=== PATIENT | female | born 1995 | race American Indian/Alaskan Native ===

== ENCOUNTER 2016-07-01 12:42 | Emergency (ER) | payer BC, MEDICAID ==
[2016-07-01 12:51] VITALS: BP 120/56
--- NOTE | 2016-07-01 13:15 | Emergency Department Report ---
Chief Complaint: Nausea/Vomiting/Diarrhea Stated Complaint: VOMITTING BLOOD/BACK PAIN /ABD PAIN Time Seen by Provider: 07/01/16 13:09 - HPI History of Present Illness: 21-year-old female presents today with vomiting times one week and vomiting blood 2 days. Positive for lower abdominal pain and burning upon urination. Denies chest pain, shortness breath, vaginal bleeding.` - ROS Review of Systems: Per HPI - Exam Vital Signs: Vital Signs 07/01/16 12:47 Temperature 98.3 F Pulse Rate 63 Respiratory 18 Rate Blood Pressure 120/56 O2 Sat by Pulse 100 Oximetry Physical Exam: General: 21-year-old female in no acute distress. Well-developed, well- nourished. CV: Regular rate and rhythm. Lungs: Clear to auscultation bilaterally. Abdomen: Tenderness to palpation of right upper quadrant. Minimal guarding. Normal bowel sounds. MSE screening note: Focused history and physical exam performed. Due to findings the following was ordered: ED Disposition for MSE Condition: Stable
[2016-07-01 13:43] LABS: Basophils % (Auto) 0.8 % (0.0-1.8); Eosinophils % (Auto) 2.3 % (0.0-4.3); Hematocrit 33.7 % (30.3-42.9); Hemoglobin 10.7 gm/dl (10.1-14.3); Mean Corpuscular HGB Conc 32 % (30-34); Mean Corpuscular Hemoglobin 27 pg (28-32); Mean Corpuscular Volume 85 fl (79-97); Platelet Count 220 K/mm3 (140-440); Red Blood Count 3.99 M/mm3 (3.65-5.03); Red Cell Distribution Width 17.9 % (13.2-15.2)
[2016-07-01 13:53] LABS: INR 1.17 (0.87-1.13)
[2016-07-01 13:54] LABS: Partial Thromboplastin Time 30.2 Sec. (24.2-36.6)
[2016-07-01 13:54] LABS: Bilirubin,Urine NEG (Negative); Blood,Urine NEG (Negative); Ketones,Urine NEG (Negative); Leukocyte Esterase,Urine NEG (Negative); Mucus,Urine 3+ /HPF; Nitrite,Urine NEG (Negative); Protein,Urine <15 mg/dL mg/dL (Negative); Urobilinogen,Urine < 2.0 mg/dL (<2.0)
[2016-07-01 14:00] LABS: Amylase 58 units/L (27-131); Anion Gap 18 mmol/L; Blood Urea Nitrogen 6 mg/dL (7-17); Calcium 8.9 mg/dL (8.4-10.2); Carbon Dioxide 23 mmol/L (22-30); Chloride 94.9 mmol/L (98-107); Glucose 78 mg/dL (65-100); Lipase 22 units/L (13-60); Potassium 3.7 mmol/L (3.6-5.0); Sodium 132 mmol/L (137-145)
--- NOTE | 2016-07-03 15:23 | ED Elopement Review ---
ED Pt Elopement review - Results review Lab results: Laboratory Tests 07/01/16 07/01/16 07/01/16 13:21 13:21 13:21 WBC 7.0 RBC 3.99 Hgb 10.7 Hct 33.7 MCV 85 MCH 27 L MCHC 32 RDW 17.9 H Plt Count 220 Lymph % (Auto) 35.2 H [place] % (Auto) 8.7 H Eos % (Auto) 2.3 Baso % (Auto) 0.8 Lymph # 2.5 [place] # 0.6 Eos # 0.2 Baso # 0.1 Seg Neutrophils % 53.0 Seg Neutrophils # 3.7 PT 14.8 INR 1.17 H APTT 30.2 Sodium 132 L Potassium 3.7 Chloride 94.9 L Carbon Dioxide 23 Anion Gap 18 BUN 6 L Creatinine 0.5 L Estimated GFR > 60 BUN/Creatinine Ratio 12.00 Glucose 78 Calcium 8.9 Amylase 58 Lipase 22 HCG, Quant Urine Color Urine Turbidity Urine pH Ur Specific [place] Urine Protein Urine Glucose (UA) Urine Ketones Urine Blood Urine Nitrite Ur Reducing Substances Urine Bilirubin Urine Ictotest Urine Urobilinogen Ur Leukocyte Esterase Urine WBC (Auto) Urine RBC (Auto) U Epithel Cells (Auto) Urine Mucus Urine HCG, Qual 07/01/16 07/01/16 13:30 14:43 WBC RBC Hgb Hct MCV MCH MCHC RDW Plt Count Lymph % (Auto) [place] % (Auto) Eos % (Auto) Baso % (Auto) Lymph # [place] # Eos # Baso # Seg Neutrophils % Seg Neutrophils # PT INR APTT Sodium Potassium Chloride Carbon Dioxide Anion Gap BUN Creatinine Estimated GFR BUN/Creatinine Ratio Glucose Calcium Amylase Lipase HCG, Quant 85506 H Urine Color Yellow Urine Turbidity Clear Urine pH 6.0 Ur Specific [place] 1.023 Urine Protein <15 mg/dl Urine Glucose (UA) Neg Urine Ketones Neg Urine Blood Neg Urine Nitrite Neg Ur Reducing Substances Not Reportable Urine Bilirubin Neg Urine Ictotest Not Reportable Urine Urobilinogen < 2.0 Ur Leukocyte Esterase Neg Urine WBC (Auto) 1.0 Urine RBC (Auto) 3.0 U Epithel Cells (Auto) 9.0 Urine Mucus 3+ Urine HCG, Qual Positive A - Call Back decision Pt Call Back Decision: No action required
== END 2016-07-01 18:26 | disposition left against medical advice (07) ==
LOC: ED 12:42
DX: K92.0 Hematemesis (principal); M54.9 Dorsalgia, unspecified; Z53.21 Procedure and treatment not carried out due to patient leaving prior to being seen by health care provider
CPT/HCPCS: 36415; 80048; 81001; 81025; 82150; 83690; 84702; 85025; 85610; 85730

== ENCOUNTER 2016-10-06 15:09 | Inpatient (IN) | payer BC ==
--- NOTE | 2016-10-06 15:44 | Event Note ---
Date: 10/06/16 Pt intially thought to be non clinic present in active seizure. Pt was given 2mg of ativan and 4mg magnesium bolus is currently going in.When I arrived at bedside, pt did have one seizure lasting less than 2 minutes. She currently is postictal but was able to tell provider her name, where she was, her edc and her pnc provider (keke Barboza). Provider construction driver Dr. Stallworth was called and report was given as she is en route to the hospital. As per support person present, pt had been having seizures "off and on" for the last hours. Ems was called at the onset of the activity. Pt denies any h/o sz and and currently just c/o headache and of feeling "hot." UDS, PIH labs, Magnesium, Ativan were all orders given by this provider. Dr. Stallworth will assume care of pt at this time and request hospitalist consultation as there is no neruo construction driver for this hospital.
[2016-10-06] MEDS ORDERED: MAGNESIUM SULFATE 40GM/1000ML 40 GM/1,000 ML BAG IV ONE (15:55)
--- NOTE | 2016-10-06 16:11 | History and Physical Report ---
History of Present Illness Date of examination: 10/06/16 Date of admission: 10/06/16 Chief complaint: seizures History of present illness: This is a 21 yo EDC 02/05/17 here via ambulance with seizure activity. She was brought in and given 4mg Ativan. She states that she has been fine until several days ago with pain in pelvic area and cousin stated that today at 2p she started shaking after c/o pain in pelvic abdominal area. She does not have any histroy of seiaure and only medical problem consists of asthma Past History Past Medical History: asthma Past Surgical History: section (x1 for failure to dilate ) Family/Genetic History: none Social history: single. denies: smoking, alcohol abuse, prescription drug abuse , IV drug use - Obstetrical History Expected Date of Delivery: 02/05/17 Actual Gestation: 22 Week(s) 4 Day(s) : 1 Para: 1 Medications and Allergies Allergies Allergy/AdvReac Type Severity Reaction Status Date / Time coconut oil Allergy Hives Verified 03/29/14 21:23 kiwi Allergy Hives Verified 03/29/14 21:23 Home Medications Medication Instructions Recorded Confirmed Last Taken Type Ferrous Sulfate [Feosol 325 MG tab] 325 mg PO BID #60 tablet 01/27/16 Unknown Rx Ibuprofen [Motrin 800 MG tab] 800 mg PO Q8HR PRN #30 tablet 01/27/16 Unknown Rx oxyCODONE /ACETAMINOPHEN [Percocet 1 tab PO Q6HR PRN #30 tablet 01/27/16 Unknown Rx 5/325] Review of Systems All systems: negative Constitutional: no weight loss Eyes: deferred Ears, nose, mouth and throat: deferred Breasts: deferred Genitourinary: pelvic pain Rectal Exam: deferred - Vital Signs Vital signs: Vital Signs Pulse Pulse Ox 110 H 76 L 10/06/16 15:10 10/06/16 15:10 Temp Pulse Resp BP Pulse Ox 96 H 126/76 99 10/06/16 16:01 10/06/16 16:01 10/06/16 15:58 - Physical Exam Breasts: Positive: deferred Cardiovascular: Regular rate, Normal S1 Lungs: Positive: Clear to auscultation Abdomen: Positive: normal appearance, soft, normal bowel sounds. Negative: distention, tenderness Genitourinary (Female): Positive: normal external genitalia, normal perenium Vulva: both: normal Vagina: Positive: normal moisture Uterus: Positive: normal size, normal contour Adnexa: both: normal Anus/Rectum: Positive: normal perianal skin, heme negative Extremities: Positive: normal Deep Tendon Reflex Grade: Normal but brisk +3 - Obstetrical FHR: auscultation normal Results All other labs normal. Assessment and Plan A/P HD#1 seizure activity 22 weeks , assess for eclampsia 1. s/p ativan 4mg 2. on Mag for preeclampsia 3. PIH labs stat 4. US bedside to assess well being 5. internal med consult ( no neuro available-talked to Dr. Carrillo) 6. MFM referral consult placed 7. if continued with seizure may consider Kepra 1g over 30 min infusion ) and consider MRI without contrast
[2016-10-06] MEDS ORDERED: MYLICON PO PRN (16:16)
[2016-10-06] MEDS ORDERED: BENADRYL PO PRN (16:16)
[2016-10-06] MEDS ORDERED: SENOKOT S PO PRN (16:16)
[2016-10-06] MEDS ORDERED: SUDAFED PO PRN (16:16)
[2016-10-06] MEDS ORDERED: COLACE PO PRN (16:16)
[2016-10-06] MEDS ORDERED: TYLENOL PO PRN (16:16)
[2016-10-06] MEDS ORDERED: ALUM-MAG HYDROX-SIMETH 200-200-20MG/5ML PO PRN (16:16)
[2016-10-06] MEDS ORDERED: DEEP SEA NS PRN (16:16)
[2016-10-06] MEDS ORDERED: MILK OF MAGNESIA PO PRN (16:16)
[2016-10-06 17:14] LABS: Basophils % (Auto) 0.3 % (0.0-1.8); Eosinophils % (Auto) 0.8 % (0.0-4.3); Hemoglobin 10.2 gm/dl (10.1-14.3); Mean Corpuscular HGB Conc 33 % (30-34); Mean Corpuscular Hemoglobin 29 pg (28-32); Mean Corpuscular Volume 88 fl (79-97); Platelet Count 184 K/mm3 (140-440); Red Blood Count 3.51 M/mm3 (3.65-5.03); Red Cell Distribution Width 14.3 % (13.2-15.2); White Blood Count 10.2 K/mm3 (4.5-11.0)
[2016-10-06 17:23] LABS: Bilirubin,Urine NEG (Negative); Blood,Urine NEG (Negative); Ketones,Urine 20 mg/dL (Negative); Leukocyte Esterase,Urine NEG (Negative); Mucus,Urine FEW /HPF; Nitrite,Urine NEG (Negative); Protein,Urine <15 mg/dL mg/dL (Negative); RBC,Urine < 1.0 /HPF (0.0-6.0); Urobilinogen,Urine < 2.0 mg/dL (<2.0); WBC,Urine < 1.0 /HPF (0.0-6.0)
[2016-10-06 17:30] LABS: Alanine Aminotransferase 7 units/L (7-56); Lactate Dehydrogenase 146 units/L (91-180); Uric Acid 3.1 mg/dL (3.5-7.6)
[2016-10-06 19:33] LABS: Urine Drugs of Abuse Note Disclamer
[2016-10-06] MEDS ORDERED: MAGNESIUM SULFATE 4GM/100ML 4 GM/100 ML BAG IV ONE (19:42)
--- NOTE | 2016-10-06 23:46 | Ultrasound Report ---
FINAL REPORT PROCEDURE: US OB LIMITED TECHNIQUE: Real-time limited sonographic examination was performed for evaluation of size, position, heartbeat, fluid volume for each fetus with image documentation (1 or more fetuses). CPT 06959 HISTORY: leaking fluid ([place]) COMPARISON: No prior studies are available for comparison. FINDINGS: Amniotic fluid index is 2.3 centimeters consistent with oligohydramnios. heart rate is 118 beats per minute. IMPRESSION: Amniotic fluid index is 2.3 centimeters consistent with oligohydramnios. heart rate is 118 beats per minute.
--- NOTE | 2016-10-06 23:54 | Consultation ---
History of Present Illness - Reason for Consult Consult date: 10/06/16 MEDICAL MANAGEMENT Requesting physician: BYRON SOL - History of Present Illness 21 y/o AAF female with 20 weeks brought in for new onset Seizure activity.Patient,s seizure activity consisted of shaking and blinking her eyes.No post ictal state.No LOC.No tongue biting.No Sob.No fever or chills. Past History Past Medical History: No medical history Past Surgical History: Other (c sectionx1) Social history: single, lives with family, other (THC use). denies: smoking, alcohol abuse, prescription drug abuse, IV drug use Medications and Allergies Allergies Allergy/AdvReac Type Severity Reaction Status Date / Time coconut oil Allergy Hives Verified 03/29/14 21:23 kiwi Allergy Hives Verified 03/29/14 21:23 Home Medications Medication Instructions Recorded Confirmed Last Taken Type Ferrous Sulfate [Feosol 325 MG tab] 325 mg PO BID #60 tablet 01/27/16 10/06/16 Unknown Rx Ibuprofen [Motrin 800 MG tab] 800 mg PO Q8HR PRN #30 tablet 01/27/16 10/06/16 Unknown Rx oxyCODONE /ACETAMINOPHEN [Percocet 1 tab PO Q6HR PRN #30 tablet 01/27/16 Unknown Rx 5/325] Vit W-Ca,Fe,FA(<1 mg) 1 each PO DAILY 10/06/16 10/06/16 10/04/16 08:00 History [ Vitamins] Active Meds: Active Medications Acetaminophen (Tylenol) 650 mg PO Q4H PRN PRN Reason: Pain MILD(1-3)/Fever >100.5/PINO Al Hydrox/Mg Hydrox/Simethicone (Alum-Mag Hydrox-Simeth [phone]/5ml) 30 ml PO Q6H PRN PRN Reason: Indigestion Diphenhydramine HCl (Benadryl) 25 mg PO Q6H PRN PRN Reason: Itching Docusate Sodium (Colace) 100 mg PO Q12H PRN PRN Reason: Constipation Lactated Ringer's (Lactated Ringers) 1,000 mls @ 125 mls/hr IV DIRECT ALEX Magnesium Hydroxide (Milk Of Magnesia) 30 ml PO QHS PRN PRN Reason: Laxative Effect Multivitamins/Iron/Calcium ( Vitamin) 1 each PO QDAY ALEX Ondansetron HCl (Zofran) 4 mg IV Q6H PRN PRN Reason: Nausea And Vomiting Pseudoephedrine HCl (Sudafed) 30 mg PO Q4H PRN PRN Reason: Nasal Congestion Senna/Docusate Sodium (Senokot S) 2 tab PO Q12H PRN PRN Reason: Laxative Effect Simethicone (Mylicon) 80 mg PO Q6H PRN PRN Reason: Gas pain Sodium Chloride (Deep Sea) 2 spray NS Q4H PRN PRN Reason: Congestion Zolpidem Tartrate (Ambien) 10 mg PO ONCE PRN PRN Reason: Sleep Review of Systems All systems: negative Exam - Constitutional Vitals: Temp Pulse Resp BP Pulse Ox 75 101/51 100 10/06/16 23:45 10/06/16 23:45 10/06/16 23:36 General appearance: Present: no acute distress, well-nourished - EENT Eyes: Present: PERRL ENT: hearing intact, clear oral mucosa - Neck Neck: Present: supple, normal ROM - Respiratory Respiratory effort: normal Respiratory: bilateral: CTA - Cardiovascular Heart rate: 70 Rhythm: regular Heart Sounds: Present: S1 & S2. Absent: rub, click - Extremities Extremities: pulses intact, pulses symmetrical, No edema Peripheral Pulses: within normal limits - Abdominal General gastrointestinal: Present: soft, non-tender, non-distended, normal bowel sounds Female genitourinary: Present: normal - Integumentary Integumentary: Present: clear, warm, dry - Musculoskeletal Musculoskeletal: gait normal, strength equal bilaterally - Psychiatric Psychiatric: appropriate mood/affect, intact judgment & insight, memory intact, cooperative, agitated - Neurologic Neurologic: CNII-XII intact, moves all extremities - Allied Health Allied health notes reviewed: nursing Results - Labs CBC & Chem 7: 10/06/16 16:30 10/06/16 16:30 Labs: Abnormal lab results 10/06/16 10/06/16 10/06/16 Range/Units 16:30 16:30 16:30 RBC 3.51 L (3.65-5.03) M/mm3 Seg Neutrophils % 74.3 H (40.0-70.0) % Creatinine 0.3 L (0.7-1.2) mg/dL Uric Acid 3.1 L (3.5-7.6) mg/dL Magnesium 4.20 H (1.7-2.3) mg/dL Assessment and Plan - Patient Problems (1) Seizure disorder Current Visit: Yes Status: Acute Plan to address problem: Not consistent with Tonic clonic seizures.No post ictal state. Patient under lot of stress.C/W conversion reaction. Will start Ativan 1 mg q4 prn.No Keppra at this point.Will also consult Neurology.May be discharged on po Ativan 0.5 mg po qid.
[2016-10-07] MEDS: LACTATED RINGERS 1,000 ML IV SCH ×2 (01:00→13:47)
[2016-10-07] MEDS ORDERED: NITRATEST PAPER MC ONE (06:18)
--- NOTE | 2016-10-07 07:55 | Progress Note ---
Assessment and Plan A/P HD#2 seizure activity 22 weeks , PPROM 1. s/p ativan 4mg on keppra ( no seizure activity since yesterday) 2. on Mag for preeclampsia 3. PIH labs normal 4. US shows decreased fluid from 17 to 2cm ferning + nitrazine equicvocal 5. await neuro consult 6. d/w Dr. Mixon recommneded latency abx amp and erythro 7. MFM evaluationof patient now 8. NICCu consult for 22 weeks counseling Subjective - Subjective Date of service: 10/07/16 Principal diagnosis: 22+4 weeks IUP, seizure disorder, PPROM Interval history: This is a 21 yo EDC 02/05/17 here via ambulance with seizure activity. She was brought in and given 4mg Ativan. She states that she has been fine until several days ago with pain in pelvic area and cousin stated that today at 2p she started shaking after c/o pain in pelvic abdominal area. She does not have any histroy of seiaure and only medical problem consists of asthma Patient reports: loss of fluid, vaginal bleeding, movement normal, contractions Objective - Vital Signs Vital Signs: Vital Signs - 12hr 10/06/16 10/06/16 10/06/16 20:00 20:15 20:31 Temperature Pulse Rate 80 80 76 Respiratory Rate Blood Pressure 103/53 101/58 104/56 O2 Sat by Pulse Oximetry 10/06/16 10/06/16 10/06/16 20:36 20:41 20:46 Temperature Pulse Rate 88 83 71 Respiratory Rate Blood Pressure O2 Sat by Pulse 98 99 99 Oximetry 10/06/16 10/06/16 10/06/16 20:47 20:51 20:56 Temperature Pulse Rate 75 73 67 Respiratory Rate Blood Pressure 104/57 O2 Sat by Pulse 99 99 Oximetry 10/06/16 10/06/16 10/06/16 21:00 21:01 21:06 Temperature Pulse Rate 71 75 76 Respiratory Rate Blood Pressure 111/58 O2 Sat by Pulse 99 98 Oximetry 10/06/16 10/06/16 10/06/16 21:11 21:16 21:17 Temperature Pulse Rate 79 79 78 Respiratory Rate Blood Pressure 102/55 O2 Sat by Pulse 98 98 Oximetry 10/06/16 10/06/16 10/06/16 21:21 21:26 21:30 Temperature Pulse Rate 73 68 71 Respiratory Rate Blood Pressure 109/63 O2 Sat by Pulse 99 100 Oximetry 10/06/16 10/06/16 10/06/16 21:31 21:36 21:41 Temperature Pulse Rate 66 67 80 Respiratory Rate Blood Pressure O2 Sat by Pulse 100 100 100 Oximetry 10/06/16 10/06/16 10/06/16 21:46 21:49 21:51 Temperature Pulse Rate 80 87 76 Respiratory Rate Blood Pressure 117/66 O2 Sat by Pulse 100 77 L 100 Oximetry 10/06/16 10/06/16 10/06/16 21:56 22:00 22:01 Temperature Pulse Rate 71 72 83 Respiratory Rate Blood Pressure 110/60 O2 Sat by Pulse 100 100 Oximetry 10/06/16 10/06/16 10/06/16 22:06 22:11 22:15 Temperature Pulse Rate 72 71 74 Respiratory Rate Blood Pressure 105/56 O2 Sat by Pulse 100 100 Oximetry 10/06/16 10/06/16 10/06/16 22:16 22:21 22:26 Temperature Pulse Rate 74 79 71 Respiratory Rate Blood Pressure O2 Sat by Pulse 100 100 100 Oximetry 10/06/16 10/06/16 10/06/16 22:30 22:31 22:36 Temperature Pulse Rate 77 78 78 Respiratory Rate Blood Pressure 109/59 O2 Sat by Pulse 99 99 Oximetry 10/06/16 10/06/16 10/06/16 22:41 22:45 22:46 Temperature Pulse Rate 89 77 71 Respiratory Rate Blood Pressure 116/67 O2 Sat by Pulse 99 100 Oximetry 10/06/16 10/06/16 10/06/16 22:51 22:56 23:00 Temperature Pulse Rate 84 78 64 Respiratory Rate Blood Pressure 112/57 O2 Sat by Pulse 100 100 Oximetry 10/06/16 10/06/16 10/06/16 23:01 23:06 23:11 Temperature Pulse Rate 65 68 68 Respiratory Rate Blood Pressure O2 Sat by Pulse 100 100 100 Oximetry 10/06/16 10/06/16 10/06/16 23:15 23:16 23:21 Temperature Pulse Rate 68 84 70 Respiratory Rate Blood Pressure 116/58 O2 Sat by Pulse 100 100 Oximetry 10/06/16 10/06/16 10/06/16 23:26 23:30 23:31 Temperature Pulse Rate 75 83 68 Respiratory Rate Blood Pressure 109/55 O2 Sat by Pulse 99 99 Oximetry 10/06/16 10/06/16 10/06/16 23:33 23:36 23:45 Temperature Pulse Rate 64 61 75 Respiratory Rate Blood Pressure 101/51 O2 Sat by Pulse 85 100 Oximetry 10/07/16 10/07/16 10/07/16 00:00 00:15 00:30 Temperature 98.8 F Pulse Rate 69 68 72 Respiratory 20 Rate Blood Pressure 98/54 93/51 96/53 O2 Sat by Pulse Oximetry 10/07/16 10/07/16 10/07/16 00:45 01:00 01:15 Temperature Pulse Rate 77 71 67 Respiratory Rate Blood Pressure 93/54 99/57 97/54 O2 Sat by Pulse Oximetry 10/07/16 10/07/16 10/07/16 01:30 01:45 02:00 Temperature Pulse Rate 80 72 70 Respiratory Rate Blood Pressure 97/54 101/53 101/52 O2 Sat by Pulse Oximetry 10/07/16 10/07/16 10/07/16 02:15 02:30 02:45 Temperature Pulse Rate 80 82 78 Respiratory Rate Blood Pressure 103/57 104/56 101/54 O2 Sat by Pulse Oximetry 10/07/16 10/07/16 10/07/16 02:52 02:57 03:00 Temperature Pulse Rate 76 74 76 Respiratory Rate Blood Pressure 93/51 O2 Sat by Pulse 99 99 Oximetry 10/07/16 10/07/16 10/07/16 03:02 03:07 03:12 Temperature Pulse Rate 75 86 80 Respiratory Rate Blood Pressure O2 Sat by Pulse 98 99 99 Oximetry 10/07/16 10/07/16 10/07/16 03:15 03:17 03:22 Temperature Pulse Rate 76 71 74 Respiratory Rate Blood Pressure 97/54 O2 Sat by Pulse 99 98 Oximetry 10/07/16 10/07/16 10/07/16 03:27 03:30 03:32 Temperature Pulse Rate 72 72 74 Respiratory Rate Blood Pressure 100/51 O2 Sat by Pulse 98 98 Oximetry 10/07/16 10/07/16 10/07/16 03:37 03:42 03:45 Temperature Pulse Rate 70 74 80 Respiratory Rate Blood Pressure 95/51 O2 Sat by Pulse 98 100 Oximetry 10/07/16 10/07/16 10/07/16 03:47 03:52 03:57 Temperature Pulse Rate 79 79 80 Respiratory Rate Blood Pressure O2 Sat by Pulse 100 100 100 Oximetry 10/07/16 10/07/16 10/07/16 04:00 04:02 04:07 Temperature 98.2 F Pulse Rate 83 84 79 Respiratory 20 Rate Blood Pressure 93/54 O2 Sat by Pulse 100 100 Oximetry 10/07/16 10/07/16 10/07/16 04:12 04:15 04:17 Temperature Pulse Rate 85 85 89 Respiratory Rate Blood Pressure 99/50 O2 Sat by Pulse 100 100 Oximetry 10/07/16 10/07/16 10/07/16 04:22 04:27 04:30 Temperature Pulse Rate 82 75 79 Respiratory Rate Blood Pressure 106/52 O2 Sat by Pulse 100 100 94 Oximetry 10/07/16 10/07/16 10/07/16 04:32 04:37 04:42 Temperature Pulse Rate 77 73 79 Respiratory Rate Blood Pressure O2 Sat by Pulse 94 96 94 Oximetry 10/07/16 10/07/16 10/07/16 04:45 04:47 04:52 Temperature Pulse Rate 76 76 71 Respiratory Rate Blood Pressure 100/55 O2 Sat by Pulse 96 94 Oximetry 10/07/16 10/07/16 10/07/16 04:57 05:00 05:02 Temperature Pulse Rate 77 75 81 Respiratory Rate Blood Pressure 106/58 O2 Sat by Pulse 96 97 Oximetry 10/07/16 10/07/16 10/07/16 05:07 05:12 05:15 Temperature Pulse Rate 88 82 77 Respiratory Rate Blood Pressure 96/53 O2 Sat by Pulse 96 96 Oximetry 10/07/16 10/07/16 10/07/16 05:17 05:22 05:27 Temperature Pulse Rate 85 82 82 Respiratory Rate Blood Pressure O2 Sat by Pulse 96 96 95 Oximetry 10/07/16 10/07/16 10/07/16 05:30 05:31 05:32 Temperature Pulse Rate 81 80 80 Respiratory Rate Blood Pressure 94/52 O2 Sat by Pulse 94 95 Oximetry 10/07/16 10/07/16 10/07/16 05:37 05:42 05:45 Temperature Pulse Rate 77 81 82 Respiratory Rate Blood Pressure 100/53 O2 Sat by Pulse 95 95 Oximetry 10/07/16 10/07/16 10/07/16 05:47 05:48 05:52 Temperature Pulse Rate 79 79 79 Respiratory Rate Blood Pressure O2 Sat by Pulse 96 94 96 Oximetry 10/07/16 10/07/16 10/07/16 06:00 06:01 06:14 Temperature Pulse Rate 71 72 75 Respiratory Rate Blood Pressure 100/52 102/50 O2 Sat by Pulse 94 Oximetry 10/07/16 10/07/16 10/07/16 06:15 06:16 06:20 Temperature Pulse Rate 77 77 79 Respiratory Rate Blood Pressure 107/54 O2 Sat by Pulse 95 95 Oximetry 10/07/16 10/07/16 10/07/16 06:23 06:25 06:29 Temperature Pulse Rate 74 78 88 Respiratory Rate Blood Pressure O2 Sat by Pulse 94 95 94 Oximetry 10/07/16 10/07/16 10/07/16 06:30 06:35 06:40 Temperature Pulse Rate 82 94 H 86 Respiratory Rate Blood Pressure 104/53 O2 Sat by Pulse 95 93 98 Oximetry 10/07/16 10/07/16 10/07/16 06:45 06:50 06:55 Temperature Pulse Rate 85 94 H 79 Respiratory Rate Blood Pressure 104/59 O2 Sat by Pulse 99 100 99 Oximetry 10/07/16 10/07/16 10/07/16 07:00 07:05 07:10 Temperature Pulse Rate 84 82 98 H Respiratory Rate Blood Pressure 103/55 O2 Sat by Pulse 99 99 99 Oximetry 10/07/16 10/07/16 10/07/16 07:15 07:20 07:25 Temperature Pulse Rate 75 72 80 Respiratory Rate Blood Pressure 114/62 O2 Sat by Pulse 100 100 100 Oximetry 10/07/16 10/07/16 10/07/16 07:30 07:31 07:35 Temperature Pulse Rate 75 80 69 Respiratory Rate Blood Pressure 114/56 O2 Sat by Pulse 100 98 Oximetry 10/07/16 10/07/16 07:40 07:45 Temperature Pulse Rate 77 77 Respiratory Rate Blood Pressure 112/59 O2 Sat by Pulse 98 100 Oximetry - Exam Breasts: deferred Cardiovascular: Regular rate, Normal S1, Normal S2 Lungs: Clear to auscultation, Normal air movement Abdomen: Present: normal appearance, soft, normal bowel sounds. Absent: distention, tenderness, guarding Vulva: both: normal Uterus: Present: normal, firm. Absent: bogginess, tenderness FHR: auscultation normal - Labs Labs: Abnormal Labs 10/06/16 10/06/16 10/06/16 16:30 16:30 16:30 RBC 3.51 L Seg Neutrophils % 74.3 H Creatinine 0.3 L Uric Acid 3.1 L Magnesium 4.20 H 10/06/16 23:39 RBC Seg Neutrophils % Creatinine Uric Acid Magnesium 5.90 H Laboratory Results - last 24 hr 10/06/16 10/06/16 10/06/16 15:25 16:30 16:30 WBC 10.2 RBC 3.51 L Hgb 10.2 Hct 31.0 MCV 88 MCH 29 MCHC 33 RDW 14.3 Plt Count 184 Lymph % (Auto) 17.3 [place] % (Auto) 7.3 Eos % (Auto) 0.8 Baso % (Auto) 0.3 Lymph # 1.8 [place] # 0.7 Eos # 0.1 Baso # 0.0 Seg Neutrophils % 74.3 H Seg Neutrophils # 7.6 Creatinine 0.3 L Estimated GFR > 60 POC Glucose 70 Uric Acid 3.1 L Magnesium AST 11 ALT 7 Lactate Dehydrogenase 146 Urine Color Urine Turbidity Urine pH Ur Specific [place] Urine Protein Urine Glucose (UA) Urine Ketones Urine Blood Urine Nitrite Urine Bilirubin Urine Urobilinogen Ur Leukocyte Esterase Urine WBC (Auto) Urine RBC (Auto) U Epithel Cells (Auto) Urine Mucus Urine Opiates Screen Urine Methadone Screen Ur Barbiturates Screen Ur Phencyclidine Scrn Ur Amphetamines Screen U Benzodiazepines Scrn Urine Cocaine Screen U Marijuana (THC) Screen Drugs of Abuse Note Blood Type Antibody Screen SHANICE Antibody Screen 10/06/16 10/06/16 10/06/16 16:30 16:30 16:45 WBC RBC Hgb Hct MCV MCH MCHC RDW Plt Count Lymph % (Auto) [place] % (Auto) Eos % (Auto) Baso % (Auto) Lymph # [place] # Eos # Baso # Seg Neutrophils % Seg Neutrophils # Creatinine Estimated GFR POC Glucose Uric Acid Magnesium 4.20 H AST ALT Lactate Dehydrogenase Urine Color Yellow Urine Turbidity Clear Urine pH 7.0 Ur Specific [place] 1.013 Urine Protein <15 mg/dl Urine Glucose (UA) Neg Urine Ketones 20 Urine Blood Neg Urine Nitrite Neg Urine Bilirubin Neg Urine Urobilinogen < 2.0 Ur Leukocyte Esterase Neg Urine WBC (Auto) < 1.0 Urine RBC (Auto) < 1.0 U Epithel Cells (Auto) < 1.0 Urine Mucus Few Urine Opiates Screen Urine Methadone Screen Ur Barbiturates Screen Ur Phencyclidine Scrn Ur Amphetamines Screen U Benzodiazepines Scrn Urine Cocaine Screen U Marijuana (THC) Screen Drugs of Abuse Note Blood Type A POSITIVE Antibody Screen TNR SHANICE Antibody Screen Negative 10/06/16 10/06/16 16:45 23:39 WBC RBC Hgb Hct MCV MCH MCHC RDW Plt Count Lymph % (Auto) [place] % (Auto) Eos % (Auto) Baso % (Auto) Lymph # [place] # Eos # Baso # Seg Neutrophils % Seg Neutrophils # Creatinine Estimated GFR POC Glucose Uric Acid Magnesium 5.90 H AST ALT Lactate Dehydrogenase Urine Color Urine Turbidity Urine pH Ur Specific [place] Urine Protein Urine Glucose (UA) Urine Ketones Urine Blood Urine Nitrite Urine Bilirubin Urine Urobilinogen Ur Leukocyte Esterase Urine WBC (Auto) Urine RBC (Auto) U Epithel Cells (Auto) Urine Mucus Urine Opiates Screen Presumptive negative Urine Methadone Screen Presumptive negative Ur Barbiturates Screen Presumptive negative Ur Phencyclidine Scrn Presumptive negative Ur Amphetamines Screen Presumptive negative U Benzodiazepines Scrn Presumptive negative Urine Cocaine Screen Presumptive negative U Marijuana (THC) Screen Presumptive positive Drugs of Abuse Note Disclamer Blood Type Antibody Screen SHANICE Antibody Screen
--- NOTE | 2016-10-07 08:15 | Consultation ---
History of Present Illness - Reason for Consult Consult date: 10/07/16 22wk, seizure activity, PPROM Requesting physician: BYRON SOL Past History Past Medical History: No medical history Past Surgical History: Other (c sectionx1) Social history: single, lives with family, other (THC use). denies: smoking, alcohol abuse, prescription drug abuse, IV drug use Medications and Allergies Allergies Allergy/AdvReac Type Severity Reaction Status Date / Time coconut oil Allergy Hives Verified 03/29/14 21:23 kiwi Allergy Hives Verified 03/29/14 21:23 Home Medications Medication Instructions Recorded Confirmed Last Taken Type Ferrous Sulfate [Feosol 325 MG tab] 325 mg PO BID #60 tablet 01/27/16 10/06/16 Unknown Rx Ibuprofen [Motrin 800 MG tab] 800 mg PO Q8HR PRN #30 tablet 01/27/16 10/06/16 Unknown Rx oxyCODONE /ACETAMINOPHEN [Percocet 1 tab PO Q6HR PRN #30 tablet 01/27/16 Unknown Rx 5/325] Vit W-Ca,Fe,FA(<1 mg) 1 each PO DAILY 10/06/16 10/06/16 10/04/16 08:00 History [ Vitamins] Active Meds: Active Medications Acetaminophen (Tylenol) 650 mg PO Q4H PRN PRN Reason: Pain MILD(1-3)/Fever >100.5/PINO Al Hydrox/Mg Hydrox/Simethicone (Alum-Mag Hydrox-Simeth [phone]/5ml) 30 ml PO Q6H PRN PRN Reason: Indigestion Diphenhydramine HCl (Benadryl) 25 mg PO Q6H PRN PRN Reason: Itching Docusate Sodium (Colace) 100 mg PO Q12H PRN PRN Reason: Constipation Lactated Ringer's (Lactated Ringers) 1,000 mls @ 125 mls/hr IV DIRECT ALEX Last Admin: 10/07/16 01:00 Dose: 100 mls/hr Ampicillin Sodium (Polycillin/Ns 2 Gm/100 Ml) 2 gm in 100 mls @ 100 mls/hr IV Q6HR [facility] Stop: 10/09/16 00:59 Erythromycin Lactobionate 250 (mg/ Sodium Chloride) 100 mls @ 100 mls/hr IV Q6HR [facility] Stop: 10/09/16 00:59 Lorazepam (Ativan) 1 mg IV Q4H PRN PRN Reason: Seizures Magnesium Hydroxide (Milk Of Magnesia) 30 ml PO QHS PRN PRN Reason: Laxative Effect Multivitamins/Iron/Calcium ( Vitamin) 1 each PO QDAY [facility] Ondansetron HCl (Zofran) 4 mg IV Q6H PRN PRN Reason: Nausea And Vomiting Pseudoephedrine HCl (Sudafed) 30 mg PO Q4H PRN PRN Reason: Nasal Congestion Senna/Docusate Sodium (Senokot S) 2 tab PO Q12H PRN PRN Reason: Laxative Effect Simethicone (Mylicon) 80 mg PO Q6H PRN PRN Reason: Gas pain Sodium Chloride (Deep Sea) 2 spray NS Q4H PRN PRN Reason: Congestion Zolpidem Tartrate (Ambien) 10 mg PO ONCE PRN PRN Reason: Sleep Exam - Constitutional Vitals: Temp Pulse Resp BP Pulse Ox 98.2 F 76 20 111/60 97 10/07/16 04:00 10/07/16 08:10 10/07/16 04:00 10/07/16 08:01 10/07/16 08:10 Results - Labs CBC & Chem 7: 10/06/16 16:30 10/06/16 16:30 Labs: Abnormal lab results 10/06/16 10/06/16 10/06/16 Range/Units 16:30 16:30 16:30 RBC 3.51 L (3.65-5.03) M/mm3 Seg Neutrophils % 74.3 H (40.0-70.0) % Creatinine 0.3 L (0.7-1.2) mg/dL Uric Acid 3.1 L (3.5-7.6) mg/dL Magnesium 4.20 H (1.7-2.3) mg/dL 10/06/16 10/07/16 Range/Units 23:39 07:28 RBC (3.65-5.03) M/mm3 Seg Neutrophils % (40.0-70.0) % Creatinine (0.7-1.2) mg/dL Uric Acid (3.5-7.6) mg/dL Magnesium 5.90 H 4.50 H (1.7-2.3) mg/dL Assessment and Plan Pt. seen. Full consult to follow in paper chart. No additional recommendations at this time.
--- NOTE | 2016-10-07 08:22 | Ultrasound Report ---
Gestation: Single Position: Breech Amniotic Fluid: JEREMIE = 17.2 cm Placenta: Fundal Placental Grade: 0 Heart Rate: 130 BPM Cervical length: 3.5 cm (Normal > 3 cm) NEUROANATOMY VISUALIZED: Normal Choroid Plexus Cisterna Magnum Cerebellum Lateral Ventricle ANATOMY VISUALIZED: Normal Stomach Kidneys Bladder Diaphragm 4 Chamber Heart Heart 3 Vessel Cord Abd. Cord Insert The following are not demonstrated due to maternal body habitus or lie: Spine BPD: 5.4 cm = 22 w 4 d HC: 21.2 cm = 23 w 2 d AC: 19.41 cm = 24 w 1 d FL: 3.7 cm = 21 w 6 d HC/AC Ratio: 1.1 Cephalic Index: 73.1 Estimated Weight: 563 grams LMP: 05/01/16 Clinical age = 22 w 4 d EDC: 02/05/17 US Gest. Age = 23 w 0 d EDC: 02/02/17
[2016-10-07] MEDS: ERYTHROMYCIN LACTOBIONATE 250 MG in NACL 0.9% 100 ML IV SCH ×4 (10:36→23:59)
[2016-10-07] MEDS: TYLENOL PO PRN ×2 (10:40→18:39)
[2016-10-07] MEDS: POLYCILLIN/NS 2 GM/100 ML 2 GM/100 ML BAG IV SCH ×3 (10:44→19:53)
[2016-10-07] MEDS: PRENATAL VITAMIN PO SCH (10:45)
--- NOTE | 2016-10-07 11:06 | Event Note ---
Date: 10/07/16 Hospitalist consulted for seizures in . Hospitalist, Dr. Carrillo consulted Neurology for this and they should manage it. Hospitalist will sign off. Recommendations per Neurologist.
--- NOTE | 2016-10-07 12:30 | Consultation ---
History of Present Illness Consult date: 10/07/16 Requesting physician: NICOLAS STEPHENSON Reason for Consult: seizure? Chief complaint: headache and contractions. History of present illness: 21 YO F 22 weeks gestation a/w report of "active seizure" on 10/06 for which she received Ativan. Pt denies any prior seizure diagnosis. Pt denies personal hx of head trauma, childhood or adult seizures, meningitis or encephalitis. Similarly pt does not have a FHx of seizure d/o. Report of "seizure" is documented as "shaking and blinking her eyes" lasting 2 mins and one physician noted "No post ictal state" while another reports post ictal state. Pt is not clear of either of these. She only complains to me of headache w/ pulsation gradually worsening over 1 day assoc w/ N and photo/phonophobia. Abiel reports feeling hot but no objective fever and no neck stiffness. Past History Past Medical History: No medical history Past Surgical History: Other (c sectionx1) Social history: single, lives with family, other (THC use). denies: smoking, alcohol abuse, prescription drug abuse, IV drug use Medications and Allergies Allergies Allergy/AdvReac Type Severity Reaction Status Date / Time coconut oil Allergy Hives Verified 03/29/14 21:23 kiwi Allergy Hives Verified 03/29/14 21:23 Home Medications Medication Instructions Recorded Confirmed Last Taken Type Ferrous Sulfate [Feosol 325 MG tab] 325 mg PO BID #60 tablet 01/27/16 10/06/16 Unknown Rx Ibuprofen [Motrin 800 MG tab] 800 mg PO Q8HR PRN #30 tablet 01/27/16 10/06/16 Unknown Rx oxyCODONE /ACETAMINOPHEN [Percocet 1 tab PO Q6HR PRN #30 tablet 01/27/16 Unknown Rx 5/325] Vit W-Ca,Fe,FA(<1 mg) 1 each PO DAILY 10/06/16 10/06/16 10/04/16 08:00 History [ Vitamins] Active Meds: Active Medications Acetaminophen (Tylenol) 1,000 mg PO Q6H PRN PRN Reason: Pain, Mild (1-3) Last Admin: 10/07/16 10:40 Dose: 1,000 mg Al Hydrox/Mg Hydrox/Simethicone (Alum-Mag Hydrox-Simeth [phone]/5ml) 30 ml PO Q6H PRN PRN Reason: Indigestion Diphenhydramine HCl (Benadryl) 25 mg PO Q6H PRN PRN Reason: Itching Docusate Sodium (Colace) 100 mg PO Q12H PRN PRN Reason: Constipation Lactated Ringer's (Lactated Ringers) 1,000 mls @ 125 mls/hr IV DIRECT [facility] Last Admin: 10/07/16 01:00 Dose: 100 mls/hr Ampicillin Sodium (Polycillin/Ns 2 Gm/100 Ml) 2 gm in 100 mls @ 100 mls/hr IV Q6HR [facility] Stop: 10/09/16 00:59 Last Admin: 10/07/16 10:44 Dose: 100 mls/hr Erythromycin Lactobionate 250 (mg/ Sodium Chloride) 100 mls @ 100 mls/hr IV Q6HR [facility] Stop: 10/09/16 00:59 Last Admin: 10/07/16 10:36 Dose: 100 mls/hr Lorazepam (Ativan) 1 mg IV Q4H PRN PRN Reason: Seizures Magnesium Hydroxide (Milk Of Magnesia) 30 ml PO QHS PRN PRN Reason: Laxative Effect Multivitamins/Iron/Calcium ( Vitamin) 1 each PO QDAY [facility] Last Admin: 10/07/16 10:45 Dose: 1 each Ondansetron HCl (Zofran) 4 mg IV Q6H PRN PRN Reason: Nausea And Vomiting Pseudoephedrine HCl (Sudafed) 30 mg PO Q4H PRN PRN Reason: Nasal Congestion Senna/Docusate Sodium (Senokot S) 2 tab PO Q12H PRN PRN Reason: Laxative Effect Simethicone (Mylicon) 80 mg PO Q6H PRN PRN Reason: Gas pain Sodium Chloride (Deep Sea) 2 spray NS Q4H PRN PRN Reason: Congestion Zolpidem Tartrate (Ambien) 10 mg PO ONCE PRN PRN Reason: Sleep Review of Systems All systems: negative Constitutional: weight gain, fatigue, weakness, malaise, lethargy Genitourinary Female: other (contractions) Neurological: headaches, no head injury, no transient paralysis, no paralysis, no weakness, no parathesias, no numbness, no tingling, no seizures, no syncope, no tremors, no lack of coordination, no migraines, no convulsions, no aphasia, no change in speech, no change in mentation, no confusion, no changes in smell/ taste, no balance difficulties, no gait dysfunction, no motor disturbance, no sensory deficit, no double vision, no loss of vision Physical Examination - Vital Signs Vital Signs: Vital Signs Pulse Pulse Ox 110 H 76 L 10/06/16 15:10 10/06/16 15:10 - Constitutional General appearance: uncomfortable - EENT EENT: Present: ATNC, PERRL, mucous membranes moist, hearing intact, vision intact - Respiratory Respiratory: Present: chest non-tender, normal breath sounds, no respiratory distress - Cardiovascular Cardiovascular: Present: regular rate Extremities: Present: no peripheral edema bilatateraly, no clubbing, cyanosis, no inflammation, no ischemia or petechiae - Gastrointestinal Gastrointestinal: Present: normoactive bowel sounds, soft, non-distended - Integumentary Integumentary: Present: normal - Neurologic Cranial nerve examination: PERRL, EOMI, VFF, V1/V2/V3 grossly intact, face symmetric, tongue midline, intact, Intact Vestibulo-ocular r, intact corneal reflex, normal palatal elevation Speech examination: intact Sensorimotor examination: intact Motor examination - right side: 5/5: biceps, triceps, wrist flexion, wrist extension, clinical admissions manager, hip flexors, knee extensors, dorsiflexion, toe extension (EHL) , plantarflexion Motor examination - left side: 5/5: biceps, triceps, wrist flexion, wrist extension, clinical admissions manager, hip flexors, knee extensors, dorsiflexion, toe extension (EHL) , plantarflexion Detailed sensory examination: intact, light touch, temperature Reflex and gait examination: intact Reflexes: 2+: ankle, bicep, knee, tricep - Musculoskeletal Musculoskeletal: Present: no fluid collection, no pain, normal range of motion - Psychiatric Psychiatric: Present: mood/affect appropriate, cooperative Results - Laboratory Findings CBC and BMP: 10/06/16 16:30 10/06/16 16:30 Abnormal Lab Findings: Abnormal Labs 10/06/16 10/06/16 10/06/16 16:30 16:30 16:30 RBC 3.51 L Seg Neutrophils % 74.3 H Creatinine 0.3 L Uric Acid 3.1 L Magnesium 4.20 H 10/06/16 10/07/16 23:39 07:28 RBC Seg Neutrophils % Creatinine Uric Acid Magnesium 5.90 H 4.50 H Assessment and Plan 21 YO F 22 weeks gestation a/w report of "active seizure" on 10/06 for which she received Ativan. Pt has no seizure risk factors and is @ her baseline. Pt Report of "seizure" is documented as "shaking and blinking her eyes" lasting 2 mins and discrepant contradictory presence of any post ictal state. Pt is not clear of either of these. She only complains to me of 1 day of constant crescendo pattern pressure pulsatile head pain assoc w/ N/photo-/sono-phobia. There are no meningeal signs/sx otherwise. 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 Neuro exam symmetric nonfocal intact w/o deficits. Plan and Recommendations: 1. Neuro checks 2. Brain imaging: MRI Brain & MRV Head w/o Hang 3. PENG Protocol-Decadron 10mg IV x 1 and cont 4mg IV BID x up to 6 doses- thereafter can transition to Medrol Dose Leonel taper. Will defer ordering to OBGYN 4. Analgesia PRN: Toradol 15-30mg IV Q4-6hrs prn and Fioricet 1-2 tabs Q4-6hrs prn if clear from OBGYN to order 5. Reduce MAPs by 10-15% daily to achieve normotension 6. Labs: Serum/Urine Tox, UA/UCx, Electrolytes especially Na, Ca, Mg, and Glucose, TSH/Vit B12/Ammonia and correct as necessary 7. Cont Infectious work up/medical management for UTI, PNA, cellulitis, bacteremia, etc. 8. Avoid hyponatremia, hypo/hyper-calcemia, hypo/hyperglycemia, acidosis, hypoxia/hypoxemia, hypercarbia/hypercapnia 9. Avoid institution of any psychoactive medications (e.g. antihistamines, anticholinergics, BZD, hypnotics, opiates) as able unless low doses of low potency antipsychotic needed for behavioral issues complicating medical care 10. AED therapy: defer @ this time. 11. Avoid meds that can lower sz threshold e.g. Tramadol, fluroquinolones, carbapenems 12. If Hx obtained to suggest EtOH dependence, supplement Thiamine, Folate and cont CIWA Protocol 13. No clear LOC to advise driving withdrawal.
--- NOTE | 2016-10-07 16:18 | Magnetic Resonance Report ---
MRI BRAIN WITHOUT CONTRAST INDICATION: Possible seizure. COMPARISON: None similar. FINDINGS: Noncontrast multiplanar and multisequence MRI of the brain demonstrates normal ventricles and sulci without acute infarct, hemorrhage, mass effect or midline shift. Cavum septum pellucidum and vergae. Right temporal horn asymmetrically larger than the left at 1.2 cm as on axial image 12, series 6. No abnormal extra-axial masses or fluid collections. Normal major intracranial vascular flow voids. Normal posterior fossa structures with symmetric seventh and eighth nerve complexes. Symmetric, grossly unremarkable eye globes. Leftward nasal septal deviation. Approximately 1 cm right maxillary sinus mucosal thickening/retention cysts inferiorly. Clear remainder imaged paranasal sinuses and mastoid air cells. Normal midline structures without evidence of Chiari malformation. CONCLUSION: Asymmetric temporal horn size noted without acute intracranial MRI abnormality, as described. Please correlate. Thank you for the opportunity to participate in this patient's care.
--- NOTE | 2016-10-07 16:19 | Magnetic Resonance Report ---
MRA HEAD WITHOUT CONTRAST INDICATION: Possible thrombosis. COMPARISON: None similar. FINDINGS: MRA of the head performed without intravenous contrast and demonstrates no evidence of flow-limiting stenosis, occlusion or vascular malformation. Please note that detection of aneurysms less than 5 mm is limited on this exam. CONCLUSION: Normal study of the ute of Marcos. Thank you for the opportunity to participate in this patient's care.
[2016-10-07 19:46] LABS: Basophils % (Auto) 0.5 % (0.0-1.8); Eosinophils % (Auto) 0.9 % (0.0-4.3); Hematocrit 27.8 % (30.3-42.9); Hemoglobin 9.2 gm/dl (10.1-14.3); Mean Corpuscular HGB Conc 33 % (30-34); Mean Corpuscular Hemoglobin 29 pg (28-32); Mean Corpuscular Volume 88 fl (79-97); Platelet Count 187 K/mm3 (140-440); Red Blood Count 3.16 M/mm3 (3.65-5.03); Red Cell Distribution Width 14.4 % (13.2-15.2); White Blood Count 8.8 K/mm3 (4.5-11.0)
--- NOTE | 2016-10-07 23:23 | Event Note ---
Date: 10/07/16 Patient laying in bed sleeping with thumb in mouth. VSS afebrile CVS: RRR s1s2 lungs: CTA no wheezes no crackles abd: soft nt + gravid ext: no c/c/ e no calf tenderness labs wbc normal 10 to 8 PIH labs normal MRI and MRA reviewed A/P 22+5 weeks IUP PPROM - pad count -doptones q2hr continue latency abx amp and erythro for 2 days IV then transition to po 5 days seizure d/o - following recommnedations from Neuro Headaches tylenol xtra strength or fiorecet regular diet continue present mgt Peds consult - per Dr. Santana will only come at viability await for full note from [facility] repeat US tomorrow for fluid
[2016-10-08] MEDS: FIORICET PO PRN ×2 (00:03→10:05)
[2016-10-08] MEDS: AMBIEN PO PRN (00:03)
[2016-10-08] MEDS: LACTATED RINGERS 1,000 ML IV SCH ×3 (00:45→23:59)
[2016-10-08 01:16] LABS: Albumin 2.8 g/dL (3.9-5); Albumin/Globulin Ratio 0.9 %; Alkaline Phosphatase 54 units/L (35-129); Anion Gap 16 mmol/L; Blood Urea Nitrogen 5 mg/dL (7-17); Calcium 6.9 mg/dL (8.4-10.2); Carbon Dioxide 18 mmol/L (22-30); Chloride 101.6 mmol/L (98-107); Glucose 68 mg/dL (65-100); Sodium 132 mmol/L (137-145); Total Protein 5.9 g/dL (6.3-8.2)
[2016-10-08 01:23] LABS: Alanine Aminotransferase < 5 units/L (7-56)
[2016-10-08] MEDS: POLYCILLIN/NS 2 GM/100 ML 2 GM/100 ML BAG IV SCH ×3 (02:15→18:51)
[2016-10-08] MEDS: ERYTHROMYCIN LACTOBIONATE 250 MG in NACL 0.9% 100 ML IV SCH ×3 (06:40→20:44)
--- NOTE | 2016-10-08 07:03 | Progress Note ---
Assessment and Plan Assessment 1. 22+6 weeks 2. PPROM 3. PINO 4. Possible seizure activity, with normal imaging 5. Anemia Recommendations 1. Expectant management 2. Latency antibiotics (IV x48 hours, PO for 5 more days) 3. Per report in L&D, neonatology will not loan counselor her until 23 weeks (will call them), but patient states that she wants everything done at any gestational age 4. Given patient's request that everything is done, needs steroids now 5. Neuro following 6. Iron and vitamins Subjective - Subjective Date of service: 10/08/16 Principal diagnosis: 22+4 weeks IUP, seizure disorder, PPROM Interval history: + leaking, denies contractions Continues to have PINO "off and on" Patient reports: loss of fluid, vaginal bleeding, movement normal, contractions Objective - Vital Signs Vital Signs: Vital Signs - 12hr 10/07/16 10/07/16 10/07/16 18:58 19:03 19:08 Temperature Pulse Rate 86 78 86 Pulse Rate [ From Monitor] Respiratory Rate Blood Pressure Blood Pressure [Right Arm] O2 Sat by Pulse 98 98 97 Oximetry 10/07/16 10/07/16 10/07/16 19:13 19:18 19:23 Temperature Pulse Rate 75 77 74 Pulse Rate [ From Monitor] Respiratory Rate Blood Pressure Blood Pressure [Right Arm] O2 Sat by Pulse 98 98 99 Oximetry 10/07/16 10/07/16 10/07/16 19:28 19:33 19:38 Temperature Pulse Rate 90 78 80 Pulse Rate [ From Monitor] Respiratory Rate Blood Pressure Blood Pressure [Right Arm] O2 Sat by Pulse 98 98 98 Oximetry 10/07/16 10/07/16 10/07/16 19:43 19:48 19:49 Temperature Pulse Rate 82 76 77 Pulse Rate [ From Monitor] Respiratory Rate Blood Pressure 111/53 Blood Pressure [Right Arm] O2 Sat by Pulse 99 99 Oximetry 10/07/16 10/07/16 10/07/16 19:53 20:05 20:10 Temperature Pulse Rate 83 68 67 Pulse Rate [ From Monitor] Respiratory Rate Blood Pressure Blood Pressure [Right Arm] O2 Sat by Pulse 99 97 98 Oximetry 10/07/16 10/07/16 10/07/16 20:15 20:20 20:25 Temperature Pulse Rate 66 68 63 Pulse Rate [ From Monitor] Respiratory Rate Blood Pressure Blood Pressure [Right Arm] O2 Sat by Pulse 96 96 96 Oximetry 10/07/16 10/07/16 10/07/16 20:30 20:35 20:40 Temperature Pulse Rate 64 68 64 Pulse Rate [ From Monitor] Respiratory Rate Blood Pressure Blood Pressure [Right Arm] O2 Sat by Pulse 96 96 96 Oximetry 10/07/16 10/07/16 10/07/16 20:45 20:50 20:55 Temperature Pulse Rate 65 65 66 Pulse Rate [ From Monitor] Respiratory Rate Blood Pressure Blood Pressure [Right Arm] O2 Sat by Pulse 95 96 96 Oximetry 10/07/16 10/07/16 10/07/16 21:00 21:05 21:10 Temperature Pulse Rate 68 69 73 Pulse Rate [ From Monitor] Respiratory Rate Blood Pressure Blood Pressure [Right Arm] O2 Sat by Pulse 96 96 96 Oximetry 10/07/16 10/07/16 10/07/16 21:15 21:20 21:25 Temperature Pulse Rate 69 68 66 Pulse Rate [ From Monitor] Respiratory Rate Blood Pressure Blood Pressure [Right Arm] O2 Sat by Pulse 97 98 98 Oximetry 10/07/16 10/07/16 10/07/16 21:30 21:35 21:40 Temperature Pulse Rate 81 74 60 Pulse Rate [ From Monitor] Respiratory Rate Blood Pressure Blood Pressure [Right Arm] O2 Sat by Pulse 98 97 96 Oximetry 10/07/16 10/07/16 10/07/16 21:45 21:50 21:55 Temperature Pulse Rate 61 63 64 Pulse Rate [ From Monitor] Respiratory Rate Blood Pressure Blood Pressure [Right Arm] O2 Sat by Pulse 96 96 96 Oximetry 10/07/16 10/07/16 10/07/16 22:00 22:05 22:10 Temperature Pulse Rate 64 65 78 Pulse Rate [ From Monitor] Respiratory Rate Blood Pressure Blood Pressure [Right Arm] O2 Sat by Pulse 96 96 96 Oximetry 10/07/16 10/07/16 10/07/16 22:15 22:20 22:25 Temperature Pulse Rate 68 65 64 Pulse Rate [ From Monitor] Respiratory Rate Blood Pressure Blood Pressure [Right Arm] O2 Sat by Pulse 98 97 99 Oximetry 10/07/16 10/07/16 10/07/16 22:30 22:35 22:40 Temperature Pulse Rate 68 62 67 Pulse Rate [ From Monitor] Respiratory Rate Blood Pressure Blood Pressure [Right Arm] O2 Sat by Pulse 97 99 97 Oximetry 10/07/16 10/07/16 10/07/16 22:45 22:50 22:55 Temperature Pulse Rate 67 69 64 Pulse Rate [ From Monitor] Respiratory Rate Blood Pressure Blood Pressure [Right Arm] O2 Sat by Pulse 97 98 98 Oximetry 10/07/16 10/07/16 10/07/16 23:00 23:05 23:10 Temperature Pulse Rate 73 63 63 Pulse Rate [ From Monitor] Respiratory Rate Blood Pressure Blood Pressure [Right Arm] O2 Sat by Pulse 97 98 97 Oximetry 10/07/16 10/07/16 10/07/16 23:15 23:20 23:25 Temperature Pulse Rate 64 70 66 Pulse Rate [ From Monitor] Respiratory Rate Blood Pressure Blood Pressure [Right Arm] O2 Sat by Pulse 97 99 98 Oximetry 10/07/16 10/07/16 10/07/16 23:30 23:35 23:40 Temperature Pulse Rate 60 64 63 Pulse Rate [ From Monitor] Respiratory Rate Blood Pressure Blood Pressure [Right Arm] O2 Sat by Pulse 98 98 98 Oximetry 10/07/16 10/07/16 10/07/16 23:45 23:50 23:55 Temperature Pulse Rate 63 65 66 Pulse Rate [ From Monitor] Respiratory Rate Blood Pressure Blood Pressure [Right Arm] O2 Sat by Pulse 97 97 97 Oximetry 10/08/16 10/08/16 10/08/16 00:00 00:05 00:10 Temperature Pulse Rate 63 65 65 Pulse Rate [ From Monitor] Respiratory Rate Blood Pressure Blood Pressure [Right Arm] O2 Sat by Pulse 97 97 98 Oximetry 10/08/16 10/08/16 10/08/16 00:15 00:17 00:19 Temperature Pulse Rate 63 78 65 Pulse Rate [ From Monitor] Respiratory Rate Blood Pressure 111/58 Blood Pressure [Right Arm] O2 Sat by Pulse 99 94 Oximetry 10/08/16 10/08/16 10/08/16 00:20 00:23 00:25 Temperature 98.0 F Pulse Rate 65 57 L 62 Pulse Rate [ 65 From Monitor] Respiratory 18 Rate Blood Pressure 110/56 Blood Pressure 110/56 [Right Arm] O2 Sat by Pulse 98 99 Oximetry 10/08/16 10/08/16 10/08/16 00:30 00:35 00:40 Temperature Pulse Rate 65 64 64 Pulse Rate [ From Monitor] Respiratory Rate Blood Pressure Blood Pressure [Right Arm] O2 Sat by Pulse 99 100 99 Oximetry 10/08/16 10/08/16 10/08/16 00:45 00:50 00:55 Temperature Pulse Rate 74 66 66 Pulse Rate [ From Monitor] Respiratory Rate Blood Pressure Blood Pressure [Right Arm] O2 Sat by Pulse 99 100 99 Oximetry 10/08/16 10/08/16 10/08/16 01:00 01:05 01:10 Temperature Pulse Rate 71 67 84 Pulse Rate [ From Monitor] Respiratory Rate Blood Pressure Blood Pressure [Right Arm] O2 Sat by Pulse 99 99 100 Oximetry 10/08/16 10/08/16 10/08/16 01:15 01:20 01:25 Temperature Pulse Rate 73 66 81 Pulse Rate [ From Monitor] Respiratory Rate Blood Pressure Blood Pressure [Right Arm] O2 Sat by Pulse 98 99 98 Oximetry 10/08/16 10/08/16 10/08/16 01:30 01:35 01:40 Temperature Pulse Rate 73 85 72 Pulse Rate [ From Monitor] Respiratory Rate Blood Pressure Blood Pressure [Right Arm] O2 Sat by Pulse 98 98 98 Oximetry 10/08/16 10/08/16 10/08/16 01:45 01:50 01:55 Temperature Pulse Rate 83 68 78 Pulse Rate [ From Monitor] Respiratory Rate Blood Pressure Blood Pressure [Right Arm] O2 Sat by Pulse 99 98 98 Oximetry 10/08/16 10/08/16 10/08/16 02:00 02:05 02:09 Temperature Pulse Rate 68 77 74 Pulse Rate [ From Monitor] Respiratory Rate Blood Pressure Blood Pressure [Right Arm] O2 Sat by Pulse 98 96 94 Oximetry 10/08/16 10/08/16 10/08/16 02:10 02:15 02:20 Temperature Pulse Rate 70 64 62 Pulse Rate [ From Monitor] Respiratory Rate Blood Pressure Blood Pressure [Right Arm] O2 Sat by Pulse 97 97 97 Oximetry 10/08/16 10/08/16 10/08/16 02:25 02:30 02:35 Temperature Pulse Rate 68 71 73 Pulse Rate [ From Monitor] Respiratory Rate Blood Pressure Blood Pressure [Right Arm] O2 Sat by Pulse 97 98 96 Oximetry 10/08/16 10/08/16 10/08/16 02:40 02:45 02:50 Temperature Pulse Rate 69 62 73 Pulse Rate [ From Monitor] Respiratory Rate Blood Pressure Blood Pressure [Right Arm] O2 Sat by Pulse 96 98 98 Oximetry 10/08/16 10/08/16 10/08/16 02:55 03:00 03:05 Temperature Pulse Rate 66 80 67 Pulse Rate [ From Monitor] Respiratory Rate Blood Pressure Blood Pressure [Right Arm] O2 Sat by Pulse 98 98 99 Oximetry 10/08/16 10/08/16 10/08/16 03:10 03:15 03:31 Temperature Pulse Rate 66 72 65 Pulse Rate [ From Monitor] Respiratory Rate Blood Pressure Blood Pressure [Right Arm] O2 Sat by Pulse 99 99 98 Oximetry 10/08/16 10/08/16 10/08/16 03:36 03:41 03:46 Temperature Pulse Rate 61 62 68 Pulse Rate [ From Monitor] Respiratory Rate Blood Pressure Blood Pressure [Right Arm] O2 Sat by Pulse 99 99 99 Oximetry 10/08/16 10/08/16 10/08/16 03:51 03:52 03:56 Temperature Pulse Rate 64 96 H 63 Pulse Rate [ From Monitor] Respiratory Rate Blood Pressure Blood Pressure [Right Arm] O2 Sat by Pulse 98 68 L 99 Oximetry 10/08/16 10/08/16 10/08/16 04:01 04:06 04:11 Temperature Pulse Rate 68 66 70 Pulse Rate [ From Monitor] Respiratory Rate Blood Pressure Blood Pressure [Right Arm] O2 Sat by Pulse 99 100 100 Oximetry 10/08/16 10/08/16 10/08/16 04:16 04:21 04:26 Temperature Pulse Rate 70 69 69 Pulse Rate [ From Monitor] Respiratory Rate Blood Pressure Blood Pressure [Right Arm] O2 Sat by Pulse 100 100 98 Oximetry 10/08/16 10/08/16 10/08/16 04:31 04:36 04:41 Temperature Pulse Rate 67 68 73 Pulse Rate [ From Monitor] Respiratory Rate Blood Pressure Blood Pressure [Right Arm] O2 Sat by Pulse 99 99 100 Oximetry 10/08/16 10/08/16 10/08/16 04:42 04:46 04:51 Temperature Pulse Rate 82 73 65 Pulse Rate [ From Monitor] Respiratory Rate Blood Pressure Blood Pressure [Right Arm] O2 Sat by Pulse 71 L 98 98 Oximetry 10/08/16 10/08/16 10/08/16 04:57 05:01 05:06 Temperature Pulse Rate 72 65 68 Pulse Rate [ From Monitor] Respiratory Rate Blood Pressure Blood Pressure [Right Arm] O2 Sat by Pulse 99 100 99 Oximetry 10/08/16 10/08/16 10/08/16 05:11 05:15 05:17 Temperature Pulse Rate 61 99 H 69 Pulse Rate [ From Monitor] Respiratory Rate Blood Pressure Blood Pressure [Right Arm] O2 Sat by Pulse 100 87 98 Oximetry 10/08/16 10/08/16 10/08/16 05:22 05:27 05:32 Temperature Pulse Rate 64 63 62 Pulse Rate [ From Monitor] Respiratory Rate Blood Pressure Blood Pressure [Right Arm] O2 Sat by Pulse 99 99 98 Oximetry 10/08/16 10/08/16 10/08/16 05:37 05:43 05:47 Temperature Pulse Rate 66 62 72 Pulse Rate [ From Monitor] Respiratory Rate Blood Pressure Blood Pressure [Right Arm] O2 Sat by Pulse 99 99 99 Oximetry 10/08/16 10/08/16 10/08/16 05:52 05:57 06:02 Temperature Pulse Rate 72 62 63 Pulse Rate [ From Monitor] Respiratory Rate Blood Pressure Blood Pressure [Right Arm] O2 Sat by Pulse 100 98 99 Oximetry 10/08/16 10/08/16 10/08/16 06:07 06:12 06:18 Temperature Pulse Rate 65 66 66 Pulse Rate [ From Monitor] Respiratory Rate Blood Pressure Blood Pressure [Right Arm] O2 Sat by Pulse 99 99 99 Oximetry 10/08/16 10/08/16 10/08/16 06:23 06:27 06:32 Temperature Pulse Rate 76 71 69 Pulse Rate [ From Monitor] Respiratory Rate Blood Pressure Blood Pressure [Right Arm] O2 Sat by Pulse 99 99 99 Oximetry 10/08/16 10/08/16 10/08/16 06:35 06:37 06:42 Temperature 98.0 F Pulse Rate 65 81 Pulse Rate [ 84 From Monitor] Respiratory 18 Rate Blood Pressure 105/55 Blood Pressure 105/55 [Right Arm] O2 Sat by Pulse 99 Oximetry 10/08/16 06:43 Temperature Pulse Rate 71 Pulse Rate [ From Monitor] Respiratory Rate Blood Pressure Blood Pressure [Right Arm] O2 Sat by Pulse 99 Oximetry - Exam Cardiovascular: Regular rate Lungs: Clear to auscultation Abdomen: Present: normal appearance, soft Uterus: Present: normal. Absent: tenderness Extremities: normal - Labs Labs: Abnormal Labs 10/06/16 10/06/16 10/06/16 16:30 16:30 16:30 RBC 3.51 L Hgb Hct Seg Neutrophils % 74.3 H Sodium Carbon Dioxide BUN Creatinine 0.3 L Uric Acid 3.1 L Calcium Magnesium 4.20 H ALT Total Protein Albumin 10/06/16 10/07/16 10/07/16 23:39 07:28 19:10 RBC 3.16 L Hgb 9.2 L Hct 27.8 L Seg Neutrophils % 76.3 H Sodium Carbon Dioxide BUN Creatinine Uric Acid Calcium Magnesium 5.90 H 4.50 H ALT Total Protein Albumin 10/08/16 00:20 RBC Hgb Hct Seg Neutrophils % Sodium 132 L Carbon Dioxide 18 L BUN 5 L Creatinine 0.4 L Uric Acid Calcium 6.9 L Magnesium ALT < 5 L Total Protein 5.9 L Albumin 2.8 L Laboratory Results - last 24 hr 10/07/16 10/07/16 10/08/16 07:28 19:10 00:20 WBC 8.8 RBC 3.16 L Hgb 9.2 L Hct 27.8 L MCV 88 MCH 29 MCHC 33 RDW 14.4 Plt Count 187 Lymph % (Auto) 15.2 Russell % (Auto) 7.1 Eos % (Auto) 0.9 Baso % (Auto) 0.5 Lymph # 1.3 Russell # 0.6 Eos # 0.1 Baso # 0.0 Seg Neutrophils % 76.3 H Seg Neutrophils # 6.7 Sodium Potassium Chloride Carbon Dioxide Anion Gap BUN Creatinine Estimated GFR BUN/Creatinine Ratio Glucose Calcium Magnesium 4.50 H Total Bilirubin AST ALT Alkaline Phosphatase Ammonia Total Protein Albumin Albumin/Globulin Ratio Vitamin B12 242.1 TSH 10/08/16 10/08/16 10/08/16 00:20 00:20 00:20 WBC RBC Hgb Hct MCV MCH MCHC RDW Plt Count Lymph % (Auto) Russell % (Auto) Eos % (Auto) Baso % (Auto) Lymph # Russell # Eos # Baso # Seg Neutrophils % Seg Neutrophils # Sodium 132 L Potassium 4.0 Chloride 101.6 Carbon Dioxide 18 L Anion Gap 16 BUN 5 L Creatinine 0.4 L Estimated GFR > 60 BUN/Creatinine Ratio 12.50 Glucose 68 Calcium 6.9 L Magnesium Total Bilirubin 0.50 AST 9 ALT < 5 L Alkaline Phosphatase 54 Ammonia 30.0 Total Protein 5.9 L Albumin 2.8 L Albumin/Globulin Ratio 0.9 Vitamin B12 TSH 0.584
[2016-10-08] MEDS: ZOFRAN IV PRN (07:50)
[2016-10-08 07:59] LABS: Bilirubin,Urine NEG (Negative); Blood,Urine SM (Negative); Ketones,Urine 20 mg/dL (Negative); Leukocyte Esterase,Urine NEG (Negative); Mucus,Urine FEW /HPF; Nitrite,Urine NEG (Negative); Protein,Urine <15 mg/dL mg/dL (Negative); Urobilinogen,Urine < 2.0 mg/dL (<2.0)
[2016-10-08] MEDS: CELESTONE SOLUSPAN IM SCH (08:03)
--- NOTE | 2016-10-08 08:33 | Progress Note ---
Assessment and Plan A:HD#3 IUP at 22w6d PPROM on 10/07/16 Oligohydramnios Questionable seizure activity s/p neurology consult and normal MRI brain Insufficient care Previous x 1 P: Begain betamethasone course per [facility] recommendations Neonatology consult tomorrow (at 23 wks) Continue latency antibiotics Closely monitor maternal and status Subjective - Subjective Date of service: 10/08/16 Principal diagnosis: 22+4 weeks IUP, seizure disorder, PPROM Interval history: Pt reports no overnight events. Somewhat tearful and overwhelmed. Patient reports: loss of fluid, movement normal, contractions (rare), no new complaints, no vaginal bleeding Objective - Vital Signs Vital Signs: Vital Signs - 12hr 10/07/16 10/07/16 10/07/16 20:35 20:40 20:45 Temperature Pulse Rate 68 64 65 Pulse Rate [ From Monitor] Respiratory Rate Blood Pressure Blood Pressure [Right Arm] O2 Sat by Pulse 96 96 95 Oximetry 10/07/16 10/07/16 10/07/16 20:50 20:55 21:00 Temperature Pulse Rate 65 66 68 Pulse Rate [ From Monitor] Respiratory Rate Blood Pressure Blood Pressure [Right Arm] O2 Sat by Pulse 96 96 96 Oximetry 10/07/16 10/07/16 10/07/16 21:05 21:10 21:15 Temperature Pulse Rate 69 73 69 Pulse Rate [ From Monitor] Respiratory Rate Blood Pressure Blood Pressure [Right Arm] O2 Sat by Pulse 96 96 97 Oximetry 10/07/16 10/07/16 10/07/16 21:20 21:25 21:30 Temperature Pulse Rate 68 66 81 Pulse Rate [ From Monitor] Respiratory Rate Blood Pressure Blood Pressure [Right Arm] O2 Sat by Pulse 98 98 98 Oximetry 10/07/16 10/07/16 10/07/16 21:35 21:40 21:45 Temperature Pulse Rate 74 60 61 Pulse Rate [ From Monitor] Respiratory Rate Blood Pressure Blood Pressure [Right Arm] O2 Sat by Pulse 97 96 96 Oximetry 10/07/16 10/07/16 10/07/16 21:50 21:55 22:00 Temperature Pulse Rate 63 64 64 Pulse Rate [ From Monitor] Respiratory Rate Blood Pressure Blood Pressure [Right Arm] O2 Sat by Pulse 96 96 96 Oximetry 10/07/16 10/07/16 10/07/16 22:05 22:10 22:15 Temperature Pulse Rate 65 78 68 Pulse Rate [ From Monitor] Respiratory Rate Blood Pressure Blood Pressure [Right Arm] O2 Sat by Pulse 96 96 98 Oximetry 10/07/16 10/07/16 10/07/16 22:20 22:25 22:30 Temperature Pulse Rate 65 64 68 Pulse Rate [ From Monitor] Respiratory Rate Blood Pressure Blood Pressure [Right Arm] O2 Sat by Pulse 97 99 97 Oximetry 10/07/16 10/07/16 10/07/16 22:35 22:40 22:45 Temperature Pulse Rate 62 67 67 Pulse Rate [ From Monitor] Respiratory Rate Blood Pressure Blood Pressure [Right Arm] O2 Sat by Pulse 99 97 97 Oximetry 10/07/16 10/07/16 10/07/16 22:50 22:55 23:00 Temperature Pulse Rate 69 64 73 Pulse Rate [ From Monitor] Respiratory Rate Blood Pressure Blood Pressure [Right Arm] O2 Sat by Pulse 98 98 97 Oximetry 10/07/16 10/07/16 10/07/16 23:05 23:10 23:15 Temperature Pulse Rate 63 63 64 Pulse Rate [ From Monitor] Respiratory Rate Blood Pressure Blood Pressure [Right Arm] O2 Sat by Pulse 98 97 97 Oximetry 10/07/16 10/07/16 10/07/16 23:20 23:25 23:30 Temperature Pulse Rate 70 66 60 Pulse Rate [ From Monitor] Respiratory Rate Blood Pressure Blood Pressure [Right Arm] O2 Sat by Pulse 99 98 98 Oximetry 10/07/16 10/07/16 10/07/16 23:35 23:40 23:45 Temperature Pulse Rate 64 63 63 Pulse Rate [ From Monitor] Respiratory Rate Blood Pressure Blood Pressure [Right Arm] O2 Sat by Pulse 98 98 97 Oximetry 10/07/16 10/07/16 10/08/16 23:50 23:55 00:00 Temperature Pulse Rate 65 66 63 Pulse Rate [ From Monitor] Respiratory Rate Blood Pressure Blood Pressure [Right Arm] O2 Sat by Pulse 97 97 97 Oximetry 10/08/16 10/08/16 10/08/16 00:05 00:10 00:15 Temperature Pulse Rate 65 65 63 Pulse Rate [ From Monitor] Respiratory Rate Blood Pressure Blood Pressure [Right Arm] O2 Sat by Pulse 97 98 99 Oximetry 10/08/16 10/08/16 10/08/16 00:17 00:19 00:20 Temperature Pulse Rate 78 65 65 Pulse Rate [ From Monitor] Respiratory Rate Blood Pressure 111/58 Blood Pressure [Right Arm] O2 Sat by Pulse 94 98 Oximetry 10/08/16 10/08/16 10/08/16 00:23 00:25 00:30 Temperature 98.0 F Pulse Rate 57 L 62 65 Pulse Rate [ 65 From Monitor] Respiratory 18 Rate Blood Pressure 110/56 Blood Pressure 110/56 [Right Arm] O2 Sat by Pulse 99 99 Oximetry 10/08/16 10/08/16 10/08/16 00:35 00:40 00:45 Temperature Pulse Rate 64 64 74 Pulse Rate [ From Monitor] Respiratory Rate Blood Pressure Blood Pressure [Right Arm] O2 Sat by Pulse 100 99 99 Oximetry 10/08/16 10/08/16 10/08/16 00:50 00:55 01:00 Temperature Pulse Rate 66 66 71 Pulse Rate [ From Monitor] Respiratory Rate Blood Pressure Blood Pressure [Right Arm] O2 Sat by Pulse 100 99 99 Oximetry 10/08/16 10/08/16 10/08/16 01:05 01:10 01:15 Temperature Pulse Rate 67 84 73 Pulse Rate [ From Monitor] Respiratory Rate Blood Pressure Blood Pressure [Right Arm] O2 Sat by Pulse 99 100 98 Oximetry 10/08/16 10/08/16 10/08/16 01:20 01:25 01:30 Temperature Pulse Rate 66 81 73 Pulse Rate [ From Monitor] Respiratory Rate Blood Pressure Blood Pressure [Right Arm] O2 Sat by Pulse 99 98 98 Oximetry 10/08/16 10/08/16 10/08/16 01:35 01:40 01:45 Temperature Pulse Rate 85 72 83 Pulse Rate [ From Monitor] Respiratory Rate Blood Pressure Blood Pressure [Right Arm] O2 Sat by Pulse 98 98 99 Oximetry 10/08/16 10/08/16 10/08/16 01:50 01:55 02:00 Temperature Pulse Rate 68 78 68 Pulse Rate [ From Monitor] Respiratory Rate Blood Pressure Blood Pressure [Right Arm] O2 Sat by Pulse 98 98 98 Oximetry 10/08/16 10/08/16 10/08/16 02:05 02:09 02:10 Temperature Pulse Rate 77 74 70 Pulse Rate [ From Monitor] Respiratory Rate Blood Pressure Blood Pressure [Right Arm] O2 Sat by Pulse 96 94 97 Oximetry 10/08/16 10/08/16 10/08/16 02:15 02:20 02:25 Temperature Pulse Rate 64 62 68 Pulse Rate [ From Monitor] Respiratory Rate Blood Pressure Blood Pressure [Right Arm] O2 Sat by Pulse 97 97 97 Oximetry 10/08/16 10/08/16 10/08/16 02:30 02:35 02:40 Temperature Pulse Rate 71 73 69 Pulse Rate [ From Monitor] Respiratory Rate Blood Pressure Blood Pressure [Right Arm] O2 Sat by Pulse 98 96 96 Oximetry 10/08/16 10/08/16 10/08/16 02:45 02:50 02:55 Temperature Pulse Rate 62 73 66 Pulse Rate [ From Monitor] Respiratory Rate Blood Pressure Blood Pressure [Right Arm] O2 Sat by Pulse 98 98 98 Oximetry 10/08/16 10/08/16 10/08/16 03:00 03:05 03:10 Temperature Pulse Rate 80 67 66 Pulse Rate [ From Monitor] Respiratory Rate Blood Pressure Blood Pressure [Right Arm] O2 Sat by Pulse 98 99 99 Oximetry 10/08/16 10/08/16 10/08/16 03:15 03:31 03:36 Temperature Pulse Rate 72 65 61 Pulse Rate [ From Monitor] Respiratory Rate Blood Pressure Blood Pressure [Right Arm] O2 Sat by Pulse 99 98 99 Oximetry 10/08/16 10/08/16 10/08/16 03:41 03:46 03:51 Temperature Pulse Rate 62 68 64 Pulse Rate [ From Monitor] Respiratory Rate Blood Pressure Blood Pressure [Right Arm] O2 Sat by Pulse 99 99 98 Oximetry 10/08/16 10/08/16 10/08/16 03:52 03:56 04:01 Temperature Pulse Rate 96 H 63 68 Pulse Rate [ From Monitor] Respiratory Rate Blood Pressure Blood Pressure [Right Arm] O2 Sat by Pulse 68 L 99 99 Oximetry 10/08/16 10/08/16 10/08/16 04:06 04:11 04:16 Temperature Pulse Rate 66 70 70 Pulse Rate [ From Monitor] Respiratory Rate Blood Pressure Blood Pressure [Right Arm] O2 Sat by Pulse 100 100 100 Oximetry 10/08/16 10/08/16 10/08/16 04:21 04:26 04:31 Temperature Pulse Rate 69 69 67 Pulse Rate [ From Monitor] Respiratory Rate Blood Pressure Blood Pressure [Right Arm] O2 Sat by Pulse 100 98 99 Oximetry 10/08/16 10/08/16 10/08/16 04:36 04:41 04:42 Temperature Pulse Rate 68 73 82 Pulse Rate [ From Monitor] Respiratory Rate Blood Pressure Blood Pressure [Right Arm] O2 Sat by Pulse 99 100 71 L Oximetry 10/08/16 10/08/16 10/08/16 04:46 04:51 04:57 Temperature Pulse Rate 73 65 72 Pulse Rate [ From Monitor] Respiratory Rate Blood Pressure Blood Pressure [Right Arm] O2 Sat by Pulse 98 98 99 Oximetry 10/08/16 10/08/16 10/08/16 05:01 05:06 05:11 Temperature Pulse Rate 65 68 61 Pulse Rate [ From Monitor] Respiratory Rate Blood Pressure Blood Pressure [Right Arm] O2 Sat by Pulse 100 99 100 Oximetry 10/08/16 10/08/16 10/08/16 05:15 05:17 05:22 Temperature Pulse Rate 99 H 69 64 Pulse Rate [ From Monitor] Respiratory Rate Blood Pressure Blood Pressure [Right Arm] O2 Sat by Pulse 87 98 99 Oximetry 10/08/16 10/08/16 10/08/16 05:27 05:32 05:37 Temperature Pulse Rate 63 62 66 Pulse Rate [ From Monitor] Respiratory Rate Blood Pressure Blood Pressure [Right Arm] O2 Sat by Pulse 99 98 99 Oximetry 10/08/16 10/08/16 10/08/16 05:43 05:47 05:52 Temperature Pulse Rate 62 72 72 Pulse Rate [ From Monitor] Respiratory Rate Blood Pressure Blood Pressure [Right Arm] O2 Sat by Pulse 99 99 100 Oximetry 10/08/16 10/08/16 10/08/16 05:57 06:02 06:07 Temperature Pulse Rate 62 63 65 Pulse Rate [ From Monitor] Respiratory Rate Blood Pressure Blood Pressure [Right Arm] O2 Sat by Pulse 98 99 99 Oximetry 10/08/16 10/08/16 10/08/16 06:12 06:18 06:23 Temperature Pulse Rate 66 66 76 Pulse Rate [ From Monitor] Respiratory Rate Blood Pressure Blood Pressure [Right Arm] O2 Sat by Pulse 99 99 99 Oximetry 10/08/16 10/08/16 10/08/16 06:27 06:32 06:35 Temperature Pulse Rate 71 69 65 Pulse Rate [ From Monitor] Respiratory Rate Blood Pressure 105/55 Blood Pressure [Right Arm] O2 Sat by Pulse 99 99 Oximetry 10/08/16 10/08/16 10/08/16 06:37 06:42 06:43 Temperature 98.0 F Pulse Rate 81 71 Pulse Rate [ 84 From Monitor] Respiratory 18 Rate Blood Pressure Blood Pressure 105/55 [Right Arm] O2 Sat by Pulse 99 99 Oximetry 10/08/16 10/08/16 10/08/16 07:48 07:49 07:53 Temperature Pulse Rate 89 97 H 71 Pulse Rate [ From Monitor] Respiratory Rate Blood Pressure 113/60 Blood Pressure [Right Arm] O2 Sat by Pulse 96 91 98 Oximetry 10/08/16 10/08/16 10/08/16 07:58 08:03 08:06 Temperature Pulse Rate 67 77 87 Pulse Rate [ From Monitor] Respiratory Rate Blood Pressure Blood Pressure [Right Arm] O2 Sat by Pulse 98 99 84 Oximetry 10/08/16 10/08/16 10/08/16 08:08 08:13 08:18 Temperature Pulse Rate 68 66 66 Pulse Rate [ From Monitor] Respiratory Rate Blood Pressure Blood Pressure [Right Arm] O2 Sat by Pulse 98 100 99 Oximetry 10/08/16 08:28 Temperature Pulse Rate 72 Pulse Rate [ From Monitor] Respiratory Rate Blood Pressure Blood Pressure [Right Arm] O2 Sat by Pulse 100 Oximetry - Exam Breasts: deferred Cardiovascular: Regular rate Lungs: Clear to auscultation Abdomen: Present: soft (gravid). Absent: tenderness Uterus: Present: normal (gravid) FHR: auscultation normal Uterine Contraction Monitor Mode: External Uterine Contraction Pattern: Absent Uterine Tone Measurement Phase: Resting Extremities: normal - Labs Labs: Abnormal Labs 10/06/16 10/06/16 10/06/16 16:30 16:30 16:30 RBC 3.51 L Hgb Hct Seg Neutrophils % 74.3 H Sodium Carbon Dioxide BUN Creatinine 0.3 L Uric Acid 3.1 L Calcium Magnesium 4.20 H ALT Total Protein Albumin 10/06/16 10/07/16 10/07/16 23:39 07:28 19:10 RBC 3.16 L Hgb 9.2 L Hct 27.8 L Seg Neutrophils % 76.3 H Sodium Carbon Dioxide BUN Creatinine Uric Acid Calcium Magnesium 5.90 H 4.50 H ALT Total Protein Albumin 10/08/16 00:20 RBC Hgb Hct Seg Neutrophils % Sodium 132 L Carbon Dioxide 18 L BUN 5 L Creatinine 0.4 L Uric Acid Calcium 6.9 L Magnesium ALT < 5 L Total Protein 5.9 L Albumin 2.8 L Laboratory Results - last 24 hr 10/07/16 10/08/16 10/08/16 19:10 00:20 00:20 WBC 8.8 RBC 3.16 L Hgb 9.2 L Hct 27.8 L MCV 88 MCH 29 MCHC 33 RDW 14.4 Plt Count 187 Lymph % (Auto) 15.2 [place] % (Auto) 7.1 Eos % (Auto) 0.9 Baso % (Auto) 0.5 Lymph # 1.3 [place] # 0.6 Eos # 0.1 Baso # 0.0 Seg Neutrophils % 76.3 H Seg Neutrophils # 6.7 Sodium 132 L Potassium 4.0 Chloride 101.6 Carbon Dioxide 18 L Anion Gap 16 BUN 5 L Creatinine 0.4 L Estimated GFR > 60 BUN/Creatinine Ratio 12.50 Glucose 68 Calcium 6.9 L Total Bilirubin 0.50 AST 9 ALT < 5 L Alkaline Phosphatase 54 Ammonia Total Protein 5.9 L Albumin 2.8 L Albumin/Globulin Ratio 0.9 Vitamin B12 242.1 TSH Urine Color Urine Turbidity Urine pH Ur Specific [place] Urine Protein Urine Glucose (UA) Urine Ketones Urine Blood Urine Nitrite Urine Bilirubin Urine Urobilinogen Ur Leukocyte Esterase Urine WBC (Auto) Urine RBC (Auto) U Epithel Cells (Auto) Urine Mucus 10/08/16 10/08/16 10/08/16 00:20 00:20 07:00 WBC RBC Hgb Hct MCV MCH MCHC RDW Plt Count Lymph % (Auto) [place] % (Auto) Eos % (Auto) Baso % (Auto) Lymph # [place] # Eos # Baso # Seg Neutrophils % Seg Neutrophils # Sodium Potassium Chloride Carbon Dioxide Anion Gap BUN Creatinine Estimated GFR BUN/Creatinine Ratio Glucose Calcium Total Bilirubin AST ALT Alkaline Phosphatase Ammonia 30.0 Total Protein Albumin Albumin/Globulin Ratio Vitamin B12 TSH 0.584 Urine Color Yellow Urine Turbidity Clear Urine pH 7.0 Ur Specific [place] 1.015 Urine Protein <15 mg/dl Urine Glucose (UA) Neg Urine Ketones 20 Urine Blood Sm Urine Nitrite Neg Urine Bilirubin Neg Urine Urobilinogen < 2.0 Ur Leukocyte Esterase Neg Urine WBC (Auto) 2.0 Urine RBC (Auto) 6.0 U Epithel Cells (Auto) 2.0 Urine Mucus Few
[2016-10-08] MEDS: PRENATAL VITAMIN PO SCH (10:08)
--- NOTE | 2016-10-08 11:15 | Progress Note ---
Assessment and Plan 21 YO F 22 weeks gestation a/w report of "active seizure" on 10/06 for which she received Ativan. Pt has no seizure risk factors and is @ her baseline. Pt Report of "seizure" is documented as "shaking and blinking her eyes" lasting 2 mins but preseved level of consciousness and discrepant contradictory presence of any post ictal state. Pt is not clear of either of these. She only complains to me of 1 day of constant crescendo pattern pressure pulsatile head pain assoc w/ N/photo-/sono-phobia. There are no meningeal signs/sx otherwise. 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 Neuro exam symmetric nonfocal intact w/ o deficits. There is no objective evidence for epileptic seizure so I would avoid the diagnosis of "seizure disorder" which is strewn throughout medical records for this admission. MRI Brain and MRA Head essentially normal. Plan and Recommendations: 1. Neuro checks 2. PENG Protocol-Decadron 10mg IV x 1 and cont 4mg IV BID x up to 6 doses- thereafter can transition to Medrol Dose Leonel taper. Will defer ordering to OBGYN 3. Analgesia PRN: Toradol 15-30mg IV Q4-6hrs prn and Fioricet 1-2 tabs Q4-6hrs prn if clear from OBGYN to order 4. Reduce MAPs by 10-15% daily to achieve normotension 5. Labs: Serum/Urine Tox, UA/UCx, Electrolytes especially Na, Ca, Mg, and Glucose, TSH/Vit B12/Ammonia and correct as necessary 6. Cont Infectious work up/medical management for UTI, PNA, cellulitis, bacteremia, etc. 7. Avoid hyponatremia, hypo/hyper-calcemia, hypo/hyperglycemia, acidosis, hypoxia/hypoxemia, hypercarbia/hypercapnia 8. Avoid institution of any psychoactive medications (e.g. antihistamines, anticholinergics, BZD, hypnotics, opiates) as able unless low doses of low potency antipsychotic needed for behavioral issues complicating medical care 9. AED therapy: defer @ this time. 10. Avoid meds that can lower sz threshold e.g. Tramadol, fluroquinolones, carbapenems 11. If Hx obtained to suggest EtOH dependence, supplement Thiamine, Folate and cont CIWA Protocol 12. No clear LOC to advise driving withdrawal. 13. We can revisit as needed. Subjective Date of service: 10/08/16 Principal diagnosis: headache Interval history: PINO improved on meds. No recurrent convulsions. Objective - Vital Sign Vital Signs - 12hr 10/07/16 10/07/16 10/07/16 23:15 23:20 23:25 Temperature Pulse Rate 64 70 66 Pulse Rate [ From Monitor] Respiratory Rate Blood Pressure Blood Pressure [Right Arm] O2 Sat by Pulse 97 99 98 Oximetry 10/07/16 10/07/16 10/07/16 23:30 23:35 23:40 Temperature Pulse Rate 60 64 63 Pulse Rate [ From Monitor] Respiratory Rate Blood Pressure Blood Pressure [Right Arm] O2 Sat by Pulse 98 98 98 Oximetry 10/07/16 10/07/16 10/07/16 23:45 23:50 23:55 Temperature Pulse Rate 63 65 66 Pulse Rate [ From Monitor] Respiratory Rate Blood Pressure Blood Pressure [Right Arm] O2 Sat by Pulse 97 97 97 Oximetry 10/08/16 10/08/16 10/08/16 00:00 00:05 00:10 Temperature Pulse Rate 63 65 65 Pulse Rate [ From Monitor] Respiratory Rate Blood Pressure Blood Pressure [Right Arm] O2 Sat by Pulse 97 97 98 Oximetry 10/08/16 10/08/16 10/08/16 00:15 00:17 00:19 Temperature Pulse Rate 63 78 65 Pulse Rate [ From Monitor] Respiratory Rate Blood Pressure 111/58 Blood Pressure [Right Arm] O2 Sat by Pulse 99 94 Oximetry 10/08/16 10/08/16 10/08/16 00:20 00:23 00:25 Temperature 98.0 F Pulse Rate 65 57 L 62 Pulse Rate [ 65 From Monitor] Respiratory 18 Rate Blood Pressure 110/56 Blood Pressure 110/56 [Right Arm] O2 Sat by Pulse 98 99 Oximetry 10/08/16 10/08/16 10/08/16 00:30 00:35 00:40 Temperature Pulse Rate 65 64 64 Pulse Rate [ From Monitor] Respiratory Rate Blood Pressure Blood Pressure [Right Arm] O2 Sat by Pulse 99 100 99 Oximetry 10/08/16 10/08/16 10/08/16 00:45 00:50 00:55 Temperature Pulse Rate 74 66 66 Pulse Rate [ From Monitor] Respiratory Rate Blood Pressure Blood Pressure [Right Arm] O2 Sat by Pulse 99 100 99 Oximetry 10/08/16 10/08/16 10/08/16 01:00 01:05 01:10 Temperature Pulse Rate 71 67 84 Pulse Rate [ From Monitor] Respiratory Rate Blood Pressure Blood Pressure [Right Arm] O2 Sat by Pulse 99 99 100 Oximetry 10/08/16 10/08/16 10/08/16 01:15 01:20 01:25 Temperature Pulse Rate 73 66 81 Pulse Rate [ From Monitor] Respiratory Rate Blood Pressure Blood Pressure [Right Arm] O2 Sat by Pulse 98 99 98 Oximetry 10/08/16 10/08/16 10/08/16 01:30 01:35 01:40 Temperature Pulse Rate 73 85 72 Pulse Rate [ From Monitor] Respiratory Rate Blood Pressure Blood Pressure [Right Arm] O2 Sat by Pulse 98 98 98 Oximetry 10/08/16 10/08/16 10/08/16 01:45 01:50 01:55 Temperature Pulse Rate 83 68 78 Pulse Rate [ From Monitor] Respiratory Rate Blood Pressure Blood Pressure [Right Arm] O2 Sat by Pulse 99 98 98 Oximetry 10/08/16 10/08/16 10/08/16 02:00 02:05 02:09 Temperature Pulse Rate 68 77 74 Pulse Rate [ From Monitor] Respiratory Rate Blood Pressure Blood Pressure [Right Arm] O2 Sat by Pulse 98 96 94 Oximetry 10/08/16 10/08/16 10/08/16 02:10 02:15 02:20 Temperature Pulse Rate 70 64 62 Pulse Rate [ From Monitor] Respiratory Rate Blood Pressure Blood Pressure [Right Arm] O2 Sat by Pulse 97 97 97 Oximetry 10/08/16 10/08/16 10/08/16 02:25 02:30 02:35 Temperature Pulse Rate 68 71 73 Pulse Rate [ From Monitor] Respiratory Rate Blood Pressure Blood Pressure [Right Arm] O2 Sat by Pulse 97 98 96 Oximetry 10/08/16 10/08/16 10/08/16 02:40 02:45 02:50 Temperature Pulse Rate 69 62 73 Pulse Rate [ From Monitor] Respiratory Rate Blood Pressure Blood Pressure [Right Arm] O2 Sat by Pulse 96 98 98 Oximetry 10/08/16 10/08/16 10/08/16 02:55 03:00 03:05 Temperature Pulse Rate 66 80 67 Pulse Rate [ From Monitor] Respiratory Rate Blood Pressure Blood Pressure [Right Arm] O2 Sat by Pulse 98 98 99 Oximetry 10/08/16 10/08/16 10/08/16 03:10 03:15 03:31 Temperature Pulse Rate 66 72 65 Pulse Rate [ From Monitor] Respiratory Rate Blood Pressure Blood Pressure [Right Arm] O2 Sat by Pulse 99 99 98 Oximetry 10/08/16 10/08/16 10/08/16 03:36 03:41 03:46 Temperature Pulse Rate 61 62 68 Pulse Rate [ From Monitor] Respiratory Rate Blood Pressure Blood Pressure [Right Arm] O2 Sat by Pulse 99 99 99 Oximetry 10/08/16 10/08/16 10/08/16 03:51 03:52 03:56 Temperature Pulse Rate 64 96 H 63 Pulse Rate [ From Monitor] Respiratory Rate Blood Pressure Blood Pressure [Right Arm] O2 Sat by Pulse 98 68 L 99 Oximetry 10/08/16 10/08/16 10/08/16 04:01 04:06 04:11 Temperature Pulse Rate 68 66 70 Pulse Rate [ From Monitor] Respiratory Rate Blood Pressure Blood Pressure [Right Arm] O2 Sat by Pulse 99 100 100 Oximetry 10/08/16 10/08/16 10/08/16 04:16 04:21 04:26 Temperature Pulse Rate 70 69 69 Pulse Rate [ From Monitor] Respiratory Rate Blood Pressure Blood Pressure [Right Arm] O2 Sat by Pulse 100 100 98 Oximetry 10/08/16 10/08/16 10/08/16 04:31 04:36 04:41 Temperature Pulse Rate 67 68 73 Pulse Rate [ From Monitor] Respiratory Rate Blood Pressure Blood Pressure [Right Arm] O2 Sat by Pulse 99 99 100 Oximetry 10/08/16 10/08/16 10/08/16 04:42 04:46 04:51 Temperature Pulse Rate 82 73 65 Pulse Rate [ From Monitor] Respiratory Rate Blood Pressure Blood Pressure [Right Arm] O2 Sat by Pulse 71 L 98 98 Oximetry 10/08/16 10/08/16 10/08/16 04:57 05:01 05:06 Temperature Pulse Rate 72 65 68 Pulse Rate [ From Monitor] Respiratory Rate Blood Pressure Blood Pressure [Right Arm] O2 Sat by Pulse 99 100 99 Oximetry 10/08/16 10/08/16 10/08/16 05:11 05:15 05:17 Temperature Pulse Rate 61 99 H 69 Pulse Rate [ From Monitor] Respiratory Rate Blood Pressure Blood Pressure [Right Arm] O2 Sat by Pulse 100 87 98 Oximetry 0610/08/16 10/08/16 05:22 05:27 05:32 Temperature Pulse Rate 64 63 62 Pulse Rate [ From Monitor] Respiratory Rate Blood Pressure Blood Pressure [Right Arm] O2 Sat by Pulse 99 99 98 Oximetry 10/08/16 10/08/16 10/08/16 05:37 05:43 05:47 Temperature Pulse Rate 66 62 72 Pulse Rate [ From Monitor] Respiratory Rate Blood Pressure Blood Pressure [Right Arm] O2 Sat by Pulse 99 99 99 Oximetry 10/08/16 10/08/16 10/08/16 05:52 05:57 06:02 Temperature Pulse Rate 72 62 63 Pulse Rate [ From Monitor] Respiratory Rate Blood Pressure Blood Pressure [Right Arm] O2 Sat by Pulse 100 98 99 Oximetry 10/08/16 10/08/16 10/08/16 06:07 06:12 06:18 Temperature Pulse Rate 65 66 66 Pulse Rate [ From Monitor] Respiratory Rate Blood Pressure Blood Pressure [Right Arm] O2 Sat by Pulse 99 99 99 Oximetry 10/08/16 10/08/16 10/08/16 06:23 06:27 06:32 Temperature Pulse Rate 76 71 69 Pulse Rate [ From Monitor] Respiratory Rate Blood Pressure Blood Pressure [Right Arm] O2 Sat by Pulse 99 99 99 Oximetry 10/08/16 10/08/16 10/08/16 06:35 06:37 06:42 Temperature 98.0 F Pulse Rate 65 81 Pulse Rate [ 84 From Monitor] Respiratory 18 Rate Blood Pressure 105/55 Blood Pressure 105/55 [Right Arm] O2 Sat by Pulse 99 Oximetry 10/08/16 10/08/16 10/08/16 06:43 07:48 07:49 Temperature Pulse Rate 71 89 97 H Pulse Rate [ From Monitor] Respiratory Rate Blood Pressure Blood Pressure [Right Arm] O2 Sat by Pulse 99 96 91 Oximetry 10/08/16 10/08/16 10/08/16 07:53 07:58 08:03 Temperature Pulse Rate 71 67 77 Pulse Rate [ From Monitor] Respiratory Rate Blood Pressure 113/60 Blood Pressure [Right Arm] O2 Sat by Pulse 98 98 99 Oximetry 10/08/16 10/08/16 10/08/16 08:06 08:08 08:13 Temperature Pulse Rate 87 68 66 Pulse Rate [ From Monitor] Respiratory Rate Blood Pressure Blood Pressure [Right Arm] O2 Sat by Pulse 84 98 100 Oximetry 10/08/16 10/08/16 10/08/16 08:18 08:28 08:33 Temperature Pulse Rate 66 72 73 Pulse Rate [ From Monitor] Respiratory Rate Blood Pressure Blood Pressure [Right Arm] O2 Sat by Pulse 99 100 98 Oximetry 10/08/16 10/08/16 10/08/16 08:38 08:43 08:48 Temperature Pulse Rate 75 73 74 Pulse Rate [ From Monitor] Respiratory Rate Blood Pressure Blood Pressure [Right Arm] O2 Sat by Pulse 98 98 98 Oximetry 10/08/16 10/08/16 10/08/16 08:53 08:58 09:03 Temperature Pulse Rate 77 78 78 Pulse Rate [ From Monitor] Respiratory Rate Blood Pressure Blood Pressure [Right Arm] O2 Sat by Pulse 98 98 98 Oximetry 10/08/16 10/08/16 10/08/16 09:08 09:13 09:17 Temperature Pulse Rate 79 95 H 77 Pulse Rate [ From Monitor] Respiratory Rate Blood Pressure Blood Pressure [Right Arm] O2 Sat by Pulse 98 98 99 Oximetry 10/08/16 10/08/16 10/08/16 09:23 09:28 09:32 Temperature Pulse Rate 84 78 78 Pulse Rate [ From Monitor] Respiratory Rate Blood Pressure Blood Pressure [Right Arm] O2 Sat by Pulse 99 98 99 Oximetry 10/08/16 10/08/16 10/08/16 09:38 09:43 09:47 Temperature Pulse Rate 128 H 81 79 Pulse Rate [ From Monitor] Respiratory Rate Blood Pressure Blood Pressure [Right Arm] O2 Sat by Pulse 98 99 99 Oximetry 10/08/16 10/08/16 10/08/16 09:53 09:58 10:03 Temperature Pulse Rate 79 80 84 Pulse Rate [ From Monitor] Respiratory Rate Blood Pressure Blood Pressure [Right Arm] O2 Sat by Pulse 99 99 99 Oximetry 10/08/16 10/08/16 10/08/16 10:08 10:13 10:18 Temperature Pulse Rate 89 78 88 Pulse Rate [ From Monitor] Respiratory Rate Blood Pressure Blood Pressure [Right Arm] O2 Sat by Pulse 100 99 99 Oximetry 10/08/16 10/08/16 10/08/16 10:23 10:28 10:33 Temperature Pulse Rate 78 79 76 Pulse Rate [ From Monitor] Respiratory Rate Blood Pressure Blood Pressure [Right Arm] O2 Sat by Pulse 91 98 96 Oximetry 10/08/16 10/08/16 10/08/16 10:38 10:43 10:48 Temperature Pulse Rate 88 78 87 Pulse Rate [ From Monitor] Respiratory Rate Blood Pressure Blood Pressure [Right Arm] O2 Sat by Pulse 93 100 96 Oximetry 10/08/16 10:53 Temperature Pulse Rate 81 Pulse Rate [ From Monitor] Respiratory Rate Blood Pressure Blood Pressure [Right Arm] O2 Sat by Pulse 97 Oximetry - General Apperance Constitutional: comfortable - EENT EENT: ATNC, PERRL, mucous membranes moist, hearing intact, vision intact - Respiratory Respiratory: chest non-tender, normal breath sounds, no respiratory distress - Cardiovascular Cardiovascular: regular rate Extremities: no peripheral edema bilat, no clubbing, cyanosis, no inflammation, no ischemia or petechiae - Gastrointestinal Gastrointestinal: normoactive bowel sounds, soft, non-distended - Integumentary Integumentary: normal - Neurologic Cranial nerve examination: PERRL, EOMI, VFF, V1/V2/V3 grossly intact, face symmetric, tongue midline, intact, intact shoulder shrug, Intact Vestibulo- ocular r, intact corneal reflex Speech examination: intact Detailed motor examination: full strength in all mynor Motor examination - right side: 5/5: biceps, triceps, wrist flexion, wrist extension, bus boy, hip flexors, knee extensors, dorsiflexion, toe extension (EHL) , plantarflexion Motor examination - left side: 5/5: biceps, triceps, wrist flexion, wrist extension, bus boy, hip flexors, knee extensors, dorsiflexion, toe extension (EHL) , plantarflexion Detailed sensory examination: intact, light touch, temperature Reflex and gait examination: intact - Laboratory Findings CBC and BMP: 10/07/16 19:10 10/08/16 00:20 Abnormal Lab Findings: Abnormal Labs 10/06/16 10/06/16 10/06/16 16:30 16:30 16:30 RBC 3.51 L Hgb Hct Seg Neutrophils % 74.3 H Sodium Carbon Dioxide BUN Creatinine 0.3 L Uric Acid 3.1 L Calcium Magnesium 4.20 H ALT Total Protein Albumin 10/06/16 10/07/16 10/07/16 23:39 07:28 19:10 RBC 3.16 L Hgb 9.2 L Hct 27.8 L Seg Neutrophils % 76.3 H Sodium Carbon Dioxide BUN Creatinine Uric Acid Calcium Magnesium 5.90 H 4.50 H ALT Total Protein Albumin 10/08/16 00:20 RBC Hgb Hct Seg Neutrophils % Sodium 132 L Carbon Dioxide 18 L BUN 5 L Creatinine 0.4 L Uric Acid Calcium 6.9 L Magnesium ALT < 5 L Total Protein 5.9 L Albumin 2.8 L
[2016-10-09] MEDS: TYLENOL PO PRN (00:05)
[2016-10-09] MEDS: POLYCILLIN/NS 2 GM/100 ML 2 GM/100 ML BAG IV SCH (01:14)
[2016-10-09] MEDS: ERYTHROMYCIN LACTOBIONATE 250 MG in NACL 0.9% 100 ML IV SCH (01:15)
[2016-10-09] MEDS: LACTATED RINGERS 1,000 ML IV SCH ×2 (06:03→20:13)
--- NOTE | 2016-10-09 07:00 | Progress Note ---
Assessment and Plan A:HD#4 IUP at 23w0d PPROM on 10/07/16 Oligohydramnios Questionable seizure activity s/p neurology consult and normal MRI brain Headache- improved today Insufficient care Previous x 1 P: Second dose of betamethasone this morning Neonatology consult today Continue latency antibiotics Closely monitor maternal and status Subjective - Subjective Date of service: 10/09/16 Principal diagnosis: 23 weeks IUP, questionable seizure disorder , PPROM Interval history: Overnight, pt had run of contractions that resolved with IV fluid bolus. She remains anxious regarding this . She also reports that her mother is leaving town tomorrow and that she is nervous about that. Patient reports: loss of fluid, movement normal, contractions, no new complaints, no vaginal bleeding Objective - Vital Signs Vital Signs: Vital Signs - 12hr 10/08/16 10/08/16 10/08/16 19:01 19:06 19:09 Temperature Pulse Rate 81 100 H 79 Pulse Rate [ From Monitor] Respiratory Rate Blood Pressure Blood Pressure [Right Arm] O2 Sat by Pulse 100 100 92 Oximetry 10/08/16 10/08/16 10/08/16 19:11 19:15 19:16 Temperature Pulse Rate 79 74 75 Pulse Rate [ From Monitor] Respiratory Rate Blood Pressure Blood Pressure [Right Arm] O2 Sat by Pulse 92 94 98 Oximetry 10/08/16 10/08/16 10/08/16 19:20 19:21 19:24 Temperature 97.4 F L Pulse Rate 65 72 83 Pulse Rate [ 65 From Monitor] Respiratory 18 Rate Blood Pressure 100/49 Blood Pressure 100/49 [Right Arm] O2 Sat by Pulse 98 94 Oximetry 10/08/16 10/08/16 10/08/16 19:26 19:31 19:36 Temperature Pulse Rate 84 82 70 Pulse Rate [ From Monitor] Respiratory Rate Blood Pressure Blood Pressure [Right Arm] O2 Sat by Pulse 88 97 100 Oximetry 10/08/16 10/08/16 10/08/16 19:41 19:46 19:51 Temperature Pulse Rate 68 67 77 Pulse Rate [ From Monitor] Respiratory Rate Blood Pressure Blood Pressure [Right Arm] O2 Sat by Pulse 99 99 98 Oximetry 10/08/16 10/08/16 10/08/16 19:56 20:01 20:06 Temperature Pulse Rate 70 77 64 Pulse Rate [ From Monitor] Respiratory Rate Blood Pressure Blood Pressure [Right Arm] O2 Sat by Pulse 98 99 98 Oximetry 10/08/16 10/08/16 10/08/16 20:35 20:40 20:45 Temperature Pulse Rate 60 60 58 L Pulse Rate [ From Monitor] Respiratory Rate Blood Pressure Blood Pressure [Right Arm] O2 Sat by Pulse 98 99 100 Oximetry 10/08/16 10/08/16 10/08/16 20:46 20:50 20:55 Temperature Pulse Rate 64 68 68 Pulse Rate [ From Monitor] Respiratory Rate Blood Pressure Blood Pressure [Right Arm] O2 Sat by Pulse 94 99 100 Oximetry 10/08/16 10/08/16 10/08/16 21:00 21:05 21:10 Temperature Pulse Rate 57 L 56 L 60 Pulse Rate [ From Monitor] Respiratory Rate Blood Pressure Blood Pressure [Right Arm] O2 Sat by Pulse 98 100 100 Oximetry 10/08/16 10/08/16 10/08/16 21:15 21:20 21:25 Temperature Pulse Rate 60 63 59 L Pulse Rate [ From Monitor] Respiratory Rate Blood Pressure Blood Pressure [Right Arm] O2 Sat by Pulse 98 99 99 Oximetry 10/08/16 10/08/16 10/08/16 21:29 21:30 21:35 Temperature Pulse Rate 62 63 60 Pulse Rate [ From Monitor] Respiratory Rate Blood Pressure Blood Pressure [Right Arm] O2 Sat by Pulse 93 98 93 Oximetry 10/08/16 10/08/16 10/08/16 21:40 21:45 21:50 Temperature Pulse Rate 64 73 68 Pulse Rate [ From Monitor] Respiratory Rate Blood Pressure Blood Pressure [Right Arm] O2 Sat by Pulse 97 97 99 Oximetry 10/08/16 10/08/16 10/08/16 21:55 21:58 22:00 Temperature Pulse Rate 66 56 L 70 Pulse Rate [ From Monitor] Respiratory Rate Blood Pressure Blood Pressure [Right Arm] O2 Sat by Pulse 98 91 98 Oximetry 10/08/16 10/08/16 10/08/16 22:04 22:05 22:10 Temperature Pulse Rate 60 60 60 Pulse Rate [ From Monitor] Respiratory Rate Blood Pressure Blood Pressure [Right Arm] O2 Sat by Pulse 93 95 98 Oximetry 10/08/16 10/08/16 10/08/16 22:15 22:20 22:24 Temperature Pulse Rate 66 63 66 Pulse Rate [ From Monitor] Respiratory Rate Blood Pressure Blood Pressure [Right Arm] O2 Sat by Pulse 97 96 91 Oximetry 10/08/16 10/08/16 10/08/16 22:25 22:30 22:35 Temperature Pulse Rate 62 65 66 Pulse Rate [ From Monitor] Respiratory Rate Blood Pressure Blood Pressure [Right Arm] O2 Sat by Pulse 92 98 99 Oximetry 10/08/16 10/08/16 10/08/16 22:40 22:45 22:48 Temperature Pulse Rate 66 53 L 63 Pulse Rate [ From Monitor] Respiratory Rate Blood Pressure Blood Pressure [Right Arm] O2 Sat by Pulse 98 97 93 Oximetry 10/08/16 10/08/16 10/08/16 22:50 22:55 23:02 Temperature 98.4 F Pulse Rate 82 58 L Pulse Rate [ From Monitor] Respiratory Rate Blood Pressure Blood Pressure [Right Arm] O2 Sat by Pulse 97 91 Oximetry 10/08/16 10/09/16 10/09/16 23:57 00:05 04:20 Temperature 98.2 F 97.1 F L Pulse Rate 65 58 L Pulse Rate [ 65 58 L From Monitor] Respiratory 20 18 20 Rate Blood Pressure 111/65 114/58 Blood Pressure 111/65 114/58 [Right Arm] O2 Sat by Pulse 100 97 Oximetry - Exam Breasts: deferred Cardiovascular: Regular rate Lungs: Clear to auscultation Abdomen: Present: soft (gravid ) Uterus: Present: normal (gravid ) FHR: auscultation normal Uterine Contraction Monitor Mode: External Uterine Contraction Pattern: Irregular Uterine Tone Measurement Phase: Resting Uterine Contraction Intensity: Mild Extremities: normal - Labs Labs: Abnormal Labs 10/06/16 10/06/16 10/06/16 16:30 16:30 16:30 RBC 3.51 L Hgb Hct Seg Neutrophils % 74.3 H Sodium Carbon Dioxide BUN Creatinine 0.3 L Uric Acid 3.1 L Calcium Magnesium 4.20 H ALT Total Protein Albumin 10/06/16 10/07/16 10/07/16 23:39 07:28 19:10 RBC 3.16 L Hgb 9.2 L Hct 27.8 L Seg Neutrophils % 76.3 H Sodium Carbon Dioxide BUN Creatinine Uric Acid Calcium Magnesium 5.90 H 4.50 H ALT Total Protein Albumin 10/08/16 00:20 RBC Hgb Hct Seg Neutrophils % Sodium 132 L Carbon Dioxide 18 L BUN 5 L Creatinine 0.4 L Uric Acid Calcium 6.9 L Magnesium ALT < 5 L Total Protein 5.9 L Albumin 2.8 L Laboratory Results - last 24 hr 10/08/16 07:00 Urine Color Yellow Urine Turbidity Clear Urine pH 7.0 Ur Specific [place] 1.015 Urine Protein <15 mg/dl Urine Glucose (UA) Neg Urine Ketones 20 Urine Blood Sm Urine Nitrite Neg Urine Bilirubin Neg Urine Urobilinogen < 2.0 Ur Leukocyte Esterase Neg Urine WBC (Auto) 2.0 Urine RBC (Auto) 6.0 U Epithel Cells (Auto) 2.0 Urine Mucus Few
[2016-10-09] MEDS: CELESTONE SOLUSPAN IM SCH (08:57)
--- NOTE | 2016-10-09 10:10 | Ultrasound Report ---
OB LIMITED INDICATION: Premature rupture of membranes. IUP at 23 weeks. COMPARISON: 10/06/2016 TECHNIQUE: Transabdominal grayscale ultrasound with Doppler interrogation. Gestation: [place] Position: Breech Amniotic Fluid: Decreased/no fluid noted subjectively at less than 24 weeks, again representing oligohydramnios. Heart Rate: 158 BPM
[2016-10-09] MEDS: PRENATAL VITAMIN PO SCH (11:23)
--- NOTE | 2016-10-09 17:36 | Consultation ---
History of Present Illness Consult date: 10/09/16 Requesting physician: BYRON SOL Reason for consult: prematurity (Extreme) History of present illness: Patient is a 21 year old mother presenting with PPROM at 22w 4d gestation and is 23 weeks today. I met with the mother with the nursing assistants teacher present. Based on the gestational age of 23 weeks and an EFW 560 grams, the baby may not be able to survive or have significant handicap if he survives. Using the NICHD Mortality Calculator, given an age of 23 weeks and an EFW of 560 grams, along with other criteria, survival is estimated at 26 - 35% and survival without moderate or severe impairment is estimated at 7 - 10 %. To help mother understand these figures, I explained that 3 in 10 infants will survive their NICU stay and of these,1 will have NO disability. We discussed the implications of severe disability in the long-term with the child requiring assistance with basic functions such as walking and eating and the possibility of blindness from retinopathy of prematurity. We discussed the most common morbidities associated with prematurity such IVH and complications such as infections requiring antibiotics while in the NICU. We discussed the option to forego NICU care and opt for comfort care at this gestation of 23 weeks. Mother expressed understanding of the information presented and asked appropriate questions. At the end of the discussion, mother expressed her initial thoughts stating that she thinks her baby will go through 'a lot' if he is admitted to the NICU and she does not want that for her baby. She also stated that it might be a lot for her as she has depression and anxiety. I informed mother that we will revisit her thoughts once she has had some more time to think about the information presented and decide what she wants for her baby and her family. I informed her that prognosis improves with gestational age and our discussions will continue as her progresses. Documentation - Maternal Info Maternal Blood Type: A (+) positive HbsAg: Negative HIV: Negative RPR/VDRL: Negative Group Beta Strep: Unknown Rubella: Non-immune Amniotic Membrane Rupture Date: 10/06/16 Amniotic Membrane Rupture Time: 18:00 - information: Height 5 ft 1 in Medications and Allergies Allergies Allergy/AdvReac Type Severity Reaction Status Date / Time coconut oil Allergy Hives Verified 03/29/14 21:23 kiwi Allergy Hives Verified 11/26/14 21:23 Home Medications Medication Instructions Recorded Confirmed Last Taken Type Ferrous Sulfate [Feosol 325 MG tab] 325 mg PO BID #60 tablet 01/27/16 10/06/16 Unknown Rx Ibuprofen [Motrin 800 MG tab] 800 mg PO Q8HR PRN #30 tablet 01/27/16 10/06/16 Unknown Rx oxyCODONE /ACETAMINOPHEN [Percocet 1 tab PO Q6HR PRN #30 tablet 01/27/16 Unknown Rx 5/325] Vit W-Ca,Fe,FA(<1 mg) 1 each PO DAILY 10/06/16 10/06/16 10/04/16 08:00 History [ Vitamins] Active Meds: Active Medications Acetaminophen (Tylenol) 1,000 mg PO Q6H PRN PRN Reason: Pain, Mild (1-3) Last Admin: 10/09/16 00:05 Dose: 1,000 mg Acetaminophen/Butalbital/Caffeine (Fioricet) 1 tab PO Q4H PRN PRN Reason: Headache Last Admin: 10/08/16 10:05 Dose: 1 tab Al Hydrox/Mg Hydrox/Simethicone (Alum-Mag Hydrox-Simeth [phone]/5ml) 30 ml PO Q6H PRN PRN Reason: Indigestion Amoxicillin (Trimox) 250 mg PO Q8H ALEX PRN Reason: Protocol Stop: 10/14/16 04:01 Diphenhydramine HCl (Benadryl) 25 mg PO Q6H PRN PRN Reason: Itching Docusate Sodium (Colace) 100 mg PO Q12H PRN PRN Reason: Constipation Erythromycin (Panfilo-Tab) 250 mg PO Q8H ALEX PRN Reason: Protocol Stop: 10/14/16 04:01 Lactated Ringer's (Lactated Ringers) 1,000 mls @ 125 mls/hr IV DIRECT ALEX Last Admin: 10/09/16 06:03 Dose: 100 mls/hr Lorazepam (Ativan) 1 mg IV Q4H PRN PRN Reason: Seizures Magnesium Hydroxide (Milk Of Magnesia) 30 ml PO QHS PRN PRN Reason: Laxative Effect Multivitamins/Iron/Calcium ( Vitamin) 1 each PO QDAY [facility] Ondansetron HCl (Zofran) 4 mg IV Q6H PRN PRN Reason: Nausea And Vomiting Last Admin: 10/08/16 07:50 Dose: 4 mg Pseudoephedrine HCl (Sudafed) 30 mg PO Q4H PRN PRN Reason: Nasal Congestion Senna/Docusate Sodium (Senokot S) 2 tab PO Q12H PRN PRN Reason: Laxative Effect Simethicone (Mylicon) 80 mg PO Q6H PRN PRN Reason: Gas pain Last Admin: 10/08/16 08:02 Dose: 80 mg Sodium Chloride (Deep Sea) 2 spray NS Q4H PRN PRN Reason: Congestion Zolpidem Tartrate (Ambien) 10 mg PO ONCE PRN PRN Reason: Sleep Last Admin: 10/08/16 00:03 Dose: 10 mg Exam Vital Signs Pulse Pulse Ox 110 H 76 L 10/06/16 15:10 10/06/16 15:10 Temp Pulse Resp BP Pulse Ox 99.3 F 72 18 110/55 99 10/09/16 11:57 10/09/16 16:36 10/09/16 11:57 10/09/16 16:27 10/09/16 16:36 Results - Laboratory Findings 10/07/16 19:10 10/08/16 00:20 Assessment and Plan Will continue discussions with mother to to ascertain her wishes are for baby at 23 weeks gestation: comfort care vs trial of NICU care. Will continue to follow with mother as progresses Please call NICU with questions
[2016-10-09] MEDS: ERY-TAB PO SCH (18:08)
[2016-10-09] MEDS: TRIMOX PO SCH (18:08)
[2016-10-10] MEDS: ERY-TAB PO SCH ×3 (01:16→21:16)
[2016-10-10] MEDS: TRIMOX PO SCH ×3 (01:17→21:16)
[2016-10-10] MEDS: AMBIEN PO PRN (01:25)
[2016-10-10] MEDS: LACTATED RINGERS 1,000 ML IV SCH ×2 (05:10→15:47)
[2016-10-10] MEDS: PRENATAL VITAMIN PO SCH (10:48)
--- NOTE | 2016-10-10 13:41 | Consultation ---
History of Present Illness - Reason for Consult Consult date: 10/10/16 Extreme prematurity Requesting physician: BYRON SOL - History of Present Illness I met with mother this morning. She has carefully considered her options from our discussion yesterday and has decided to forego trial of NICU care if she delivers at 23 weeks. She has opted for comfort care and wishes to hold her baby if he is born at 23 weeks gestation. If the continues to 24 weeks, measures focused on respiratory support at delivery will be provided. If the baby responds to these measures, a trial of NICU care will be provided. Because of the uniformly dismal prognosis of babies at this gestation who receive chest compressions at delivery, resuscitation measures will be limited to respiratory management only with NO chest compressions or bolus cardiac medication. Mother understands and agrees with the present plan. Mother's decision has been communicated with the primary OB team. If there are any further questions, please do not hesitate to contact us again. Thank you for asking us to participate in this patient's care. Past History Past Medical History: No medical history Past Surgical History: Other (c sectionx1) Social history: single, lives with family, other (THC use). denies: smoking, alcohol abuse, prescription drug abuse, IV drug use Medications and Allergies Allergies Allergy/AdvReac Type Severity Reaction Status Date / Time coconut oil Allergy Hives Verified 03/29/14 21:23 kiwi Allergy Hives Verified 03/29/14 21:23 Home Medications Medication Instructions Recorded Confirmed Last Taken Type Ferrous Sulfate [Feosol 325 MG tab] 325 mg PO BID #60 tablet 01/27/16 10/06/16 Unknown Rx Ibuprofen [Motrin 800 MG tab] 800 mg PO Q8HR PRN #30 tablet 01/27/16 10/06/16 Unknown Rx oxyCODONE /ACETAMINOPHEN [Percocet 1 tab PO Q6HR PRN #30 tablet 01/27/16 Unknown Rx 5/325] Vit W-Ca,Fe,FA(<1 mg) 1 each PO DAILY 10/06/16 10/06/16 10/04/16 08:00 History [ Vitamins] Active Meds: Active Medications Acetaminophen (Tylenol) 1,000 mg PO Q6H PRN PRN Reason: Pain, Mild (1-3) Last Admin: 10/09/16 00:05 Dose: 1,000 mg Acetaminophen/Butalbital/Caffeine (Fioricet) 1 tab PO Q4H PRN PRN Reason: Headache Last Admin: 10/08/16 10:05 Dose: 1 tab Al Hydrox/Mg Hydrox/Simethicone (Alum-Mag Hydrox-Simeth [phone]/5ml) 30 ml PO Q6H PRN PRN Reason: Indigestion Amoxicillin (Trimox) 250 mg PO Q8H ALEX PRN Reason: Protocol Stop: 10/14/16 04:01 Last Admin: 10/10/16 12:02 Dose: 250 mg Diphenhydramine HCl (Benadryl) 25 mg PO Q6H PRN PRN Reason: Itching Docusate Sodium (Colace) 100 mg PO Q12H PRN PRN Reason: Constipation Last Admin: 10/10/16 10:53 Dose: 100 mg Erythromycin (Panfilo-Tab) 250 mg PO Q8H [facility] PRN Reason: Protocol Stop: 10/14/16 04:01 Last Admin: 10/10/16 12:01 Dose: 250 mg Lactated Ringer's (Lactated Ringers) 1,000 mls @ 125 mls/hr IV DIRECT ALEX Last Admin: 10/10/16 05:10 Dose: 100 mls/hr Lorazepam (Ativan) 1 mg IV Q4H PRN PRN Reason: Seizures Magnesium Hydroxide (Milk Of Magnesia) 30 ml PO QHS PRN PRN Reason: Laxative Effect Multivitamins/Iron/Calcium ( Vitamin) 1 each PO QDAY [facility] Last Admin: 10/10/16 10:48 Dose: 1 each Ondansetron HCl (Zofran) 4 mg IV Q6H PRN PRN Reason: Nausea And Vomiting Last Admin: 10/08/16 07:50 Dose: 4 mg Pseudoephedrine HCl (Sudafed) 30 mg PO Q4H PRN PRN Reason: Nasal Congestion Senna/Docusate Sodium (Senokot S) 2 tab PO Q12H PRN PRN Reason: Laxative Effect Simethicone (Mylicon) 80 mg PO Q6H PRN PRN Reason: Gas pain Last Admin: 10/08/16 08:02 Dose: 80 mg Sodium Chloride (Deep Sea) 2 spray NS Q4H PRN PRN Reason: Congestion Zolpidem Tartrate (Ambien) 10 mg PO ONCE PRN PRN Reason: Sleep Last Admin: 10/10/16 01:25 Dose: 10 mg Exam - Constitutional Vitals: Temp Pulse Resp BP Pulse Ox 99.2 F 70 18 106/60 98 10/10/16 11:55 10/10/16 11:55 10/10/16 11:55 10/10/16 11:55 10/10/16 11:55 Results - Labs CBC & Chem 7: 10/07/16 19:10 10/08/16 00:20 Labs: Abnormal lab results 10/09/16 Range/Units 20:05 POC Glucose 135 H (70-105) Assessment and Plan Comfort care if baby is delivered at 23 weeks gestation Continue to follow as progresses Please call NICU with questions
--- NOTE | 2016-10-10 14:37 | Progress Note ---
Assessment and Plan A/P HD#4 seizure activity 23 weeks , PPROM, depression 1. Patient currently on latency abx po 2. s/p NICU consult 3. Patient currenlty stable no ctx no s/sx of labor 4. called social service consult ( complicated social hx ) 5. patient feels depressed called for pysch consult ( declines suicidal nor homicidal ideations) Subjective - Subjective Date of service: 10/10/16 Principal diagnosis: 23 weeks IUP, questionable seizure disorder , PPROM Interval history: This is a 21 yo EDC 02/05/17 here via ambulance with seizure activity. She was brought in and given 4mg Ativan. She states that she has been fine until several days ago with pain in pelvic area and cousin stated that today at 2p she started shaking after c/o pain in pelvic abdominal area. She does not have any histroy of seiaure and only medical problem consists of asthma Patient reports: loss of fluid, movement normal, contractions, no new complaints, no vaginal bleeding Objective - Vital Signs Vital Signs: Vital Signs - 12hr 10/10/16 10/10/16 10/10/16 05:10 05:11 08:36 Temperature 98.2 F Pulse Rate 72 62 Pulse Rate [ From Monitor] Respiratory 18 Rate Blood Pressure 97/50 113/51 Blood Pressure [Left Arm] O2 Sat by Pulse 99 Oximetry 10/10/16 10/10/16 10/10/16 08:38 08:48 08:53 Temperature 98.7 F Pulse Rate 78 66 Pulse Rate [ 63 From Monitor] Respiratory 18 Rate Blood Pressure Blood Pressure 113/51 [Left Arm] O2 Sat by Pulse 99 99 98 Oximetry 10/10/16 10/10/16 10/10/16 08:58 09:03 09:08 Temperature Pulse Rate 69 73 91 H Pulse Rate [ From Monitor] Respiratory Rate Blood Pressure Blood Pressure [Left Arm] O2 Sat by Pulse 98 99 99 Oximetry 10/10/16 10/10/16 10/10/16 09:13 09:18 09:23 Temperature Pulse Rate 73 87 71 Pulse Rate [ From Monitor] Respiratory Rate Blood Pressure Blood Pressure [Left Arm] O2 Sat by Pulse 99 58 L 99 Oximetry 10/10/16 10/10/16 10/10/16 09:28 09:33 09:38 Temperature Pulse Rate 66 95 H 86 Pulse Rate [ From Monitor] Respiratory Rate Blood Pressure Blood Pressure [Left Arm] O2 Sat by Pulse 98 99 99 Oximetry 10/10/16 10/10/16 10/10/16 09:43 09:48 09:53 Temperature Pulse Rate 71 70 72 Pulse Rate [ From Monitor] Respiratory Rate Blood Pressure Blood Pressure [Left Arm] O2 Sat by Pulse 99 98 99 Oximetry 10/10/16 10/10/16 10/10/16 09:58 10:03 10:08 Temperature Pulse Rate 70 68 80 Pulse Rate [ From Monitor] Respiratory Rate Blood Pressure Blood Pressure [Left Arm] O2 Sat by Pulse 99 98 98 Oximetry 10/10/16 10/10/16 10/10/16 10:13 10:18 10:21 Temperature Pulse Rate 81 91 H 84 Pulse Rate [ From Monitor] Respiratory Rate Blood Pressure Blood Pressure [Left Arm] O2 Sat by Pulse 97 98 94 Oximetry 10/10/16 10/10/16 10/10/16 10:23 10:28 10:29 Temperature Pulse Rate 91 H 91 H 88 Pulse Rate [ From Monitor] Respiratory Rate Blood Pressure Blood Pressure [Left Arm] O2 Sat by Pulse 93 94 94 Oximetry 10/10/16 10/10/16 10/10/16 10:33 10:34 10:38 Temperature Pulse Rate 92 H 93 H 95 H Pulse Rate [ From Monitor] Respiratory Rate Blood Pressure Blood Pressure [Left Arm] O2 Sat by Pulse 95 94 95 Oximetry 10/10/16 10/10/16 10/10/16 10:43 10:48 11:53 Temperature Pulse Rate 88 90 70 Pulse Rate [ From Monitor] Respiratory Rate Blood Pressure 106/60 Blood Pressure [Left Arm] O2 Sat by Pulse 96 99 Oximetry 10/10/16 10/10/16 11:54 11:55 Temperature 99.2 F Pulse Rate 78 Pulse Rate [ 70 From Monitor] Respiratory 18 Rate Blood Pressure Blood Pressure 106/60 [Left Arm] O2 Sat by Pulse 98 98 Oximetry - Exam Breasts: deferred Cardiovascular: Regular rate, Normal S1, Normal S2 Lungs: Clear to auscultation, Normal air movement Abdomen: Present: normal appearance, soft, normal bowel sounds. Absent: distention, tenderness Vulva: both: normal FHR: auscultation normal Deep Tendon Reflex Grade: Normal +2 - Labs Labs: Abnormal Labs 10/06/16 10/06/16 10/06/16 16:30 16:30 16:30 RBC 3.51 L Hgb Hct Seg Neutrophils % 74.3 H Sodium Carbon Dioxide BUN Creatinine 0.3 L POC Glucose Uric Acid 3.1 L Calcium Magnesium 4.20 H ALT Total Protein Albumin 10/06/16 10/07/16 10/07/16 23:39 07:28 19:10 RBC 3.16 L Hgb 9.2 L Hct 27.8 L Seg Neutrophils % 76.3 H Sodium Carbon Dioxide BUN Creatinine POC Glucose Uric Acid Calcium Magnesium 5.90 H 4.50 H ALT Total Protein Albumin 10/08/16 10/09/16 00:20 20:05 RBC Hgb Hct Seg Neutrophils % Sodium 132 L Carbon Dioxide 18 L BUN 5 L Creatinine 0.4 L POC Glucose 135 H Uric Acid Calcium 6.9 L Magnesium ALT < 5 L Total Protein 5.9 L Albumin 2.8 L Laboratory Results - last 24 hr 10/09/16 20:05 POC Glucose 135 H
[2016-10-10] MEDS: TYLENOL PO PRN ×2 (16:20→21:19)
[2016-10-11] MEDS: TRIMOX PO SCH ×3 (04:03→21:09)
[2016-10-11] MEDS: ERY-TAB PO SCH ×3 (04:03→21:09)
[2016-10-11] MEDS: LACTATED RINGERS 1,000 ML IV SCH ×3 (12:10→22:17)
[2016-10-11] MEDS: PRENATAL VITAMIN PO SCH (12:14)
--- NOTE | 2016-10-11 12:27 | Progress Note ---
Assessment and Plan A:HD#6 IUP at 23w2d s/p 2 doses of betamethasone. s/p NICU consult. PPROM on 10/07/16 s/p 48hrs of IV antibiotics, and currently on PO latency antibiotic regimen Oligohydramnios Questionable seizure activity s/p neurology consult and normal MRI brain Headache- improved today Insufficient care Malpresentation Previous x 1 P: Continue close observation of maternal and status. Subjective - Subjective Date of service: 10/11/16 Principal diagnosis: 23 weeks IUP, questionable seizure disorder , PPROM Interval history: Upon entry into the room, pt is sucking her thumb. She reports that she is getting depressed "thinking about her baby's father and everything." Mental health consult placed yesterday afternoon. Patient reports: loss of fluid, movement normal, contractions (rare), no new complaints, no vaginal bleeding Objective - Vital Signs Vital Signs: Vital Signs - 12hr 10/11/16 10/11/16 10/11/16 04:09 04:10 11:59 Temperature 98.5 F Pulse Rate 49 L 67 Pulse Rate [ 49 L From Monitor] Respiratory 18 Rate Blood Pressure 94/54 109/57 Blood Pressure 94/54 [Left Arm] O2 Sat by Pulse Oximetry 10/11/16 10/11/16 10/11/16 12:00 12:09 12:14 Temperature 98.3 F Pulse Rate 63 63 Pulse Rate [ From Monitor] Respiratory 18 Rate Blood Pressure Blood Pressure [Left Arm] O2 Sat by Pulse 100 99 Oximetry 10/11/16 12:19 Temperature Pulse Rate 61 Pulse Rate [ From Monitor] Respiratory Rate Blood Pressure Blood Pressure [Left Arm] O2 Sat by Pulse 100 Oximetry - Exam Breasts: deferred Cardiovascular: Regular rate Lungs: Clear to auscultation Abdomen: Present: soft (gravid ). Absent: tenderness FHR: category 2 (non-repetitive variable decel) Uterine Contraction Monitor Mode: External Uterine Contraction Pattern: Irregular (rare contractions with some irritability ) Uterine Tone Measurement Phase: Resting Extremities: normal - Labs Labs: Abnormal Labs 10/06/16 10/06/16 10/06/16 16:30 16:30 16:30 RBC 3.51 L Hgb Hct Seg Neutrophils % 74.3 H Sodium Carbon Dioxide BUN Creatinine 0.3 L POC Glucose Uric Acid 3.1 L Calcium Magnesium 4.20 H ALT Total Protein Albumin 10/06/16 10/07/16 10/07/16 23:39 07:28 19:10 RBC 3.16 L Hgb 9.2 L Hct 27.8 L Seg Neutrophils % 76.3 H Sodium Carbon Dioxide BUN Creatinine POC Glucose Uric Acid Calcium Magnesium 5.90 H 4.50 H ALT Total Protein Albumin 10/08/16 10/09/16 00:20 20:05 RBC Hgb Hct Seg Neutrophils % Sodium 132 L Carbon Dioxide 18 L BUN 5 L Creatinine 0.4 L POC Glucose 135 H Uric Acid Calcium 6.9 L Magnesium ALT < 5 L Total Protein 5.9 L Albumin 2.8 L - Results US- obstetric: report reviewed
--- NOTE | 2016-10-11 20:12 | Progress Note ---
Assessment and Plan A: IUP at 23 2/7 weeks gestation PROM S/p BMZ and NICU consult Breech -on US 10/09/2016 Questionable seizure activity s/p neurology consult and normal MRI brain Previous x 1 Plan; Continue expectant management, monitor for labor , distress Complete latency antibiotics Delivery at 34 weeks , sooner if indicated Growth scans q 3-4 weeks Twice weekly testing at 28 weeks gestation Subjective - Subjective Date of service: 10/11/16 Principal diagnosis: 23 weeks IUP, questionable seizure disorder , PPROM Interval history: She has occasional contractions and LOF Denied bleeding Patient reports: loss of fluid, movement normal, contractions (rare), no new complaints, no vaginal bleeding Objective - Vital Signs Vital Signs: Vital Signs - 12hr 10/11/16 10/11/16 10/11/16 11:59 12:00 12:09 Temperature 98.3 F Pulse Rate 67 63 Respiratory 18 Rate Blood Pressure 109/57 O2 Sat by Pulse 100 Oximetry 10/11/16 10/11/16 10/11/16 12:14 12:19 12:24 Temperature Pulse Rate 63 61 62 Respiratory Rate Blood Pressure O2 Sat by Pulse 99 100 99 Oximetry 10/11/16 10/11/16 10/11/16 12:29 12:34 12:39 Temperature Pulse Rate 59 L 63 54 L Respiratory Rate Blood Pressure O2 Sat by Pulse 100 100 100 Oximetry 10/11/16 10/11/16 10/11/16 12:44 12:49 12:54 Temperature Pulse Rate 68 62 60 Respiratory Rate Blood Pressure O2 Sat by Pulse 99 100 99 Oximetry 10/11/16 10/11/16 10/11/16 12:59 13:04 13:09 Temperature Pulse Rate 64 66 68 Respiratory Rate Blood Pressure O2 Sat by Pulse 99 100 100 Oximetry 10/11/16 10/11/16 10/11/16 13:14 13:19 13:24 Temperature Pulse Rate 69 79 85 Respiratory Rate Blood Pressure O2 Sat by Pulse 98 99 98 Oximetry 10/11/16 10/11/16 10/11/16 13:29 15:45 15:46 Temperature Pulse Rate 98 H 83 71 Respiratory Rate Blood Pressure 111/55 O2 Sat by Pulse 99 99 Oximetry 10/11/16 10/11/16 10/11/16 15:50 15:51 15:55 Temperature 98.6 F Pulse Rate 71 76 Respiratory 20 Rate Blood Pressure O2 Sat by Pulse 99 99 Oximetry 10/11/16 10/11/16 10/11/16 16:00 16:05 16:10 Temperature Pulse Rate 76 66 64 Respiratory Rate Blood Pressure O2 Sat by Pulse 99 98 99 Oximetry 10/11/16 10/11/16 10/11/16 16:15 16:20 16:25 Temperature Pulse Rate 76 63 70 Respiratory Rate Blood Pressure O2 Sat by Pulse 98 98 98 Oximetry 10/11/16 10/11/16 10/11/16 16:30 16:35 16:40 Temperature Pulse Rate 90 90 93 H Respiratory Rate Blood Pressure O2 Sat by Pulse 98 99 97 Oximetry 10/11/16 10/11/16 10/11/16 16:45 17:08 17:13 Temperature Pulse Rate 78 90 72 Respiratory Rate Blood Pressure O2 Sat by Pulse 98 100 98 Oximetry 10/11/16 10/11/16 10/11/16 17:18 17:23 17:28 Temperature Pulse Rate 73 69 77 Respiratory Rate Blood Pressure O2 Sat by Pulse 98 99 97 Oximetry 10/11/16 10/11/16 10/11/16 17:33 17:37 17:38 Temperature Pulse Rate 71 81 82 Respiratory Rate Blood Pressure O2 Sat by Pulse 98 71 L 99 Oximetry 10/11/16 10/11/16 10/11/16 17:43 17:44 17:49 Temperature Pulse Rate 75 80 71 Respiratory Rate Blood Pressure O2 Sat by Pulse 84 89 98 Oximetry 10/11/16 10/11/16 10/11/16 17:54 17:57 17:59 Temperature Pulse Rate 76 82 77 Respiratory Rate Blood Pressure O2 Sat by Pulse 99 93 98 Oximetry 10/11/16 10/11/16 10/11/16 18:04 18:09 18:14 Temperature Pulse Rate 75 67 75 Respiratory Rate Blood Pressure O2 Sat by Pulse 99 99 99 Oximetry 10/11/16 10/11/16 10/11/16 18:19 18:24 18:29 Temperature Pulse Rate 89 76 81 Respiratory Rate Blood Pressure O2 Sat by Pulse 99 97 98 Oximetry 10/11/16 10/11/16 10/11/16 18:34 18:39 18:44 Temperature Pulse Rate 83 72 84 Respiratory Rate Blood Pressure O2 Sat by Pulse 97 98 98 Oximetry 10/11/16 10/11/16 10/11/16 18:49 18:54 18:59 Temperature Pulse Rate 76 87 93 H Respiratory Rate Blood Pressure O2 Sat by Pulse 98 98 99 Oximetry 10/11/16 10/11/16 19:04 19:09 Temperature Pulse Rate 76 81 Respiratory Rate Blood Pressure O2 Sat by Pulse 98 97 Oximetry - Exam Narrative Exam: Sitting up in bed talking to friend in room NAD Abdomen: Present: normal appearance (non tender no palpable contractions ) Extremities: normal (no c/c/e) - Labs Labs: Abnormal Labs 10/06/16 10/06/16 10/06/16 16:30 16:30 16:30 RBC 3.51 L Hgb Hct Seg Neutrophils % 74.3 H Sodium Carbon Dioxide BUN Creatinine 0.3 L POC Glucose Uric Acid 3.1 L Calcium Magnesium 4.20 H ALT Total Protein Albumin 10/06/16 10/07/16 10/07/16 23:39 07:28 19:10 RBC 3.16 L Hgb 9.2 L Hct 27.8 L Seg Neutrophils % 76.3 H Sodium Carbon Dioxide BUN Creatinine POC Glucose Uric Acid Calcium Magnesium 5.90 H 4.50 H ALT Total Protein Albumin 10/08/16 10/09/16 00:20 20:05 RBC Hgb Hct Seg Neutrophils % Sodium 132 L Carbon Dioxide 18 L BUN 5 L Creatinine 0.4 L POC Glucose 135 H Uric Acid Calcium 6.9 L Magnesium ALT < 5 L Total Protein 5.9 L Albumin 2.8 L
[2016-10-12] MEDS: ERY-TAB PO SCH ×4 (03:38→22:05)
[2016-10-12] MEDS: TRIMOX PO SCH ×4 (03:39→22:06)
[2016-10-12] MEDS: TYLENOL PO PRN (07:45)
[2016-10-12] MEDS: LACTATED RINGERS 1,000 ML IV SCH ×2 (09:03→17:32)
--- NOTE | 2016-10-12 09:50 | Progress Note ---
Assessment and Plan A:HD#7 IUP at 23w3d s/p 2 doses of betamethasone. s/p NICU consult. PPROM on 10/07/16 s/p 48hrs of IV antibiotics, and currently on PO latency antibiotic regimen Diarrhea since this morning Oligohydramnios Questionable seizure activity s/p neurology consult and normal MRI brain Headache- Fioricet PRN Insufficient care Malpresentation Previous x 1 P: Loperamide PRN diarrhea Repeat CBC and Type and screen Continue close observation of maternal and status Subjective - Subjective Date of service: 10/12/16 Principal diagnosis: 23 weeks IUP, questionable seizure disorder , PPROM, anxiety/depression Interval history: Pt with 4 episodes of diarrhea this morning since 7 am. She reports feeling depressed because she is "stuck in this bed." She has no new obstetric complaints. Patient reports: loss of fluid, movement normal, contractions (rare), no new complaints, no vaginal bleeding Objective - Vital Signs Vital Signs: Vital Signs - 12hr 10/11/16 10/11/16 10/12/16 23:20 23:23 03:33 Temperature 99.0 F Pulse Rate 65 64 Pulse Rate [ 65 From Monitor] Respiratory 20 Rate Blood Pressure 118/65 99/54 Blood Pressure 118/65 [Left Arm] O2 Sat by Pulse 99 Oximetry 10/12/16 10/12/16 03:34 07:36 Temperature 98.3 F Pulse Rate 50 L Pulse Rate [ 64 From Monitor] Respiratory 18 Rate Blood Pressure 114/55 Blood Pressure 99/54 [Left Arm] O2 Sat by Pulse Oximetry - Exam Breasts: deferred Cardiovascular: Regular rate Lungs: Clear to auscultation Abdomen: Present: soft (gravid ). Absent: tenderness FHR: category 2 Uterine Contraction Monitor Mode: External Uterine Contraction Pattern: Irregular Uterine Tone Measurement Phase: Resting Uterine Contraction Intensity: Mild Extremities: normal - Labs Labs: Abnormal Labs 10/06/16 10/06/16 10/06/16 16:30 16:30 16:30 RBC 3.51 L Hgb Hct Seg Neutrophils % 74.3 H Sodium Carbon Dioxide BUN Creatinine 0.3 L POC Glucose Uric Acid 3.1 L Calcium Magnesium 4.20 H ALT Total Protein Albumin 10/06/16 10/07/16 10/07/16 23:39 07:28 19:10 RBC 3.16 L Hgb 9.2 L Hct 27.8 L Seg Neutrophils % 76.3 H Sodium Carbon Dioxide BUN Creatinine POC Glucose Uric Acid Calcium Magnesium 5.90 H 4.50 H ALT Total Protein Albumin 10/08/16 10/09/16 00:20 20:05 RBC Hgb Hct Seg Neutrophils % Sodium 132 L Carbon Dioxide 18 L BUN 5 L Creatinine 0.4 L POC Glucose 135 H Uric Acid Calcium 6.9 L Magnesium ALT < 5 L Total Protein 5.9 L Albumin 2.8 L Laboratory Results - last 24 hr 10/12/16 05:24 POC Glucose 78
[2016-10-12] MEDS ORDERED: IMODIUM PO PRN (10:42)
[2016-10-12 11:38] LABS: Hemoglobin 8.3 gm/dl (10.1-14.3); Red Blood Count 2.79 M/mm3 (3.65-5.03); White Blood Count 8.9 K/mm3 (4.5-11.0)
[2016-10-12 11:39] LABS: Basophils % (Auto) 0.1 % (0.0-1.8); Eosinophils % (Auto) 0.5 % (0.0-4.3); Hematocrit 25.1 % (30.3-42.9); Mean Corpuscular HGB Conc 33 % (30-34); Mean Corpuscular Hemoglobin 30 pg (28-32); Mean Corpuscular Volume 90 fl (79-97); Platelet Count 155 K/mm3 (140-440); Red Cell Distribution Width 14.4 % (13.2-15.2)
[2016-10-12] MEDS: PRENATAL VITAMIN PO SCH (12:07)
[2016-10-12] MEDS: ZOLOFT PO SCH (16:09)
[2016-10-12] MEDS: AMBIEN PO PRN (22:05)
[2016-10-13] MEDS: LACTATED RINGERS 1,000 ML IV SCH ×5 (01:26→23:25)
--- NOTE | 2016-10-13 02:50 | Event Note ---
Date: 10/13/16 Called by fire wardenZACHERY Magallanes secondary to repetitive variable decelerations with each contraction (q 2- 6 minutes despite fluid bolus). Upon MD entry to the unit, contractions decreased in frequency with non-repetitive variable decels to 70s with return to baseline of 155 bpm. Attempted to speak with pt regarding status but she is very sleepy and keeps falling asleep during the conversation. Given the patient's prematurity, attempt a period of observation with resuscitative measures. If repetitive variable decelerations recur, will proceed with primary section.
[2016-10-13] MEDS: ERY-TAB PO SCH ×3 (04:12→19:59)
[2016-10-13] MEDS: TRIMOX PO SCH ×3 (04:13→20:00)
--- NOTE | 2016-10-13 08:03 | Progress Note ---
Assessment and Plan IMP: 1. IUP 23w4d 2. PPROM 3. breech 4. headache--per Neurology 5. depression/anxiety REC: 1. Complete latency antibiotics. 2. No tocolysis. 3. Pt. has elected comfort care only until 24 weeks (see NICU note)--would d/c EFM until then and re-consider current plan for C/S for indications. 4. Work-up/treatment (steroids) per Neurology recommendations 5. On Zoloft. Subjective - Subjective Date of service: 10/13/16 Principal diagnosis: 23 weeks IUP, PPROM Patient reports: loss of fluid, movement normal, contractions (rare), other (tired; did not sleep well), no new complaints, no vaginal bleeding Objective - Vital Signs Vital Signs: Vital Signs - 12hr 10/12/16 10/12/16 10/12/16 20:10 21:54 21:58 Temperature Pulse Rate 65 61 58 L Blood Pressure 115/57 126/61 O2 Sat by Pulse 100 Oximetry 10/12/16 10/12/16 10/12/16 21:59 22:04 22:10 Temperature Pulse Rate 67 52 L 79 Blood Pressure O2 Sat by Pulse 100 99 98 Oximetry 10/12/16 10/12/16 10/12/16 22:15 22:20 22:25 Temperature Pulse Rate 57 L 63 60 Blood Pressure O2 Sat by Pulse 99 99 98 Oximetry 10/12/16 10/12/16 10/12/16 22:30 22:35 22:40 Temperature Pulse Rate 64 74 58 L Blood Pressure O2 Sat by Pulse 99 99 100 Oximetry 10/12/16 10/12/16 10/12/16 22:45 22:50 22:55 Temperature Pulse Rate 58 L 58 L 58 L Blood Pressure O2 Sat by Pulse 99 98 99 Oximetry 10/12/16 10/12/16 10/12/16 23:00 23:09 23:14 Temperature Pulse Rate 93 H 61 52 L Blood Pressure O2 Sat by Pulse 100 95 100 Oximetry 10/12/16 10/12/16 10/12/16 23:19 23:24 23:29 Temperature Pulse Rate 60 50 L 60 Blood Pressure O2 Sat by Pulse 99 100 100 Oximetry 10/12/16 10/12/16 10/12/16 23:34 23:39 23:44 Temperature Pulse Rate 68 53 L 81 Blood Pressure O2 Sat by Pulse 99 98 99 Oximetry 10/12/16 10/12/16 10/12/16 23:49 23:54 23:59 Temperature Pulse Rate 51 L 58 L 49 L Blood Pressure O2 Sat by Pulse 98 98 98 Oximetry 10/13/16 10/13/16 10/13/16 00:04 00:09 00:14 Temperature Pulse Rate 53 L 54 L 52 L Blood Pressure O2 Sat by Pulse 99 98 99 Oximetry 10/13/16 10/13/16 10/13/16 00:15 00:19 00:24 Temperature 98.1 F Pulse Rate 51 L 55 L Blood Pressure O2 Sat by Pulse 99 100 Oximetry 10/13/16 10/13/16 10/13/16 00:29 00:34 00:39 Temperature Pulse Rate 52 L 52 L 55 L Blood Pressure O2 Sat by Pulse 100 100 100 Oximetry 10/13/16 10/13/16 10/13/16 00:44 00:49 00:54 Temperature Pulse Rate 50 L 50 L 51 L Blood Pressure O2 Sat by Pulse 100 100 100 Oximetry 10/13/16 10/13/16 10/13/16 00:59 01:04 01:09 Temperature Pulse Rate 48 L 49 L 45 L Blood Pressure O2 Sat by Pulse 99 100 100 Oximetry 10/13/16 10/13/16 10/13/16 01:14 01:16 01:19 Temperature Pulse Rate 52 L 49 L 49 L Blood Pressure 107/54 O2 Sat by Pulse 100 100 Oximetry 10/13/16 10/13/16 10/13/16 01:24 01:29 01:34 Temperature Pulse Rate 49 L 54 L 54 L Blood Pressure O2 Sat by Pulse 100 100 100 Oximetry 10/13/16 10/13/16 10/13/16 01:39 01:44 01:49 Temperature Pulse Rate 59 L 55 L 52 L Blood Pressure O2 Sat by Pulse 100 100 100 Oximetry 10/13/16 10/13/16 10/13/16 01:54 01:59 02:04 Temperature Pulse Rate 55 L 55 L 55 L Blood Pressure O2 Sat by Pulse 99 99 99 Oximetry 10/13/16 10/13/16 10/13/16 02:09 02:14 02:19 Temperature Pulse Rate 56 L 55 L 56 L Blood Pressure O2 Sat by Pulse 99 99 99 Oximetry 10/13/16 10/13/16 10/13/16 02:24 02:29 02:34 Temperature Pulse Rate 62 61 57 L Blood Pressure O2 Sat by Pulse 98 98 98 Oximetry 10/13/16 10/13/16 10/13/16 02:39 02:44 02:49 Temperature Pulse Rate 59 L 50 L 49 L Blood Pressure O2 Sat by Pulse 99 100 100 Oximetry 10/13/16 10/13/16 10/13/16 02:54 02:59 03:04 Temperature Pulse Rate 53 L 49 L 56 L Blood Pressure O2 Sat by Pulse 100 99 100 Oximetry 10/13/16 10/13/16 10/13/16 03:09 03:14 03:19 Temperature Pulse Rate 54 L 49 L 54 L Blood Pressure O2 Sat by Pulse 99 100 100 Oximetry 10/13/16 10/13/16 10/13/16 03:24 03:29 03:34 Temperature Pulse Rate 53 L 52 L 55 L Blood Pressure O2 Sat by Pulse 100 100 100 Oximetry 10/13/16 10/13/16 10/13/16 03:39 03:44 03:49 Temperature Pulse Rate 55 L 53 L 53 L Blood Pressure O2 Sat by Pulse 100 100 100 Oximetry 10/13/16 10/13/16 10/13/16 03:54 03:59 04:00 Temperature 98.8 F Pulse Rate 57 L 59 L Blood Pressure O2 Sat by Pulse 100 100 Oximetry 10/13/16 10/13/16 10/13/16 04:02 04:04 04:09 Temperature Pulse Rate 80 61 64 Blood Pressure O2 Sat by Pulse 93 99 96 Oximetry 10/13/16 10/13/16 10/13/16 04:14 04:18 04:19 Temperature Pulse Rate 58 L 48 L 75 Blood Pressure 91/54 O2 Sat by Pulse 99 99 Oximetry 10/13/16 10/13/16 10/13/16 04:24 04:29 04:34 Temperature Pulse Rate 54 L 54 L 54 L Blood Pressure O2 Sat by Pulse 98 99 99 Oximetry 10/13/16 10/13/16 10/13/16 04:39 04:44 04:49 Temperature Pulse Rate 54 L 79 58 L Blood Pressure O2 Sat by Pulse 100 99 99 Oximetry 10/13/16 10/13/16 10/13/16 04:54 04:59 05:00 Temperature 98.7 F Pulse Rate 58 L 73 Blood Pressure O2 Sat by Pulse 99 99 Oximetry 10/13/16 10/13/16 10/13/16 05:04 05:09 05:14 Temperature Pulse Rate 74 71 69 Blood Pressure O2 Sat by Pulse 99 99 99 Oximetry 10/13/16 10/13/16 10/13/16 05:19 05:24 05:29 Temperature Pulse Rate 68 59 L 65 Blood Pressure O2 Sat by Pulse 99 98 98 Oximetry 10/13/16 10/13/16 10/13/16 05:34 05:39 05:44 Temperature Pulse Rate 67 59 L 59 L Blood Pressure O2 Sat by Pulse 97 97 98 Oximetry 10/13/16 10/13/16 10/13/16 05:49 05:54 05:59 Temperature Pulse Rate 68 67 68 Blood Pressure O2 Sat by Pulse 98 98 98 Oximetry 10/13/16 10/13/16 10/13/16 06:04 06:09 06:14 Temperature Pulse Rate 61 66 61 Blood Pressure O2 Sat by Pulse 98 99 98 Oximetry 10/13/16 10/13/16 10/13/16 06:19 06:24 06:29 Temperature Pulse Rate 56 L 56 L 58 L Blood Pressure O2 Sat by Pulse 99 98 99 Oximetry 10/13/16 10/13/16 10/13/16 06:34 06:39 06:44 Temperature Pulse Rate 78 64 68 Blood Pressure O2 Sat by Pulse 100 100 100 Oximetry 10/13/16 10/13/16 10/13/16 06:48 06:49 06:54 Temperature Pulse Rate 72 71 59 L Blood Pressure O2 Sat by Pulse 89 92 98 Oximetry 10/13/16 10/13/16 10/13/16 06:59 07:04 07:09 Temperature Pulse Rate 57 L 57 L 60 Blood Pressure O2 Sat by Pulse 100 100 99 Oximetry 10/13/16 10/13/16 10/13/16 07:14 07:19 07:24 Temperature Pulse Rate 64 60 59 L Blood Pressure O2 Sat by Pulse 99 98 100 Oximetry 10/13/16 10/13/16 10/13/16 07:29 07:34 07:39 Temperature Pulse Rate 70 62 61 Blood Pressure O2 Sat by Pulse 98 100 100 Oximetry 10/13/16 10/13/16 10/13/16 07:44 07:49 07:54 Temperature Pulse Rate 64 108 H 63 Blood Pressure O2 Sat by Pulse 100 99 99 Oximetry - Exam Narrative Exam: appears well Abdomen: Present: soft. Absent: tenderness - Labs Labs: Abnormal Labs 10/06/16 10/06/16 10/06/16 16:30 16:30 16:30 RBC 3.51 L Hgb Hct [place] % (Auto) Seg Neutrophils % 74.3 H Sodium Carbon Dioxide BUN Creatinine 0.3 L POC Glucose Uric Acid 3.1 L Calcium Magnesium 4.20 H ALT Total Protein Albumin 10/06/16 10/07/16 10/07/16 23:39 07:28 19:10 RBC 3.16 L Hgb 9.2 L Hct 27.8 L [place] % (Auto) Seg Neutrophils % 76.3 H Sodium Carbon Dioxide BUN Creatinine POC Glucose Uric Acid Calcium Magnesium 5.90 H 4.50 H ALT Total Protein Albumin 10/08/16 10/09/16 10/12/16 00:20 20:05 11:00 RBC 2.79 L Hgb 8.3 L Hct 25.1 L [place] % (Auto) 7.9 H Seg Neutrophils % 71.3 H Sodium 132 L Carbon Dioxide 18 L BUN 5 L Creatinine 0.4 L POC Glucose 135 H Uric Acid Calcium 6.9 L Magnesium ALT < 5 L Total Protein 5.9 L Albumin 2.8 L Laboratory Results - last 24 hr 10/12/16 10/12/16 10:57 11:00 WBC 8.9 RBC 2.79 L Hgb 8.3 L Hct 25.1 L MCV 90 MCH 30 MCHC 33 RDW 14.4 Plt Count 155 Lymph % (Auto) 20.2 [place] % (Auto) 7.9 H Eos % (Auto) 0.5 Baso % (Auto) 0.1 Lymph # 1.8 [place] # 0.7 Eos # 0.0 Baso # 0.0 Seg Neutrophils % 71.3 H Seg Neutrophils # 6.3 Blood Type A POSITIVE Antibody Screen TNR SHANICE Antibody Screen Negative
[2016-10-13] MEDS: ZOLOFT PO SCH (09:53)
[2016-10-13] MEDS: PRENATAL VITAMIN PO SCH (09:53)
[2016-10-13] MEDS: ATIVAN IV PRN ×2 (10:58→17:27)
--- NOTE | 2016-10-13 13:23 | Progress Note ---
Assessment and Plan A/P 1. IUP 23w4d 2. PPROM 3. breech 4. headache--per Neurology 5. depression/anxiety Appreciate recommnedations from M Dr. Akers s/p latency abx EFM currently reassuring No contractions Per the patient ( changed mind and wants everything done) will alert peds depression -on zoloft close monitor of maternal and Subjective - Subjective Date of service: 10/13/16 Principal diagnosis: 23+ weeks Interval history: This is a 21 yo EDC 02/05/17 here via ambulance with seizure activity. She was brought in and given 4mg Ativan. She states that she has been fine until several days ago with pain in pelvic area and cousin stated that today at 2p she started shaking after c/o pain in pelvic abdominal area. She does not have any histroy of seiaure and only medical problem consists of asthma Patient reports: loss of fluid, movement normal, contractions (rare), other (tired; did not sleep well), no new complaints, no vaginal bleeding Objective - Vital Signs Vital Signs: Vital Signs - 12hr 10/13/16 10/13/16 10/13/16 01:24 01:29 01:34 Temperature Pulse Rate 49 L 54 L 54 L Pulse Rate [ From Monitor] Respiratory Rate Blood Pressure Blood Pressure [Left Arm] O2 Sat by Pulse 100 100 100 Oximetry 10/13/16 10/13/16 10/13/16 01:39 01:44 01:49 Temperature Pulse Rate 59 L 55 L 52 L Pulse Rate [ From Monitor] Respiratory Rate Blood Pressure Blood Pressure [Left Arm] O2 Sat by Pulse 100 100 100 Oximetry 10/13/16 10/13/16 10/13/16 01:54 01:59 02:04 Temperature Pulse Rate 55 L 55 L 55 L Pulse Rate [ From Monitor] Respiratory Rate Blood Pressure Blood Pressure [Left Arm] O2 Sat by Pulse 99 99 99 Oximetry 10/13/16 10/13/16 10/13/16 02:09 02:14 02:19 Temperature Pulse Rate 56 L 55 L 56 L Pulse Rate [ From Monitor] Respiratory Rate Blood Pressure Blood Pressure [Left Arm] O2 Sat by Pulse 99 99 99 Oximetry 10/13/16 10/13/16 10/13/16 02:24 02:29 02:34 Temperature Pulse Rate 62 61 57 L Pulse Rate [ From Monitor] Respiratory Rate Blood Pressure Blood Pressure [Left Arm] O2 Sat by Pulse 98 98 98 Oximetry 10/13/16 10/13/16 10/13/16 02:39 02:44 02:49 Temperature Pulse Rate 59 L 50 L 49 L Pulse Rate [ From Monitor] Respiratory Rate Blood Pressure Blood Pressure [Left Arm] O2 Sat by Pulse 99 100 100 Oximetry 10/13/16 10/13/16 10/13/16 02:54 02:59 03:04 Temperature Pulse Rate 53 L 49 L 56 L Pulse Rate [ From Monitor] Respiratory Rate Blood Pressure Blood Pressure [Left Arm] O2 Sat by Pulse 100 99 100 Oximetry 10/13/16 10/13/16 10/13/16 03:09 03:14 03:19 Temperature Pulse Rate 54 L 49 L 54 L Pulse Rate [ From Monitor] Respiratory Rate Blood Pressure Blood Pressure [Left Arm] O2 Sat by Pulse 99 100 100 Oximetry 10/13/16 10/13/16 10/13/16 03:24 03:29 03:34 Temperature Pulse Rate 53 L 52 L 55 L Pulse Rate [ From Monitor] Respiratory Rate Blood Pressure Blood Pressure [Left Arm] O2 Sat by Pulse 100 100 100 Oximetry 10/13/16 10/13/16 10/13/16 03:39 03:44 03:49 Temperature Pulse Rate 55 L 53 L 53 L Pulse Rate [ From Monitor] Respiratory Rate Blood Pressure Blood Pressure [Left Arm] O2 Sat by Pulse 100 100 100 Oximetry 10/13/16 10/13/16 10/13/16 03:54 03:59 04:00 Temperature 98.8 F Pulse Rate 57 L 59 L Pulse Rate [ From Monitor] Respiratory Rate Blood Pressure Blood Pressure [Left Arm] O2 Sat by Pulse 100 100 Oximetry 10/13/16 10/13/16 10/13/16 04:02 04:04 04:09 Temperature Pulse Rate 80 61 64 Pulse Rate [ From Monitor] Respiratory Rate Blood Pressure Blood Pressure [Left Arm] O2 Sat by Pulse 93 99 96 Oximetry 10/13/16 10/13/16 10/13/16 04:14 04:18 04:19 Temperature Pulse Rate 58 L 48 L 75 Pulse Rate [ From Monitor] Respiratory Rate Blood Pressure 91/54 Blood Pressure [Left Arm] O2 Sat by Pulse 99 99 Oximetry 10/13/16 10/13/16 10/13/16 04:24 04:29 04:34 Temperature Pulse Rate 54 L 54 L 54 L Pulse Rate [ From Monitor] Respiratory Rate Blood Pressure Blood Pressure [Left Arm] O2 Sat by Pulse 98 99 99 Oximetry 10/13/16 10/13/16 10/13/16 04:39 04:44 04:49 Temperature Pulse Rate 54 L 79 58 L Pulse Rate [ From Monitor] Respiratory Rate Blood Pressure Blood Pressure [Left Arm] O2 Sat by Pulse 100 99 99 Oximetry 10/13/16 10/13/16 10/13/16 04:54 04:59 05:00 Temperature 98.7 F Pulse Rate 58 L 73 Pulse Rate [ From Monitor] Respiratory Rate Blood Pressure Blood Pressure [Left Arm] O2 Sat by Pulse 99 99 Oximetry 10/13/16 10/13/16 10/13/16 05:04 05:09 05:14 Temperature Pulse Rate 74 71 69 Pulse Rate [ From Monitor] Respiratory Rate Blood Pressure Blood Pressure [Left Arm] O2 Sat by Pulse 99 99 99 Oximetry 10/13/16 10/13/16 10/13/16 05:19 05:24 05:29 Temperature Pulse Rate 68 59 L 65 Pulse Rate [ From Monitor] Respiratory Rate Blood Pressure Blood Pressure [Left Arm] O2 Sat by Pulse 99 98 98 Oximetry 10/13/16 10/13/16 10/13/16 05:34 05:39 05:44 Temperature Pulse Rate 67 59 L 59 L Pulse Rate [ From Monitor] Respiratory Rate Blood Pressure Blood Pressure [Left Arm] O2 Sat by Pulse 97 97 98 Oximetry 10/13/16 10/13/16 10/13/16 05:49 05:54 05:59 Temperature Pulse Rate 68 67 68 Pulse Rate [ From Monitor] Respiratory Rate Blood Pressure Blood Pressure [Left Arm] O2 Sat by Pulse 98 98 98 Oximetry 10/13/16 10/13/16 10/13/16 06:04 06:09 06:14 Temperature Pulse Rate 61 66 61 Pulse Rate [ From Monitor] Respiratory Rate Blood Pressure Blood Pressure [Left Arm] O2 Sat by Pulse 98 99 98 Oximetry 10/13/16 10/13/16 10/13/16 06:19 06:24 06:29 Temperature Pulse Rate 56 L 56 L 58 L Pulse Rate [ From Monitor] Respiratory Rate Blood Pressure Blood Pressure [Left Arm] O2 Sat by Pulse 99 98 99 Oximetry 06/04/1910/13/16 10/13/16 06:34 06:39 06:44 Temperature Pulse Rate 78 64 68 Pulse Rate [ From Monitor] Respiratory Rate Blood Pressure Blood Pressure [Left Arm] O2 Sat by Pulse 100 100 100 Oximetry 10/13/16 10/13/16 10/13/16 06:48 06:49 06:54 Temperature Pulse Rate 72 71 59 L Pulse Rate [ From Monitor] Respiratory Rate Blood Pressure Blood Pressure [Left Arm] O2 Sat by Pulse 89 92 98 Oximetry 10/13/16 10/13/16 10/13/16 06:59 07:04 07:09 Temperature Pulse Rate 57 L 57 L 60 Pulse Rate [ From Monitor] Respiratory Rate Blood Pressure Blood Pressure [Left Arm] O2 Sat by Pulse 100 100 99 Oximetry 10/13/16 10/13/16 10/13/16 07:14 07:19 07:24 Temperature Pulse Rate 64 60 59 L Pulse Rate [ From Monitor] Respiratory Rate Blood Pressure Blood Pressure [Left Arm] O2 Sat by Pulse 99 98 100 Oximetry 10/13/16 10/13/16 10/13/16 07:29 07:34 07:39 Temperature Pulse Rate 70 62 61 Pulse Rate [ From Monitor] Respiratory Rate Blood Pressure Blood Pressure [Left Arm] O2 Sat by Pulse 98 100 100 Oximetry 10/13/16 10/13/16 10/13/16 07:44 07:49 07:54 Temperature Pulse Rate 64 108 H 63 Pulse Rate [ From Monitor] Respiratory Rate Blood Pressure Blood Pressure [Left Arm] O2 Sat by Pulse 100 99 99 Oximetry 10/13/16 10/13/16 10/13/16 07:59 08:08 08:13 Temperature Pulse Rate 62 61 60 Pulse Rate [ From Monitor] Respiratory Rate Blood Pressure Blood Pressure [Left Arm] O2 Sat by Pulse 100 99 99 Oximetry 10/13/16 10/13/16 10/13/16 08:18 08:23 08:28 Temperature Pulse Rate 59 L 63 62 Pulse Rate [ From Monitor] Respiratory Rate Blood Pressure Blood Pressure [Left Arm] O2 Sat by Pulse 100 100 100 Oximetry 10/13/16 10/13/16 10/13/16 08:33 08:38 08:41 Temperature 98.8 F Pulse Rate 62 68 Pulse Rate [ 61 From Monitor] Respiratory 18 Rate Blood Pressure 108/61 Blood Pressure 108/61 [Left Arm] O2 Sat by Pulse 99 99 99 Oximetry 10/13/16 10/13/16 10/13/16 08:43 08:48 08:53 Temperature Pulse Rate 60 63 59 L Pulse Rate [ From Monitor] Respiratory Rate Blood Pressure Blood Pressure [Left Arm] O2 Sat by Pulse 100 99 98 Oximetry 10/13/16 10/13/16 10/13/16 08:58 09:03 09:08 Temperature Pulse Rate 64 65 65 Pulse Rate [ From Monitor] Respiratory Rate Blood Pressure Blood Pressure [Left Arm] O2 Sat by Pulse 99 99 98 Oximetry 10/13/16 10/13/16 10/13/16 09:13 09:18 09:23 Temperature Pulse Rate 64 60 65 Pulse Rate [ From Monitor] Respiratory Rate Blood Pressure Blood Pressure [Left Arm] O2 Sat by Pulse 92 98 99 Oximetry 10/13/16 10/13/16 10/13/16 09:28 09:35 09:40 Temperature Pulse Rate 66 64 59 L Pulse Rate [ From Monitor] Respiratory Rate Blood Pressure Blood Pressure [Left Arm] O2 Sat by Pulse 99 99 99 Oximetry 10/13/16 10/13/16 10/13/16 09:45 09:50 09:55 Temperature Pulse Rate 61 64 81 Pulse Rate [ From Monitor] Respiratory Rate Blood Pressure Blood Pressure [Left Arm] O2 Sat by Pulse 98 98 99 Oximetry 10/13/16 10/13/16 10/13/16 10:00 10:05 10:10 Temperature Pulse Rate 59 L 70 60 Pulse Rate [ From Monitor] Respiratory Rate Blood Pressure Blood Pressure [Left Arm] O2 Sat by Pulse 99 99 100 Oximetry 10/13/16 10/13/16 10/13/16 10:20 10:25 10:30 Temperature Pulse Rate 59 L 60 70 Pulse Rate [ From Monitor] Respiratory Rate Blood Pressure Blood Pressure [Left Arm] O2 Sat by Pulse 100 100 99 Oximetry 10/13/16 10/13/16 10/13/16 10:35 10:40 10:45 Temperature Pulse Rate 65 65 61 Pulse Rate [ From Monitor] Respiratory Rate Blood Pressure Blood Pressure [Left Arm] O2 Sat by Pulse 99 99 100 Oximetry 10/13/16 10/13/16 10/13/16 10:50 10:55 11:00 Temperature Pulse Rate 63 64 71 Pulse Rate [ From Monitor] Respiratory Rate Blood Pressure Blood Pressure [Left Arm] O2 Sat by Pulse 99 100 100 Oximetry 10/13/16 10/13/16 10/13/16 11:05 11:10 11:15 Temperature Pulse Rate 68 69 69 Pulse Rate [ From Monitor] Respiratory Rate Blood Pressure Blood Pressure [Left Arm] O2 Sat by Pulse 100 99 100 Oximetry 10/13/16 10/13/16 10/13/16 11:20 11:25 11:30 Temperature Pulse Rate 69 63 66 Pulse Rate [ From Monitor] Respiratory Rate Blood Pressure Blood Pressure [Left Arm] O2 Sat by Pulse 100 99 99 Oximetry 10/13/16 10/13/16 10/13/16 11:35 11:40 11:45 Temperature Pulse Rate 66 65 70 Pulse Rate [ From Monitor] Respiratory Rate Blood Pressure Blood Pressure [Left Arm] O2 Sat by Pulse 99 99 100 Oximetry 10/13/16 10/13/16 10/13/16 11:50 11:55 12:00 Temperature Pulse Rate 74 73 71 Pulse Rate [ From Monitor] Respiratory Rate Blood Pressure Blood Pressure [Left Arm] O2 Sat by Pulse 99 99 98 Oximetry 10/13/16 10/13/16 10/13/16 12:02 12:03 12:05 Temperature 98.1 F Pulse Rate 63 59 L Pulse Rate [ 75 From Monitor] Respiratory 20 Rate Blood Pressure 97/54 Blood Pressure 97/54 [Left Arm] O2 Sat by Pulse 98 100 Oximetry 10/13/16 10/13/16 10/13/16 12:10 12:15 12:19 Temperature 98.2 F Pulse Rate 72 64 Pulse Rate [ 63 From Monitor] Respiratory 18 Rate Blood Pressure Blood Pressure 97/54 [Left Arm] O2 Sat by Pulse 99 99 99 Oximetry 10/13/16 10/13/16 10/13/16 12:20 12:25 12:30 Temperature Pulse Rate 76 85 61 Pulse Rate [ From Monitor] Respiratory Rate Blood Pressure Blood Pressure [Left Arm] O2 Sat by Pulse 99 100 98 Oximetry 10/13/16 10/13/16 10/13/16 12:35 12:40 12:45 Temperature Pulse Rate 63 73 67 Pulse Rate [ From Monitor] Respiratory Rate Blood Pressure Blood Pressure [Left Arm] O2 Sat by Pulse 100 99 98 Oximetry 10/13/16 10/13/16 10/13/16 12:50 12:55 13:00 Temperature Pulse Rate 64 64 68 Pulse Rate [ From Monitor] Respiratory Rate Blood Pressure Blood Pressure [Left Arm] O2 Sat by Pulse 99 99 98 Oximetry 10/13/16 10/13/16 10/13/16 13:05 13:10 13:15 Temperature Pulse Rate 65 67 69 Pulse Rate [ From Monitor] Respiratory Rate Blood Pressure Blood Pressure [Left Arm] O2 Sat by Pulse 100 99 99 Oximetry - Exam Breasts: deferred Cardiovascular: Regular rate Lungs: Clear to auscultation Abdomen: Present: normal appearance, soft, normal bowel sounds Vulva: both: normal Uterus: Present: normal, firm FHR: auscultation normal Uterine Contraction Pattern: Absent Uterine Tone Measurement Phase: Resting Extremities: normal Deep Tendon Reflex Grade: Normal +2 - Labs Labs: Abnormal Labs 10/06/16 10/06/16 10/06/16 16:30 16:30 16:30 RBC 3.51 L Hgb Hct [place] % (Auto) Seg Neutrophils % 74.3 H Sodium Carbon Dioxide BUN Creatinine 0.3 L POC Glucose Uric Acid 3.1 L Calcium Magnesium 4.20 H ALT Total Protein Albumin 10/06/16 10/07/16 10/07/16 23:39 07:28 19:10 RBC 3.16 L Hgb 9.2 L Hct 27.8 L [place] % (Auto) Seg Neutrophils % 76.3 H Sodium Carbon Dioxide BUN Creatinine POC Glucose Uric Acid Calcium Magnesium 5.90 H 4.50 H ALT Total Protein Albumin 10/08/16 10/09/16 10/12/16 00:20 20:05 11:00 RBC 2.79 L Hgb 8.3 L Hct 25.1 L [place] % (Auto) 7.9 H Seg Neutrophils % 71.3 H Sodium 132 L Carbon Dioxide 18 L BUN 5 L Creatinine 0.4 L POC Glucose 135 H Uric Acid Calcium 6.9 L Magnesium ALT < 5 L Total Protein 5.9 L Albumin 2.8 L Laboratory Results - last 24 hr 10/10/16 10/11/16 10/13/16 08:33 06:41 08:36 POC Glucose 77 79 71
[2016-10-13] MEDS ORDERED: SUBLIMAZE ONE (22:59)
[2016-10-13] MEDS ORDERED: SUBLIMAZE IV ONE (23:21)
[2016-10-14] MEDS: ATIVAN IV PRN (01:12)
[2016-10-14] MEDS: TRIMOX PO SCH ×2 (04:01→13:00)
[2016-10-14] MEDS: ERY-TAB PO SCH ×2 (04:01→13:00)
[2016-10-14] MEDS: LACTATED RINGERS 1,000 ML IV SCH ×2 (08:27→18:02)
--- NOTE | 2016-10-14 09:33 | Progress Note ---
Assessment and Plan - Patient Problems (1) premature rupture of membranes Current Visit: Yes Status: Acute Qualifiers: PROM onset of labor timing: P Plan to address problem: supportive care no tocolysis Subjective - Subjective Date of service: 10/14/16 Principal diagnosis: 23+ weeks Interval history: Patient noted having some spotting last night. Contractions not as painful. Continues to have leakage of fluid. Patient reports: new complaints, loss of fluid, vaginal bleeding, movement normal, contractions (rare) Objective - Vital Signs Vital Signs: Vital Signs - 12hr 10/13/16 10/13/16 10/13/16 21:32 21:37 21:40 Temperature Pulse Rate 64 63 61 Respiratory Rate Blood Pressure O2 Sat by Pulse 98 100 73 L Oximetry 10/13/16 10/13/16 10/13/16 21:42 21:47 21:52 Temperature Pulse Rate 70 68 63 Respiratory Rate Blood Pressure O2 Sat by Pulse 100 99 98 Oximetry 10/13/16 10/13/16 10/13/16 21:57 22:02 22:07 Temperature Pulse Rate 63 66 57 L Respiratory Rate Blood Pressure O2 Sat by Pulse 100 100 100 Oximetry 10/13/16 10/13/16 10/13/16 22:12 22:17 22:22 Temperature Pulse Rate 67 62 57 L Respiratory Rate Blood Pressure O2 Sat by Pulse 99 100 100 Oximetry 10/13/16 10/13/16 10/13/16 22:27 22:32 22:37 Temperature Pulse Rate 60 57 L 63 Respiratory Rate Blood Pressure O2 Sat by Pulse 100 100 96 Oximetry 10/13/16 10/13/16 10/13/16 22:42 22:47 22:52 Temperature Pulse Rate 61 74 74 Respiratory Rate Blood Pressure O2 Sat by Pulse 100 100 99 Oximetry 10/13/16 10/13/16 10/13/16 22:56 22:57 23:02 Temperature Pulse Rate 103 H 63 67 Respiratory Rate Blood Pressure O2 Sat by Pulse 80 L 100 99 Oximetry 10/13/16 10/13/16 10/13/16 23:07 23:12 23:17 Temperature Pulse Rate 71 79 73 Respiratory Rate Blood Pressure O2 Sat by Pulse 93 96 96 Oximetry 10/13/16 10/13/16 10/13/16 23:20 23:22 23:24 Temperature Pulse Rate 68 64 Respiratory 14 Rate Blood Pressure O2 Sat by Pulse 98 94 Oximetry 10/13/16 10/13/16 10/13/16 23:27 23:32 23:37 Temperature Pulse Rate 82 58 L 55 L Respiratory Rate Blood Pressure O2 Sat by Pulse 97 98 97 Oximetry 10/13/16 10/13/16 10/13/16 23:42 23:47 23:52 Temperature Pulse Rate 60 57 L 66 Respiratory Rate Blood Pressure O2 Sat by Pulse 98 100 97 Oximetry 10/13/16 10/13/16 10/14/16 23:55 23:57 00:02 Temperature Pulse Rate 58 L 67 59 L Respiratory Rate Blood Pressure O2 Sat by Pulse 94 95 96 Oximetry 10/14/16 10/14/16 10/14/16 00:06 00:07 00:12 Temperature 98.6 F Pulse Rate 54 L 56 L 58 L Respiratory 20 Rate Blood Pressure 127/85 O2 Sat by Pulse 100 100 Oximetry 10/14/16 10/14/16 10/14/16 00:17 00:22 00:27 Temperature Pulse Rate 64 81 58 L Respiratory Rate Blood Pressure O2 Sat by Pulse 97 98 100 Oximetry 10/14/16 10/14/16 10/14/16 00:31 00:32 00:37 Temperature 98.6 F Pulse Rate 58 L 56 L Respiratory Rate Blood Pressure O2 Sat by Pulse 100 99 Oximetry 10/14/16 10/14/16 10/14/16 00:42 00:47 00:52 Temperature Pulse Rate 55 L 88 52 L Respiratory Rate Blood Pressure O2 Sat by Pulse 99 98 98 Oximetry 10/14/16 10/14/16 10/14/16 00:57 01:02 01:07 Temperature Pulse Rate 58 L 61 57 L Respiratory Rate Blood Pressure O2 Sat by Pulse 98 98 98 Oximetry 10/14/16 10/14/16 10/14/16 01:12 01:17 01:22 Temperature Pulse Rate 69 58 L 57 L Respiratory Rate Blood Pressure O2 Sat by Pulse 99 99 99 Oximetry 10/14/16 10/14/16 10/14/16 01:27 01:32 01:37 Temperature Pulse Rate 73 73 69 Respiratory Rate Blood Pressure O2 Sat by Pulse 98 98 98 Oximetry 10/14/16 10/14/16 10/14/16 01:42 01:47 01:52 Temperature Pulse Rate 65 60 60 Respiratory Rate Blood Pressure O2 Sat by Pulse 98 98 98 Oximetry 10/14/16 10/14/16 10/14/16 01:57 02:02 02:07 Temperature Pulse Rate 77 57 L 59 L Respiratory Rate Blood Pressure O2 Sat by Pulse 97 99 100 Oximetry 10/14/16 10/14/16 10/14/16 02:12 02:17 02:22 Temperature Pulse Rate 57 L 60 54 L Respiratory Rate Blood Pressure O2 Sat by Pulse 98 98 99 Oximetry 10/14/16 10/14/16 10/14/16 02:27 02:32 02:37 Temperature Pulse Rate 61 54 L 58 L Respiratory Rate Blood Pressure O2 Sat by Pulse 98 98 98 Oximetry 10/14/16 10/14/16 10/14/16 02:42 02:47 02:52 Temperature Pulse Rate 58 L 67 69 Respiratory Rate Blood Pressure O2 Sat by Pulse 99 98 99 Oximetry 10/14/16 10/14/16 10/14/16 02:57 03:02 03:07 Temperature Pulse Rate 66 56 L 66 Respiratory Rate Blood Pressure O2 Sat by Pulse 99 98 98 Oximetry 10/14/16 10/14/16 10/14/16 03:12 03:17 03:22 Temperature Pulse Rate 70 74 59 L Respiratory Rate Blood Pressure O2 Sat by Pulse 98 97 98 Oximetry 10/14/16 10/14/16 10/14/16 03:27 03:32 03:37 Temperature Pulse Rate 59 L 65 62 Respiratory Rate Blood Pressure O2 Sat by Pulse 99 99 99 Oximetry 10/14/16 10/14/16 10/14/16 03:42 03:47 03:52 Temperature Pulse Rate 65 65 67 Respiratory Rate Blood Pressure O2 Sat by Pulse 99 99 98 Oximetry 10/14/16 10/14/16 03:57 04:05 Temperature 98.4 F Pulse Rate 64 Respiratory 20 Rate Blood Pressure O2 Sat by Pulse 99 Oximetry - Exam Abdomen: Absent: tenderness - Labs Labs: Abnormal Labs 10/06/16 10/06/16 10/06/16 16:30 16:30 16:30 RBC 3.51 L Hgb Hct [place] % (Auto) Seg Neutrophils % 74.3 H Sodium Carbon Dioxide BUN Creatinine 0.3 L POC Glucose Uric Acid 3.1 L Calcium Magnesium 4.20 H ALT Total Protein Albumin 10/06/16 10/07/16 10/07/16 23:39 07:28 19:10 RBC 3.16 L Hgb 9.2 L Hct 27.8 L [place] % (Auto) Seg Neutrophils % 76.3 H Sodium Carbon Dioxide BUN Creatinine POC Glucose Uric Acid Calcium Magnesium 5.90 H 4.50 H ALT Total Protein Albumin 10/08/16 10/09/16 10/12/16 00:20 20:05 11:00 RBC 2.79 L Hgb 8.3 L Hct 25.1 L [place] % (Auto) 7.9 H Seg Neutrophils % 71.3 H Sodium 132 L Carbon Dioxide 18 L BUN 5 L Creatinine 0.4 L POC Glucose 135 H Uric Acid Calcium 6.9 L Magnesium ALT < 5 L Total Protein 5.9 L Albumin 2.8 L
[2016-10-14] MEDS: PRENATAL VITAMIN PO SCH (10:38)
[2016-10-14] MEDS: ZOLOFT PO SCH (10:38)
[2016-10-14] MEDS: ZOFRAN IV PRN (12:40)
[2016-10-14 14:25] LABS: Basophils % (Auto) 0.3 % (0.0-1.8); Eosinophils % (Auto) 1.4 % (0.0-4.3); Hematocrit 30.7 % (30.3-42.9); Hemoglobin 9.9 gm/dl (10.1-14.3); Mean Corpuscular HGB Conc 32 % (30-34); Mean Corpuscular Hemoglobin 29 pg (28-32); Mean Corpuscular Volume 90 fl (79-97); Platelet Count 228 K/mm3 (140-440); Red Blood Count 3.43 M/mm3 (3.65-5.03); Red Cell Distribution Width 14.6 % (13.2-15.2); White Blood Count 11.2 K/mm3 (4.5-11.0)
[2016-10-14] MEDS ORDERED: TYLENOL #3 PO ONE (18:00)
[2016-10-14] MEDS: AMBIEN PO PRN (21:42)
[2016-10-15] MEDS: LACTATED RINGERS 1,000 ML IV SCH ×4 (01:00→23:15)
--- NOTE | 2016-10-15 06:54 | Progress Note ---
Assessment and Plan Assessment 1. 23+6 weeks 2. PPROM 3. Breech 4. Anemia 5. Headaches 6. Anxiety and depression Recommendations 1. Expectant management 2. Latency antibiotics completed 3. Neuro following 4. Iron and vitamins Subjective - Subjective Principal diagnosis: 23+ weeks Interval history: + leaking, denies contractions Continues to have PINO, feels like she will have another "seizure" Patient reports: new complaints, loss of fluid, vaginal bleeding, movement normal, contractions (rare) Objective - Vital Signs Vital Signs: Vital Signs - 12hr 10/14/16 10/14/16 10/14/16 19:20 19:23 23:33 Temperature 98.6 F Pulse Rate 63 59 L Pulse Rate [ 63 From Monitor] Respiratory 18 Rate Blood Pressure 108/64 100/55 Blood Pressure 108/64 [Left Arm] O2 Sat by Pulse 99 99 Oximetry 10/14/16 10/14/16 10/14/16 23:38 23:43 23:48 Temperature 98.4 F Pulse Rate 63 64 62 Pulse Rate [ 59 L From Monitor] Respiratory 18 Rate Blood Pressure Blood Pressure 100/55 [Left Arm] O2 Sat by Pulse 98 99 99 Oximetry 10/14/16 10/14/16 10/15/16 23:53 23:58 00:03 Temperature Pulse Rate 62 61 62 Pulse Rate [ From Monitor] Respiratory Rate Blood Pressure Blood Pressure [Left Arm] O2 Sat by Pulse 100 100 100 Oximetry 10/15/16 10/15/16 10/15/16 00:08 00:13 00:18 Temperature Pulse Rate 63 52 L 51 L Pulse Rate [ From Monitor] Respiratory Rate Blood Pressure Blood Pressure [Left Arm] O2 Sat by Pulse 100 98 97 Oximetry 10/15/16 10/15/16 10/15/16 00:23 00:28 00:33 Temperature Pulse Rate 54 L 51 L 57 L Pulse Rate [ From Monitor] Respiratory Rate Blood Pressure Blood Pressure [Left Arm] O2 Sat by Pulse 97 98 98 Oximetry 10/15/16 10/15/16 10/15/16 00:38 00:43 00:48 Temperature Pulse Rate 60 54 L 53 L Pulse Rate [ From Monitor] Respiratory Rate Blood Pressure Blood Pressure [Left Arm] O2 Sat by Pulse 97 98 99 Oximetry 10/15/16 10/15/16 10/15/16 00:53 00:58 01:03 Temperature Pulse Rate 61 55 L 53 L Pulse Rate [ From Monitor] Respiratory Rate Blood Pressure Blood Pressure [Left Arm] O2 Sat by Pulse 99 99 99 Oximetry 10/15/16 10/15/16 10/15/16 01:08 01:13 01:18 Temperature Pulse Rate 60 53 L 64 Pulse Rate [ From Monitor] Respiratory Rate Blood Pressure Blood Pressure [Left Arm] O2 Sat by Pulse 98 99 99 Oximetry 10/15/16 10/15/16 10/15/16 01:23 01:28 01:33 Temperature Pulse Rate 63 52 L 56 L Pulse Rate [ From Monitor] Respiratory Rate Blood Pressure Blood Pressure [Left Arm] O2 Sat by Pulse 99 100 99 Oximetry 10/15/16 10/15/16 10/15/16 01:38 01:43 01:48 Temperature Pulse Rate 56 L 57 L 58 L Pulse Rate [ From Monitor] Respiratory Rate Blood Pressure Blood Pressure [Left Arm] O2 Sat by Pulse 99 99 99 Oximetry 10/15/16 10/15/16 10/15/16 01:53 01:58 02:03 Temperature Pulse Rate 58 L 59 L 81 Pulse Rate [ From Monitor] Respiratory Rate Blood Pressure Blood Pressure [Left Arm] O2 Sat by Pulse 99 99 99 Oximetry 10/15/16 10/15/16 10/15/16 02:08 02:13 02:18 Temperature Pulse Rate 65 56 L 81 Pulse Rate [ From Monitor] Respiratory Rate Blood Pressure Blood Pressure [Left Arm] O2 Sat by Pulse 99 99 98 Oximetry 10/15/16 10/15/16 10/15/16 02:23 02:28 02:33 Temperature Pulse Rate 58 L 56 L 53 L Pulse Rate [ From Monitor] Respiratory Rate Blood Pressure Blood Pressure [Left Arm] O2 Sat by Pulse 99 99 99 Oximetry 10/15/16 10/15/16 10/15/16 02:38 02:43 02:48 Temperature Pulse Rate 49 L 62 57 L Pulse Rate [ From Monitor] Respiratory Rate Blood Pressure Blood Pressure [Left Arm] O2 Sat by Pulse 99 99 99 Oximetry 10/15/16 10/15/16 10/15/16 02:53 02:58 03:03 Temperature Pulse Rate 53 L 64 60 Pulse Rate [ From Monitor] Respiratory Rate Blood Pressure Blood Pressure [Left Arm] O2 Sat by Pulse 99 98 99 Oximetry 10/15/16 10/15/16 10/15/16 03:08 03:13 03:18 Temperature Pulse Rate 58 L 61 55 L Pulse Rate [ From Monitor] Respiratory Rate Blood Pressure Blood Pressure [Left Arm] O2 Sat by Pulse 99 99 99 Oximetry 10/15/16 10/15/16 10/15/16 03:31 03:32 03:33 Temperature 98.9 F Pulse Rate 61 50 L Pulse Rate [ 60 From Monitor] Respiratory 18 Rate Blood Pressure 105/54 Blood Pressure 105/54 [Left Arm] O2 Sat by Pulse 99 Oximetry 10/15/16 10/15/16 10/15/16 03:36 03:41 03:46 Temperature Pulse Rate 52 L 52 L 50 L Pulse Rate [ From Monitor] Respiratory Rate Blood Pressure Blood Pressure [Left Arm] O2 Sat by Pulse 99 99 99 Oximetry 10/15/16 10/15/16 10/15/16 03:51 03:57 04:02 Temperature Pulse Rate 69 59 L 52 L Pulse Rate [ From Monitor] Respiratory Rate Blood Pressure Blood Pressure [Left Arm] O2 Sat by Pulse 98 98 98 Oximetry 10/15/16 10/15/16 10/15/16 04:07 04:11 04:16 Temperature Pulse Rate 60 52 L 57 L Pulse Rate [ From Monitor] Respiratory Rate Blood Pressure Blood Pressure [Left Arm] O2 Sat by Pulse 99 98 97 Oximetry 10/15/16 10/15/16 10/15/16 04:22 04:26 04:32 Temperature Pulse Rate 59 L 51 L 53 L Pulse Rate [ From Monitor] Respiratory Rate Blood Pressure Blood Pressure [Left Arm] O2 Sat by Pulse 98 98 97 Oximetry 10/15/16 10/15/16 10/15/16 04:37 04:42 04:46 Temperature Pulse Rate 62 63 56 L Pulse Rate [ From Monitor] Respiratory Rate Blood Pressure Blood Pressure [Left Arm] O2 Sat by Pulse 98 98 98 Oximetry 10/15/16 10/15/16 10/15/16 04:51 04:56 05:03 Temperature Pulse Rate 57 L 61 57 L Pulse Rate [ From Monitor] Respiratory Rate Blood Pressure Blood Pressure [Left Arm] O2 Sat by Pulse 98 98 98 Oximetry 10/15/16 10/15/16 10/15/16 05:07 05:12 05:18 Temperature Pulse Rate 64 59 L 59 L Pulse Rate [ From Monitor] Respiratory Rate Blood Pressure Blood Pressure [Left Arm] O2 Sat by Pulse 98 98 99 Oximetry 10/15/16 10/15/16 10/15/16 05:23 05:28 05:33 Temperature Pulse Rate 59 L 68 56 L Pulse Rate [ From Monitor] Respiratory Rate Blood Pressure Blood Pressure [Left Arm] O2 Sat by Pulse 98 98 98 Oximetry 10/15/16 10/15/16 10/15/16 05:38 05:43 05:48 Temperature Pulse Rate 60 59 L 68 Pulse Rate [ From Monitor] Respiratory Rate Blood Pressure Blood Pressure [Left Arm] O2 Sat by Pulse 98 98 98 Oximetry 10/15/16 10/15/16 10/15/16 05:52 05:58 06:03 Temperature Pulse Rate 61 65 60 Pulse Rate [ From Monitor] Respiratory Rate Blood Pressure Blood Pressure [Left Arm] O2 Sat by Pulse 97 98 98 Oximetry 10/15/16 10/15/16 10/15/16 06:08 06:13 06:18 Temperature Pulse Rate 61 55 L 63 Pulse Rate [ From Monitor] Respiratory Rate Blood Pressure Blood Pressure [Left Arm] O2 Sat by Pulse 97 98 99 Oximetry 10/15/16 10/15/16 10/15/16 06:23 06:28 06:33 Temperature Pulse Rate 58 L 56 L 65 Pulse Rate [ From Monitor] Respiratory Rate Blood Pressure Blood Pressure [Left Arm] O2 Sat by Pulse 100 99 98 Oximetry 10/15/16 10/15/16 10/15/16 06:38 06:43 06:48 Temperature Pulse Rate 63 59 L 61 Pulse Rate [ From Monitor] Respiratory Rate Blood Pressure Blood Pressure [Left Arm] O2 Sat by Pulse 99 99 98 Oximetry - Exam Cardiovascular: Regular rate Lungs: Clear to auscultation Abdomen: Present: normal appearance, soft Uterus: Present: normal, firm Extremities: normal, edema (none) - Labs Labs: Abnormal Labs 10/06/16 10/06/16 10/06/16 16:30 16:30 16:30 WBC RBC 3.51 L Hgb Hct [place] % (Auto) Seg Neutrophils % 74.3 H Seg Neutrophils # Sodium Carbon Dioxide BUN Creatinine 0.3 L POC Glucose Uric Acid 3.1 L Calcium Magnesium 4.20 H ALT Total Protein Albumin 10/06/16 10/07/16 10/07/16 23:39 07:28 19:10 WBC RBC 3.16 L Hgb 9.2 L Hct 27.8 L [place] % (Auto) Seg Neutrophils % 76.3 H Seg Neutrophils # Sodium Carbon Dioxide BUN Creatinine POC Glucose Uric Acid Calcium Magnesium 5.90 H 4.50 H ALT Total Protein Albumin 10/08/16 10/09/16 10/12/16 00:20 20:05 11:00 WBC RBC 2.79 L Hgb 8.3 L Hct 25.1 L [place] % (Auto) 7.9 H Seg Neutrophils % 71.3 H Seg Neutrophils # Sodium 132 L Carbon Dioxide 18 L BUN 5 L Creatinine 0.4 L POC Glucose 135 H Uric Acid Calcium 6.9 L Magnesium ALT < 5 L Total Protein 5.9 L Albumin 2.8 L 10/14/16 14:12 WBC 11.2 H RBC 3.43 L Hgb 9.9 L Hct [place] % (Auto) Seg Neutrophils % 74.7 H Seg Neutrophils # 8.3 H Sodium Carbon Dioxide BUN Creatinine POC Glucose Uric Acid Calcium Magnesium ALT Total Protein Albumin Laboratory Results - last 24 hr 10/14/16 14:12 WBC 11.2 H RBC 3.43 L Hgb 9.9 L Hct 30.7 MCV 90 MCH 29 MCHC 32 RDW 14.6 Plt Count 228 Lymph % (Auto) 16.8 [place] % (Auto) 6.8 Eos % (Auto) 1.4 Baso % (Auto) 0.3 Lymph # 1.9 [place] # 0.8 Eos # 0.2 Baso # 0.0 Seg Neutrophils % 74.7 H Seg Neutrophils # 8.3 H
[2016-10-15] MEDS: ZOLOFT PO SCH (08:22)
[2016-10-15] MEDS: PRENATAL VITAMIN PO SCH (08:22)
--- NOTE | 2016-10-15 10:50 | Progress Note ---
Assessment and Plan A:HD#10 IUP at 23w6d s/p 2 doses of betamethasone. s/p NICU consult. PPROM on 10/07/16 s/p 7 days of latency antibiotics Malpresentation Previous x 1 Oligohydramnios Questionable seizure activity s/p neurology consult and normal MRI brain Headache- Fioricet PRN Insufficient care P: Continue close observation of maternal and status. Deliver for signs of chorioamnionitis. Subjective - Subjective Date of service: 10/15/16 Principal diagnosis: IUP at 23 wks, PPROM, questionable seizure disorder Interval history: Pt reports chest pain for the past 2 days. She reports that she is anxious about her child's father and the child she is currently with. She reports leakage of clear fluid and occasional spotting but no heavy bleeding. Patient reports: new complaints (chest pain), loss of fluid, vaginal bleeding ( spotting), movement normal, contractions (rare) Objective - Vital Signs Vital Signs: Vital Signs - 12hr 10/14/16 10/14/16 10/14/16 23:33 23:38 23:43 Temperature 98.4 F Pulse Rate 59 L 63 64 Pulse Rate [ 59 L From Monitor] Respiratory 18 Rate Blood Pressure 100/55 Blood Pressure 100/55 [Left Arm] O2 Sat by Pulse 99 98 99 Oximetry 10/14/16 10/14/16 10/14/16 23:48 23:53 23:58 Temperature Pulse Rate 62 62 61 Pulse Rate [ From Monitor] Respiratory Rate Blood Pressure Blood Pressure [Left Arm] O2 Sat by Pulse 99 100 100 Oximetry 10/15/16 10/15/16 10/15/16 00:03 00:08 00:13 Temperature Pulse Rate 62 63 52 L Pulse Rate [ From Monitor] Respiratory Rate Blood Pressure Blood Pressure [Left Arm] O2 Sat by Pulse 100 100 98 Oximetry 10/15/16 10/15/16 10/15/16 00:18 00:23 00:28 Temperature Pulse Rate 51 L 54 L 51 L Pulse Rate [ From Monitor] Respiratory Rate Blood Pressure Blood Pressure [Left Arm] O2 Sat by Pulse 97 97 98 Oximetry 10/15/16 10/15/16 10/15/16 00:33 00:38 00:43 Temperature Pulse Rate 57 L 60 54 L Pulse Rate [ From Monitor] Respiratory Rate Blood Pressure Blood Pressure [Left Arm] O2 Sat by Pulse 98 97 98 Oximetry 10/15/16 10/15/16 10/15/16 00:48 00:53 00:58 Temperature Pulse Rate 53 L 61 55 L Pulse Rate [ From Monitor] Respiratory Rate Blood Pressure Blood Pressure [Left Arm] O2 Sat by Pulse 99 99 99 Oximetry 10/15/16 10/15/16 10/15/16 01:03 01:08 01:13 Temperature Pulse Rate 53 L 60 53 L Pulse Rate [ From Monitor] Respiratory Rate Blood Pressure Blood Pressure [Left Arm] O2 Sat by Pulse 99 98 99 Oximetry 10/15/16 10/15/16 10/15/16 01:18 01:23 01:28 Temperature Pulse Rate 64 63 52 L Pulse Rate [ From Monitor] Respiratory Rate Blood Pressure Blood Pressure [Left Arm] O2 Sat by Pulse 99 99 100 Oximetry 10/15/16 10/15/16 10/15/16 01:33 01:38 01:43 Temperature Pulse Rate 56 L 56 L 57 L Pulse Rate [ From Monitor] Respiratory Rate Blood Pressure Blood Pressure [Left Arm] O2 Sat by Pulse 99 99 99 Oximetry 10/15/16 10/15/16 10/15/16 01:48 01:53 01:58 Temperature Pulse Rate 58 L 58 L 59 L Pulse Rate [ From Monitor] Respiratory Rate Blood Pressure Blood Pressure [Left Arm] O2 Sat by Pulse 99 99 99 Oximetry 10/15/16 10/15/16 10/15/16 02:03 02:08 02:13 Temperature Pulse Rate 81 65 56 L Pulse Rate [ From Monitor] Respiratory Rate Blood Pressure Blood Pressure [Left Arm] O2 Sat by Pulse 99 99 99 Oximetry 10/15/16 10/15/16 10/15/16 02:18 02:23 02:28 Temperature Pulse Rate 81 58 L 56 L Pulse Rate [ From Monitor] Respiratory Rate Blood Pressure Blood Pressure [Left Arm] O2 Sat by Pulse 98 99 99 Oximetry 10/15/16 10/15/16 10/15/16 02:33 02:38 02:43 Temperature Pulse Rate 53 L 49 L 62 Pulse Rate [ From Monitor] Respiratory Rate Blood Pressure Blood Pressure [Left Arm] O2 Sat by Pulse 99 99 99 Oximetry 10/15/16 10/15/16 10/15/16 02:48 02:53 02:58 Temperature Pulse Rate 57 L 53 L 64 Pulse Rate [ From Monitor] Respiratory Rate Blood Pressure Blood Pressure [Left Arm] O2 Sat by Pulse 99 99 98 Oximetry 10/15/16 10/15/16 10/15/16 03:03 03:08 03:13 Temperature Pulse Rate 60 58 L 61 Pulse Rate [ From Monitor] Respiratory Rate Blood Pressure Blood Pressure [Left Arm] O2 Sat by Pulse 99 99 99 Oximetry 10/15/16 10/15/16 10/15/16 03:18 03:31 03:32 Temperature Pulse Rate 55 L 61 50 L Pulse Rate [ From Monitor] Respiratory Rate Blood Pressure 105/54 Blood Pressure [Left Arm] O2 Sat by Pulse 99 99 Oximetry 10/15/16 10/15/16 10/15/16 03:33 03:36 03:41 Temperature 98.9 F Pulse Rate 52 L 52 L Pulse Rate [ 60 From Monitor] Respiratory 18 Rate Blood Pressure Blood Pressure 105/54 [Left Arm] O2 Sat by Pulse 99 99 Oximetry 10/15/16 10/15/16 10/15/16 03:46 03:51 03:57 Temperature Pulse Rate 50 L 69 59 L Pulse Rate [ From Monitor] Respiratory Rate Blood Pressure Blood Pressure [Left Arm] O2 Sat by Pulse 99 98 98 Oximetry 10/15/16 10/15/16 10/15/16 04:02 04:07 04:11 Temperature Pulse Rate 52 L 60 52 L Pulse Rate [ From Monitor] Respiratory Rate Blood Pressure Blood Pressure [Left Arm] O2 Sat by Pulse 98 99 98 Oximetry 10/15/16 10/15/16 10/15/16 04:16 04:22 04:26 Temperature Pulse Rate 57 L 59 L 51 L Pulse Rate [ From Monitor] Respiratory Rate Blood Pressure Blood Pressure [Left Arm] O2 Sat by Pulse 97 98 98 Oximetry 10/15/16 10/15/16 10/15/16 04:32 04:37 04:42 Temperature Pulse Rate 53 L 62 63 Pulse Rate [ From Monitor] Respiratory Rate Blood Pressure Blood Pressure [Left Arm] O2 Sat by Pulse 97 98 98 Oximetry 10/15/16 10/15/16 10/15/16 04:46 04:51 04:56 Temperature Pulse Rate 56 L 57 L 61 Pulse Rate [ From Monitor] Respiratory Rate Blood Pressure Blood Pressure [Left Arm] O2 Sat by Pulse 98 98 98 Oximetry 10/15/16 10/15/16 10/15/16 05:03 05:07 05:12 Temperature Pulse Rate 57 L 64 59 L Pulse Rate [ From Monitor] Respiratory Rate Blood Pressure Blood Pressure [Left Arm] O2 Sat by Pulse 98 98 98 Oximetry 10/15/16 10/15/16 10/15/16 05:18 05:23 05:28 Temperature Pulse Rate 59 L 59 L 68 Pulse Rate [ From Monitor] Respiratory Rate Blood Pressure Blood Pressure [Left Arm] O2 Sat by Pulse 99 98 98 Oximetry 10/15/16 10/15/16 10/15/16 05:33 05:38 05:43 Temperature Pulse Rate 56 L 60 59 L Pulse Rate [ From Monitor] Respiratory Rate Blood Pressure Blood Pressure [Left Arm] O2 Sat by Pulse 98 98 98 Oximetry 10/15/16 10/15/16 10/15/16 05:48 05:52 05:58 Temperature Pulse Rate 68 61 65 Pulse Rate [ From Monitor] Respiratory Rate Blood Pressure Blood Pressure [Left Arm] O2 Sat by Pulse 98 97 98 Oximetry 10/15/16 10/15/16 10/15/16 06:03 06:08 06:13 Temperature Pulse Rate 60 61 55 L Pulse Rate [ From Monitor] Respiratory Rate Blood Pressure Blood Pressure [Left Arm] O2 Sat by Pulse 98 97 98 Oximetry 10/15/16 10/15/16 10/15/16 06:18 06:23 06:28 Temperature Pulse Rate 63 58 L 56 L Pulse Rate [ From Monitor] Respiratory Rate Blood Pressure Blood Pressure [Left Arm] O2 Sat by Pulse 99 100 99 Oximetry 10/15/16 10/15/16 10/15/16 06:33 06:38 06:43 Temperature Pulse Rate 65 63 59 L Pulse Rate [ From Monitor] Respiratory Rate Blood Pressure Blood Pressure [Left Arm] O2 Sat by Pulse 98 99 99 Oximetry 10/15/16 10/15/16 10/15/16 06:48 06:54 06:59 Temperature Pulse Rate 61 62 55 L Pulse Rate [ From Monitor] Respiratory Rate Blood Pressure Blood Pressure [Left Arm] O2 Sat by Pulse 98 100 99 Oximetry 10/15/16 10/15/16 10/15/16 07:01 07:04 07:09 Temperature Pulse Rate 54 L 56 L 52 L Pulse Rate [ From Monitor] Respiratory Rate Blood Pressure Blood Pressure [Left Arm] O2 Sat by Pulse 92 98 99 Oximetry 10/15/16 10/15/16 10/15/16 07:14 07:19 07:24 Temperature Pulse Rate 54 L 51 L 55 L Pulse Rate [ From Monitor] Respiratory Rate Blood Pressure Blood Pressure [Left Arm] O2 Sat by Pulse 99 100 99 Oximetry 10/15/16 10/15/16 10/15/16 07:29 07:34 07:39 Temperature Pulse Rate 57 L 57 L 60 Pulse Rate [ From Monitor] Respiratory Rate Blood Pressure Blood Pressure [Left Arm] O2 Sat by Pulse 99 99 98 Oximetry 10/15/16 10/15/16 10/15/16 07:44 07:49 07:54 Temperature Pulse Rate 58 L 56 L 69 Pulse Rate [ From Monitor] Respiratory Rate Blood Pressure Blood Pressure [Left Arm] O2 Sat by Pulse 99 99 100 Oximetry 10/15/16 10/15/16 10/15/16 07:59 08:00 08:04 Temperature Pulse Rate 61 59 L 59 L Pulse Rate [ From Monitor] Respiratory Rate Blood Pressure 104/58 Blood Pressure [Left Arm] O2 Sat by Pulse 99 100 Oximetry 10/15/16 10/15/16 10/15/16 08:09 08:14 08:19 Temperature Pulse Rate 70 59 L 58 L Pulse Rate [ From Monitor] Respiratory Rate Blood Pressure Blood Pressure [Left Arm] O2 Sat by Pulse 100 100 98 Oximetry 10/15/16 10/15/16 10/15/16 08:24 08:29 08:34 Temperature Pulse Rate 60 58 L 67 Pulse Rate [ From Monitor] Respiratory Rate Blood Pressure Blood Pressure [Left Arm] O2 Sat by Pulse 98 98 98 Oximetry 10/15/16 10/15/16 10/15/16 08:39 08:44 08:54 Temperature Pulse Rate 65 55 L 60 Pulse Rate [ From Monitor] Respiratory Rate Blood Pressure Blood Pressure [Left Arm] O2 Sat by Pulse 98 97 100 Oximetry 10/15/16 10/15/16 10/15/16 08:59 09:04 09:09 Temperature Pulse Rate 70 57 L 56 L Pulse Rate [ From Monitor] Respiratory Rate Blood Pressure Blood Pressure [Left Arm] O2 Sat by Pulse 99 99 99 Oximetry 10/15/16 10/15/16 10/15/16 09:14 09:19 09:24 Temperature Pulse Rate 61 60 64 Pulse Rate [ From Monitor] Respiratory Rate Blood Pressure Blood Pressure [Left Arm] O2 Sat by Pulse 98 99 99 Oximetry 10/15/16 10/15/16 10/15/16 09:29 09:34 09:39 Temperature Pulse Rate 60 69 76 Pulse Rate [ From Monitor] Respiratory Rate Blood Pressure Blood Pressure [Left Arm] O2 Sat by Pulse 99 99 98 Oximetry 10/15/16 10/15/16 10/15/16 09:44 09:49 09:54 Temperature Pulse Rate 62 66 77 Pulse Rate [ From Monitor] Respiratory Rate Blood Pressure Blood Pressure [Left Arm] O2 Sat by Pulse 98 99 98 Oximetry 10/15/16 10/15/16 10/15/16 09:59 10:04 10:09 Temperature Pulse Rate 66 67 74 Pulse Rate [ From Monitor] Respiratory Rate Blood Pressure Blood Pressure [Left Arm] O2 Sat by Pulse 97 98 99 Oximetry 10/15/16 10/15/16 10/15/16 10:14 10:19 10:24 Temperature Pulse Rate 61 66 69 Pulse Rate [ From Monitor] Respiratory Rate Blood Pressure Blood Pressure [Left Arm] O2 Sat by Pulse 99 99 99 Oximetry 10/15/16 10/15/16 10/15/16 10:29 10:34 10:39 Temperature Pulse Rate 59 L 73 65 Pulse Rate [ From Monitor] Respiratory Rate Blood Pressure Blood Pressure [Left Arm] O2 Sat by Pulse 98 98 98 Oximetry 10/15/16 10:44 Temperature Pulse Rate 64 Pulse Rate [ From Monitor] Respiratory Rate Blood Pressure Blood Pressure [Left Arm] O2 Sat by Pulse 96 Oximetry - Exam Breasts: deferred Cardiovascular: Regular rate Lungs: Clear to auscultation Abdomen: Present: soft (gravid, non tender) Uterus: Present: normal (gravid ) FHR: category 2 Uterine Contraction Monitor Mode: External Uterine Contraction Pattern: Irregular Uterine Tone Measurement Phase: Resting Uterine Contraction Intensity: Mild - Labs Labs: Abnormal Labs 10/06/16 10/06/16 10/06/16 16:30 16:30 16:30 WBC RBC 3.51 L Hgb Hct [place] % (Auto) Seg Neutrophils % 74.3 H Seg Neutrophils # Sodium Carbon Dioxide BUN Creatinine 0.3 L POC Glucose Uric Acid 3.1 L Calcium Magnesium 4.20 H ALT Total Protein Albumin 10/06/16 10/07/16 10/07/16 23:39 07:28 19:10 WBC RBC 3.16 L Hgb 9.2 L Hct 27.8 L [place] % (Auto) Seg Neutrophils % 76.3 H Seg Neutrophils # Sodium Carbon Dioxide BUN Creatinine POC Glucose Uric Acid Calcium Magnesium 5.90 H 4.50 H ALT Total Protein Albumin 10/08/16 10/09/16 10/12/16 00:20 20:05 11:00 WBC RBC 2.79 L Hgb 8.3 L Hct 25.1 L [place] % (Auto) 7.9 H Seg Neutrophils % 71.3 H Seg Neutrophils # Sodium 132 L Carbon Dioxide 18 L BUN 5 L Creatinine 0.4 L POC Glucose 135 H Uric Acid Calcium 6.9 L Magnesium ALT < 5 L Total Protein 5.9 L Albumin 2.8 L 10/14/16 14:12 WBC 11.2 H RBC 3.43 L Hgb 9.9 L Hct [place] % (Auto) Seg Neutrophils % 74.7 H Seg Neutrophils # 8.3 H Sodium Carbon Dioxide BUN Creatinine POC Glucose Uric Acid Calcium Magnesium ALT Total Protein Albumin Laboratory Results - last 24 hr 10/14/16 14:12 WBC 11.2 H RBC 3.43 L Hgb 9.9 L Hct 30.7 MCV 90 MCH 29 MCHC 32 RDW 14.6 Plt Count 228 Lymph % (Auto) 16.8 [place] % (Auto) 6.8 Eos % (Auto) 1.4 Baso % (Auto) 0.3 Lymph # 1.9 [place] # 0.8 Eos # 0.2 Baso # 0.0 Seg Neutrophils % 74.7 H Seg Neutrophils # 8.3 H
[2016-10-15] MEDS: FIORICET PO PRN (15:27)
[2016-10-15] MEDS: AMBIEN PO PRN (21:49)
[2016-10-16] MEDS: LACTATED RINGERS 1,000 ML IV SCH ×4 (04:28→23:20)
[2016-10-16] MEDS: TYLENOL PO PRN (05:26)
--- NOTE | 2016-10-16 08:49 | Progress Note ---
Assessment and Plan A:HD#11 IUP at 24w0d s/p 2 doses of betamethasone. s/p NICU consult. PPROM on 10/07/16 s/p 7 days of latency antibiotics Malpresentation Previous x 1 Oligohydramnios Questionable seizure activity s/p neurology consult and normal MRI brain Headache- Fioricet PRN Insufficient care Now with intermittent chest tightness, h/o asthma and h/o bradycardia and irregular heart beat P: Cardiology consult Albuterol inhalers Continue close observation of maternal and status. Deliver for signs of chorioamnionitis. Subjective - Subjective Date of service: 10/16/16 Principal diagnosis: IUP at 24 wks, PPROM, questionable seizure disorder Interval history: Pt's mother and daughter are back in town so patient feels less anxious today. After speaking with her mother, pt reports that she has a h/o asthma and that when she was 9 wks she was seen at [facility] and told that " she had a slow heart beat and her heart skips beats." She was told to follow up with a cat swamper but she did not and did not mention this part of her history whatsoever until today. She reports rare contractions and some pink spotting when urinating this morning. Patient reports: new complaints (per HPI), loss of fluid, vaginal bleeding ( spotting), movement normal, contractions (rare) Objective - Vital Signs Vital Signs: Vital Signs - 12hr 10/15/16 10/15/16 10/15/16 20:47 20:52 20:57 Temperature Pulse Rate 58 L 65 62 Pulse Rate [ From Monitor] Respiratory Rate Blood Pressure Blood Pressure [Left Arm] O2 Sat by Pulse 99 98 98 Oximetry 10/15/16 10/15/16 10/15/16 21:02 21:07 21:12 Temperature Pulse Rate 63 61 61 Pulse Rate [ From Monitor] Respiratory Rate Blood Pressure Blood Pressure [Left Arm] O2 Sat by Pulse 96 98 98 Oximetry 10/15/16 10/15/16 10/15/16 21:17 21:22 21:27 Temperature Pulse Rate 63 61 59 L Pulse Rate [ From Monitor] Respiratory Rate Blood Pressure Blood Pressure [Left Arm] O2 Sat by Pulse 98 98 99 Oximetry 10/15/16 10/15/16 10/15/16 21:32 21:37 21:42 Temperature Pulse Rate 58 L 59 L 59 L Pulse Rate [ From Monitor] Respiratory Rate Blood Pressure Blood Pressure [Left Arm] O2 Sat by Pulse 99 98 99 Oximetry 10/15/16 10/15/16 10/15/16 21:47 21:52 21:57 Temperature Pulse Rate 64 65 57 L Pulse Rate [ From Monitor] Respiratory Rate Blood Pressure Blood Pressure [Left Arm] O2 Sat by Pulse 98 97 98 Oximetry 10/15/16 10/15/16 10/15/16 22:02 22:07 22:12 Temperature Pulse Rate 55 L 57 L 56 L Pulse Rate [ From Monitor] Respiratory Rate Blood Pressure Blood Pressure [Left Arm] O2 Sat by Pulse 97 98 100 Oximetry 10/15/16 10/15/16 10/15/16 22:22 22:27 22:32 Temperature Pulse Rate 59 L 62 66 Pulse Rate [ From Monitor] Respiratory Rate Blood Pressure Blood Pressure [Left Arm] O2 Sat by Pulse 99 99 99 Oximetry 10/15/16 10/15/16 10/15/16 22:37 22:42 22:47 Temperature Pulse Rate 64 59 L 64 Pulse Rate [ From Monitor] Respiratory Rate Blood Pressure Blood Pressure [Left Arm] O2 Sat by Pulse 96 97 97 Oximetry 10/15/16 10/15/16 10/15/16 22:52 22:57 23:02 Temperature Pulse Rate 65 69 62 Pulse Rate [ From Monitor] Respiratory Rate Blood Pressure Blood Pressure [Left Arm] O2 Sat by Pulse 97 96 100 Oximetry 10/15/16 10/15/16 10/15/16 23:07 23:12 23:17 Temperature Pulse Rate 64 60 66 Pulse Rate [ From Monitor] Respiratory Rate Blood Pressure Blood Pressure [Left Arm] O2 Sat by Pulse 99 100 99 Oximetry 10/15/16 10/15/16 10/15/16 23:18 23:22 23:24 Temperature 98.4 F Pulse Rate 59 L 60 Pulse Rate [ 59 L From Monitor] Respiratory 20 Rate Blood Pressure 107/52 Blood Pressure 107/52 [Left Arm] O2 Sat by Pulse 98 98 Oximetry 10/15/16 10/15/16 10/15/16 23:27 23:32 23:37 Temperature Pulse Rate 62 60 63 Pulse Rate [ From Monitor] Respiratory Rate Blood Pressure Blood Pressure [Left Arm] O2 Sat by Pulse 98 98 97 Oximetry 10/15/16 10/15/1610/15/17 23:42 23:47 23:52 Temperature Pulse Rate 62 59 L 60 Pulse Rate [ From Monitor] Respiratory Rate Blood Pressure Blood Pressure [Left Arm] O2 Sat by Pulse 97 97 97 Oximetry 10/15/16 10/15/16 10/16/16 23:57 23:59 00:02 Temperature Pulse Rate 61 67 57 L Pulse Rate [ From Monitor] Respiratory Rate Blood Pressure Blood Pressure [Left Arm] O2 Sat by Pulse 97 93 97 Oximetry 10/16/16 10/16/16 10/16/16 00:07 00:12 00:17 Temperature Pulse Rate 60 59 L 59 L Pulse Rate [ From Monitor] Respiratory Rate Blood Pressure Blood Pressure [Left Arm] O2 Sat by Pulse 97 97 97 Oximetry 10/16/16 10/16/16 10/16/16 00:22 00:27 00:32 Temperature Pulse Rate 60 57 L 55 L Pulse Rate [ From Monitor] Respiratory Rate Blood Pressure Blood Pressure [Left Arm] O2 Sat by Pulse 97 98 97 Oximetry 10/16/16 10/16/16 10/16/16 00:37 00:42 00:49 Temperature Pulse Rate 55 L 63 57 L Pulse Rate [ From Monitor] Respiratory Rate Blood Pressure Blood Pressure [Left Arm] O2 Sat by Pulse 97 97 100 Oximetry 10/16/16 10/16/16 10/16/16 00:54 00:59 01:04 Temperature Pulse Rate 51 L 51 L 52 L Pulse Rate [ From Monitor] Respiratory Rate Blood Pressure Blood Pressure [Left Arm] O2 Sat by Pulse 99 100 100 Oximetry 10/16/16 10/16/16 10/16/16 01:09 01:14 01:19 Temperature Pulse Rate 48 L 48 L 44 L Pulse Rate [ From Monitor] Respiratory Rate Blood Pressure Blood Pressure [Left Arm] O2 Sat by Pulse 99 98 100 Oximetry 10/16/16 10/16/16 10/16/16 01:24 01:29 01:34 Temperature Pulse Rate 49 L 49 L 60 Pulse Rate [ From Monitor] Respiratory Rate Blood Pressure Blood Pressure [Left Arm] O2 Sat by Pulse 100 100 98 Oximetry 10/16/16 10/16/16 10/16/16 01:39 01:44 01:49 Temperature Pulse Rate 52 L 52 L 53 L Pulse Rate [ From Monitor] Respiratory Rate Blood Pressure Blood Pressure [Left Arm] O2 Sat by Pulse 98 99 97 Oximetry 10/16/16 10/16/16 10/16/16 01:54 01:59 02:04 Temperature Pulse Rate 54 L 53 L 51 L Pulse Rate [ From Monitor] Respiratory Rate Blood Pressure Blood Pressure [Left Arm] O2 Sat by Pulse 97 97 99 Oximetry 10/16/16 10/16/16 10/16/16 02:09 02:14 02:19 Temperature Pulse Rate 49 L 51 L 48 L Pulse Rate [ From Monitor] Respiratory Rate Blood Pressure Blood Pressure [Left Arm] O2 Sat by Pulse 99 98 99 Oximetry 10/16/16 10/16/16 10/16/16 02:24 02:29 02:34 Temperature Pulse Rate 51 L 60 50 L Pulse Rate [ From Monitor] Respiratory Rate Blood Pressure Blood Pressure [Left Arm] O2 Sat by Pulse 99 99 100 Oximetry 10/16/16 10/16/16 10/16/16 02:39 02:44 02:49 Temperature Pulse Rate 54 L 54 L 57 L Pulse Rate [ From Monitor] Respiratory Rate Blood Pressure Blood Pressure [Left Arm] O2 Sat by Pulse 100 100 99 Oximetry 10/16/16 10/16/16 10/16/16 02:54 02:59 03:04 Temperature Pulse Rate 50 L 52 L 59 L Pulse Rate [ From Monitor] Respiratory Rate Blood Pressure Blood Pressure [Left Arm] O2 Sat by Pulse 98 99 97 Oximetry 10/16/16 10/16/16 10/16/16 03:09 03:14 03:19 Temperature Pulse Rate 49 L 52 L 56 L Pulse Rate [ From Monitor] Respiratory Rate Blood Pressure Blood Pressure [Left Arm] O2 Sat by Pulse 97 98 98 Oximetry 10/16/16 10/16/16 10/16/16 03:24 03:29 03:34 Temperature Pulse Rate 59 L 51 L 52 L Pulse Rate [ From Monitor] Respiratory Rate Blood Pressure Blood Pressure [Left Arm] O2 Sat by Pulse 98 98 98 Oximetry 10/16/16 10/16/16 10/16/16 03:39 03:44 03:49 Temperature Pulse Rate 57 L 51 L 59 L Pulse Rate [ From Monitor] Respiratory Rate Blood Pressure Blood Pressure [Left Arm] O2 Sat by Pulse 98 98 98 Oximetry 10/16/16 10/16/16 10/16/16 03:54 03:59 04:04 Temperature Pulse Rate 54 L 54 L 51 L Pulse Rate [ From Monitor] Respiratory Rate Blood Pressure Blood Pressure [Left Arm] O2 Sat by Pulse 98 100 100 Oximetry 10/16/16 10/16/16 10/16/16 04:09 04:14 04:25 Temperature Pulse Rate 54 L 57 L 55 L Pulse Rate [ From Monitor] Respiratory Rate Blood Pressure Blood Pressure [Left Arm] O2 Sat by Pulse 99 98 99 Oximetry 10/16/16 10/16/16 10/16/16 04:30 04:35 04:40 Temperature 97.6 F Pulse Rate 52 L 52 L 49 L Pulse Rate [ 52 L From Monitor] Respiratory 20 Rate Blood Pressure 120/66 Blood Pressure 120/66 [Left Arm] O2 Sat by Pulse 99 99 99 Oximetry 10/16/16 10/16/16 10/16/16 04:45 04:50 04:55 Temperature Pulse Rate 51 L 55 L 55 L Pulse Rate [ From Monitor] Respiratory Rate Blood Pressure Blood Pressure [Left Arm] O2 Sat by Pulse 99 99 99 Oximetry 10/16/16 10/16/16 10/16/16 05:00 05:05 05:10 Temperature Pulse Rate 54 L 57 L 56 L Pulse Rate [ From Monitor] Respiratory Rate Blood Pressure Blood Pressure [Left Arm] O2 Sat by Pulse 99 99 99 Oximetry 10/16/16 10/16/16 10/16/16 05:15 05:20 05:25 Temperature Pulse Rate 56 L 55 L 56 L Pulse Rate [ From Monitor] Respiratory Rate Blood Pressure Blood Pressure [Left Arm] O2 Sat by Pulse 98 100 99 Oximetry 10/16/16 10/16/16 10/16/16 05:30 05:32 05:40 Temperature Pulse Rate 57 L 53 L 57 L Pulse Rate [ From Monitor] Respiratory Rate Blood Pressure Blood Pressure [Left Arm] O2 Sat by Pulse 100 85 99 Oximetry 10/16/16 10/16/16 10/16/16 05:45 05:50 05:55 Temperature Pulse Rate 55 L 54 L 55 L Pulse Rate [ From Monitor] Respiratory Rate Blood Pressure Blood Pressure [Left Arm] O2 Sat by Pulse 99 99 99 Oximetry 10/16/16 10/16/16 10/16/16 06:00 06:05 06:10 Temperature Pulse Rate 55 L 56 L 55 L Pulse Rate [ From Monitor] Respiratory Rate Blood Pressure Blood Pressure [Left Arm] O2 Sat by Pulse 98 98 98 Oximetry 10/16/16 10/16/16 10/16/16 06:15 06:20 06:25 Temperature Pulse Rate 54 L 56 L 62 Pulse Rate [ From Monitor] Respiratory Rate Blood Pressure Blood Pressure [Left Arm] O2 Sat by Pulse 98 98 98 Oximetry 10/16/16 10/16/16 10/16/16 06:30 06:35 06:40 Temperature Pulse Rate 59 L 59 L 59 L Pulse Rate [ From Monitor] Respiratory Rate Blood Pressure Blood Pressure [Left Arm] O2 Sat by Pulse 98 98 99 Oximetry 10/16/16 10/16/16 10/16/16 06:45 06:50 06:55 Temperature Pulse Rate 63 59 L 69 Pulse Rate [ From Monitor] Respiratory Rate Blood Pressure Blood Pressure [Left Arm] O2 Sat by Pulse 99 99 98 Oximetry 10/16/16 10/16/16 10/16/16 07:00 07:05 07:10 Temperature Pulse Rate 59 L 55 L 59 L Pulse Rate [ From Monitor] Respiratory Rate Blood Pressure Blood Pressure [Left Arm] O2 Sat by Pulse 99 100 99 Oximetry 10/16/16 10/16/16 10/16/16 07:15 07:20 07:25 Temperature Pulse Rate 67 70 57 L Pulse Rate [ From Monitor] Respiratory Rate Blood Pressure Blood Pressure [Left Arm] O2 Sat by Pulse 99 98 99 Oximetry 10/16/16 10/16/16 10/16/16 07:30 07:35 07:36 Temperature Pulse Rate 57 L 58 L 53 L Pulse Rate [ From Monitor] Respiratory Rate Blood Pressure 106/60 Blood Pressure [Left Arm] O2 Sat by Pulse 99 99 Oximetry 10/16/16 10/16/16 10/16/16 07:40 07:46 07:51 Temperature Pulse Rate 61 62 53 L Pulse Rate [ From Monitor] Respiratory Rate Blood Pressure Blood Pressure [Left Arm] O2 Sat by Pulse 100 99 98 Oximetry 10/16/16 10/16/16 10/16/16 07:53 07:56 08:01 Temperature 98.1 F Pulse Rate 55 L 59 L Pulse Rate [ 53 L From Monitor] Respiratory 18 Rate Blood Pressure Blood Pressure 106/60 [Left Arm] O2 Sat by Pulse 100 100 99 Oximetry 10/16/16 10/16/16 10/16/16 08:06 08:11 08:16 Temperature Pulse Rate 54 L 52 L 54 L Pulse Rate [ From Monitor] Respiratory Rate Blood Pressure Blood Pressure [Left Arm] O2 Sat by Pulse 99 100 100 Oximetry 10/16/16 10/16/16 10/16/16 08:21 08:26 08:31 Temperature Pulse Rate 54 L 61 66 Pulse Rate [ From Monitor] Respiratory Rate Blood Pressure Blood Pressure [Left Arm] O2 Sat by Pulse 100 93 98 Oximetry 10/16/16 08:41 Temperature Pulse Rate 70 Pulse Rate [ From Monitor] Respiratory Rate Blood Pressure Blood Pressure [Left Arm] O2 Sat by Pulse 100 Oximetry - Exam Breasts: deferred Cardiovascular: Regular rate Lungs: Clear to auscultation Abdomen: Present: normal appearance, soft (gravid ). Absent: tenderness Uterus: Present: normal (gravid ) FHR: category 1 Uterine Contraction Monitor Mode: External Uterine Contraction Pattern: Irregular Uterine Tone Measurement Phase: Resting Uterine Contraction Intensity: Moderate Extremities: normal - Labs Labs: Abnormal Labs 10/06/16 10/06/16 10/06/16 16:30 16:30 16:30 WBC RBC 3.51 L Hgb Hct [place] % (Auto) Seg Neutrophils % 74.3 H Seg Neutrophils # Sodium Carbon Dioxide BUN Creatinine 0.3 L POC Glucose Uric Acid 3.1 L Calcium Magnesium 4.20 H ALT Total Protein Albumin 10/06/16 10/07/16 10/07/16 23:39 07:28 19:10 WBC RBC 3.16 L Hgb 9.2 L Hct 27.8 L [place] % (Auto) Seg Neutrophils % 76.3 H Seg Neutrophils # Sodium Carbon Dioxide BUN Creatinine POC Glucose Uric Acid Calcium Magnesium 5.90 H 4.50 H ALT Total Protein Albumin 10/08/16 10/09/16 10/12/16 00:20 20:05 11:00 WBC RBC 2.79 L Hgb 8.3 L Hct 25.1 L [place] % (Auto) 7.9 H Seg Neutrophils % 71.3 H Seg Neutrophils # Sodium 132 L Carbon Dioxide 18 L BUN 5 L Creatinine 0.4 L POC Glucose 135 H Uric Acid Calcium 6.9 L Magnesium ALT < 5 L Total Protein 5.9 L Albumin 2.8 L 10/14/16 14:12 WBC 11.2 H RBC 3.43 L Hgb 9.9 L Hct [place] % (Auto) Seg Neutrophils % 74.7 H Seg Neutrophils # 8.3 H Sodium Carbon Dioxide BUN Creatinine POC Glucose Uric Acid Calcium Magnesium ALT Total Protein Albumin
[2016-10-16] MEDS ORDERED: PROVENTIL IH PRN (09:00)
[2016-10-16] MEDS: FIORICET PO PRN (10:50)
[2016-10-16] MEDS: ZOLOFT PO SCH (10:51)
[2016-10-16] MEDS: PRENATAL VITAMIN PO SCH (10:51)
--- NOTE | 2016-10-16 15:10 | Consultation ---
History of Present Illness Consult date: 10/16/16 Consult reason: bradycardia History of present illness: This is a 21yr old female that is 24 weeks who is currently admitted for premature rupture of membranes. Vital signs were taken and the patient was noted bradycardic thus this cardiac consultation. An 12 lead EKG shows sinus bradycardia, rate 56, otherwise normal. Patient appears comfortable. She has no chest pain, shortness of breath. She has since returned to a stable sinus rhythm with heart rate in the 80s. Past History Past Medical History: No medical history Past Surgical History: Other (c sectionx1) Social history: single, lives with family, other (THC use). denies: smoking, alcohol abuse, prescription drug abuse, IV drug use Medications and Allergies Allergies Allergy/AdvReac Type Severity Reaction Status Date / Time coconut oil Allergy Hives Verified 03/29/14 21:23 kiwi Allergy Hives Verified 03/29/14 21:23 Home Medications Medication Instructions Recorded Confirmed Last Taken Type Ferrous Sulfate [Feosol 325 MG tab] 325 mg PO BID #60 tablet 01/27/16 10/06/16 Unknown Rx Ibuprofen [Motrin 800 MG tab] 800 mg PO Q8HR PRN #30 tablet 01/27/16 10/06/16 Unknown Rx oxyCODONE /ACETAMINOPHEN [Percocet 1 tab PO Q6HR PRN #30 tablet 01/27/16 Unknown Rx 5/325] Vit W-Ca,Fe,FA(<1 mg) 1 each PO DAILY 10/06/16 10/06/16 10/04/16 08:00 History [ Vitamins] Active Meds: Active Medications Acetaminophen (Tylenol) 1,000 mg PO Q6H PRN PRN Reason: Pain, Mild (1-3) Last Admin: 10/16/16 05:26 Dose: 1,000 mg Acetaminophen/Butalbital/Caffeine (Fioricet) 1 tab PO Q4H PRN PRN Reason: Headache Last Admin: 10/16/16 10:50 Dose: 1 tab Al Hydrox/Mg Hydrox/Simethicone (Alum-Mag Hydrox-Simeth [phone]/5ml) 30 ml PO Q6H PRN PRN Reason: Indigestion Albuterol (Proventil) 2.5 mg IH Q4HRT PRN PRN Reason: Shortness Of Breath Last Admin: 10/16/16 09:09 Dose: 2.5 mg Diphenhydramine HCl (Benadryl) 25 mg PO Q6H PRN PRN Reason: Itching Docusate Sodium (Colace) 100 mg PO Q12H PRN PRN Reason: Constipation Last Admin: 10/10/16 10:53 Dose: 100 mg Lactated Ringer's (Lactated Ringers) 1,000 mls @ 125 mls/hr IV DIRECT ALEX Last Admin: 10/16/16 08:29 Dose: 125 mls/hr Loperamide HCl (Imodium) 2 mg PO Q2H PRN PRN Reason: Diarrhea Lorazepam (Ativan) 1 mg IV Q4H PRN PRN Reason: Seizures Last Admin: 10/14/16 01:12 Dose: 1 mg Magnesium Hydroxide (Milk Of Magnesia) 30 ml PO QHS PRN PRN Reason: Laxative Effect Multivitamins/Iron/Calcium ( Vitamin) 1 each PO QDAY [facility] Last Admin: 10/16/16 10:51 Dose: 1 each Ondansetron HCl (Zofran) 4 mg IV Q6H PRN PRN Reason: Nausea And Vomiting Last Admin: 10/14/16 12:40 Dose: 4 mg Pseudoephedrine HCl (Sudafed) 30 mg PO Q4H PRN PRN Reason: Nasal Congestion Senna/Docusate Sodium (Senokot S) 2 tab PO Q12H PRN PRN Reason: Laxative Effect Sertraline HCl (Zoloft) 50 mg PO QDAY [facility] Last Admin: 10/16/16 10:51 Dose: 50 mg Simethicone (Mylicon) 80 mg PO Q6H PRN PRN Reason: Gas pain Last Admin: 10/08/16 08:02 Dose: 80 mg Sodium Chloride ([place]) 2 spray NS Q4H PRN PRN Reason: Congestion Zolpidem Tartrate (Ambien) 10 mg PO ONCE PRN PRN Reason: Sleep Last Admin: 10/15/16 21:49 Dose: 10 mg Physical Examination Vital Signs Pulse Pulse Ox 110 H 76 L 10/06/16 15:10 10/06/16 15:10 General appearance: no acute distress HEENT: Positive: PERRL Neck: Positive: trachea midline Cardiac: Positive: Reg Rate and Rhythm Results 10/14/16 14:12 10/08/16 00:20 Assessment and Plan premature rupture of membranes Transient Sinus bradycardia pt is asymptomatic TSH normal
--- NOTE | 2016-10-16 19:20 | Progress Note ---
Assessment and Plan Assessment 1. 24 0/7 weeks 2. PPROM 3. Breech 4. Anemia 5. Headaches 6. Anxiety and depression 5.Asthma 6.Intermittent maternal bradycardia - seen by cardiology Recommendations 1. Monitor for labor, distress, chorioamnionitis 2. delivery at 34 weeks gestation , sooner if indicated 3. avoid tocolytics 4. albuterol neb prn 5. testing beginning at 27-28 weeks gestation Subjective - Subjective Principal diagnosis: IUP at 24 wks, PPROM, questionable seizure disorder Interval history: She has occasional contractions and leakage of blood tinged fluid She reports that the SOB , chest discomfort resolved with the nebulizer treatment She has been seen by cardiology Patient reports: new complaints (per HPI), loss of fluid, vaginal bleeding ( spotting), movement normal, contractions (rare) Objective - Vital Signs Vital Signs: Vital Signs - 12hr 10/16/16 10/16/16 10/16/16 07:20 07:25 07:30 Temperature Pulse Rate 70 57 L 57 L Pulse Rate [ Bilateral Throughout] Pulse Rate [ From Monitor] Respiratory Rate Respiratory Rate [Bilateral Throughout] Blood Pressure Blood Pressure [Left Arm] O2 Sat by Pulse 98 99 99 Oximetry 10/16/16 10/16/16 10/16/16 07:35 07:36 07:40 Temperature Pulse Rate 58 L 53 L 61 Pulse Rate [ Bilateral Throughout] Pulse Rate [ From Monitor] Respiratory Rate Respiratory Rate [Bilateral Throughout] Blood Pressure 106/60 Blood Pressure [Left Arm] O2 Sat by Pulse 99 100 Oximetry 10/16/16 10/16/16 10/16/16 07:46 07:51 07:53 Temperature 98.1 F Pulse Rate 62 53 L Pulse Rate [ Bilateral Throughout] Pulse Rate [ 53 L From Monitor] Respiratory 18 Rate Respiratory Rate [Bilateral Throughout] Blood Pressure Blood Pressure 106/60 [Left Arm] O2 Sat by Pulse 99 98 100 Oximetry 10/16/16 10/16/16 10/16/16 07:56 08:01 08:06 Temperature Pulse Rate 55 L 59 L 54 L Pulse Rate [ Bilateral Throughout] Pulse Rate [ From Monitor] Respiratory Rate Respiratory Rate [Bilateral Throughout] Blood Pressure Blood Pressure [Left Arm] O2 Sat by Pulse 100 99 99 Oximetry 10/16/16 10/16/16 10/16/16 08:11 08:16 08:21 Temperature Pulse Rate 52 L 54 L 54 L Pulse Rate [ Bilateral Throughout] Pulse Rate [ From Monitor] Respiratory Rate Respiratory Rate [Bilateral Throughout] Blood Pressure Blood Pressure [Left Arm] O2 Sat by Pulse 100 100 100 Oximetry 10/16/16 10/16/16 10/16/16 08:26 08:31 08:41 Temperature Pulse Rate 61 66 70 Pulse Rate [ Bilateral Throughout] Pulse Rate [ From Monitor] Respiratory Rate Respiratory Rate [Bilateral Throughout] Blood Pressure Blood Pressure [Left Arm] O2 Sat by Pulse 93 98 100 Oximetry 10/16/16 10/16/16 10/16/16 08:46 08:51 08:56 Temperature Pulse Rate 56 L 62 58 L Pulse Rate [ Bilateral Throughout] Pulse Rate [ From Monitor] Respiratory Rate Respiratory Rate [Bilateral Throughout] Blood Pressure Blood Pressure [Left Arm] O2 Sat by Pulse 100 99 98 Oximetry 10/16/16 10/16/16 10/16/16 09:00 09:01 09:06 Temperature Pulse Rate 61 59 L Pulse Rate [ 132 H Bilateral Throughout] Pulse Rate [ From Monitor] Respiratory Rate Respiratory 22 Rate [Bilateral Throughout] Blood Pressure Blood Pressure [Left Arm] O2 Sat by Pulse 98 98 Oximetry 10/16/16 10/16/16 10/16/16 09:11 09:14 09:16 Temperature Pulse Rate 60 72 Pulse Rate [ 67 Bilateral Throughout] Pulse Rate [ From Monitor] Respiratory Rate Respiratory 24 Rate [Bilateral Throughout] Blood Pressure Blood Pressure [Left Arm] O2 Sat by Pulse 100 99 Oximetry 10/16/16 10/16/16 10/16/16 09:21 09:26 09:31 Temperature Pulse Rate 72 77 97 H Pulse Rate [ Bilateral Throughout] Pulse Rate [ From Monitor] Respiratory Rate Respiratory Rate [Bilateral Throughout] Blood Pressure Blood Pressure [Left Arm] O2 Sat by Pulse 99 99 98 Oximetry 10/16/16 10/16/16 10/16/16 09:36 09:41 09:46 Temperature Pulse Rate 110 H 108 H 112 H Pulse Rate [ Bilateral Throughout] Pulse Rate [ From Monitor] Respiratory Rate Respiratory Rate [Bilateral Throughout] Blood Pressure Blood Pressure [Left Arm] O2 Sat by Pulse 98 98 99 Oximetry 10/16/16 10/16/16 10/16/16 09:51 10:04 10:06 Temperature Pulse Rate 96 H 99 H 117 H Pulse Rate [ Bilateral Throughout] Pulse Rate [ From Monitor] Respiratory Rate Respiratory Rate [Bilateral Throughout] Blood Pressure Blood Pressure [Left Arm] O2 Sat by Pulse 99 99 70 L Oximetry 10/16/16 10/16/16 10/16/16 10:09 10:14 10:19 Temperature Pulse Rate 95 H 109 H 101 H Pulse Rate [ Bilateral Throughout] Pulse Rate [ From Monitor] Respiratory Rate Respiratory Rate [Bilateral Throughout] Blood Pressure Blood Pressure [Left Arm] O2 Sat by Pulse 99 99 98 Oximetry 10/16/16 10/16/16 10/16/16 10:24 10:29 10:34 Temperature Pulse Rate 99 H 89 84 Pulse Rate [ Bilateral Throughout] Pulse Rate [ From Monitor] Respiratory Rate Respiratory Rate [Bilateral Throughout] Blood Pressure Blood Pressure [Left Arm] O2 Sat by Pulse 99 99 99 Oximetry 10/16/16 10/16/16 10/16/16 10:39 10:44 10:49 Temperature Pulse Rate 84 96 H 95 H Pulse Rate [ Bilateral Throughout] Pulse Rate [ From Monitor] Respiratory Rate Respiratory Rate [Bilateral Throughout] Blood Pressure Blood Pressure [Left Arm] O2 Sat by Pulse 100 99 98 Oximetry 10/16/16 10/16/16 10/16/16 10:52 10:54 10:59 Temperature 98.3 F Pulse Rate 93 H 88 Pulse Rate [ Bilateral Throughout] Pulse Rate [ From Monitor] Respiratory Rate Respiratory Rate [Bilateral Throughout] Blood Pressure Blood Pressure [Left Arm] O2 Sat by Pulse 99 99 Oximetry 10/16/16 10/16/16 10/16/16 11:04 11:09 11:14 Temperature Pulse Rate 94 H 100 H 97 H Pulse Rate [ Bilateral Throughout] Pulse Rate [ From Monitor] Respiratory Rate Respiratory Rate [Bilateral Throughout] Blood Pressure Blood Pressure [Left Arm] O2 Sat by Pulse 99 99 99 Oximetry 10/16/16 10/16/16 10/16/16 11:19 11:24 11:29 Temperature Pulse Rate 96 H 110 H 103 H Pulse Rate [ Bilateral Throughout] Pulse Rate [ From Monitor] Respiratory Rate Respiratory Rate [Bilateral Throughout] Blood Pressure Blood Pressure [Left Arm] O2 Sat by Pulse 99 98 98 Oximetry 10/16/16 10/16/16 10/16/16 11:34 11:39 11:44 Temperature Pulse Rate 94 H 92 H 100 H Pulse Rate [ Bilateral Throughout] Pulse Rate [ From Monitor] Respiratory Rate Respiratory Rate [Bilateral Throughout] Blood Pressure Blood Pressure [Left Arm] O2 Sat by Pulse 99 100 99 Oximetry 10/16/16 10/16/16 10/16/16 11:49 11:51 11:54 Temperature Pulse Rate 82 79 89 Pulse Rate [ Bilateral Throughout] Pulse Rate [ From Monitor] Respiratory Rate Respiratory Rate [Bilateral Throughout] Blood Pressure Blood Pressure [Left Arm] O2 Sat by Pulse 100 84 99 Oximetry 10/16/16 10/16/16 10/16/16 11:59 12:04 12:26 Temperature Pulse Rate 105 H 85 73 Pulse Rate [ Bilateral Throughout] Pulse Rate [ From Monitor] Respiratory Rate Respiratory Rate [Bilateral Throughout] Blood Pressure Blood Pressure [Left Arm] O2 Sat by Pulse 99 100 99 Oximetry 10/16/16 10/16/16 10/16/16 12:31 12:36 12:41 Temperature Pulse Rate 65 98 H 69 Pulse Rate [ Bilateral Throughout] Pulse Rate [ From Monitor] Respiratory Rate Respiratory Rate [Bilateral Throughout] Blood Pressure Blood Pressure [Left Arm] O2 Sat by Pulse 99 98 99 Oximetry 10/16/16 10/16/16 10/16/16 12:46 12:51 12:56 Temperature Pulse Rate 64 66 65 Pulse Rate [ Bilateral Throughout] Pulse Rate [ From Monitor] Respiratory Rate Respiratory Rate [Bilateral Throughout] Blood Pressure Blood Pressure [Left Arm] O2 Sat by Pulse 99 98 98 Oximetry 10/16/16 10/16/16 10/16/16 13:01 13:06 13:11 Temperature Pulse Rate 72 79 70 Pulse Rate [ Bilateral Throughout] Pulse Rate [ From Monitor] Respiratory Rate Respiratory Rate [Bilateral Throughout] Blood Pressure Blood Pressure [Left Arm] O2 Sat by Pulse 99 99 99 Oximetry 10/16/16 10/16/16 10/16/16 13:16 13:21 13:26 Temperature Pulse Rate 70 67 71 Pulse Rate [ Bilateral Throughout] Pulse Rate [ From Monitor] Respiratory Rate Respiratory Rate [Bilateral Throughout] Blood Pressure Blood Pressure [Left Arm] O2 Sat by Pulse 99 99 98 Oximetry 10/16/16 10/16/16 10/16/16 13:31 13:36 13:41 Temperature Pulse Rate 67 66 65 Pulse Rate [ Bilateral Throughout] Pulse Rate [ From Monitor] Respiratory Rate Respiratory Rate [Bilateral Throughout] Blood Pressure Blood Pressure [Left Arm] O2 Sat by Pulse 98 98 98 Oximetry 10/16/16 10/16/16 10/16/16 13:46 13:51 13:56 Temperature Pulse Rate 67 74 72 Pulse Rate [ Bilateral Throughout] Pulse Rate [ From Monitor] Respiratory Rate Respiratory Rate [Bilateral Throughout] Blood Pressure Blood Pressure [Left Arm] O2 Sat by Pulse 98 98 98 Oximetry 10/16/16 10/16/16 10/16/16 14:01 14:06 14:11 Temperature Pulse Rate 72 71 67 Pulse Rate [ Bilateral Throughout] Pulse Rate [ From Monitor] Respiratory Rate Respiratory Rate [Bilateral Throughout] Blood Pressure Blood Pressure [Left Arm] O2 Sat by Pulse 98 98 98 Oximetry 10/16/16 10/16/16 10/16/16 14:16 14:21 14:26 Temperature Pulse Rate 65 64 62 Pulse Rate [ Bilateral Throughout] Pulse Rate [ From Monitor] Respiratory Rate Respiratory Rate [Bilateral Throughout] Blood Pressure Blood Pressure [Left Arm] O2 Sat by Pulse 98 98 98 Oximetry 10/16/16 10/16/16 10/16/16 14:31 14:36 14:41 Temperature Pulse Rate 67 80 69 Pulse Rate [ Bilateral Throughout] Pulse Rate [ From Monitor] Respiratory Rate Respiratory Rate [Bilateral Throughout] Blood Pressure Blood Pressure [Left Arm] O2 Sat by Pulse 98 98 98 Oximetry 10/16/16 10/16/16 10/16/16 14:46 14:51 14:53 Temperature Pulse Rate 66 63 85 Pulse Rate [ Bilateral Throughout] Pulse Rate [ From Monitor] Respiratory Rate Respiratory Rate [Bilateral Throughout] Blood Pressure 109/60 Blood Pressure [Left Arm] O2 Sat by Pulse 98 98 Oximetry 10/16/16 10/16/16 10/16/16 14:56 14:58 15:01 Temperature 97.5 F L Pulse Rate 71 73 Pulse Rate [ Bilateral Throughout] Pulse Rate [ From Monitor] Respiratory Rate Respiratory Rate [Bilateral Throughout] Blood Pressure Blood Pressure 109/60 [Left Arm] O2 Sat by Pulse 98 99 Oximetry 10/16/16 10/16/16 10/16/16 15:26 15:27 15:32 Temperature Pulse Rate 62 62 66 Pulse Rate [ Bilateral Throughout] Pulse Rate [ From Monitor] Respiratory Rate Respiratory Rate [Bilateral Throughout] Blood Pressure Blood Pressure [Left Arm] O2 Sat by Pulse 76 L 70 L 100 Oximetry 10/16/16 10/16/16 10/16/16 15:44 15:49 15:54 Temperature Pulse Rate 56 L 56 L 56 L Pulse Rate [ Bilateral Throughout] Pulse Rate [ From Monitor] Respiratory Rate Respiratory Rate [Bilateral Throughout] Blood Pressure Blood Pressure [Left Arm] O2 Sat by Pulse 100 100 100 Oximetry 10/16/16 10/16/16 10/16/16 15:59 16:04 16:09 Temperature Pulse Rate 58 L 67 65 Pulse Rate [ Bilateral Throughout] Pulse Rate [ From Monitor] Respiratory Rate Respiratory Rate [Bilateral Throughout] Blood Pressure Blood Pressure [Left Arm] O2 Sat by Pulse 100 100 100 Oximetry 10/16/16 10/16/16 10/16/16 16:14 16:19 16:24 Temperature Pulse Rate 59 L 60 79 Pulse Rate [ Bilateral Throughout] Pulse Rate [ From Monitor] Respiratory Rate Respiratory Rate [Bilateral Throughout] Blood Pressure Blood Pressure [Left Arm] O2 Sat by Pulse 100 100 99 Oximetry 10/16/16 10/16/16 10/16/16 16:29 16:34 16:39 Temperature Pulse Rate 57 L 65 69 Pulse Rate [ Bilateral Throughout] Pulse Rate [ From Monitor] Respiratory Rate Respiratory Rate [Bilateral Throughout] Blood Pressure Blood Pressure [Left Arm] O2 Sat by Pulse 100 100 100 Oximetry 10/16/16 10/16/16 10/16/16 16:44 16:49 16:54 Temperature Pulse Rate 64 61 69 Pulse Rate [ Bilateral Throughout] Pulse Rate [ From Monitor] Respiratory Rate Respiratory Rate [Bilateral Throughout] Blood Pressure Blood Pressure [Left Arm] O2 Sat by Pulse 99 100 100 Oximetry 10/16/16 10/16/16 10/16/16 16:59 17:19 17:24 Temperature Pulse Rate 66 81 63 Pulse Rate [ Bilateral Throughout] Pulse Rate [ From Monitor] Respiratory Rate Respiratory Rate [Bilateral Throughout] Blood Pressure Blood Pressure [Left Arm] O2 Sat by Pulse 100 100 100 Oximetry 10/16/16 10/16/16 10/16/16 17:29 17:34 17:39 Temperature Pulse Rate 56 L 56 L 69 Pulse Rate [ Bilateral Throughout] Pulse Rate [ From Monitor] Respiratory Rate Respiratory Rate [Bilateral Throughout] Blood Pressure Blood Pressure [Left Arm] O2 Sat by Pulse 100 100 100 Oximetry 10/16/16 10/16/16 10/16/16 17:44 17:45 17:49 Temperature 98.1 F Pulse Rate 67 67 Pulse Rate [ Bilateral Throughout] Pulse Rate [ From Monitor] Respiratory Rate Respiratory Rate [Bilateral Throughout] Blood Pressure Blood Pressure [Left Arm] O2 Sat by Pulse 99 99 Oximetry 10/16/16 10/16/16 10/16/16 17:54 17:59 18:04 Temperature Pulse Rate 64 66 63 Pulse Rate [ Bilateral Throughout] Pulse Rate [ From Monitor] Respiratory Rate Respiratory Rate [Bilateral Throughout] Blood Pressure Blood Pressure [Left Arm] O2 Sat by Pulse 99 99 99 Oximetry 10/16/16 10/16/16 10/16/16 18:09 18:14 18:19 Temperature Pulse Rate 71 67 81 Pulse Rate [ Bilateral Throughout] Pulse Rate [ From Monitor] Respiratory Rate Respiratory Rate [Bilateral Throughout] Blood Pressure Blood Pressure [Left Arm] O2 Sat by Pulse 99 100 100 Oximetry 10/16/16 10/16/16 10/16/16 18:24 18:39 18:44 Temperature Pulse Rate 70 65 67 Pulse Rate [ Bilateral Throughout] Pulse Rate [ From Monitor] Respiratory Rate Respiratory Rate [Bilateral Throughout] Blood Pressure Blood Pressure [Left Arm] O2 Sat by Pulse 99 99 99 Oximetry 10/16/16 10/16/16 10/16/16 18:49 18:54 18:59 Temperature Pulse Rate 72 74 70 Pulse Rate [ Bilateral Throughout] Pulse Rate [ From Monitor] Respiratory Rate Respiratory Rate [Bilateral Throughout] Blood Pressure Blood Pressure [Left Arm] O2 Sat by Pulse 99 99 100 Oximetry 10/16/16 10/16/16 10/16/16 19:04 19:09 19:14 Temperature Pulse Rate 66 85 74 Pulse Rate [ Bilateral Throughout] Pulse Rate [ From Monitor] Respiratory Rate Respiratory Rate [Bilateral Throughout] Blood Pressure Blood Pressure [Left Arm] O2 Sat by Pulse 99 98 98 Oximetry - Exam Narrative Exam: Sitting up in bed NAD Appears comfortable Abdomen: Present: normal appearance, soft FHR: auscultation normal Uterine Contraction Pattern: Absent - Labs Labs: Abnormal Labs 10/06/16 10/06/16 10/06/16 16:30 16:30 16:30 WBC RBC 3.51 L Hgb Hct [place] % (Auto) Seg Neutrophils % 74.3 H Seg Neutrophils # Sodium Carbon Dioxide BUN Creatinine 0.3 L POC Glucose Uric Acid 3.1 L Calcium Magnesium 4.20 H ALT Total Protein Albumin 10/06/16 10/07/16 10/07/16 23:39 07:28 19:10 WBC RBC 3.16 L Hgb 9.2 L Hct 27.8 L [place] % (Auto) Seg Neutrophils % 76.3 H Seg Neutrophils # Sodium Carbon Dioxide BUN Creatinine POC Glucose Uric Acid Calcium Magnesium 5.90 H 4.50 H ALT Total Protein Albumin 10/08/16 10/09/16 10/12/16 00:20 20:05 11:00 WBC RBC 2.79 L Hgb 8.3 L Hct 25.1 L [place] % (Auto) 7.9 H Seg Neutrophils % 71.3 H Seg Neutrophils # Sodium 132 L Carbon Dioxide 18 L BUN 5 L Creatinine 0.4 L POC Glucose 135 H Uric Acid Calcium 6.9 L Magnesium ALT < 5 L Total Protein 5.9 L Albumin 2.8 L 10/14/16 14:12 WBC 11.2 H RBC 3.43 L Hgb 9.9 L Hct [place] % (Auto) Seg Neutrophils % 74.7 H Seg Neutrophils # 8.3 H Sodium Carbon Dioxide BUN Creatinine POC Glucose Uric Acid Calcium Magnesium ALT Total Protein Albumin
[2016-10-16] MEDS: ZOFRAN IV PRN (23:21)
[2016-10-16] MEDS: AMBIEN PO PRN (23:21)
[2016-10-17] MEDS: LACTATED RINGERS 1,000 ML IV SCH ×2 (06:52→19:39)
--- NOTE | 2016-10-17 08:16 | Progress Note ---
Assessment and Plan A:HD#12 IUP at 24w1d s/p 2 doses of betamethasone. s/p NICU consult. PPROM on 10/07/16 s/p 7 days of latency antibiotics Malpresentation Previous x 1 Asthma Irregular heart beat and intermittent bradycardia s/p Cardiology consult; No intervention needed, reconsult PRN Oligohydramnios Questionable seizure activity s/p neurology consult and normal MRI brain Headache- Fioricet PRN Insufficient care P: Diflucan 150 mg PO once Continue close observation of maternal and status. Deliver for signs of chorioamnionitis or distress. Subjective - Subjective Date of service: 10/17/16 Principal diagnosis: IUP at 24w1d, PPROM, questionable seizure disorder, asthma Interval history: No overnight events. Pt sad that she has lost weight since admission. Reassurance given. Pt seen by Cardiology yesterday with no further follow up indicated at this time. Pt reports albuterol nebs improved her chest tightness but made her feel as though she was "having a panic attack." Pt reports vaginal itching this morning. Patient reports: new complaints (per HPI), loss of fluid, vaginal bleeding ( spotting), movement normal, contractions (rare) Objective - Vital Signs Vital Signs: Vital Signs - 12hr 10/16/16 10/16/16 10/16/16 20:20 20:25 20:30 Temperature Pulse Rate 76 72 77 Respiratory Rate Blood Pressure O2 Sat by Pulse 98 98 99 Oximetry 10/16/16 10/16/16 10/16/16 20:35 20:40 20:45 Temperature Pulse Rate 70 76 67 Respiratory Rate Blood Pressure O2 Sat by Pulse 98 97 99 Oximetry 10/16/16 10/16/16 10/16/16 20:50 20:55 21:00 Temperature Pulse Rate 63 74 69 Respiratory Rate Blood Pressure O2 Sat by Pulse 98 98 100 Oximetry 10/16/16 10/16/16 10/16/16 21:05 21:10 21:15 Temperature Pulse Rate 77 72 76 Respiratory Rate Blood Pressure O2 Sat by Pulse 98 99 99 Oximetry 10/16/16 10/16/16 10/16/16 21:20 21:25 21:30 Temperature Pulse Rate 64 68 66 Respiratory Rate Blood Pressure O2 Sat by Pulse 99 99 100 Oximetry 10/16/16 10/16/16 10/16/16 21:35 21:40 21:45 Temperature Pulse Rate 66 65 66 Respiratory Rate Blood Pressure O2 Sat by Pulse 99 99 100 Oximetry 10/16/16 10/16/16 10/16/16 21:49 21:50 21:55 Temperature Pulse Rate 68 73 64 Respiratory Rate Blood Pressure O2 Sat by Pulse 93 97 99 Oximetry 10/16/16 10/16/16 10/16/16 22:00 22:05 22:10 Temperature Pulse Rate 61 67 62 Respiratory Rate Blood Pressure O2 Sat by Pulse 98 98 97 Oximetry 10/16/16 10/16/16 10/16/16 22:20 22:25 22:30 Temperature Pulse Rate 65 63 64 Respiratory Rate Blood Pressure O2 Sat by Pulse 96 98 96 Oximetry 10/16/16 10/16/16 10/16/16 22:35 22:40 22:45 Temperature Pulse Rate 62 73 65 Respiratory Rate Blood Pressure O2 Sat by Pulse 96 97 99 Oximetry 10/16/16 10/16/16 10/16/16 22:50 22:55 23:00 Temperature Pulse Rate 76 59 L 61 Respiratory Rate Blood Pressure O2 Sat by Pulse 97 99 99 Oximetry 10/16/16 10/16/16 10/16/16 23:05 23:10 23:13 Temperature Pulse Rate 65 56 L 53 L Respiratory Rate Blood Pressure 120/58 O2 Sat by Pulse 98 98 Oximetry 10/16/16 10/16/16 10/16/16 23:15 23:17 23:20 Temperature 98.0 F Pulse Rate 61 63 Respiratory 16 Rate Blood Pressure O2 Sat by Pulse 97 99 Oximetry 10/16/16 10/16/16 10/16/16 23:25 23:26 23:30 Temperature Pulse Rate 71 64 63 Respiratory Rate Blood Pressure O2 Sat by Pulse 98 94 99 Oximetry 10/16/16 10/16/16 10/16/16 23:35 23:40 23:45 Temperature Pulse Rate 59 L 62 71 Respiratory Rate Blood Pressure O2 Sat by Pulse 98 98 98 Oximetry 10/16/16 10/16/16 10/17/16 23:50 23:55 00:00 Temperature Pulse Rate 67 71 72 Respiratory Rate Blood Pressure O2 Sat by Pulse 98 97 97 Oximetry 10/17/16 10/17/16 10/17/16 00:05 00:10 00:15 Temperature Pulse Rate 70 69 69 Respiratory Rate Blood Pressure O2 Sat by Pulse 97 97 97 Oximetry 10/17/16 10/17/16 10/17/16 00:20 00:25 00:30 Temperature Pulse Rate 70 74 79 Respiratory Rate Blood Pressure O2 Sat by Pulse 97 97 98 Oximetry 10/17/16 10/17/16 10/17/16 00:35 00:40 00:45 Temperature Pulse Rate 77 76 75 Respiratory Rate Blood Pressure O2 Sat by Pulse 99 98 98 Oximetry 10/17/16 10/17/16 10/17/16 00:50 00:55 01:00 Temperature Pulse Rate 75 69 63 Respiratory Rate Blood Pressure O2 Sat by Pulse 98 98 99 Oximetry 10/17/16 10/17/16 10/17/16 01:05 01:10 01:15 Temperature Pulse Rate 62 67 65 Respiratory Rate Blood Pressure O2 Sat by Pulse 99 99 99 Oximetry 10/17/16 10/17/16 10/17/16 01:20 01:25 01:30 Temperature Pulse Rate 67 63 66 Respiratory Rate Blood Pressure O2 Sat by Pulse 99 100 100 Oximetry 10/17/16 10/17/16 10/17/16 01:35 01:40 01:45 Temperature Pulse Rate 67 72 69 Respiratory Rate Blood Pressure O2 Sat by Pulse 100 99 100 Oximetry 10/17/16 10/17/16 10/17/16 01:50 01:55 02:00 Temperature Pulse Rate 71 64 67 Respiratory Rate Blood Pressure O2 Sat by Pulse 100 100 99 Oximetry 10/17/16 10/17/16 10/17/16 02:05 02:10 02:15 Temperature Pulse Rate 63 65 67 Respiratory Rate Blood Pressure O2 Sat by Pulse 100 100 99 Oximetry 10/17/16 10/17/16 10/17/16 02:20 02:25 02:30 Temperature Pulse Rate 64 61 63 Respiratory Rate Blood Pressure O2 Sat by Pulse 99 99 99 Oximetry 10/17/16 10/17/16 10/17/16 02:35 02:40 02:45 Temperature Pulse Rate 64 67 60 Respiratory Rate Blood Pressure O2 Sat by Pulse 100 99 98 Oximetry 10/17/16 10/17/16 10/17/16 02:50 02:55 03:01 Temperature Pulse Rate 61 60 87 Respiratory Rate Blood Pressure O2 Sat by Pulse 99 99 85 Oximetry 10/17/16 10/17/16 10/17/16 03:02 03:07 03:12 Temperature Pulse Rate 66 55 L 55 L Respiratory Rate Blood Pressure O2 Sat by Pulse 95 98 98 Oximetry 10/17/16 10/17/16 10/17/16 03:17 03:22 03:27 Temperature Pulse Rate 55 L 57 L 59 L Respiratory Rate Blood Pressure O2 Sat by Pulse 97 97 98 Oximetry 10/17/16 10/17/16 10/17/16 03:32 03:35 03:37 Temperature 98.2 F Pulse Rate 63 63 Respiratory 20 Rate Blood Pressure O2 Sat by Pulse 96 97 Oximetry 10/17/16 10/17/16 10/17/16 03:39 03:42 03:47 Temperature Pulse Rate 54 L 57 L 55 L Respiratory Rate Blood Pressure 106/62 O2 Sat by Pulse 99 97 Oximetry 10/17/16 10/17/16 10/17/16 03:52 03:57 04:02 Temperature Pulse Rate 57 L 55 L 50 L Respiratory Rate Blood Pressure O2 Sat by Pulse 97 97 99 Oximetry 10/17/16 10/17/16 10/17/16 04:07 04:12 04:17 Temperature Pulse Rate 57 L 56 L 57 L Respiratory Rate Blood Pressure O2 Sat by Pulse 97 97 97 Oximetry 10/17/16 10/17/16 10/17/16 04:22 04:27 04:30 Temperature Pulse Rate 57 L 60 57 L Respiratory Rate Blood Pressure O2 Sat by Pulse 97 97 94 Oximetry 10/17/16 10/17/16 10/17/16 04:32 04:37 04:42 Temperature Pulse Rate 71 56 L 66 Respiratory Rate Blood Pressure O2 Sat by Pulse 97 97 98 Oximetry 10/17/16 10/17/16 10/17/16 04:47 04:52 04:57 Temperature Pulse Rate 50 L 60 56 L Respiratory Rate Blood Pressure O2 Sat by Pulse 97 97 97 Oximetry 10/17/16 10/17/16 10/17/16 05:02 05:07 05:12 Temperature Pulse Rate 59 L 54 L 57 L Respiratory Rate Blood Pressure O2 Sat by Pulse 96 97 97 Oximetry 10/17/16 10/17/16 10/17/16 05:17 05:22 05:27 Temperature Pulse Rate 57 L 54 L 58 L Respiratory Rate Blood Pressure O2 Sat by Pulse 97 97 97 Oximetry 10/17/16 10/17/16 10/17/16 05:32 05:37 05:42 Temperature Pulse Rate 57 L 58 L 58 L Respiratory Rate Blood Pressure O2 Sat by Pulse 98 97 97 Oximetry 10/17/16 10/17/16 10/17/16 05:47 06:02 06:03 Temperature Pulse Rate 58 L 65 55 L Respiratory Rate Blood Pressure O2 Sat by Pulse 97 41 L 99 Oximetry 10/17/16 10/17/16 10/17/16 06:08 06:13 06:18 Temperature Pulse Rate 56 L 53 L 55 L Respiratory Rate Blood Pressure O2 Sat by Pulse 100 100 99 Oximetry 10/17/16 10/17/16 10/17/16 06:23 06:28 06:33 Temperature Pulse Rate 50 L 53 L 62 Respiratory Rate Blood Pressure O2 Sat by Pulse 97 97 96 Oximetry 10/17/16 10/17/16 10/17/16 06:38 06:43 06:48 Temperature Pulse Rate 58 L 54 L 58 L Respiratory Rate Blood Pressure O2 Sat by Pulse 98 99 99 Oximetry 10/17/16 10/17/16 10/17/16 06:53 06:58 07:03 Temperature Pulse Rate 56 L 68 56 L Respiratory Rate Blood Pressure O2 Sat by Pulse 98 100 98 Oximetry 10/17/16 10/17/16 10/17/16 07:08 07:13 07:18 Temperature Pulse Rate 57 L 62 56 L Respiratory Rate Blood Pressure O2 Sat by Pulse 99 98 98 Oximetry 10/17/16 10/17/16 10/17/16 07:23 07:28 07:33 Temperature Pulse Rate 61 55 L 61 Respiratory Rate Blood Pressure O2 Sat by Pulse 98 97 98 Oximetry 10/17/16 10/17/16 10/17/16 07:38 07:43 07:48 Temperature Pulse Rate 60 63 56 L Respiratory Rate Blood Pressure O2 Sat by Pulse 98 99 98 Oximetry 10/17/16 10/17/16 10/17/16 07:53 07:58 08:03 Temperature Pulse Rate 56 L 58 L 58 L Respiratory Rate Blood Pressure O2 Sat by Pulse 99 99 99 Oximetry 10/17/16 10/17/16 08:08 08:13 Temperature Pulse Rate 56 L 54 L Respiratory Rate Blood Pressure O2 Sat by Pulse 99 99 Oximetry - Exam Breasts: deferred Cardiovascular: Regular rate Lungs: Clear to auscultation Abdomen: Present: soft (gravid). Absent: tenderness FHR: category 2 Uterine Contraction Monitor Mode: External Uterine Contraction Pattern: Irregular Uterine Tone Measurement Phase: Resting Uterine Contraction Intensity: Mild Extremities: normal - Labs Labs: Abnormal Labs 10/06/16 10/06/16 10/06/16 16:30 16:30 16:30 WBC RBC 3.51 L Hgb Hct [place] % (Auto) Seg Neutrophils % 74.3 H Seg Neutrophils # Sodium Carbon Dioxide BUN Creatinine 0.3 L POC Glucose Uric Acid 3.1 L Calcium Magnesium 4.20 H ALT Total Protein Albumin 10/06/16 10/07/16 10/07/16 23:39 07:28 19:10 WBC RBC 3.16 L Hgb 9.2 L Hct 27.8 L [place] % (Auto) Seg Neutrophils % 76.3 H Seg Neutrophils # Sodium Carbon Dioxide BUN Creatinine POC Glucose Uric Acid Calcium Magnesium 5.90 H 4.50 H ALT Total Protein Albumin 10/08/16 10/09/16 10/12/16 00:20 20:05 11:00 WBC RBC 2.79 L Hgb 8.3 L Hct 25.1 L [place] % (Auto) 7.9 H Seg Neutrophils % 71.3 H Seg Neutrophils # Sodium 132 L Carbon Dioxide 18 L BUN 5 L Creatinine 0.4 L POC Glucose 135 H Uric Acid Calcium 6.9 L Magnesium ALT < 5 L Total Protein 5.9 L Albumin 2.8 L 10/14/16 14:12 WBC 11.2 H RBC 3.43 L Hgb 9.9 L Hct [place] % (Auto) Seg Neutrophils % 74.7 H Seg Neutrophils # 8.3 H Sodium Carbon Dioxide BUN Creatinine POC Glucose Uric Acid Calcium Magnesium ALT Total Protein Albumin
[2016-10-17] MEDS ORDERED: DUONEB 0.5 MG-3 MG/3 ML SOLN IH PRN (08:49)
[2016-10-17] MEDS: TYLENOL PO PRN (09:45)
[2016-10-17] MEDS: PRENATAL VITAMIN PO SCH (09:45)
[2016-10-17] MEDS ORDERED: DIFLUCAN PO ONE (11:00)
[2016-10-17] MEDS ORDERED: PROVENTIL IH PRN (12:00)
[2016-10-17] MEDS: FIORICET PO PRN (19:34)
[2016-10-17] MEDS: AMBIEN PO PRN (22:43)
[2016-10-18] MEDS: LACTATED RINGERS 1,000 ML IV SCH ×3 (07:16→23:02)
--- NOTE | 2016-10-18 08:48 | Progress Note ---
Assessment and Plan 1. 24 2/7 weeks 2. PPROM 3. Breech 4. Anemia 5. Headaches 6. Anxiety and depression 5.Asthma 6.Maternal bradycardia -no further evaluation needed per cardiology Recommendations 1. Expectant management 2. No tocolysis 3. testing after 27-28 weeks. Subjective - Subjective Principal diagnosis: IUP at 24w1d, PPROM, questionable seizure disorder, asthma Interval history: Patient sleeping, barely woke up + leaking, denies contractions Headache off an on. Patient reports: movement normal Objective - Vital Signs Vital Signs: Vital Signs - 12hr 10/17/16 10/18/16 10/18/16 22:49 02:06 07:38 Temperature 97.8 F 97.9 F 97.9 F Pulse Rate 52 L 52 L Pulse Rate [ 52 L 52 L 64 From Monitor] Respiratory 18 20 18 Rate Blood Pressure 109/55 112/70 Blood Pressure 109/55 112/70 116/56 [Left Arm] O2 Sat by Pulse 99 100 Oximetry 10/18/16 07:42 Temperature Pulse Rate 64 Pulse Rate [ From Monitor] Respiratory Rate Blood Pressure 111/56 Blood Pressure [Left Arm] O2 Sat by Pulse Oximetry - Exam Cardiovascular: Regular rate Abdomen: Present: normal appearance Uterus: Present: normal Extremities: normal - Labs Labs: Abnormal Labs 10/06/16 10/06/16 10/06/16 16:30 16:30 16:30 WBC RBC 3.51 L Hgb Hct [place] % (Auto) Seg Neutrophils % 74.3 H Seg Neutrophils # Sodium Carbon Dioxide BUN Creatinine 0.3 L POC Glucose Uric Acid 3.1 L Calcium Magnesium 4.20 H ALT Total Protein Albumin 10/06/16 10/07/16 10/07/16 23:39 07:28 19:10 WBC RBC 3.16 L Hgb 9.2 L Hct 27.8 L [place] % (Auto) Seg Neutrophils % 76.3 H Seg Neutrophils # Sodium Carbon Dioxide BUN Creatinine POC Glucose Uric Acid Calcium Magnesium 5.90 H 4.50 H ALT Total Protein Albumin 10/08/16 10/09/16 10/12/16 00:20 20:05 11:00 WBC RBC 2.79 L Hgb 8.3 L Hct 25.1 L [place] % (Auto) 7.9 H Seg Neutrophils % 71.3 H Seg Neutrophils # Sodium 132 L Carbon Dioxide 18 L BUN 5 L Creatinine 0.4 L POC Glucose 135 H Uric Acid Calcium 6.9 L Magnesium ALT < 5 L Total Protein 5.9 L Albumin 2.8 L 10/14/16 14:12 WBC 11.2 H RBC 3.43 L Hgb 9.9 L Hct [place] % (Auto) Seg Neutrophils % 74.7 H Seg Neutrophils # 8.3 H Sodium Carbon Dioxide BUN Creatinine POC Glucose Uric Acid Calcium Magnesium ALT Total Protein Albumin Laboratory Results - last 24 hr 10/14/16 10/15/16 10/16/16 12:45 07:56 07:44 POC Glucose 75 80 75
[2016-10-18] MEDS: PRENATAL VITAMIN PO SCH (09:17)
[2016-10-18] MEDS: FIORICET PO PRN (09:17)
[2016-10-18] MEDS: ZOLOFT PO SCH (09:17)
[2016-10-18] MEDS: ZOFRAN IV PRN (09:57)
[2016-10-18] MEDS: TYLENOL PO PRN (18:50)
[2016-10-18] MEDS: ATIVAN IV PRN (23:03)
[2016-10-18] MEDS: AMBIEN PO PRN (23:05)
[2016-10-19] MEDS: LACTATED RINGERS 1,000 ML IV SCH ×2 (06:49→22:55)
[2016-10-19] MEDS: ZOLOFT PO SCH ×2 (10:00→11:22)
[2016-10-19] MEDS: PRENATAL VITAMIN PO SCH (10:00)
--- NOTE | 2016-10-19 13:45 | Progress Note ---
Assessment and Plan IUP at 24.5 weeks with pprom. Stable. No new complaints. Continue current management. Subjective - Subjective Date of service: 10/18/16 Principal diagnosis: IUP at 24w1d, PPROM, questionable seizure disorder, asthma Patient reports: movement normal, other (patient still feels depresseds. sitting in room with blinds closed) Objective - Vital Signs Vital Signs: Vital Signs - 12hr 10/19/16 10/19/16 10/19/16 01:46 01:51 01:56 Temperature Pulse Rate 60 54 L 57 L Pulse Rate [ From Monitor] Respiratory Rate Blood Pressure Blood Pressure [Left Arm] O2 Sat by Pulse 99 99 100 Oximetry 10/19/16 10/19/16 10/19/16 02:01 02:06 02:15 Temperature Pulse Rate 54 L 56 L 52 L Pulse Rate [ From Monitor] Respiratory Rate Blood Pressure Blood Pressure [Left Arm] O2 Sat by Pulse 100 100 99 Oximetry 10/19/16 10/19/16 10/19/16 02:20 02:25 02:30 Temperature Pulse Rate 52 L 52 L 54 L Pulse Rate [ From Monitor] Respiratory Rate Blood Pressure Blood Pressure [Left Arm] O2 Sat by Pulse 100 98 98 Oximetry 10/19/16 10/19/16 10/19/16 02:35 02:40 02:45 Temperature Pulse Rate 50 L 56 L 58 L Pulse Rate [ From Monitor] Respiratory Rate Blood Pressure Blood Pressure [Left Arm] O2 Sat by Pulse 98 98 98 Oximetry 10/19/16 10/19/16 10/19/16 02:50 02:55 03:00 Temperature Pulse Rate 58 L 58 L 61 Pulse Rate [ From Monitor] Respiratory Rate Blood Pressure Blood Pressure [Left Arm] O2 Sat by Pulse 98 98 98 Oximetry 10/19/16 10/19/16 10/19/16 03:05 03:10 03:15 Temperature Pulse Rate 61 62 69 Pulse Rate [ From Monitor] Respiratory Rate Blood Pressure Blood Pressure [Left Arm] O2 Sat by Pulse 98 99 99 Oximetry 10/19/16 10/19/16 10/19/16 03:20 03:25 03:30 Temperature Pulse Rate 57 L 68 60 Pulse Rate [ From Monitor] Respiratory Rate Blood Pressure Blood Pressure [Left Arm] O2 Sat by Pulse 99 98 99 Oximetry 10/19/16 10/19/16 10/19/16 03:35 03:40 03:45 Temperature Pulse Rate 54 L 55 L 61 Pulse Rate [ From Monitor] Respiratory Rate Blood Pressure Blood Pressure [Left Arm] O2 Sat by Pulse 99 99 98 Oximetry 10/19/16 10/19/16 10/19/16 03:50 03:55 04:00 Temperature Pulse Rate 60 61 55 L Pulse Rate [ From Monitor] Respiratory Rate Blood Pressure Blood Pressure [Left Arm] O2 Sat by Pulse 99 99 99 Oximetry 10/19/16 10/19/16 10/19/16 04:05 04:10 04:15 Temperature Pulse Rate 56 L 56 L 57 L Pulse Rate [ From Monitor] Respiratory Rate Blood Pressure Blood Pressure [Left Arm] O2 Sat by Pulse 99 99 99 Oximetry 10/19/16 10/19/16 10/19/16 04:20 04:25 04:30 Temperature Pulse Rate 59 L 60 59 L Pulse Rate [ From Monitor] Respiratory Rate Blood Pressure Blood Pressure [Left Arm] O2 Sat by Pulse 99 99 99 Oximetry 10/19/16 10/19/16 10/19/16 04:35 04:40 04:45 Temperature Pulse Rate 58 L 59 L 58 L Pulse Rate [ From Monitor] Respiratory Rate Blood Pressure Blood Pressure [Left Arm] O2 Sat by Pulse 99 99 99 Oximetry 10/19/16 10/19/16 10/19/16 04:50 04:55 05:00 Temperature Pulse Rate 60 53 L 52 L Pulse Rate [ From Monitor] Respiratory Rate Blood Pressure Blood Pressure [Left Arm] O2 Sat by Pulse 99 99 99 Oximetry 10/19/16 10/19/16 10/19/16 05:05 05:10 05:26 Temperature Pulse Rate 58 L 54 L 54 L Pulse Rate [ From Monitor] Respiratory Rate Blood Pressure Blood Pressure [Left Arm] O2 Sat by Pulse 99 98 100 Oximetry 10/19/16 10/19/16 10/19/16 05:31 05:36 05:41 Temperature Pulse Rate 55 L 68 57 L Pulse Rate [ From Monitor] Respiratory Rate Blood Pressure Blood Pressure [Left Arm] O2 Sat by Pulse 100 100 100 Oximetry 10/19/16 10/19/16 10/19/16 05:46 05:51 05:56 Temperature Pulse Rate 59 L 65 58 L Pulse Rate [ From Monitor] Respiratory Rate Blood Pressure Blood Pressure [Left Arm] O2 Sat by Pulse 100 100 100 Oximetry 10/19/16 10/19/16 10/19/16 06:01 06:06 06:11 Temperature Pulse Rate 57 L 58 L 59 L Pulse Rate [ From Monitor] Respiratory Rate Blood Pressure Blood Pressure [Left Arm] O2 Sat by Pulse 100 100 99 Oximetry 10/19/16 10/19/16 10/19/16 06:16 06:21 06:26 Temperature Pulse Rate 59 L 57 L 57 L Pulse Rate [ From Monitor] Respiratory Rate Blood Pressure Blood Pressure [Left Arm] O2 Sat by Pulse 99 99 99 Oximetry 10/19/16 10/19/16 10/19/16 06:31 06:36 06:40 Temperature 97.9 F Pulse Rate 60 52 L Pulse Rate [ 63 From Monitor] Respiratory 18 Rate Blood Pressure Blood Pressure 104/52 [Left Arm] O2 Sat by Pulse 99 98 100 Oximetry 10/19/16 10/19/16 10/19/16 06:41 06:42 06:46 Temperature Pulse Rate 56 L 57 L 66 Pulse Rate [ From Monitor] Respiratory Rate Blood Pressure 104/52 Blood Pressure [Left Arm] O2 Sat by Pulse 98 97 Oximetry 10/19/16 10/19/16 10/19/16 06:51 06:56 07:01 Temperature Pulse Rate 60 61 57 L Pulse Rate [ From Monitor] Respiratory Rate Blood Pressure Blood Pressure [Left Arm] O2 Sat by Pulse 97 98 98 Oximetry 10/19/16 10/19/16 10/19/16 07:06 07:11 07:16 Temperature Pulse Rate 59 L 60 57 L Pulse Rate [ From Monitor] Respiratory Rate Blood Pressure Blood Pressure [Left Arm] O2 Sat by Pulse 98 97 98 Oximetry 10/19/16 10/19/16 10/19/16 07:21 07:26 07:31 Temperature Pulse Rate 58 L 61 61 Pulse Rate [ From Monitor] Respiratory Rate Blood Pressure Blood Pressure [Left Arm] O2 Sat by Pulse 97 98 97 Oximetry 10/19/16 10/19/16 10/19/16 07:36 07:41 07:42 Temperature Pulse Rate 66 56 L 97 H Pulse Rate [ From Monitor] Respiratory Rate Blood Pressure Blood Pressure [Left Arm] O2 Sat by Pulse 99 98 93 Oximetry 10/19/16 10/19/16 10/19/16 07:46 07:51 07:56 Temperature Pulse Rate 57 L 56 L 64 Pulse Rate [ From Monitor] Respiratory Rate Blood Pressure Blood Pressure [Left Arm] O2 Sat by Pulse 98 95 88 Oximetry 10/19/16 10/19/16 10/19/16 08:07 08:12 08:17 Temperature Pulse Rate 57 L 56 L 55 L Pulse Rate [ From Monitor] Respiratory Rate Blood Pressure Blood Pressure [Left Arm] O2 Sat by Pulse 100 99 99 Oximetry 10/19/16 10/19/16 10/19/16 08:22 08:27 08:32 Temperature Pulse Rate 60 64 62 Pulse Rate [ From Monitor] Respiratory Rate Blood Pressure Blood Pressure [Left Arm] O2 Sat by Pulse 99 99 99 Oximetry 10/19/16 10/19/16 10/19/16 08:37 08:42 08:47 Temperature Pulse Rate 57 L 73 65 Pulse Rate [ From Monitor] Respiratory Rate Blood Pressure Blood Pressure [Left Arm] O2 Sat by Pulse 100 98 98 Oximetry 10/19/16 10/19/16 10/19/16 08:52 08:57 09:02 Temperature Pulse Rate 72 62 59 L Pulse Rate [ From Monitor] Respiratory Rate Blood Pressure Blood Pressure [Left Arm] O2 Sat by Pulse 99 99 99 Oximetry 10/19/16 10/19/16 10/19/16 09:04 09:05 09:07 Temperature 98.6 F Pulse Rate 57 L 57 L Pulse Rate [ 57 L From Monitor] Respiratory 18 Rate Blood Pressure 106/56 Blood Pressure 106/56 [Left Arm] O2 Sat by Pulse 99 99 Oximetry 10/19/16 10/19/16 10/19/16 09:12 09:17 09:22 Temperature Pulse Rate 61 61 65 Pulse Rate [ From Monitor] Respiratory Rate Blood Pressure Blood Pressure [Left Arm] O2 Sat by Pulse 98 99 99 Oximetry 10/19/16 10/19/16 10/19/16 09:27 09:32 09:37 Temperature Pulse Rate 65 63 66 Pulse Rate [ From Monitor] Respiratory Rate Blood Pressure Blood Pressure [Left Arm] O2 Sat by Pulse 99 100 99 Oximetry 10/19/16 10/19/16 10/19/16 09:42 09:47 09:52 Temperature Pulse Rate 69 75 66 Pulse Rate [ From Monitor] Respiratory Rate Blood Pressure Blood Pressure [Left Arm] O2 Sat by Pulse 99 99 99 Oximetry 10/19/16 10/19/16 10/19/16 09:57 10:02 10:07 Temperature Pulse Rate 68 62 70 Pulse Rate [ From Monitor] Respiratory Rate Blood Pressure Blood Pressure [Left Arm] O2 Sat by Pulse 100 99 98 Oximetry 10/19/16 10/19/16 10/19/16 10:12 10:17 10:22 Temperature Pulse Rate 64 66 73 Pulse Rate [ From Monitor] Respiratory Rate Blood Pressure Blood Pressure [Left Arm] O2 Sat by Pulse 98 100 98 Oximetry 10/19/16 10/19/16 10/19/16 10:27 10:54 10:59 Temperature Pulse Rate 67 67 68 Pulse Rate [ From Monitor] Respiratory Rate Blood Pressure Blood Pressure [Left Arm] O2 Sat by Pulse 99 98 98 Oximetry 10/19/16 10/19/16 10/19/16 11:04 11:09 11:14 Temperature Pulse Rate 64 63 67 Pulse Rate [ From Monitor] Respiratory Rate Blood Pressure Blood Pressure [Left Arm] O2 Sat by Pulse 99 98 99 Oximetry 10/19/16 10/19/16 10/19/16 11:19 11:24 11:29 Temperature Pulse Rate 59 L 62 63 Pulse Rate [ From Monitor] Respiratory Rate Blood Pressure Blood Pressure [Left Arm] O2 Sat by Pulse 99 99 99 Oximetry 10/19/16 10/19/16 10/19/16 11:34 11:39 11:44 Temperature Pulse Rate 61 59 L 60 Pulse Rate [ From Monitor] Respiratory Rate Blood Pressure Blood Pressure [Left Arm] O2 Sat by Pulse 99 98 98 Oximetry 10/19/16 10/19/16 10/19/16 11:49 11:50 11:52 Temperature 99.2 F Pulse Rate 65 61 Pulse Rate [ 61 From Monitor] Respiratory 18 Rate Blood Pressure 111/54 Blood Pressure 111/54 [Left Arm] O2 Sat by Pulse 99 99 Oximetry 10/19/16 10/19/16 10/19/16 11:54 11:59 12:04 Temperature Pulse Rate 60 63 65 Pulse Rate [ From Monitor] Respiratory Rate Blood Pressure Blood Pressure [Left Arm] O2 Sat by Pulse 99 99 100 Oximetry 10/19/16 10/19/16 10/19/16 12:09 12:14 12:19 Temperature Pulse Rate 60 62 63 Pulse Rate [ From Monitor] Respiratory Rate Blood Pressure Blood Pressure [Left Arm] O2 Sat by Pulse 99 99 99 Oximetry 10/19/16 10/19/16 10/19/16 12:24 12:29 12:34 Temperature Pulse Rate 63 62 64 Pulse Rate [ From Monitor] Respiratory Rate Blood Pressure Blood Pressure [Left Arm] O2 Sat by Pulse 99 99 99 Oximetry 10/19/16 10/19/16 10/19/16 12:39 12:44 12:49 Temperature Pulse Rate 71 68 87 Pulse Rate [ From Monitor] Respiratory Rate Blood Pressure Blood Pressure [Left Arm] O2 Sat by Pulse 98 99 0 L Oximetry 10/19/16 10/19/16 10/19/16 12:54 12:59 13:04 Temperature Pulse Rate 68 60 68 Pulse Rate [ From Monitor] Respiratory Rate Blood Pressure Blood Pressure [Left Arm] O2 Sat by Pulse 98 98 80 L Oximetry 10/19/16 10/19/16 10/19/16 13:09 13:14 13:19 Temperature Pulse Rate 68 62 68 Pulse Rate [ From Monitor] Respiratory Rate Blood Pressure Blood Pressure [Left Arm] O2 Sat by Pulse 97 97 100 Oximetry 10/19/16 10/19/16 10/19/16 13:24 13:29 13:34 Temperature Pulse Rate 71 68 61 Pulse Rate [ From Monitor] Respiratory Rate Blood Pressure Blood Pressure [Left Arm] O2 Sat by Pulse 100 99 100 Oximetry 10/19/16 13:39 Temperature Pulse Rate 61 Pulse Rate [ From Monitor] Respiratory Rate Blood Pressure Blood Pressure [Left Arm] O2 Sat by Pulse 100 Oximetry - Exam Cardiovascular: Regular rate Lungs: Clear to auscultation, Normal air movement Abdomen: Present: normal appearance, soft. Absent: distention, tenderness Uterus: Present: normal FHR: auscultation normal FHR comments: occasional variable decelerations Extremities: normal - Labs Labs: Abnormal Labs 10/06/16 10/06/16 10/06/16 16:30 16:30 16:30 WBC RBC 3.51 L Hgb Hct [place] % (Auto) Seg Neutrophils % 74.3 H Seg Neutrophils # Sodium Carbon Dioxide BUN Creatinine 0.3 L POC Glucose Uric Acid 3.1 L Calcium Magnesium 4.20 H ALT Total Protein Albumin 10/06/16 10/07/16 10/07/16 23:39 07:28 19:10 WBC RBC 3.16 L Hgb 9.2 L Hct 27.8 L [place] % (Auto) Seg Neutrophils % 76.3 H Seg Neutrophils # Sodium Carbon Dioxide BUN Creatinine POC Glucose Uric Acid Calcium Magnesium 5.90 H 4.50 H ALT Total Protein Albumin 10/08/16 10/09/16 10/12/16 00:20 20:05 11:00 WBC RBC 2.79 L Hgb 8.3 L Hct 25.1 L [place] % (Auto) 7.9 H Seg Neutrophils % 71.3 H Seg Neutrophils # Sodium 132 L Carbon Dioxide 18 L BUN 5 L Creatinine 0.4 L POC Glucose 135 H Uric Acid Calcium 6.9 L Magnesium ALT < 5 L Total Protein 5.9 L Albumin 2.8 L 10/14/16 14:12 WBC 11.2 H RBC 3.43 L Hgb 9.9 L Hct [place] % (Auto) Seg Neutrophils % 74.7 H Seg Neutrophils # 8.3 H Sodium Carbon Dioxide BUN Creatinine POC Glucose Uric Acid Calcium Magnesium ALT Total Protein Albumin
--- NOTE | 2016-10-19 13:47 | Progress Note ---
Assessment and Plan IUP at 24.6 weeks with pprom. Stable. No new complaints. Afebrile. Continue current management. Subjective - Subjective Date of service: 10/19/16 Principal diagnosis: IUP at 24w1d, PPROM, questionable seizure disorder, asthma Patient reports: movement normal, other (patient appears to be more upbeat today. Patient has visitor in room) Objective - Vital Signs Vital Signs: Vital Signs - 12hr 10/19/16 10/19/16 10/19/16 01:46 01:51 01:56 Temperature Pulse Rate 60 54 L 57 L Pulse Rate [ From Monitor] Respiratory Rate Blood Pressure Blood Pressure [Left Arm] O2 Sat by Pulse 99 99 100 Oximetry 10/19/16 10/19/16 10/19/16 02:01 02:06 02:15 Temperature Pulse Rate 54 L 56 L 52 L Pulse Rate [ From Monitor] Respiratory Rate Blood Pressure Blood Pressure [Left Arm] O2 Sat by Pulse 100 100 99 Oximetry 10/19/16 10/19/16 10/19/16 02:20 02:25 02:30 Temperature Pulse Rate 52 L 52 L 54 L Pulse Rate [ From Monitor] Respiratory Rate Blood Pressure Blood Pressure [Left Arm] O2 Sat by Pulse 100 98 98 Oximetry 10/19/16 10/19/16 10/19/16 02:35 02:40 02:45 Temperature Pulse Rate 50 L 56 L 58 L Pulse Rate [ From Monitor] Respiratory Rate Blood Pressure Blood Pressure [Left Arm] O2 Sat by Pulse 98 98 98 Oximetry 10/19/16 10/19/16 10/19/16 02:50 02:55 03:00 Temperature Pulse Rate 58 L 58 L 61 Pulse Rate [ From Monitor] Respiratory Rate Blood Pressure Blood Pressure [Left Arm] O2 Sat by Pulse 98 98 98 Oximetry 10/19/16 10/19/16 10/19/16 03:05 03:10 03:15 Temperature Pulse Rate 61 62 69 Pulse Rate [ From Monitor] Respiratory Rate Blood Pressure Blood Pressure [Left Arm] O2 Sat by Pulse 98 99 99 Oximetry 10/19/16 10/19/16 10/19/16 03:20 03:25 03:30 Temperature Pulse Rate 57 L 68 60 Pulse Rate [ From Monitor] Respiratory Rate Blood Pressure Blood Pressure [Left Arm] O2 Sat by Pulse 99 98 99 Oximetry 10/19/16 10/19/1617 03:35 03:40 03:45 Temperature Pulse Rate 54 L 55 L 61 Pulse Rate [ From Monitor] Respiratory Rate Blood Pressure Blood Pressure [Left Arm] O2 Sat by Pulse 99 99 98 Oximetry 10/19/16 10/19/16 10/19/16 03:50 03:55 04:00 Temperature Pulse Rate 60 61 55 L Pulse Rate [ From Monitor] Respiratory Rate Blood Pressure Blood Pressure [Left Arm] O2 Sat by Pulse 99 99 99 Oximetry 10/19/16 10/19/16 10/19/16 04:05 04:10 04:15 Temperature Pulse Rate 56 L 56 L 57 L Pulse Rate [ From Monitor] Respiratory Rate Blood Pressure Blood Pressure [Left Arm] O2 Sat by Pulse 99 99 99 Oximetry 10/19/16 10/19/16 10/19/16 04:20 04:25 04:30 Temperature Pulse Rate 59 L 60 59 L Pulse Rate [ From Monitor] Respiratory Rate Blood Pressure Blood Pressure [Left Arm] O2 Sat by Pulse 99 99 99 Oximetry 10/19/16 10/19/16 10/19/16 04:35 04:40 04:45 Temperature Pulse Rate 58 L 59 L 58 L Pulse Rate [ From Monitor] Respiratory Rate Blood Pressure Blood Pressure [Left Arm] O2 Sat by Pulse 99 99 99 Oximetry 10/19/16 10/19/16 10/19/16 04:50 04:55 05:00 Temperature Pulse Rate 60 53 L 52 L Pulse Rate [ From Monitor] Respiratory Rate Blood Pressure Blood Pressure [Left Arm] O2 Sat by Pulse 99 99 99 Oximetry 10/19/16 10/19/16 10/19/16 05:05 05:10 05:26 Temperature Pulse Rate 58 L 54 L 54 L Pulse Rate [ From Monitor] Respiratory Rate Blood Pressure Blood Pressure [Left Arm] O2 Sat by Pulse 99 98 100 Oximetry 10/19/16 10/19/16 10/19/16 05:31 05:36 05:41 Temperature Pulse Rate 55 L 68 57 L Pulse Rate [ From Monitor] Respiratory Rate Blood Pressure Blood Pressure [Left Arm] O2 Sat by Pulse 100 100 100 Oximetry 10/19/16 10/19/16 10/19/16 05:46 05:51 05:56 Temperature Pulse Rate 59 L 65 58 L Pulse Rate [ From Monitor] Respiratory Rate Blood Pressure Blood Pressure [Left Arm] O2 Sat by Pulse 100 100 100 Oximetry 10/19/16 10/19/16 10/19/16 06:01 06:06 06:11 Temperature Pulse Rate 57 L 58 L 59 L Pulse Rate [ From Monitor] Respiratory Rate Blood Pressure Blood Pressure [Left Arm] O2 Sat by Pulse 100 100 99 Oximetry 10/19/16 10/19/16 10/19/16 06:16 06:21 06:26 Temperature Pulse Rate 59 L 57 L 57 L Pulse Rate [ From Monitor] Respiratory Rate Blood Pressure Blood Pressure [Left Arm] O2 Sat by Pulse 99 99 99 Oximetry 10/19/16 10/19/16 10/19/16 06:31 06:36 06:40 Temperature 97.9 F Pulse Rate 60 52 L Pulse Rate [ 63 From Monitor] Respiratory 18 Rate Blood Pressure Blood Pressure 104/52 [Left Arm] O2 Sat by Pulse 99 98 100 Oximetry 10/19/16 10/19/16 10/19/16 06:41 06:42 06:46 Temperature Pulse Rate 56 L 57 L 66 Pulse Rate [ From Monitor] Respiratory Rate Blood Pressure 104/52 Blood Pressure [Left Arm] O2 Sat by Pulse 98 97 Oximetry 10/19/16 10/19/16 10/19/16 06:51 06:56 07:01 Temperature Pulse Rate 60 61 57 L Pulse Rate [ From Monitor] Respiratory Rate Blood Pressure Blood Pressure [Left Arm] O2 Sat by Pulse 97 98 98 Oximetry 10/19/16 10/19/16 10/19/16 07:06 07:11 07:16 Temperature Pulse Rate 59 L 60 57 L Pulse Rate [ From Monitor] Respiratory Rate Blood Pressure Blood Pressure [Left Arm] O2 Sat by Pulse 98 97 98 Oximetry 10/19/16 10/19/16 10/19/16 07:21 07:26 07:31 Temperature Pulse Rate 58 L 61 61 Pulse Rate [ From Monitor] Respiratory Rate Blood Pressure Blood Pressure [Left Arm] O2 Sat by Pulse 97 98 97 Oximetry 10/19/16 10/19/16 10/19/16 07:36 07:41 07:42 Temperature Pulse Rate 66 56 L 97 H Pulse Rate [ From Monitor] Respiratory Rate Blood Pressure Blood Pressure [Left Arm] O2 Sat by Pulse 99 98 93 Oximetry 10/19/16 10/19/16 10/19/16 07:46 07:51 07:56 Temperature Pulse Rate 57 L 56 L 64 Pulse Rate [ From Monitor] Respiratory Rate Blood Pressure Blood Pressure [Left Arm] O2 Sat by Pulse 98 95 88 Oximetry 10/19/16 10/19/16 10/19/16 08:07 08:12 08:17 Temperature Pulse Rate 57 L 56 L 55 L Pulse Rate [ From Monitor] Respiratory Rate Blood Pressure Blood Pressure [Left Arm] O2 Sat by Pulse 100 99 99 Oximetry 10/19/16 10/19/16 10/19/16 08:22 08:27 08:32 Temperature Pulse Rate 60 64 62 Pulse Rate [ From Monitor] Respiratory Rate Blood Pressure Blood Pressure [Left Arm] O2 Sat by Pulse 99 99 99 Oximetry 10/19/16 10/19/16 10/19/16 08:37 08:42 08:47 Temperature Pulse Rate 57 L 73 65 Pulse Rate [ From Monitor] Respiratory Rate Blood Pressure Blood Pressure [Left Arm] O2 Sat by Pulse 100 98 98 Oximetry 10/19/16 10/19/16 10/19/16 08:52 08:57 09:02 Temperature Pulse Rate 72 62 59 L Pulse Rate [ From Monitor] Respiratory Rate Blood Pressure Blood Pressure [Left Arm] O2 Sat by Pulse 99 99 99 Oximetry 10/19/16 10/19/16 10/19/16 09:04 09:05 09:07 Temperature 98.6 F Pulse Rate 57 L 57 L Pulse Rate [ 57 L From Monitor] Respiratory 18 Rate Blood Pressure 106/56 Blood Pressure 106/56 [Left Arm] O2 Sat by Pulse 99 99 Oximetry 10/19/16 10/19/16 10/19/16 09:12 09:17 09:22 Temperature Pulse Rate 61 61 65 Pulse Rate [ From Monitor] Respiratory Rate Blood Pressure Blood Pressure [Left Arm] O2 Sat by Pulse 98 99 99 Oximetry 10/19/16 10/19/16 10/19/16 09:27 09:32 09:37 Temperature Pulse Rate 65 63 66 Pulse Rate [ From Monitor] Respiratory Rate Blood Pressure Blood Pressure [Left Arm] O2 Sat by Pulse 99 100 99 Oximetry 10/19/16 10/19/16 10/19/16 09:42 09:47 09:52 Temperature Pulse Rate 69 75 66 Pulse Rate [ From Monitor] Respiratory Rate Blood Pressure Blood Pressure [Left Arm] O2 Sat by Pulse 99 99 99 Oximetry 10/19/16 10/19/16 10/19/16 09:57 10:02 10:07 Temperature Pulse Rate 68 62 70 Pulse Rate [ From Monitor] Respiratory Rate Blood Pressure Blood Pressure [Left Arm] O2 Sat by Pulse 100 99 98 Oximetry 10/19/16 10/19/16 10/19/16 10:12 10:17 10:22 Temperature Pulse Rate 64 66 73 Pulse Rate [ From Monitor] Respiratory Rate Blood Pressure Blood Pressure [Left Arm] O2 Sat by Pulse 98 100 98 Oximetry 10/19/16 10/19/16 10/19/16 10:27 10:54 10:59 Temperature Pulse Rate 67 67 68 Pulse Rate [ From Monitor] Respiratory Rate Blood Pressure Blood Pressure [Left Arm] O2 Sat by Pulse 99 98 98 Oximetry 10/19/16 10/19/16 10/19/16 11:04 11:09 11:14 Temperature Pulse Rate 64 63 67 Pulse Rate [ From Monitor] Respiratory Rate Blood Pressure Blood Pressure [Left Arm] O2 Sat by Pulse 99 98 99 Oximetry 10/19/16 10/19/16 10/19/16 11:19 11:24 11:29 Temperature Pulse Rate 59 L 62 63 Pulse Rate [ From Monitor] Respiratory Rate Blood Pressure Blood Pressure [Left Arm] O2 Sat by Pulse 99 99 99 Oximetry 10/19/16 10/19/16 10/19/16 11:34 11:39 11:44 Temperature Pulse Rate 61 59 L 60 Pulse Rate [ From Monitor] Respiratory Rate Blood Pressure Blood Pressure [Left Arm] O2 Sat by Pulse 99 98 98 Oximetry 10/19/16 10/19/16 10/19/16 11:49 11:50 11:52 Temperature 99.2 F Pulse Rate 65 61 Pulse Rate [ 61 From Monitor] Respiratory 18 Rate Blood Pressure 111/54 Blood Pressure 111/54 [Left Arm] O2 Sat by Pulse 99 99 Oximetry 10/19/16 10/19/16 10/19/16 11:54 11:59 12:04 Temperature Pulse Rate 60 63 65 Pulse Rate [ From Monitor] Respiratory Rate Blood Pressure Blood Pressure [Left Arm] O2 Sat by Pulse 99 99 100 Oximetry 10/19/16 10/19/16 10/19/16 12:09 12:14 12:19 Temperature Pulse Rate 60 62 63 Pulse Rate [ From Monitor] Respiratory Rate Blood Pressure Blood Pressure [Left Arm] O2 Sat by Pulse 99 99 99 Oximetry 06/10/19/16 10/19/16 12:24 12:29 12:34 Temperature Pulse Rate 63 62 64 Pulse Rate [ From Monitor] Respiratory Rate Blood Pressure Blood Pressure [Left Arm] O2 Sat by Pulse 99 99 99 Oximetry 10/19/16 10/19/16 10/19/16 12:39 12:44 12:49 Temperature Pulse Rate 71 68 87 Pulse Rate [ From Monitor] Respiratory Rate Blood Pressure Blood Pressure [Left Arm] O2 Sat by Pulse 98 99 0 L Oximetry 10/19/16 10/19/16 10/19/16 12:54 12:59 13:04 Temperature Pulse Rate 68 60 68 Pulse Rate [ From Monitor] Respiratory Rate Blood Pressure Blood Pressure [Left Arm] O2 Sat by Pulse 98 98 80 L Oximetry 10/19/16 10/19/16 10/19/16 13:09 13:14 13:19 Temperature Pulse Rate 68 62 68 Pulse Rate [ From Monitor] Respiratory Rate Blood Pressure Blood Pressure [Left Arm] O2 Sat by Pulse 97 97 100 Oximetry 10/19/16 10/19/16 10/19/16 13:24 13:29 13:34 Temperature Pulse Rate 71 68 61 Pulse Rate [ From Monitor] Respiratory Rate Blood Pressure Blood Pressure [Left Arm] O2 Sat by Pulse 100 99 100 Oximetry 10/19/16 13:39 Temperature Pulse Rate 61 Pulse Rate [ From Monitor] Respiratory Rate Blood Pressure Blood Pressure [Left Arm] O2 Sat by Pulse 100 Oximetry - Exam Lungs: Clear to auscultation, Normal air movement Abdomen: Present: normal appearance, soft. Absent: distention, tenderness Uterus: Present: normal, firm FHR: auscultation normal FHR comments: occasional variable decelerations - Labs Labs: Abnormal Labs 10/06/16 10/06/16 10/06/16 16:30 16:30 16:30 WBC RBC 3.51 L Hgb Hct Rogers % (Auto) Seg Neutrophils % 74.3 H Seg Neutrophils # Sodium Carbon Dioxide BUN Creatinine 0.3 L POC Glucose Uric Acid 3.1 L Calcium Magnesium 4.20 H ALT Total Protein Albumin 10/06/16 10/07/16 10/07/16 23:39 07:28 19:10 WBC RBC 3.16 L Hgb 9.2 L Hct 27.8 L Rogers % (Auto) Seg Neutrophils % 76.3 H Seg Neutrophils # Sodium Carbon Dioxide BUN Creatinine POC Glucose Uric Acid Calcium Magnesium 5.90 H 4.50 H ALT Total Protein Albumin 10/08/16 10/09/16 10/12/16 00:20 20:05 11:00 WBC RBC 2.79 L Hgb 8.3 L Hct 25.1 L Rogers % (Auto) 7.9 H Seg Neutrophils % 71.3 H Seg Neutrophils # Sodium 132 L Carbon Dioxide 18 L BUN 5 L Creatinine 0.4 L POC Glucose 135 H Uric Acid Calcium 6.9 L Magnesium ALT < 5 L Total Protein 5.9 L Albumin 2.8 L 10/14/16 14:12 WBC 11.2 H RBC 3.43 L Hgb 9.9 L Hct Rogers % (Auto) Seg Neutrophils % 74.7 H Seg Neutrophils # 8.3 H Sodium Carbon Dioxide BUN Creatinine POC Glucose Uric Acid Calcium Magnesium ALT Total Protein Albumin
[2016-10-19] MEDS: FIORICET PO PRN (16:56)
[2016-10-19] MEDS: AMBIEN PO PRN (22:55)
[2016-10-20] MEDS: PRENATAL VITAMIN PO SCH (11:13)
[2016-10-20] MEDS: ZOLOFT PO SCH (11:13)
--- NOTE | 2016-10-20 13:09 | Progress Note ---
Assessment and Plan A/P IUP 25+ weeks PPROM continue current mtgt Subjective - Subjective Date of service: 10/20/16 Principal diagnosis: PPROM Interval history: This is a 21 yo EDC 02/05/17 here via ambulance with seizure activity. She was brought in and given 4mg Ativan. She states that she has been fine until several days ago with pain in pelvic area and cousin stated that today at 2p she started shaking after c/o pain in pelvic abdominal area. She does not have any histroy of seiaure and only medical problem consists of asthma Patient reports: movement normal, other (patient appears to be more upbeat today. Patient has visitor in room), no new complaints Objective - Vital Signs Vital Signs: Vital Signs - 12hr 10/20/16 10/20/16 10/20/16 01:56 01:57 02:02 Temperature Pulse Rate 31 L 79 57 L Pulse Rate [ From Monitor] Respiratory Rate Blood Pressure Blood Pressure [Left Arm] O2 Sat by Pulse 86 97 99 Oximetry 10/20/16 10/20/16 10/20/16 02:07 02:12 02:17 Temperature Pulse Rate 61 54 L 53 L Pulse Rate [ From Monitor] Respiratory Rate Blood Pressure Blood Pressure [Left Arm] O2 Sat by Pulse 99 98 98 Oximetry 10/20/16 10/20/16 10/20/16 02:22 02:27 02:32 Temperature Pulse Rate 55 L 54 L 55 L Pulse Rate [ From Monitor] Respiratory Rate Blood Pressure Blood Pressure [Left Arm] O2 Sat by Pulse 97 97 97 Oximetry 10/20/16 10/20/16 10/20/16 02:37 02:42 02:47 Temperature Pulse Rate 61 58 L 54 L Pulse Rate [ From Monitor] Respiratory Rate Blood Pressure Blood Pressure [Left Arm] O2 Sat by Pulse 97 98 98 Oximetry 10/20/16 10/20/16 10/20/16 02:52 02:57 03:02 Temperature Pulse Rate 57 L 64 71 Pulse Rate [ From Monitor] Respiratory Rate Blood Pressure Blood Pressure [Left Arm] O2 Sat by Pulse 98 98 98 Oximetry 10/20/16 10/20/16 10/20/16 03:07 03:12 03:17 Temperature Pulse Rate 55 L 58 L 63 Pulse Rate [ From Monitor] Respiratory Rate Blood Pressure Blood Pressure [Left Arm] O2 Sat by Pulse 98 98 98 Oximetry 10/20/16 10/20/16 10/20/16 03:22 03:27 03:32 Temperature Pulse Rate 63 66 68 Pulse Rate [ From Monitor] Respiratory Rate Blood Pressure Blood Pressure [Left Arm] O2 Sat by Pulse 98 98 98 Oximetry 10/20/16 10/20/16 10/20/16 03:37 03:42 03:47 Temperature Pulse Rate 68 63 64 Pulse Rate [ From Monitor] Respiratory Rate Blood Pressure Blood Pressure [Left Arm] O2 Sat by Pulse 98 98 98 Oximetry 10/20/16 10/20/16 10/20/16 03:52 03:57 04:02 Temperature Pulse Rate 68 58 L 61 Pulse Rate [ From Monitor] Respiratory Rate Blood Pressure Blood Pressure [Left Arm] O2 Sat by Pulse 98 99 98 Oximetry 10/20/16 10/20/16 10/20/16 04:07 04:12 04:17 Temperature Pulse Rate 56 L 65 66 Pulse Rate [ From Monitor] Respiratory Rate Blood Pressure Blood Pressure [Left Arm] O2 Sat by Pulse 98 98 97 Oximetry 10/20/16 10/20/16 10/20/16 04:22 04:27 04:32 Temperature Pulse Rate 62 62 62 Pulse Rate [ From Monitor] Respiratory Rate Blood Pressure Blood Pressure [Left Arm] O2 Sat by Pulse 98 98 98 Oximetry 10/20/16 10/20/16 10/20/16 04:37 04:42 04:47 Temperature Pulse Rate 59 L 57 L 56 L Pulse Rate [ From Monitor] Respiratory Rate Blood Pressure Blood Pressure [Left Arm] O2 Sat by Pulse 100 99 99 Oximetry 10/20/16 10/20/16 10/20/16 04:52 04:57 05:02 Temperature Pulse Rate 60 59 L 60 Pulse Rate [ From Monitor] Respiratory Rate Blood Pressure Blood Pressure [Left Arm] O2 Sat by Pulse 99 99 99 Oximetry 10/20/16 10/20/16 10/20/16 05:07 05:23 05:28 Temperature Pulse Rate 63 53 L 60 Pulse Rate [ From Monitor] Respiratory Rate Blood Pressure Blood Pressure [Left Arm] O2 Sat by Pulse 98 100 99 Oximetry 10/20/16 10/20/16 10/20/16 05:33 05:38 05:43 Temperature Pulse Rate 64 61 57 L Pulse Rate [ From Monitor] Respiratory Rate Blood Pressure Blood Pressure [Left Arm] O2 Sat by Pulse 98 100 100 Oximetry 10/20/16 10/20/16 10/20/16 05:48 05:53 05:54 Temperature Pulse Rate 66 59 L 53 L Pulse Rate [ From Monitor] Respiratory Rate Blood Pressure Blood Pressure [Left Arm] O2 Sat by Pulse 100 100 100 Oximetry 10/20/16 10/20/16 10/20/16 05:59 06:04 06:11 Temperature Pulse Rate 65 67 56 L Pulse Rate [ From Monitor] Respiratory Rate Blood Pressure 107/53 Blood Pressure [Left Arm] O2 Sat by Pulse 99 100 Oximetry 10/20/16 10/20/16 10/20/16 06:16 06:21 06:26 Temperature Pulse Rate 63 61 64 Pulse Rate [ From Monitor] Respiratory Rate Blood Pressure Blood Pressure [Left Arm] O2 Sat by Pulse 100 100 99 Oximetry 10/20/16 10/20/16 10/20/16 06:31 06:33 06:36 Temperature 96.9 F L Pulse Rate 65 61 Pulse Rate [ From Monitor] Respiratory 12 Rate Blood Pressure Blood Pressure [Left Arm] O2 Sat by Pulse 98 99 Oximetry 10/20/16 10/20/16 10/20/16 06:41 06:46 06:51 Temperature Pulse Rate 58 L 59 L 58 L Pulse Rate [ From Monitor] Respiratory Rate Blood Pressure Blood Pressure [Left Arm] O2 Sat by Pulse 99 98 98 Oximetry 10/20/16 10/20/16 10/20/16 06:56 06:58 07:01 Temperature Pulse Rate 60 59 L 62 Pulse Rate [ From Monitor] Respiratory Rate Blood Pressure Blood Pressure [Left Arm] O2 Sat by Pulse 100 91 96 Oximetry 10/20/16 10/20/16 10/20/16 07:06 07:11 07:16 Temperature Pulse Rate 57 L 62 57 L Pulse Rate [ From Monitor] Respiratory Rate Blood Pressure Blood Pressure [Left Arm] O2 Sat by Pulse 100 98 98 Oximetry 10/20/16 10/20/16 10/20/16 07:21 07:26 07:31 Temperature Pulse Rate 59 L 60 55 L Pulse Rate [ From Monitor] Respiratory Rate Blood Pressure Blood Pressure [Left Arm] O2 Sat by Pulse 98 98 98 Oximetry 10/20/16 10/20/16 10/20/16 07:36 07:41 07:46 Temperature Pulse Rate 63 58 L 57 L Pulse Rate [ From Monitor] Respiratory Rate Blood Pressure Blood Pressure [Left Arm] O2 Sat by Pulse 97 97 98 Oximetry 10/20/16 10/20/16 10/20/16 07:51 07:56 08:01 Temperature Pulse Rate 60 58 L 67 Pulse Rate [ From Monitor] Respiratory Rate Blood Pressure Blood Pressure [Left Arm] O2 Sat by Pulse 98 99 99 Oximetry 10/20/16 10/20/16 10/20/16 08:06 08:09 08:10 Temperature 97.7 F Pulse Rate 62 60 Pulse Rate [ 74 From Monitor] Respiratory 18 Rate Blood Pressure 102/56 Blood Pressure 102/56 [Left Arm] O2 Sat by Pulse 98 99 Oximetry 10/20/16 10/20/16 10/20/16 08:11 08:16 08:21 Temperature Pulse Rate 69 61 60 Pulse Rate [ From Monitor] Respiratory Rate Blood Pressure Blood Pressure [Left Arm] O2 Sat by Pulse 98 98 98 Oximetry 10/20/16 10/20/16 10/20/16 08:26 08:31 08:36 Temperature Pulse Rate 59 L 59 L 59 L Pulse Rate [ From Monitor] Respiratory Rate Blood Pressure Blood Pressure [Left Arm] O2 Sat by Pulse 98 98 98 Oximetry 10/20/16 10/20/16 10/20/16 08:41 08:46 08:51 Temperature Pulse Rate 57 L 56 L 59 L Pulse Rate [ From Monitor] Respiratory Rate Blood Pressure Blood Pressure [Left Arm] O2 Sat by Pulse 98 96 99 Oximetry 10/20/16 10/20/16 10/20/16 08:56 09:01 09:06 Temperature Pulse Rate 57 L 60 43 L Pulse Rate [ From Monitor] Respiratory Rate Blood Pressure Blood Pressure [Left Arm] O2 Sat by Pulse 98 81 L 78 L Oximetry 10/20/16 10/20/16 10/20/16 09:11 09:16 09:21 Temperature Pulse Rate 57 L 72 62 Pulse Rate [ From Monitor] Respiratory Rate Blood Pressure Blood Pressure [Left Arm] O2 Sat by Pulse 100 99 100 Oximetry 10/20/16 10/20/16 10/20/16 09:26 09:31 09:36 Temperature Pulse Rate 58 L 60 64 Pulse Rate [ From Monitor] Respiratory Rate Blood Pressure Blood Pressure [Left Arm] O2 Sat by Pulse 100 99 100 Oximetry 10/20/16 10/20/16 10/20/16 09:41 09:46 09:51 Temperature Pulse Rate 69 72 63 Pulse Rate [ From Monitor] Respiratory Rate Blood Pressure Blood Pressure [Left Arm] O2 Sat by Pulse 99 100 100 Oximetry 10/20/16 10/20/16 10/20/16 09:56 09:59 10:01 Temperature Pulse Rate 64 60 61 Pulse Rate [ From Monitor] Respiratory Rate Blood Pressure Blood Pressure [Left Arm] O2 Sat by Pulse 98 94 93 Oximetry 10/20/16 10/20/16 10/20/16 10:05 10:06 10:11 Temperature Pulse Rate 62 63 58 L Pulse Rate [ From Monitor] Respiratory Rate Blood Pressure Blood Pressure [Left Arm] O2 Sat by Pulse 93 95 99 Oximetry 10/20/16 10/20/16 10/20/16 10:16 10:21 10:26 Temperature Pulse Rate 60 63 59 L Pulse Rate [ From Monitor] Respiratory Rate Blood Pressure Blood Pressure [Left Arm] O2 Sat by Pulse 100 100 99 Oximetry 10/20/16 10/20/16 10/20/16 10:30 10:31 10:36 Temperature Pulse Rate 64 64 70 Pulse Rate [ From Monitor] Respiratory Rate Blood Pressure Blood Pressure [Left Arm] O2 Sat by Pulse 90 94 93 Oximetry 10/20/16 10/20/16 10/20/16 10:41 11:25 11:27 Temperature 97.9 F Pulse Rate 61 71 Pulse Rate [ From Monitor] Respiratory Rate Blood Pressure Blood Pressure [Left Arm] O2 Sat by Pulse 97 99 Oximetry 10/20/16 10/20/16 10/20/16 11:32 11:37 11:42 Temperature Pulse Rate 66 62 72 Pulse Rate [ From Monitor] Respiratory Rate Blood Pressure Blood Pressure [Left Arm] O2 Sat by Pulse 99 100 99 Oximetry 10/20/16 10/20/16 10/20/16 11:47 11:52 11:57 Temperature Pulse Rate 72 64 62 Pulse Rate [ From Monitor] Respiratory Rate Blood Pressure Blood Pressure [Left Arm] O2 Sat by Pulse 99 100 99 Oximetry 10/20/16 10/20/16 10/20/16 12:02 12:07 12:18 Temperature Pulse Rate 67 63 71 Pulse Rate [ From Monitor] Respiratory Rate Blood Pressure Blood Pressure [Left Arm] O2 Sat by Pulse 98 100 96 Oximetry 10/20/16 10/20/16 10/20/16 12:23 12:28 12:33 Temperature Pulse Rate 69 63 64 Pulse Rate [ From Monitor] Respiratory Rate Blood Pressure Blood Pressure [Left Arm] O2 Sat by Pulse 99 100 97 Oximetry 10/20/16 10/20/16 10/20/16 12:38 12:43 12:48 Temperature Pulse Rate 64 66 65 Pulse Rate [ From Monitor] Respiratory Rate Blood Pressure Blood Pressure [Left Arm] O2 Sat by Pulse 98 98 100 Oximetry 10/20/16 10/20/16 12:53 12:58 Temperature Pulse Rate 73 65 Pulse Rate [ From Monitor] Respiratory Rate Blood Pressure Blood Pressure [Left Arm] O2 Sat by Pulse 99 99 Oximetry - Exam Breasts: normal Cardiovascular: Regular rate, Normal S1, Normal S2 Lungs: Clear to auscultation, Normal air movement Abdomen: Present: normal appearance, soft, normal bowel sounds. Absent: distention, tenderness Vulva: both: normal Uterus: Present: normal, firm. Absent: tenderness FHR: category 1 - Labs Labs: Abnormal Labs 10/06/16 10/06/16 10/06/16 16:30 16:30 16:30 WBC RBC 3.51 L Hgb Hct Gregory % (Auto) Seg Neutrophils % 74.3 H Seg Neutrophils # Sodium Carbon Dioxide BUN Creatinine 0.3 L POC Glucose Uric Acid 3.1 L Calcium Magnesium 4.20 H ALT Total Protein Albumin 10/06/16 10/07/16 10/07/16 23:39 07:28 19:10 WBC RBC 3.16 L Hgb 9.2 L Hct 27.8 L Gregory % (Auto) Seg Neutrophils % 76.3 H Seg Neutrophils # Sodium Carbon Dioxide BUN Creatinine POC Glucose Uric Acid Calcium Magnesium 5.90 H 4.50 H ALT Total Protein Albumin 10/08/16 10/09/16 10/12/16 00:20 20:05 11:00 WBC RBC 2.79 L Hgb 8.3 L Hct 25.1 L Gregory % (Auto) 7.9 H Seg Neutrophils % 71.3 H Seg Neutrophils # Sodium 132 L Carbon Dioxide 18 L BUN 5 L Creatinine 0.4 L POC Glucose 135 H Uric Acid Calcium 6.9 L Magnesium ALT < 5 L Total Protein 5.9 L Albumin 2.8 L 10/14/16 14:12 WBC 11.2 H RBC 3.43 L Hgb 9.9 L Hct Gregory % (Auto) Seg Neutrophils % 74.7 H Seg Neutrophils # 8.3 H Sodium Carbon Dioxide BUN Creatinine POC Glucose Uric Acid Calcium Magnesium ALT Total Protein Albumin Laboratory Results - last 24 hr 10/20/16 12:10 POC Glucose 97
[2016-10-20] MEDS: LACTATED RINGERS 1,000 ML IV SCH ×2 (14:00→22:44)
--- NOTE | 2016-10-20 18:16 | Progress Note ---
Assessment and Plan 1. IUP at 24 4/7 weeks' 2. PPROM 3. Previous C/S Continue expectant management Recalculate risks by AFPTetra; there is a dating error as patient was 18.6 weeks', not 20.6 weeks', on 09/10/16 if GAGAN 02/05/17 Subjective - Subjective Date of service: 10/20/16 (Feeling well, fetus active; denies contractions) Principal diagnosis: PPROM Patient reports: movement normal, other, no new complaints Objective - Vital Signs Vital Signs: Vital Signs - 12hr 10/20/16 10/20/16 10/20/16 06:11 06:16 06:21 Temperature Pulse Rate 56 L 63 61 Pulse Rate [ From Monitor] Respiratory Rate Blood Pressure Blood Pressure [Left Arm] O2 Sat by Pulse 100 100 100 Oximetry 10/20/16 10/20/16 10/20/16 06:26 06:31 06:33 Temperature 96.9 F L Pulse Rate 64 65 Pulse Rate [ From Monitor] Respiratory 12 Rate Blood Pressure Blood Pressure [Left Arm] O2 Sat by Pulse 99 98 Oximetry 10/20/16 10/20/16 10/20/16 06:36 06:41 06:46 Temperature Pulse Rate 61 58 L 59 L Pulse Rate [ From Monitor] Respiratory Rate Blood Pressure Blood Pressure [Left Arm] O2 Sat by Pulse 99 99 98 Oximetry 10/20/16 10/20/16 10/20/16 06:51 06:56 06:58 Temperature Pulse Rate 58 L 60 59 L Pulse Rate [ From Monitor] Respiratory Rate Blood Pressure Blood Pressure [Left Arm] O2 Sat by Pulse 98 100 91 Oximetry 10/20/16 10/20/16 10/20/16 07:01 07:06 07:11 Temperature Pulse Rate 62 57 L 62 Pulse Rate [ From Monitor] Respiratory Rate Blood Pressure Blood Pressure [Left Arm] O2 Sat by Pulse 96 100 98 Oximetry 10/20/16 10/20/16 10/20/16 07:16 07:21 07:26 Temperature Pulse Rate 57 L 59 L 60 Pulse Rate [ From Monitor] Respiratory Rate Blood Pressure Blood Pressure [Left Arm] O2 Sat by Pulse 98 98 98 Oximetry 10/20/16 10/20/16 10/20/16 07:31 07:36 07:41 Temperature Pulse Rate 55 L 63 58 L Pulse Rate [ From Monitor] Respiratory Rate Blood Pressure Blood Pressure [Left Arm] O2 Sat by Pulse 98 97 97 Oximetry 10/20/16 10/20/16 10/20/16 07:46 07:51 07:56 Temperature Pulse Rate 57 L 60 58 L Pulse Rate [ From Monitor] Respiratory Rate Blood Pressure Blood Pressure [Left Arm] O2 Sat by Pulse 98 98 99 Oximetry 10/20/16 10/20/16 10/20/16 08:01 08:06 08:09 Temperature Pulse Rate 67 62 60 Pulse Rate [ From Monitor] Respiratory Rate Blood Pressure 102/56 Blood Pressure [Left Arm] O2 Sat by Pulse 99 98 Oximetry 10/20/16 10/20/16 10/20/16 08:10 08:11 08:16 Temperature 97.7 F Pulse Rate 69 61 Pulse Rate [ 74 From Monitor] Respiratory 18 Rate Blood Pressure Blood Pressure 102/56 [Left Arm] O2 Sat by Pulse 99 98 98 Oximetry 10/20/16 10/20/16 10/20/16 08:21 08:26 08:31 Temperature Pulse Rate 60 59 L 59 L Pulse Rate [ From Monitor] Respiratory Rate Blood Pressure Blood Pressure [Left Arm] O2 Sat by Pulse 98 98 98 Oximetry 10/20/16 10/20/16 10/20/16 08:36 08:41 08:46 Temperature Pulse Rate 59 L 57 L 56 L Pulse Rate [ From Monitor] Respiratory Rate Blood Pressure Blood Pressure [Left Arm] O2 Sat by Pulse 98 98 96 Oximetry 10/20/16 10/20/16 10/20/16 08:51 08:56 09:01 Temperature Pulse Rate 59 L 57 L 60 Pulse Rate [ From Monitor] Respiratory Rate Blood Pressure Blood Pressure [Left Arm] O2 Sat by Pulse 99 98 81 L Oximetry 10/20/16 10/20/16 10/20/16 09:06 09:11 09:16 Temperature Pulse Rate 43 L 57 L 72 Pulse Rate [ From Monitor] Respiratory Rate Blood Pressure Blood Pressure [Left Arm] O2 Sat by Pulse 78 L 100 99 Oximetry 10/20/16 10/20/16 10/20/16 09:21 09:26 09:31 Temperature Pulse Rate 62 58 L 60 Pulse Rate [ From Monitor] Respiratory Rate Blood Pressure Blood Pressure [Left Arm] O2 Sat by Pulse 100 100 99 Oximetry 10/20/16 10/20/16 10/20/16 09:36 09:41 09:46 Temperature Pulse Rate 64 69 72 Pulse Rate [ From Monitor] Respiratory Rate Blood Pressure Blood Pressure [Left Arm] O2 Sat by Pulse 100 99 100 Oximetry 10/20/16 10/20/16 10/20/16 09:51 09:56 09:59 Temperature Pulse Rate 63 64 60 Pulse Rate [ From Monitor] Respiratory Rate Blood Pressure Blood Pressure [Left Arm] O2 Sat by Pulse 100 98 94 Oximetry 10/20/16 10/20/16 10/20/16 10:01 10:05 10:06 Temperature Pulse Rate 61 62 63 Pulse Rate [ From Monitor] Respiratory Rate Blood Pressure Blood Pressure [Left Arm] O2 Sat by Pulse 93 93 95 Oximetry 10/20/16 10/20/16 10/20/16 10:11 10:16 10:21 Temperature Pulse Rate 58 L 60 63 Pulse Rate [ From Monitor] Respiratory Rate Blood Pressure Blood Pressure [Left Arm] O2 Sat by Pulse 99 100 100 Oximetry 10/20/16 10/20/16 10/20/16 10:26 10:30 10:31 Temperature Pulse Rate 59 L 64 64 Pulse Rate [ From Monitor] Respiratory Rate Blood Pressure Blood Pressure [Left Arm] O2 Sat by Pulse 99 90 94 Oximetry 10/20/16 10/20/16 10/20/16 10:36 10:41 11:25 Temperature 97.9 F Pulse Rate 70 61 Pulse Rate [ From Monitor] Respiratory Rate Blood Pressure Blood Pressure [Left Arm] O2 Sat by Pulse 93 97 Oximetry 10/20/16 10/20/16 10/20/16 11:27 11:32 11:37 Temperature Pulse Rate 71 66 62 Pulse Rate [ From Monitor] Respiratory Rate Blood Pressure Blood Pressure [Left Arm] O2 Sat by Pulse 99 99 100 Oximetry 10/20/16 10/20/16 10/20/16 11:42 11:47 11:52 Temperature Pulse Rate 72 72 64 Pulse Rate [ From Monitor] Respiratory Rate Blood Pressure Blood Pressure [Left Arm] O2 Sat by Pulse 99 99 100 Oximetry 10/20/16 10/20/16 10/20/16 11:57 12:02 12:07 Temperature Pulse Rate 62 67 63 Pulse Rate [ From Monitor] Respiratory Rate Blood Pressure Blood Pressure [Left Arm] O2 Sat by Pulse 99 98 100 Oximetry 06/19/17 06/19/17 06/19/17 12:18 12:23 12:28 Temperature Pulse Rate 71 69 63 Pulse Rate [ From Monitor] Respiratory Rate Blood Pressure Blood Pressure [Left Arm] O2 Sat by Pulse 96 99 100 Oximetry 10/20/16 10/20/16 10/20/16 12:33 12:38 12:43 Temperature Pulse Rate 64 64 66 Pulse Rate [ From Monitor] Respiratory Rate Blood Pressure Blood Pressure [Left Arm] O2 Sat by Pulse 97 98 98 Oximetry 10/20/16 10/20/16 10/20/16 12:48 12:53 12:58 Temperature Pulse Rate 65 73 65 Pulse Rate [ From Monitor] Respiratory Rate Blood Pressure Blood Pressure [Left Arm] O2 Sat by Pulse 100 99 99 Oximetry 10/20/16 10/20/16 10/20/16 13:03 13:08 13:13 Temperature Pulse Rate 80 71 62 Pulse Rate [ From Monitor] Respiratory Rate Blood Pressure Blood Pressure [Left Arm] O2 Sat by Pulse 98 99 99 Oximetry 10/20/16 10/20/16 10/20/16 13:18 13:23 13:28 Temperature Pulse Rate 64 65 60 Pulse Rate [ From Monitor] Respiratory Rate Blood Pressure Blood Pressure [Left Arm] O2 Sat by Pulse 99 97 98 Oximetry 10/20/16 10/20/16 10/20/16 13:33 13:38 13:43 Temperature Pulse Rate 60 62 62 Pulse Rate [ From Monitor] Respiratory Rate Blood Pressure Blood Pressure [Left Arm] O2 Sat by Pulse 97 99 99 Oximetry 10/20/16 10/20/16 10/20/16 13:48 13:56 13:57 Temperature Pulse Rate 62 58 L Pulse Rate [ From Monitor] Respiratory Rate Blood Pressure 105/54 Blood Pressure [Left Arm] O2 Sat by Pulse 99 100 Oximetry 10/20/16 10/20/16 10/20/16 13:59 14:01 14:06 Temperature 97.6 F Pulse Rate 61 63 81 Pulse Rate [ 62 From Monitor] Respiratory 18 Rate Blood Pressure 100/51 Blood Pressure 100/51 [Left Arm] O2 Sat by Pulse 99 98 Oximetry 10/20/16 10/20/16 10/20/16 14:11 14:16 14:21 Temperature Pulse Rate 70 82 65 Pulse Rate [ From Monitor] Respiratory Rate Blood Pressure Blood Pressure [Left Arm] O2 Sat by Pulse 100 98 99 Oximetry 10/20/16 10/20/16 10/20/16 14:26 14:31 14:36 Temperature Pulse Rate 69 72 66 Pulse Rate [ From Monitor] Respiratory Rate Blood Pressure Blood Pressure [Left Arm] O2 Sat by Pulse 98 99 99 Oximetry 10/20/16 10/20/16 10/20/16 14:41 14:46 15:04 Temperature Pulse Rate 62 62 67 Pulse Rate [ From Monitor] Respiratory Rate Blood Pressure Blood Pressure [Left Arm] O2 Sat by Pulse 98 99 100 Oximetry 10/20/16 10/20/16 10/20/16 15:09 15:14 15:19 Temperature Pulse Rate 61 65 64 Pulse Rate [ From Monitor] Respiratory Rate Blood Pressure Blood Pressure [Left Arm] O2 Sat by Pulse 99 99 98 Oximetry 10/20/16 10/20/16 10/20/16 15:24 15:29 15:34 Temperature Pulse Rate 63 62 68 Pulse Rate [ From Monitor] Respiratory Rate Blood Pressure Blood Pressure [Left Arm] O2 Sat by Pulse 98 98 98 Oximetry 10/20/16 10/20/16 10/20/16 15:39 15:44 15:49 Temperature Pulse Rate 66 61 74 Pulse Rate [ From Monitor] Respiratory Rate Blood Pressure Blood Pressure [Left Arm] O2 Sat by Pulse 99 99 99 Oximetry 10/20/16 10/20/16 10/20/16 15:54 15:59 16:04 Temperature Pulse Rate 61 78 66 Pulse Rate [ From Monitor] Respiratory Rate Blood Pressure Blood Pressure [Left Arm] O2 Sat by Pulse 99 99 99 Oximetry 10/20/16 10/20/16 10/20/16 16:09 16:14 16:19 Temperature Pulse Rate 71 69 76 Pulse Rate [ From Monitor] Respiratory Rate Blood Pressure Blood Pressure [Left Arm] O2 Sat by Pulse 99 99 99 Oximetry 10/20/16 10/20/16 10/20/16 16:24 16:36 16:41 Temperature Pulse Rate 72 93 H 62 Pulse Rate [ From Monitor] Respiratory Rate Blood Pressure Blood Pressure [Left Arm] O2 Sat by Pulse 99 85 100 Oximetry 10/20/16 10/20/16 10/20/16 16:46 16:51 16:56 Temperature Pulse Rate 63 61 64 Pulse Rate [ From Monitor] Respiratory Rate Blood Pressure Blood Pressure [Left Arm] O2 Sat by Pulse 100 100 99 Oximetry 10/20/16 10/20/16 10/20/16 17:01 17:06 17:11 Temperature Pulse Rate 66 62 61 Pulse Rate [ From Monitor] Respiratory Rate Blood Pressure Blood Pressure [Left Arm] O2 Sat by Pulse 99 98 99 Oximetry 10/20/16 10/20/16 10/20/16 17:16 17:21 17:26 Temperature Pulse Rate 63 63 66 Pulse Rate [ From Monitor] Respiratory Rate Blood Pressure Blood Pressure [Left Arm] O2 Sat by Pulse 98 99 100 Oximetry 10/20/16 10/20/16 10/20/16 17:31 17:36 17:41 Temperature Pulse Rate 85 87 88 Pulse Rate [ From Monitor] Respiratory Rate Blood Pressure Blood Pressure [Left Arm] O2 Sat by Pulse 97 98 98 Oximetry 10/20/16 10/20/16 10/20/16 17:46 17:51 17:56 Temperature Pulse Rate 61 64 72 Pulse Rate [ From Monitor] Respiratory Rate Blood Pressure Blood Pressure [Left Arm] O2 Sat by Pulse 99 98 97 Oximetry 10/20/16 10/20/16 10/20/16 17:59 18:01 18:06 Temperature Pulse Rate 65 65 65 Pulse Rate [ From Monitor] Respiratory Rate Blood Pressure Blood Pressure [Left Arm] O2 Sat by Pulse 85 98 98 Oximetry - Exam Narrative Exam: Abd soft, nontender; FHT's reassuring for EGA; irregular contractions on monitor Abdomen: Present: normal appearance, soft. Absent: distention, tenderness Uterus: Present: normal FHR: auscultation normal - Labs Labs: Abnormal Labs 10/06/16 10/06/16 10/06/16 16:30 16:30 16:30 WBC RBC 3.51 L Hgb Hct [place] % (Auto) Seg Neutrophils % 74.3 H Seg Neutrophils # Sodium Carbon Dioxide BUN Creatinine 0.3 L POC Glucose Uric Acid 3.1 L Calcium Magnesium 4.20 H ALT Total Protein Albumin 10/06/16 10/07/16 10/07/16 23:39 07:28 19:10 WBC RBC 3.16 L Hgb 9.2 L Hct 27.8 L [place] % (Auto) Seg Neutrophils % 76.3 H Seg Neutrophils # Sodium Carbon Dioxide BUN Creatinine POC Glucose Uric Acid Calcium Magnesium 5.90 H 4.50 H ALT Total Protein Albumin 10/08/16 10/09/16 10/12/16 00:20 20:05 11:00 WBC RBC 2.79 L Hgb 8.3 L Hct 25.1 L [place] % (Auto) 7.9 H Seg Neutrophils % 71.3 H Seg Neutrophils # Sodium 132 L Carbon Dioxide 18 L BUN 5 L Creatinine 0.4 L POC Glucose 135 H Uric Acid Calcium 6.9 L Magnesium ALT < 5 L Total Protein 5.9 L Albumin 2.8 L 10/14/16 14:12 WBC 11.2 H RBC 3.43 L Hgb 9.9 L Hct [place] % (Auto) Seg Neutrophils % 74.7 H Seg Neutrophils # 8.3 H Sodium Carbon Dioxide BUN Creatinine POC Glucose Uric Acid Calcium Magnesium ALT Total Protein Albumin Laboratory Results - last 24 hr 10/20/16 12:10 POC Glucose 97
[2016-10-20] MEDS: AMBIEN PO PRN (22:11)
[2016-10-21] MEDS: LACTATED RINGERS 1,000 ML IV SCH ×3 (06:36→22:04)
--- NOTE | 2016-10-21 09:02 | Progress Note ---
Assessment and Plan - Patient Problems (1) premature rupture of membranes Current Visit: Yes Status: Acute Qualifiers: PROM onset of labor timing: P Plan to address problem: continue current management clinically stable Subjective - Subjective Date of service: 10/21/16 Principal diagnosis: PPROM Interval history: 24+5 weeks with PPROM. No new changes today. Reassuring tracing. Intermittent contractions. Denies vaginal bleeding or abdominal pain. Patient reports: movement normal, no new complaints Objective - Vital Signs Vital Signs: Vital Signs - 12hr 10/20/16 10/20/16 10/20/16 21:03 21:08 21:13 Temperature Pulse Rate 88 71 75 Pulse Rate [ From Monitor] Respiratory Rate Blood Pressure Blood Pressure [Left Arm] O2 Sat by Pulse 99 98 98 Oximetry 10/20/16 10/20/16 10/20/16 21:18 21:23 21:28 Temperature Pulse Rate 85 71 70 Pulse Rate [ From Monitor] Respiratory Rate Blood Pressure Blood Pressure [Left Arm] O2 Sat by Pulse 98 98 99 Oximetry 10/20/16 10/20/16 10/20/16 21:30 21:33 21:38 Temperature Pulse Rate 81 71 76 Pulse Rate [ From Monitor] Respiratory Rate Blood Pressure Blood Pressure [Left Arm] O2 Sat by Pulse 94 98 98 Oximetry 10/20/16 10/20/16 10/20/16 21:43 21:48 21:53 Temperature Pulse Rate 69 88 76 Pulse Rate [ From Monitor] Respiratory Rate Blood Pressure Blood Pressure [Left Arm] O2 Sat by Pulse 98 99 97 Oximetry 10/20/16 10/20/16 10/20/16 21:58 22:03 22:08 Temperature Pulse Rate 64 63 63 Pulse Rate [ From Monitor] Respiratory Rate Blood Pressure Blood Pressure [Left Arm] O2 Sat by Pulse 98 98 98 Oximetry 10/20/16 10/20/16 10/20/16 22:13 22:18 22:23 Temperature Pulse Rate 60 60 75 Pulse Rate [ From Monitor] Respiratory Rate Blood Pressure Blood Pressure [Left Arm] O2 Sat by Pulse 97 98 98 Oximetry 10/20/16 10/20/16 10/20/16 22:28 22:33 22:40 Temperature Pulse Rate 64 63 81 Pulse Rate [ From Monitor] Respiratory Rate Blood Pressure Blood Pressure [Left Arm] O2 Sat by Pulse 98 97 81 L Oximetry 06/10/20/16 10/20/16 22:41 22:46 22:51 Temperature Pulse Rate 64 85 88 Pulse Rate [ From Monitor] Respiratory Rate Blood Pressure Blood Pressure [Left Arm] O2 Sat by Pulse 100 100 99 Oximetry 10/20/16 10/20/16 10/20/16 22:56 23:01 23:06 Temperature Pulse Rate 74 82 67 Pulse Rate [ From Monitor] Respiratory Rate Blood Pressure Blood Pressure [Left Arm] O2 Sat by Pulse 99 99 100 Oximetry 10/20/16 10/20/16 10/20/16 23:11 23:16 23:21 Temperature Pulse Rate 66 81 64 Pulse Rate [ From Monitor] Respiratory Rate Blood Pressure Blood Pressure [Left Arm] O2 Sat by Pulse 99 100 99 Oximetry 10/20/16 10/20/16 10/20/16 23:26 23:31 23:36 Temperature Pulse Rate 64 69 72 Pulse Rate [ From Monitor] Respiratory Rate Blood Pressure Blood Pressure [Left Arm] O2 Sat by Pulse 99 99 98 Oximetry 10/20/16 10/20/16 10/20/16 23:41 23:46 23:51 Temperature Pulse Rate 74 71 84 Pulse Rate [ From Monitor] Respiratory Rate Blood Pressure Blood Pressure [Left Arm] O2 Sat by Pulse 98 98 99 Oximetry 10/20/16 10/21/16 10/21/16 23:56 00:01 00:05 Temperature 97.6 F Pulse Rate 75 76 Pulse Rate [ 74 From Monitor] Respiratory 18 Rate Blood Pressure Blood Pressure 100/51 [Left Arm] O2 Sat by Pulse 98 98 99 Oximetry 10/21/16 10/21/16 10/21/16 00:06 00:11 00:16 Temperature Pulse Rate 72 77 75 Pulse Rate [ From Monitor] Respiratory Rate Blood Pressure Blood Pressure [Left Arm] O2 Sat by Pulse 98 98 98 Oximetry 10/21/16 10/21/16 10/21/16 00:21 00:26 00:31 Temperature Pulse Rate 74 77 74 Pulse Rate [ From Monitor] Respiratory Rate Blood Pressure Blood Pressure [Left Arm] O2 Sat by Pulse 98 99 98 Oximetry 10/21/16 10/21/16 10/21/16 00:36 00:41 00:46 Temperature Pulse Rate 73 69 76 Pulse Rate [ From Monitor] Respiratory Rate Blood Pressure Blood Pressure [Left Arm] O2 Sat by Pulse 99 99 99 Oximetry 10/21/16 10/21/16 10/21/16 00:51 01:04 01:08 Temperature Pulse Rate 78 70 65 Pulse Rate [ From Monitor] Respiratory Rate Blood Pressure 98/52 Blood Pressure [Left Arm] O2 Sat by Pulse 99 99 Oximetry 10/21/16 10/21/16 10/21/16 01:09 01:14 01:19 Temperature Pulse Rate 66 59 L 62 Pulse Rate [ From Monitor] Respiratory Rate Blood Pressure Blood Pressure [Left Arm] O2 Sat by Pulse 98 99 99 Oximetry 10/21/16 10/21/16 10/21/16 01:24 01:29 01:34 Temperature Pulse Rate 65 69 67 Pulse Rate [ From Monitor] Respiratory Rate Blood Pressure Blood Pressure [Left Arm] O2 Sat by Pulse 98 98 98 Oximetry 10/21/16 10/21/16 10/21/16 01:39 01:44 01:49 Temperature Pulse Rate 69 69 74 Pulse Rate [ From Monitor] Respiratory Rate Blood Pressure Blood Pressure [Left Arm] O2 Sat by Pulse 98 98 99 Oximetry 10/21/16 10/21/16 10/21/16 01:54 01:59 02:04 Temperature Pulse Rate 70 71 72 Pulse Rate [ From Monitor] Respiratory Rate Blood Pressure Blood Pressure [Left Arm] O2 Sat by Pulse 99 99 99 Oximetry 10/21/16 10/21/16 10/21/16 02:09 02:14 02:19 Temperature Pulse Rate 62 63 74 Pulse Rate [ From Monitor] Respiratory Rate Blood Pressure Blood Pressure [Left Arm] O2 Sat by Pulse 99 97 97 Oximetry 10/21/16 10/21/16 10/21/16 02:24 02:29 02:34 Temperature Pulse Rate 57 L 77 65 Pulse Rate [ From Monitor] Respiratory Rate Blood Pressure Blood Pressure [Left Arm] O2 Sat by Pulse 98 97 97 Oximetry 10/21/16 10/21/16 10/21/16 02:39 02:44 02:49 Temperature Pulse Rate 67 64 68 Pulse Rate [ From Monitor] Respiratory Rate Blood Pressure Blood Pressure [Left Arm] O2 Sat by Pulse 97 97 97 Oximetry 10/21/16 10/21/16 10/21/16 02:54 02:59 03:04 Temperature Pulse Rate 63 66 60 Pulse Rate [ From Monitor] Respiratory Rate Blood Pressure Blood Pressure [Left Arm] O2 Sat by Pulse 97 97 98 Oximetry 10/21/16 10/21/16 10/21/16 03:09 03:14 03:19 Temperature Pulse Rate 60 61 64 Pulse Rate [ From Monitor] Respiratory Rate Blood Pressure Blood Pressure [Left Arm] O2 Sat by Pulse 97 98 97 Oximetry 10/21/16 10/21/16 10/21/16 03:24 03:29 03:34 Temperature Pulse Rate 60 60 57 L Pulse Rate [ From Monitor] Respiratory Rate Blood Pressure Blood Pressure [Left Arm] O2 Sat by Pulse 97 98 98 Oximetry 10/21/16 10/21/16 10/21/16 03:39 03:44 03:49 Temperature Pulse Rate 65 61 66 Pulse Rate [ From Monitor] Respiratory Rate Blood Pressure Blood Pressure [Left Arm] O2 Sat by Pulse 96 98 97 Oximetry 10/21/16 10/21/16 10/21/16 03:54 03:56 03:59 Temperature Pulse Rate 62 67 60 Pulse Rate [ From Monitor] Respiratory Rate Blood Pressure 108/58 Blood Pressure [Left Arm] O2 Sat by Pulse 98 98 Oximetry 10/21/16 10/21/16 10/21/16 04:04 04:06 04:09 Temperature 97.7 F Pulse Rate 70 71 Pulse Rate [ 65 From Monitor] Respiratory 18 Rate Blood Pressure Blood Pressure 100/58 [Left Arm] O2 Sat by Pulse 98 98 99 Oximetry 10/21/16 10/21/16 10/21/16 04:14 04:19 04:24 Temperature Pulse Rate 65 65 61 Pulse Rate [ From Monitor] Respiratory Rate Blood Pressure Blood Pressure [Left Arm] O2 Sat by Pulse 98 98 98 Oximetry 10/21/16 10/21/16 10/21/16 04:29 04:34 04:39 Temperature Pulse Rate 63 66 62 Pulse Rate [ From Monitor] Respiratory Rate Blood Pressure Blood Pressure [Left Arm] O2 Sat by Pulse 98 98 98 Oximetry 10/21/16 10/21/16 10/21/16 04:44 04:49 04:54 Temperature Pulse Rate 66 61 64 Pulse Rate [ From Monitor] Respiratory Rate Blood Pressure Blood Pressure [Left Arm] O2 Sat by Pulse 98 98 98 Oximetry 10/21/16 10/21/16 10/21/16 04:59 05:04 05:09 Temperature Pulse Rate 72 63 61 Pulse Rate [ From Monitor] Respiratory Rate Blood Pressure Blood Pressure [Left Arm] O2 Sat by Pulse 99 98 98 Oximetry 10/21/16 10/21/16 10/21/16 05:14 05:19 05:24 Temperature Pulse Rate 61 63 60 Pulse Rate [ From Monitor] Respiratory Rate Blood Pressure Blood Pressure [Left Arm] O2 Sat by Pulse 98 98 98 Oximetry 10/21/16 10/21/16 10/21/16 05:29 05:34 05:39 Temperature Pulse Rate 64 60 58 L Pulse Rate [ From Monitor] Respiratory Rate Blood Pressure Blood Pressure [Left Arm] O2 Sat by Pulse 99 99 98 Oximetry 10/21/16 10/21/16 10/21/16 05:44 05:49 05:54 Temperature Pulse Rate 59 L 63 64 Pulse Rate [ From Monitor] Respiratory Rate Blood Pressure Blood Pressure [Left Arm] O2 Sat by Pulse 99 98 99 Oximetry 10/21/16 10/21/16 10/21/16 05:59 06:04 06:09 Temperature Pulse Rate 59 L 57 L 67 Pulse Rate [ From Monitor] Respiratory Rate Blood Pressure Blood Pressure [Left Arm] O2 Sat by Pulse 99 99 98 Oximetry 10/21/16 10/21/16 10/21/16 06:14 06:19 06:24 Temperature Pulse Rate 57 L 61 65 Pulse Rate [ From Monitor] Respiratory Rate Blood Pressure Blood Pressure [Left Arm] O2 Sat by Pulse 99 98 100 Oximetry 10/21/16 10/21/16 10/21/16 06:29 06:34 06:39 Temperature Pulse Rate 56 L 63 62 Pulse Rate [ From Monitor] Respiratory Rate Blood Pressure Blood Pressure [Left Arm] O2 Sat by Pulse 100 100 100 Oximetry 10/21/16 10/21/16 10/21/16 06:44 06:49 06:54 Temperature Pulse Rate 61 62 61 Pulse Rate [ From Monitor] Respiratory Rate Blood Pressure Blood Pressure [Left Arm] O2 Sat by Pulse 100 99 100 Oximetry 10/21/16 10/21/16 10/21/16 06:59 07:04 07:09 Temperature Pulse Rate 58 L 65 62 Pulse Rate [ From Monitor] Respiratory Rate Blood Pressure Blood Pressure [Left Arm] O2 Sat by Pulse 100 99 100 Oximetry 10/21/16 10/21/16 10/21/16 07:14 07:19 07:25 Temperature Pulse Rate 54 L 58 L 63 Pulse Rate [ From Monitor] Respiratory Rate Blood Pressure Blood Pressure [Left Arm] O2 Sat by Pulse 100 100 100 Oximetry 10/21/16 10/21/16 10/21/16 07:30 07:35 07:48 Temperature Pulse Rate 63 88 68 Pulse Rate [ From Monitor] Respiratory Rate Blood Pressure Blood Pressure [Left Arm] O2 Sat by Pulse 100 100 83 L Oximetry 10/21/16 10/21/16 10/21/16 07:49 07:54 07:59 Temperature Pulse Rate 57 L 57 L 56 L Pulse Rate [ From Monitor] Respiratory Rate Blood Pressure Blood Pressure [Left Arm] O2 Sat by Pulse 100 97 98 Oximetry 10/21/16 10/21/16 10/21/16 08:04 08:09 08:14 Temperature Pulse Rate 63 58 L 59 L Pulse Rate [ From Monitor] Respiratory Rate Blood Pressure Blood Pressure [Left Arm] O2 Sat by Pulse 99 100 98 Oximetry 10/21/16 10/21/16 10/21/16 08:19 08:24 08:30 Temperature Pulse Rate 62 62 71 Pulse Rate [ From Monitor] Respiratory Rate Blood Pressure Blood Pressure [Left Arm] O2 Sat by Pulse 99 99 98 Oximetry 10/21/16 10/21/16 10/21/16 08:34 08:39 08:44 Temperature Pulse Rate 75 65 65 Pulse Rate [ From Monitor] Respiratory Rate Blood Pressure Blood Pressure [Left Arm] O2 Sat by Pulse 99 99 99 Oximetry 10/21/16 10/21/16 08:49 08:55 Temperature Pulse Rate 62 78 Pulse Rate [ From Monitor] Respiratory Rate Blood Pressure Blood Pressure [Left Arm] O2 Sat by Pulse 98 99 Oximetry - Labs Labs: Abnormal Labs 10/06/16 10/06/16 10/06/16 16:30 16:30 16:30 WBC RBC 3.51 L Hgb Hct [place] % (Auto) Seg Neutrophils % 74.3 H Seg Neutrophils # Sodium Carbon Dioxide BUN Creatinine 0.3 L POC Glucose Uric Acid 3.1 L Calcium Magnesium 4.20 H ALT Total Protein Albumin 10/06/16 10/07/16 10/07/16 23:39 07:28 19:10 WBC RBC 3.16 L Hgb 9.2 L Hct 27.8 L [place] % (Auto) Seg Neutrophils % 76.3 H Seg Neutrophils # Sodium Carbon Dioxide BUN Creatinine POC Glucose Uric Acid Calcium Magnesium 5.90 H 4.50 H ALT Total Protein Albumin 10/08/16 10/09/1617 00:20 20:05 11:00 WBC RBC 2.79 L Hgb 8.3 L Hct 25.1 L [place] % (Auto) 7.9 H Seg Neutrophils % 71.3 H Seg Neutrophils # Sodium 132 L Carbon Dioxide 18 L BUN 5 L Creatinine 0.4 L POC Glucose 135 H Uric Acid Calcium 6.9 L Magnesium ALT < 5 L Total Protein 5.9 L Albumin 2.8 L 10/14/16 14:12 WBC 11.2 H RBC 3.43 L Hgb 9.9 L Hct [place] % (Auto) Seg Neutrophils % 74.7 H Seg Neutrophils # 8.3 H Sodium Carbon Dioxide BUN Creatinine POC Glucose Uric Acid Calcium Magnesium ALT Total Protein Albumin Laboratory Results - last 24 hr 10/20/16 12:10 POC Glucose 97
[2016-10-21] MEDS: ZOLOFT PO SCH (12:32)
[2016-10-21] MEDS: PRENATAL VITAMIN PO SCH (12:32)
[2016-10-21] MEDS: FIORICET PO PRN (12:32)
[2016-10-21] MEDS: TYLENOL PO PRN (14:35)
[2016-10-21] MEDS: AMBIEN PO PRN (22:27)
[2016-10-22] MEDS: LACTATED RINGERS 1,000 ML IV SCH ×3 (05:30→23:11)
--- NOTE | 2016-10-22 07:01 | Progress Note ---
Assessment and Plan 1. 24 6/7 weeks 2. PPROM 3. Breech 4. Anemia 5. Headaches Recommendations 1. Expectant management 2. No tocolysis 3. testing after 27-28 weeks. 4. U/s for growth q 2-3 weeks Subjective - Subjective Principal diagnosis: PPROM Interval history: + leaking, denies contractions Headache off an on, usually relieved by Tylenol Patient reports: movement normal, no new complaints Objective - Vital Signs Vital Signs: Vital Signs - 12hr 10/21/16 10/21/16 10/22/16 19:13 23:14 05:25 Temperature 98.2 F 97.8 F 97.1 F L Pulse Rate 67 55 L 49 L Respiratory 18 18 16 Rate Blood Pressure 107/58 109/58 92/49 - Exam Cardiovascular: Regular rate Lungs: Clear to auscultation Abdomen: Present: normal appearance, soft Extremities: normal - Labs Labs: Abnormal Labs 10/06/16 10/06/16 10/06/16 16:30 16:30 16:30 WBC RBC 3.51 L Hgb Hct [place] % (Auto) Seg Neutrophils % 74.3 H Seg Neutrophils # Sodium Carbon Dioxide BUN Creatinine 0.3 L POC Glucose Uric Acid 3.1 L Calcium Magnesium 4.20 H ALT Total Protein Albumin 10/06/16 10/07/16 10/07/16 23:39 07:28 19:10 WBC RBC 3.16 L Hgb 9.2 L Hct 27.8 L [place] % (Auto) Seg Neutrophils % 76.3 H Seg Neutrophils # Sodium Carbon Dioxide BUN Creatinine POC Glucose Uric Acid Calcium Magnesium 5.90 H 4.50 H ALT Total Protein Albumin 10/08/16 10/09/16 10/12/16 00:20 20:05 11:00 WBC RBC 2.79 L Hgb 8.3 L Hct 25.1 L [place] % (Auto) 7.9 H Seg Neutrophils % 71.3 H Seg Neutrophils # Sodium 132 L Carbon Dioxide 18 L BUN 5 L Creatinine 0.4 L POC Glucose 135 H Uric Acid Calcium 6.9 L Magnesium ALT < 5 L Total Protein 5.9 L Albumin 2.8 L 10/14/16 14:12 WBC 11.2 H RBC 3.43 L Hgb 9.9 L Hct [place] % (Auto) Seg Neutrophils % 74.7 H Seg Neutrophils # 8.3 H Sodium Carbon Dioxide BUN Creatinine POC Glucose Uric Acid Calcium Magnesium ALT Total Protein Albumin
--- NOTE | 2016-10-22 08:22 | Progress Note ---
Assessment and Plan A:HD#16; IUP at 24w6d s/p 2 doses of betamethasone. s/p NICU consult. PPROM on 10/07/16 s/p 7 days of latency antibiotics Malpresentation Previous x 1 Asthma Anemia Irregular heart beat and intermittent bradycardia s/p Cardiology consult; No intervention needed, reconsult PRN Oligohydramnios Questionable seizure activity s/p neurology consult and normal MRI brain Depression- Zoloft 50 mg daily Headache- Fioricet PRN Insufficient care P: Continue close observation of maternal and status. Deliver for signs of chorioamnionitis or distress. No tocolysis Growth scan q 3 weeks; last weight 10/06/16; Next scan due on 10/27/16 Subjective - Subjective Date of service: 10/22/16 Principal diagnosis: PPROM Interval history: Pt uncertain about taking Zoloft and concerned about the effects on the baby. Reassurance given. Patient reports: loss of fluid, movement normal, no new complaints, no vaginal bleeding, no contractions Objective - Vital Signs Vital Signs: Vital Signs - 12hr 10/21/16 10/22/16 10/22/16 23:14 05:25 07:24 Temperature 97.8 F 97.1 F L Pulse Rate 55 L 49 L 78 Respiratory 18 16 Rate Blood Pressure 109/58 92/49 O2 Sat by Pulse 99 Oximetry 10/22/16 10/22/16 10/22/16 07:29 07:34 07:39 Temperature Pulse Rate 53 L 54 L 54 L Respiratory Rate Blood Pressure O2 Sat by Pulse 99 99 98 Oximetry 10/22/16 10/22/16 10/22/16 07:44 07:49 07:51 Temperature Pulse Rate 56 L 55 L 56 L Respiratory Rate Blood Pressure 106/53 O2 Sat by Pulse 98 99 Oximetry 10/22/16 10/22/16 10/22/16 07:54 08:00 08:03 Temperature 98.5 F Pulse Rate 53 L 56 L 57 L Respiratory 18 Rate Blood Pressure O2 Sat by Pulse 98 98 0 L Oximetry 10/22/16 10/22/16 10/22/16 08:08 08:13 08:18 Temperature Pulse Rate 59 L 57 L 58 L Respiratory Rate Blood Pressure O2 Sat by Pulse 100 100 100 Oximetry - Exam Breasts: deferred Cardiovascular: Regular rate Lungs: Clear to auscultation Abdomen: Present: soft (gravid). Absent: tenderness Uterus: Present: normal (gravid) FHR: auscultation normal Uterine Contraction Monitor Mode: External Uterine Tone Measurement Phase: Resting Uterine Contraction Intensity: Mild Extremities: normal - Labs Labs: Abnormal Labs 10/06/16 10/06/16 10/06/16 16:30 16:30 16:30 WBC RBC 3.51 L Hgb Hct [place] % (Auto) Seg Neutrophils % 74.3 H Seg Neutrophils # Sodium Carbon Dioxide BUN Creatinine 0.3 L POC Glucose Uric Acid 3.1 L Calcium Magnesium 4.20 H ALT Total Protein Albumin 10/06/16 10/07/16 10/07/16 23:39 07:28 19:10 WBC RBC 3.16 L Hgb 9.2 L Hct 27.8 L [place] % (Auto) Seg Neutrophils % 76.3 H Seg Neutrophils # Sodium Carbon Dioxide BUN Creatinine POC Glucose Uric Acid Calcium Magnesium 5.90 H 4.50 H ALT Total Protein Albumin 10/08/16 10/09/16 10/12/16 00:20 20:05 11:00 WBC RBC 2.79 L Hgb 8.3 L Hct 25.1 L [place] % (Auto) 7.9 H Seg Neutrophils % 71.3 H Seg Neutrophils # Sodium 132 L Carbon Dioxide 18 L BUN 5 L Creatinine 0.4 L POC Glucose 135 H Uric Acid Calcium 6.9 L Magnesium ALT < 5 L Total Protein 5.9 L Albumin 2.8 L 10/14/16 14:12 WBC 11.2 H RBC 3.43 L Hgb 9.9 L Hct [place] % (Auto) Seg Neutrophils % 74.7 H Seg Neutrophils # 8.3 H Sodium Carbon Dioxide BUN Creatinine POC Glucose Uric Acid Calcium Magnesium ALT Total Protein Albumin
[2016-10-22] MEDS: PRENATAL VITAMIN PO SCH (09:43)
[2016-10-22] MEDS: ZOLOFT PO SCH (09:44)
[2016-10-22] MEDS ORDERED: FEOSOL PO SCH (12:00)
[2016-10-22 16:00] LABS: Basophils % (Auto) 0.5 % (0.0-1.8); Eosinophils % (Auto) 1.2 % (0.0-4.3); Hematocrit 30.5 % (30.3-42.9); Hemoglobin 9.9 gm/dl (10.1-14.3); Mean Corpuscular HGB Conc 33 % (30-34); Mean Corpuscular Hemoglobin 29 pg (28-32); Mean Corpuscular Volume 89 fl (79-97); Platelet Count 213 K/mm3 (140-440); Red Blood Count 3.43 M/mm3 (3.65-5.03); Red Cell Distribution Width 14.8 % (13.2-15.2); White Blood Count 8.6 K/mm3 (4.5-11.0)
[2016-10-23] MEDS: ZOFRAN IV PRN (02:44)
[2016-10-23] MEDS: LACTATED RINGERS 1,000 ML IV SCH ×3 (07:03→20:35)
--- NOTE | 2016-10-23 08:58 | Progress Note ---
Assessment and Plan A:HD#17; IUP at 25w0d s/p 2 doses of betamethasone. s/p NICU consult. PPROM on 10/07/16 s/p 7 days of latency antibiotics Malpresentation Previous x 1 Asthma Anemia Irregular heart beat and intermittent bradycardia s/p Cardiology consult; No intervention needed, reconsult PRN Oligohydramnios Questionable seizure activity s/p neurology consult and normal MRI brain Depression- Zoloft 50 mg daily Headache- Fioricet PRN Insufficient care P: Continue close observation of maternal and status. Deliver for signs of chorioamnionitis or distress. No tocolysis Growth scan q 3 weeks; last weight 10/06/16; Next scan due on 10/27/16 Discontinue ferrous sulfate. Begin ferrous gluconate. Subjective - Subjective Date of service: 10/23/16 Principal diagnosis: PPROM Interval history: Pt reports that the ferrous sulfate that was started yesterday makes her nauseated and she does not want to take it anymore. She had episodes of crying last night. Patient reports: new complaints (per Interval History), loss of fluid, movement normal, no vaginal bleeding, no contractions Objective - Vital Signs Vital Signs: Vital Signs - 12hr 10/22/16 10/22/16 10/22/16 21:01 21:06 21:11 Temperature Pulse Rate 58 L 61 71 Respiratory Rate Blood Pressure Blood Pressure [Left] O2 Sat by Pulse 98 97 98 Oximetry 10/22/16 10/22/16 10/22/16 21:16 21:21 21:26 Temperature Pulse Rate 63 59 L 58 L Respiratory Rate Blood Pressure Blood Pressure [Left] O2 Sat by Pulse 98 98 98 Oximetry 10/22/16 10/22/16 10/22/16 21:31 21:36 21:41 Temperature Pulse Rate 57 L 57 L 58 L Respiratory Rate Blood Pressure Blood Pressure [Left] O2 Sat by Pulse 97 98 98 Oximetry 10/22/16 10/22/16 10/22/16 21:46 21:51 21:56 Temperature Pulse Rate 56 L 70 63 Respiratory Rate Blood Pressure Blood Pressure [Left] O2 Sat by Pulse 97 98 96 Oximetry 10/22/16 10/22/16 10/22/16 22:01 22:06 22:11 Temperature Pulse Rate 59 L 57 L 58 L Respiratory Rate Blood Pressure Blood Pressure [Left] O2 Sat by Pulse 97 97 97 Oximetry 10/22/16 10/22/16 10/22/16 22:16 22:21 22:26 Temperature Pulse Rate 57 L 52 L 52 L Respiratory Rate Blood Pressure Blood Pressure [Left] O2 Sat by Pulse 97 97 98 Oximetry 10/22/16 10/22/16 10/22/16 22:31 22:36 22:41 Temperature Pulse Rate 58 L 56 L 60 Respiratory Rate Blood Pressure Blood Pressure [Left] O2 Sat by Pulse 97 97 97 Oximetry 10/22/16 10/22/16 10/22/16 22:46 22:51 22:56 Temperature Pulse Rate 58 L 55 L 54 L Respiratory Rate Blood Pressure Blood Pressure [Left] O2 Sat by Pulse 97 97 97 Oximetry 10/22/16 10/22/16 10/22/16 23:01 23:06 23:13 Temperature Pulse Rate 52 L 55 L 59 L Respiratory Rate Blood Pressure Blood Pressure [Left] O2 Sat by Pulse 97 97 65 L Oximetry 10/22/16 10/22/16 10/22/16 23:18 23:23 23:28 Temperature Pulse Rate 52 L 56 L 57 L Respiratory Rate Blood Pressure Blood Pressure [Left] O2 Sat by Pulse 100 100 99 Oximetry 10/22/16 10/22/16 10/22/16 23:33 23:38 23:43 Temperature Pulse Rate 52 L 52 L 52 L Respiratory Rate Blood Pressure Blood Pressure [Left] O2 Sat by Pulse 100 100 100 Oximetry 10/22/16 10/22/16 10/22/16 23:48 23:53 23:54 Temperature Pulse Rate 53 L 58 L 57 L Respiratory Rate Blood Pressure Blood Pressure [Left] O2 Sat by Pulse 100 100 100 Oximetry 10/22/16 10/23/16 10/23/16 23:59 00:04 00:09 Temperature Pulse Rate 51 L 56 L 54 L Respiratory Rate Blood Pressure Blood Pressure [Left] O2 Sat by Pulse 99 99 98 Oximetry 10/23/16 10/23/16 10/23/16 00:14 00:19 00:24 Temperature Pulse Rate 60 54 L 54 L Respiratory Rate Blood Pressure Blood Pressure [Left] O2 Sat by Pulse 99 99 99 Oximetry 10/23/16 10/23/16 10/23/16 00:29 00:34 00:39 Temperature Pulse Rate 59 L 66 58 L Respiratory Rate Blood Pressure Blood Pressure [Left] O2 Sat by Pulse 99 98 100 Oximetry 10/23/16 10/23/16 10/23/16 00:44 00:49 00:54 Temperature Pulse Rate 67 68 53 L Respiratory Rate Blood Pressure Blood Pressure [Left] O2 Sat by Pulse 100 100 99 Oximetry 10/23/16 10/23/16 10/23/16 00:59 01:04 01:09 Temperature Pulse Rate 55 L 59 L 53 L Respiratory Rate Blood Pressure Blood Pressure [Left] O2 Sat by Pulse 99 99 100 Oximetry 10/23/16 10/23/16 10/23/16 01:14 01:19 01:24 Temperature Pulse Rate 58 L 53 L 57 L Respiratory Rate Blood Pressure Blood Pressure [Left] O2 Sat by Pulse 100 100 99 Oximetry 10/23/16 10/23/16 10/23/16 01:29 01:34 01:39 Temperature Pulse Rate 64 66 69 Respiratory Rate Blood Pressure Blood Pressure [Left] O2 Sat by Pulse 99 99 99 Oximetry 10/23/16 10/23/16 10/23/16 01:44 01:49 01:54 Temperature Pulse Rate 65 68 70 Respiratory Rate Blood Pressure Blood Pressure [Left] O2 Sat by Pulse 99 99 99 Oximetry 10/23/16 10/23/16 10/23/16 01:59 02:04 02:09 Temperature Pulse Rate 64 69 63 Respiratory Rate Blood Pressure Blood Pressure [Left] O2 Sat by Pulse 99 99 99 Oximetry 10/23/16 10/23/16 10/23/16 02:25 02:29 02:30 Temperature Pulse Rate 63 65 64 Respiratory Rate Blood Pressure 118/56 Blood Pressure [Left] O2 Sat by Pulse 71 L 98 Oximetry 10/23/16 10/23/16 10/23/16 02:34 02:35 02:40 Temperature 97.7 F Pulse Rate 63 57 L 58 L Respiratory 12 Rate Blood Pressure Blood Pressure 118/76 [Left] O2 Sat by Pulse 98 99 Oximetry 10/23/16 10/23/16 10/23/16 02:45 02:50 02:55 Temperature Pulse Rate 53 L 59 L 53 L Respiratory Rate Blood Pressure Blood Pressure [Left] O2 Sat by Pulse 99 98 98 Oximetry 10/23/16 10/23/16 10/23/16 03:00 03:05 03:10 Temperature Pulse Rate 53 L 55 L 54 L Respiratory Rate Blood Pressure Blood Pressure [Left] O2 Sat by Pulse 99 99 97 Oximetry 10/23/16 10/23/16 10/23/16 03:15 03:20 03:25 Temperature Pulse Rate 52 L 53 L 54 L Respiratory Rate Blood Pressure Blood Pressure [Left] O2 Sat by Pulse 98 97 97 Oximetry 10/23/16 10/23/16 10/23/16 03:30 03:35 03:40 Temperature Pulse Rate 53 L 55 L 51 L Respiratory Rate Blood Pressure Blood Pressure [Left] O2 Sat by Pulse 97 99 99 Oximetry 10/23/16 10/23/16 10/23/16 03:45 03:50 03:55 Temperature Pulse Rate 51 L 62 52 L Respiratory Rate Blood Pressure Blood Pressure [Left] O2 Sat by Pulse 99 99 98 Oximetry 10/23/16 10/23/16 10/23/16 04:00 04:05 04:10 Temperature Pulse Rate 55 L 56 L 50 L Respiratory Rate Blood Pressure Blood Pressure [Left] O2 Sat by Pulse 99 99 98 Oximetry 10/23/16 10/23/16 10/23/16 04:15 04:20 04:25 Temperature Pulse Rate 51 L 49 L 57 L Respiratory Rate Blood Pressure Blood Pressure [Left] O2 Sat by Pulse 98 99 99 Oximetry 10/23/16 10/23/16 10/23/16 04:30 04:35 04:40 Temperature Pulse Rate 50 L 52 L 55 L Respiratory Rate Blood Pressure Blood Pressure [Left] O2 Sat by Pulse 98 99 99 Oximetry 10/23/16 10/23/16 10/23/16 04:45 04:50 04:55 Temperature Pulse Rate 64 60 59 L Respiratory Rate Blood Pressure Blood Pressure [Left] O2 Sat by Pulse 99 97 99 Oximetry 10/23/16 10/23/16 10/23/16 05:00 05:05 05:10 Temperature Pulse Rate 57 L 55 L 55 L Respiratory Rate Blood Pressure Blood Pressure [Left] O2 Sat by Pulse 99 99 99 Oximetry 10/23/16 10/23/16 10/23/16 05:15 05:20 05:25 Temperature Pulse Rate 59 L 57 L 52 L Respiratory Rate Blood Pressure Blood Pressure [Left] O2 Sat by Pulse 98 98 97 Oximetry 10/23/16 10/23/16 10/23/16 05:30 05:35 05:40 Temperature Pulse Rate 55 L 55 L 56 L Respiratory Rate Blood Pressure Blood Pressure [Left] O2 Sat by Pulse 99 99 98 Oximetry 10/23/16 10/23/16 10/23/16 05:45 05:50 05:55 Temperature Pulse Rate 56 L 59 L 56 L Respiratory Rate Blood Pressure Blood Pressure [Left] O2 Sat by Pulse 99 98 98 Oximetry 10/23/16 10/23/16 10/23/16 06:00 06:05 06:10 Temperature Pulse Rate 56 L 58 L 58 L Respiratory Rate Blood Pressure Blood Pressure [Left] O2 Sat by Pulse 99 98 98 Oximetry 10/23/16 10/23/16 10/23/16 06:15 06:20 06:25 Temperature Pulse Rate 60 58 L 54 L Respiratory Rate Blood Pressure Blood Pressure [Left] O2 Sat by Pulse 98 98 99 Oximetry 10/23/16 10/23/16 10/23/16 06:30 06:35 06:40 Temperature Pulse Rate 55 L 62 57 L Respiratory Rate Blood Pressure Blood Pressure [Left] O2 Sat by Pulse 99 99 99 Oximetry 10/23/16 10/23/16 10/23/16 06:45 06:50 06:55 Temperature Pulse Rate 60 53 L 52 L Respiratory Rate Blood Pressure Blood Pressure [Left] O2 Sat by Pulse 99 98 99 Oximetry 10/23/16 10/23/16 10/23/16 07:00 07:13 07:14 Temperature Pulse Rate 55 L 53 L 75 Respiratory Rate Blood Pressure Blood Pressure [Left] O2 Sat by Pulse 99 91 80 L Oximetry 10/23/16 10/23/16 10/23/16 07:19 07:24 07:29 Temperature Pulse Rate 57 L 55 L 56 L Respiratory Rate Blood Pressure Blood Pressure [Left] O2 Sat by Pulse 98 98 97 Oximetry 10/23/16 10/23/16 10/23/16 07:34 07:39 07:44 Temperature Pulse Rate 65 62 62 Respiratory Rate Blood Pressure Blood Pressure [Left] O2 Sat by Pulse 97 97 98 Oximetry 10/23/16 10/23/16 10/23/16 07:49 07:54 07:59 Temperature Pulse Rate 58 L 64 64 Respiratory Rate Blood Pressure Blood Pressure [Left] O2 Sat by Pulse 98 98 98 Oximetry 10/23/16 10/23/16 10/23/16 08:04 08:09 08:14 Temperature Pulse Rate 62 70 59 L Respiratory Rate Blood Pressure Blood Pressure [Left] O2 Sat by Pulse 100 100 100 Oximetry 10/23/16 10/23/16 10/23/16 08:19 08:24 08:29 Temperature Pulse Rate 66 63 58 L Respiratory Rate Blood Pressure Blood Pressure [Left] O2 Sat by Pulse 100 100 100 Oximetry 10/23/16 10/23/16 10/23/16 08:34 08:39 08:44 Temperature Pulse Rate 62 59 L 87 Respiratory Rate Blood Pressure Blood Pressure [Left] O2 Sat by Pulse 99 100 100 Oximetry 10/23/16 08:49 Temperature Pulse Rate 68 Respiratory Rate Blood Pressure Blood Pressure [Left] O2 Sat by Pulse 100 Oximetry - Exam Breasts: deferred Cardiovascular: Regular rate Lungs: Clear to auscultation Abdomen: Present: soft (gravid). Absent: tenderness Uterus: Present: normal (gravid ) FHR: category 2 Uterine Contraction Monitor Mode: External Uterine Contraction Pattern: Absent Uterine Tone Measurement Phase: Resting Uterine Contraction Intensity: Mild Extremities: normal - Labs Labs: Abnormal Labs 10/06/16 10/06/16 10/06/16 16:30 16:30 16:30 WBC RBC 3.51 L Hgb Hct [place] % (Auto) Seg Neutrophils % 74.3 H Seg Neutrophils # Sodium Carbon Dioxide BUN Creatinine 0.3 L POC Glucose Uric Acid 3.1 L Calcium Magnesium 4.20 H ALT Total Protein Albumin 10/06/16 10/07/16 10/07/16 23:39 07:28 19:10 WBC RBC 3.16 L Hgb 9.2 L Hct 27.8 L [place] % (Auto) Seg Neutrophils % 76.3 H Seg Neutrophils # Sodium Carbon Dioxide BUN Creatinine POC Glucose Uric Acid Calcium Magnesium 5.90 H 4.50 H ALT Total Protein Albumin 10/08/16 10/09/16 10/12/16 00:20 20:05 11:00 WBC RBC 2.79 L Hgb 8.3 L Hct 25.1 L [place] % (Auto) 7.9 H Seg Neutrophils % 71.3 H Seg Neutrophils # Sodium 132 L Carbon Dioxide 18 L BUN 5 L Creatinine 0.4 L POC Glucose 135 H Uric Acid Calcium 6.9 L Magnesium ALT < 5 L Total Protein 5.9 L Albumin 2.8 L 10/14/16 10/22/16 14:12 15:30 WBC 11.2 H RBC 3.43 L 3.43 L Hgb 9.9 L 9.9 L Hct [place] % (Auto) 9.6 H Seg Neutrophils % 74.7 H 71.7 H Seg Neutrophils # 8.3 H Sodium Carbon Dioxide BUN Creatinine POC Glucose Uric Acid Calcium Magnesium ALT Total Protein Albumin Laboratory Results - last 24 hr 10/22/16 10/22/16 15:30 15:30 WBC 8.6 RBC 3.43 L Hgb 9.9 L Hct 30.5 MCV 89 MCH 29 MCHC 33 RDW 14.8 Plt Count 213 [place] % (Auto) 17.0 [place] % (Auto) 9.6 H Eos % (Auto) 1.2 Baso % (Auto) 0.5 Lymph # 1.5 [place] # 0.8 Eos # 0.1 Baso # 0.0 Seg Neutrophils % 71.7 H Seg Neutrophils # 6.2 Blood Type A POSITIVE Antibody Screen TNR SHANICE Antibody Screen Negative
[2016-10-23] MEDS: FERGON PO SCH ×2 (10:54→23:07)
[2016-10-23] MEDS: PRENATAL VITAMIN PO SCH (10:55)
[2016-10-23] MEDS: ZOLOFT PO SCH (10:55)
[2016-10-23] MEDS: AMBIEN PO PRN (23:05)
[2016-10-24] MEDS: LACTATED RINGERS 1,000 ML IV SCH ×2 (05:13→13:37)
[2016-10-24] MEDS: PRENATAL VITAMIN PO SCH (10:06)
[2016-10-24] MEDS: FERGON PO SCH ×2 (10:07→22:36)
[2016-10-24] MEDS: ZOLOFT PO SCH (10:07)
--- NOTE | 2016-10-24 10:54 | Progress Note ---
Assessment and Plan 1. 25 1/7 weeks 2. PPROM 3. Breech 4. Anemia 5. Headaches Recommendations 1. Expectant management 2. No tocolysis 3. testing after 27-28 weeks. 4. U/s for growth q 2-3 weeks Subjective - Subjective Date of service: 10/24/16 Principal diagnosis: PPROM Interval history: No complaints. Denies contractions or bleeding Good movement. Patient reports: new complaints (per Interval History), loss of fluid, movement normal, no vaginal bleeding, no contractions Objective - Vital Signs Vital Signs: Vital Signs - 12hr 10/23/16 10/24/16 10/24/16 23:06 05:10 06:09 Temperature 97.5 F L 96.1 F L Pulse Rate 58 L 60 60 Respiratory 16 16 Rate Blood Pressure 115/56 99/53 Blood Pressure 115/56 99/53 [Left] O2 Sat by Pulse 98 99 99 Oximetry 10/24/16 10/24/16 10/24/16 06:14 06:19 06:24 Temperature Pulse Rate 54 L 56 L 60 Respiratory Rate Blood Pressure Blood Pressure [Left] O2 Sat by Pulse 99 99 99 Oximetry 10/24/16 10/24/16 10/24/16 06:29 06:34 06:39 Temperature Pulse Rate 55 L 56 L 62 Respiratory Rate Blood Pressure Blood Pressure [Left] O2 Sat by Pulse 99 99 99 Oximetry 10/24/16 10/24/16 10/24/16 06:44 06:49 06:54 Temperature Pulse Rate 64 58 L 62 Respiratory Rate Blood Pressure Blood Pressure [Left] O2 Sat by Pulse 99 99 99 Oximetry 10/24/16 10/24/16 10/24/16 06:59 07:04 07:09 Temperature Pulse Rate 65 55 L 54 L Respiratory Rate Blood Pressure Blood Pressure [Left] O2 Sat by Pulse 99 99 99 Oximetry 10/24/16 10/24/16 10/24/16 07:14 07:19 07:24 Temperature Pulse Rate 57 L 58 L 53 L Respiratory Rate Blood Pressure Blood Pressure [Left] O2 Sat by Pulse 99 98 99 Oximetry 10/24/16 10/24/16 10/24/16 07:29 07:34 07:39 Temperature Pulse Rate 62 58 L 55 L Respiratory Rate Blood Pressure Blood Pressure [Left] O2 Sat by Pulse 96 99 99 Oximetry 0610/24/16 10/24/16 07:44 07:49 07:54 Temperature Pulse Rate 56 L 60 61 Respiratory Rate Blood Pressure Blood Pressure [Left] O2 Sat by Pulse 100 97 96 Oximetry 10/24/16 10/24/16 10/24/16 07:59 08:15 08:20 Temperature Pulse Rate 68 66 53 L Respiratory Rate Blood Pressure Blood Pressure [Left] O2 Sat by Pulse 97 85 100 Oximetry 10/24/16 10/24/16 10/24/16 08:25 08:30 08:35 Temperature Pulse Rate 56 L 59 L 57 L Respiratory Rate Blood Pressure Blood Pressure [Left] O2 Sat by Pulse 100 100 100 Oximetry 10/24/16 10/24/16 10/24/16 08:40 08:45 08:50 Temperature Pulse Rate 56 L 63 62 Respiratory Rate Blood Pressure Blood Pressure [Left] O2 Sat by Pulse 100 100 98 Oximetry 10/24/16 10/24/16 10/24/16 08:55 09:00 09:02 Temperature Pulse Rate 60 64 62 Respiratory Rate Blood Pressure Blood Pressure [Left] O2 Sat by Pulse 99 96 93 Oximetry 10/24/16 10/24/16 10/24/16 09:05 09:10 09:15 Temperature Pulse Rate 63 69 64 Respiratory Rate Blood Pressure Blood Pressure [Left] O2 Sat by Pulse 98 99 97 Oximetry 10/24/16 10/24/16 10/24/16 09:20 09:25 09:28 Temperature Pulse Rate 67 62 70 Respiratory Rate Blood Pressure Blood Pressure [Left] O2 Sat by Pulse 98 99 93 Oximetry 10/24/16 10/24/16 10/24/16 09:30 09:35 09:36 Temperature 99.3 F Pulse Rate 68 58 L 63 Respiratory 18 Rate Blood Pressure Blood Pressure 99/53 [Left] O2 Sat by Pulse 96 97 Oximetry 10/24/16 10/24/16 10/24/16 09:37 09:40 09:45 Temperature Pulse Rate 63 64 60 Respiratory Rate Blood Pressure Blood Pressure [Left] O2 Sat by Pulse 93 98 99 Oximetry 10/24/16 10/24/16 10/24/16 09:46 09:50 09:55 Temperature Pulse Rate 86 64 66 Respiratory Rate Blood Pressure Blood Pressure [Left] O2 Sat by Pulse 85 98 98 Oximetry 10/24/16 10/24/16 10/24/16 10:00 10:05 10:11 Temperature Pulse Rate 72 69 78 Respiratory Rate Blood Pressure Blood Pressure [Left] O2 Sat by Pulse 96 99 75 L Oximetry 10/24/16 10/24/16 10/24/16 10:16 10:21 10:26 Temperature Pulse Rate 68 67 65 Respiratory Rate Blood Pressure Blood Pressure [Left] O2 Sat by Pulse 98 100 100 Oximetry 10/24/16 10/24/16 10/24/16 10:31 10:36 10:41 Temperature Pulse Rate 71 68 68 Respiratory Rate Blood Pressure Blood Pressure [Left] O2 Sat by Pulse 97 99 99 Oximetry 10/24/16 10:46 Temperature Pulse Rate 75 Respiratory Rate Blood Pressure Blood Pressure [Left] O2 Sat by Pulse 100 Oximetry - Exam Abdomen: Present: normal appearance, soft Uterus: Present: normal Extremities: normal - Labs Labs: Abnormal Labs 10/06/16 10/06/16 10/06/16 16:30 16:30 16:30 WBC RBC 3.51 L Hgb Hct [place] % (Auto) Seg Neutrophils % 74.3 H Seg Neutrophils # Sodium Carbon Dioxide BUN Creatinine 0.3 L POC Glucose Uric Acid 3.1 L Calcium Magnesium 4.20 H ALT Total Protein Albumin 10/06/16 10/07/16 10/07/16 23:39 07:28 19:10 WBC RBC 3.16 L Hgb 9.2 L Hct 27.8 L [place] % (Auto) Seg Neutrophils % 76.3 H Seg Neutrophils # Sodium Carbon Dioxide BUN Creatinine POC Glucose Uric Acid Calcium Magnesium 5.90 H 4.50 H ALT Total Protein Albumin 10/08/16 10/09/16 10/12/16 00:20 20:05 11:00 WBC RBC 2.79 L Hgb 8.3 L Hct 25.1 L [place] % (Auto) 7.9 H Seg Neutrophils % 71.3 H Seg Neutrophils # Sodium 132 L Carbon Dioxide 18 L BUN 5 L Creatinine 0.4 L POC Glucose 135 H Uric Acid Calcium 6.9 L Magnesium ALT < 5 L Total Protein 5.9 L Albumin 2.8 L 10/14/16 10/22/16 14:12 15:30 WBC 11.2 H RBC 3.43 L 3.43 L Hgb 9.9 L 9.9 L Hct [place] % (Auto) 9.6 H Seg Neutrophils % 74.7 H 71.7 H Seg Neutrophils # 8.3 H Sodium Carbon Dioxide BUN Creatinine POC Glucose Uric Acid Calcium Magnesium ALT Total Protein Albumin
--- NOTE | 2016-10-24 12:24 | Progress Note ---
Assessment and Plan :HD#18; IUP at 25w1d s/p 2 doses of betamethasone. s/p NICU consult. PPROM on 10/07/16 s/p 7 days of latency antibiotics Malpresentation Previous x 1 Asthma Anemia Irregular heart beat and intermittent bradycardia s/p Cardiology consult; No intervention needed, reconsult PRN Oligohydramnios Questionable seizure activity s/p neurology consult and normal MRI brain Depression- Zoloft 50 mg daily Headache- Fioricet PRN Insufficient care P: Continue close observation of maternal and status. Deliver for signs of chorioamnionitis or distress. No tocolysis Growth scan q 3 weeks; last weight 10/06/16; Next scan due on 10/27/16 Discontinue ferrous sulfate. Begin ferrous gluconate. Subjective - Subjective Date of service: 10/24/16 Principal diagnosis: PPROM Patient reports: new complaints (per Interval History), loss of fluid, movement normal, no vaginal bleeding, no contractions Objective - Vital Signs Vital Signs: Vital Signs - 12hr 10/24/16 10/24/16 10/24/16 05:10 06:09 06:14 Temperature 96.1 F L Pulse Rate 60 60 54 L Respiratory 16 Rate Blood Pressure 99/53 Blood Pressure 99/53 [Left] O2 Sat by Pulse 99 99 99 Oximetry 10/24/16 10/24/16 10/24/16 06:19 06:24 06:29 Temperature Pulse Rate 56 L 60 55 L Respiratory Rate Blood Pressure Blood Pressure [Left] O2 Sat by Pulse 99 99 99 Oximetry 10/24/16 10/24/16 10/24/16 06:34 06:39 06:44 Temperature Pulse Rate 56 L 62 64 Respiratory Rate Blood Pressure Blood Pressure [Left] O2 Sat by Pulse 99 99 99 Oximetry 10/24/16 10/24/16 10/24/16 06:49 06:54 06:59 Temperature Pulse Rate 58 L 62 65 Respiratory Rate Blood Pressure Blood Pressure [Left] O2 Sat by Pulse 99 99 99 Oximetry 10/24/16 10/24/16 10/24/16 07:04 07:09 07:14 Temperature Pulse Rate 55 L 54 L 57 L Respiratory Rate Blood Pressure Blood Pressure [Left] O2 Sat by Pulse 99 99 99 Oximetry 10/24/16 10/24/16 10/24/16 07:19 07:24 07:29 Temperature Pulse Rate 58 L 53 L 62 Respiratory Rate Blood Pressure Blood Pressure [Left] O2 Sat by Pulse 98 99 96 Oximetry 10/24/16 10/24/16 10/24/16 07:34 07:39 07:44 Temperature Pulse Rate 58 L 55 L 56 L Respiratory Rate Blood Pressure Blood Pressure [Left] O2 Sat by Pulse 99 99 100 Oximetry 10/24/16 10/24/16 10/24/16 07:49 07:54 07:59 Temperature Pulse Rate 60 61 68 Respiratory Rate Blood Pressure Blood Pressure [Left] O2 Sat by Pulse 97 96 97 Oximetry 10/24/16 10/24/16 10/24/16 08:15 08:20 08:25 Temperature Pulse Rate 66 53 L 56 L Respiratory Rate Blood Pressure Blood Pressure [Left] O2 Sat by Pulse 85 100 100 Oximetry 10/24/16 10/24/16 10/24/16 08:30 08:35 08:40 Temperature Pulse Rate 59 L 57 L 56 L Respiratory Rate Blood Pressure Blood Pressure [Left] O2 Sat by Pulse 100 100 100 Oximetry 10/24/16 10/24/16 10/24/16 08:45 08:50 08:55 Temperature Pulse Rate 63 62 60 Respiratory Rate Blood Pressure Blood Pressure [Left] O2 Sat by Pulse 100 98 99 Oximetry 10/24/16 10/24/16 10/24/16 09:00 09:02 09:05 Temperature Pulse Rate 64 62 63 Respiratory Rate Blood Pressure Blood Pressure [Left] O2 Sat by Pulse 96 93 98 Oximetry 10/24/16 10/24/16 10/24/16 09:10 09:15 09:20 Temperature Pulse Rate 69 64 67 Respiratory Rate Blood Pressure Blood Pressure [Left] O2 Sat by Pulse 99 97 98 Oximetry 10/24/16 10/24/16 10/24/16 09:25 09:28 09:30 Temperature Pulse Rate 62 70 68 Respiratory Rate Blood Pressure Blood Pressure [Left] O2 Sat by Pulse 99 93 96 Oximetry 10/24/16 10/24/16 10/24/16 09:35 09:36 09:37 Temperature 99.3 F Pulse Rate 58 L 63 63 Respiratory 18 Rate Blood Pressure Blood Pressure 99/53 [Left] O2 Sat by Pulse 97 93 Oximetry 10/24/16 10/24/16 10/24/16 09:40 09:45 09:46 Temperature Pulse Rate 64 60 86 Respiratory Rate Blood Pressure Blood Pressure [Left] O2 Sat by Pulse 98 99 85 Oximetry 10/24/16 10/24/16 10/24/16 09:50 09:55 10:00 Temperature Pulse Rate 64 66 72 Respiratory Rate Blood Pressure Blood Pressure [Left] O2 Sat by Pulse 98 98 96 Oximetry 10/24/16 10/24/16 10/24/16 10:05 10:11 10:16 Temperature Pulse Rate 69 78 68 Respiratory Rate Blood Pressure Blood Pressure [Left] O2 Sat by Pulse 99 75 L 98 Oximetry 10/24/16 10/24/16 10/24/16 10:21 10:26 10:31 Temperature Pulse Rate 67 65 71 Respiratory Rate Blood Pressure Blood Pressure [Left] O2 Sat by Pulse 100 100 97 Oximetry 10/24/16 10/24/16 10/24/16 10:36 10:41 10:46 Temperature Pulse Rate 68 68 75 Respiratory Rate Blood Pressure Blood Pressure [Left] O2 Sat by Pulse 99 99 100 Oximetry 10/24/16 10/24/16 10/24/16 10:55 10:56 11:00 Temperature Pulse Rate 79 65 Respiratory Rate Blood Pressure Blood Pressure [Left] O2 Sat by Pulse 80 L 84 99 Oximetry 10/24/16 10/24/16 10/24/16 11:05 11:10 11:15 Temperature Pulse Rate 75 79 73 Respiratory Rate Blood Pressure Blood Pressure [Left] O2 Sat by Pulse 100 98 98 Oximetry 10/24/16 10/24/16 10/24/16 11:20 11:25 11:30 Temperature Pulse Rate 66 73 70 Respiratory Rate Blood Pressure Blood Pressure [Left] O2 Sat by Pulse 98 99 98 Oximetry 10/24/16 10/24/16 10/24/16 11:35 11:40 11:45 Temperature Pulse Rate 64 70 67 Respiratory Rate Blood Pressure Blood Pressure [Left] O2 Sat by Pulse 98 98 98 Oximetry 10/24/16 10/24/16 10/24/16 11:50 11:55 12:00 Temperature Pulse Rate 67 67 81 Respiratory Rate Blood Pressure Blood Pressure [Left] O2 Sat by Pulse 98 99 98 Oximetry 10/24/16 10/24/16 10/24/16 12:05 12:10 12:19 Temperature Pulse Rate 62 72 64 Respiratory Rate Blood Pressure Blood Pressure [Left] O2 Sat by Pulse 99 98 98 Oximetry - Exam Breasts: normal Cardiovascular: Regular rate, Normal S1 Lungs: Clear to auscultation, Normal air movement Abdomen: Present: normal appearance, soft, normal bowel sounds. Absent: distention, tenderness Vulva: both: normal Uterus: Present: normal, firm. Absent: bogginess, tenderness FHR: auscultation normal, category 1 - Labs Labs: Abnormal Labs 10/06/16 10/06/16 10/06/16 16:30 16:30 16:30 WBC RBC 3.51 L Hgb Hct [place] % (Auto) Seg Neutrophils % 74.3 H Seg Neutrophils # Sodium Carbon Dioxide BUN Creatinine 0.3 L POC Glucose Uric Acid 3.1 L Calcium Magnesium 4.20 H ALT Total Protein Albumin 10/06/16 10/07/16 10/07/16 23:39 07:28 19:10 WBC RBC 3.16 L Hgb 9.2 L Hct 27.8 L [place] % (Auto) Seg Neutrophils % 76.3 H Seg Neutrophils # Sodium Carbon Dioxide BUN Creatinine POC Glucose Uric Acid Calcium Magnesium 5.90 H 4.50 H ALT Total Protein Albumin 10/08/16 10/09/16 10/12/16 00:20 20:05 11:00 WBC RBC 2.79 L Hgb 8.3 L Hct 25.1 L [place] % (Auto) 7.9 H Seg Neutrophils % 71.3 H Seg Neutrophils # Sodium 132 L Carbon Dioxide 18 L BUN 5 L Creatinine 0.4 L POC Glucose 135 H Uric Acid Calcium 6.9 L Magnesium ALT < 5 L Total Protein 5.9 L Albumin 2.8 L 10/14/16 10/22/16 14:12 15:30 WBC 11.2 H RBC 3.43 L 3.43 L Hgb 9.9 L 9.9 L Hct [place] % (Auto) 9.6 H Seg Neutrophils % 74.7 H 71.7 H Seg Neutrophils # 8.3 H Sodium Carbon Dioxide BUN Creatinine POC Glucose Uric Acid Calcium Magnesium ALT Total Protein Albumin
[2016-10-24 17:50] LABS: Bilirubin,Urine NEG (Negative); Blood,Urine NEG (Negative); Ketones,Urine NEG (Negative); Leukocyte Esterase,Urine NEG (Negative); Nitrite,Urine NEG (Negative); Protein,Urine <15 mg/dL mg/dL (Negative); Urobilinogen,Urine < 2.0 mg/dL (<2.0)
[2016-10-24] MEDS: AMBIEN PO PRN (22:36)
[2016-10-25] MEDS: LACTATED RINGERS 1,000 ML IV SCH ×3 (06:35→17:29)
[2016-10-25] MEDS: PRENATAL VITAMIN PO SCH (10:26)
[2016-10-25] MEDS: FERGON PO SCH ×2 (10:26→22:52)
[2016-10-25] MEDS: ZOLOFT PO SCH (10:26)
--- NOTE | 2016-10-25 19:27 | Progress Note ---
Assessment and Plan :HD#19; IUP at 25w2d s/p 2 doses of betamethasone. s/p NICU consult. PPROM on 10/07/16 s/p 7 days of latency antibiotics Malpresentation Previous x 1 Asthma Anemia Irregular heart beat and intermittent bradycardia s/p Cardiology consult; No intervention needed, reconsult PRN Oligohydramnios Questionable seizure activity s/p neurology consult and normal MRI brain Depression- Zoloft 50 mg daily Headache- Fioricet PRN Insufficient care P: Continue close observation of maternal and status. Deliver for signs of chorioamnionitis or distress. No tocolysis Growth scan q 3 weeks; last weight 10/06/16; Next scan due on 10/27/16 Subjective - Subjective Date of service: 10/25/16 Principal diagnosis: PPROM Interval history: This is a 21 yo EDC 02/05/17 here via ambulance with seizure activity. She was brought in and given 4mg Ativan. She states that she has been fine until several days ago with pain in pelvic area and cousin stated that today at 2p she started shaking after c/o pain in pelvic abdominal area. She does not have any histroy of seiaure and only medical problem consists of asthma Patient reports: new complaints (per Interval History), loss of fluid, movement normal, no vaginal bleeding, no contractions Objective - Vital Signs Vital Signs: Vital Signs - 12hr 10/25/16 10/25/16 10/25/16 07:31 07:36 07:41 Temperature Pulse Rate 60 60 60 Pulse Rate [ From Monitor] Respiratory Rate Blood Pressure Blood Pressure [Left Arm] Blood Pressure [Right Arm] O2 Sat by Pulse 97 98 98 Oximetry 10/25/16 10/25/16 10/25/16 07:46 07:51 07:56 Temperature 97.3 F L Pulse Rate 63 57 L 62 Pulse Rate [ 57 L From Monitor] Respiratory 18 Rate Blood Pressure 109/65 Blood Pressure 109/65 [Left Arm] Blood Pressure 109/65 [Right Arm] O2 Sat by Pulse 98 98 98 Oximetry 10/25/16 10/25/16 10/25/16 08:01 08:06 08:11 Temperature Pulse Rate 59 L 60 63 Pulse Rate [ From Monitor] Respiratory Rate Blood Pressure Blood Pressure [Left Arm] Blood Pressure [Right Arm] O2 Sat by Pulse 98 97 99 Oximetry 10/25/16 10/25/16 10/25/16 08:16 08:21 08:26 Temperature Pulse Rate 61 61 59 L Pulse Rate [ From Monitor] Respiratory Rate Blood Pressure Blood Pressure [Left Arm] Blood Pressure [Right Arm] O2 Sat by Pulse 98 98 98 Oximetry 10/25/16 10/25/16 10/25/16 08:31 08:36 08:41 Temperature Pulse Rate 65 57 L 59 L Pulse Rate [ From Monitor] Respiratory Rate Blood Pressure Blood Pressure [Left Arm] Blood Pressure [Right Arm] O2 Sat by Pulse 98 98 98 Oximetry 10/25/16 10/25/16 10/25/16 08:46 08:51 08:56 Temperature Pulse Rate 58 L 61 54 L Pulse Rate [ From Monitor] Respiratory Rate Blood Pressure Blood Pressure [Left Arm] Blood Pressure [Right Arm] O2 Sat by Pulse 97 98 98 Oximetry 10/25/16 10/25/16 10/25/16 09:01 09:06 09:11 Temperature Pulse Rate 57 L 55 L 62 Pulse Rate [ From Monitor] Respiratory Rate Blood Pressure Blood Pressure [Left Arm] Blood Pressure [Right Arm] O2 Sat by Pulse 98 98 99 Oximetry 10/25/16 10/25/16 10/25/16 09:19 09:24 09:29 Temperature Pulse Rate 52 L 56 L 54 L Pulse Rate [ From Monitor] Respiratory Rate Blood Pressure Blood Pressure [Left Arm] Blood Pressure [Right Arm] O2 Sat by Pulse 95 100 100 Oximetry 10/25/16 10/25/16 10/25/16 09:34 09:39 09:44 Temperature Pulse Rate 55 L 59 L 63 Pulse Rate [ From Monitor] Respiratory Rate Blood Pressure Blood Pressure [Left Arm] Blood Pressure [Right Arm] O2 Sat by Pulse 100 100 100 Oximetry 10/25/16 10/25/16 10/25/16 09:49 09:54 09:59 Temperature Pulse Rate 57 L 58 L 56 L Pulse Rate [ From Monitor] Respiratory Rate Blood Pressure Blood Pressure [Left Arm] Blood Pressure [Right Arm] O2 Sat by Pulse 100 99 99 Oximetry 10/25/16 10/25/16 10/25/16 10:04 10:09 10:14 Temperature Pulse Rate 58 L 64 62 Pulse Rate [ From Monitor] Respiratory Rate Blood Pressure Blood Pressure [Left Arm] Blood Pressure [Right Arm] O2 Sat by Pulse 98 99 100 Oximetry 10/25/16 10/25/16 10/25/16 10:19 10:24 10:25 Temperature Pulse Rate 69 66 55 L Pulse Rate [ From Monitor] Respiratory Rate Blood Pressure Blood Pressure [Left Arm] Blood Pressure [Right Arm] O2 Sat by Pulse 100 98 94 Oximetry 10/25/16 10/25/16 10/25/16 10:27 10:29 10:32 Temperature 99.2 F Pulse Rate 58 L 60 Pulse Rate [ 62 From Monitor] Respiratory 18 Rate Blood Pressure Blood Pressure 109/65 [Left Arm] Blood Pressure 109/65 [Right Arm] O2 Sat by Pulse 97 91 Oximetry 10/25/16 10/25/16 10/25/16 10:34 10:39 10:44 Temperature Pulse Rate 63 62 65 Pulse Rate [ From Monitor] Respiratory Rate Blood Pressure Blood Pressure [Left Arm] Blood Pressure [Right Arm] O2 Sat by Pulse 99 99 97 Oximetry 10/25/16 10/25/16 10/25/16 10:49 10:54 10:59 Temperature Pulse Rate 63 64 80 Pulse Rate [ From Monitor] Respiratory Rate Blood Pressure Blood Pressure [Left Arm] Blood Pressure [Right Arm] O2 Sat by Pulse 98 97 97 Oximetry 10/25/16 10/25/16 10/25/16 11:04 11:21 11:26 Temperature Pulse Rate 68 33 L 63 Pulse Rate [ From Monitor] Respiratory Rate Blood Pressure Blood Pressure [Left Arm] Blood Pressure [Right Arm] O2 Sat by Pulse 96 97 100 Oximetry 10/25/16 10/25/16 10/25/16 11:31 11:36 11:41 Temperature Pulse Rate 70 64 67 Pulse Rate [ From Monitor] Respiratory Rate Blood Pressure Blood Pressure [Left Arm] Blood Pressure [Right Arm] O2 Sat by Pulse 99 99 100 Oximetry 10/25/16 10/25/16 10/25/16 11:46 11:51 11:56 Temperature Pulse Rate 62 61 65 Pulse Rate [ From Monitor] Respiratory Rate Blood Pressure Blood Pressure [Left Arm] Blood Pressure [Right Arm] O2 Sat by Pulse 100 99 99 Oximetry 10/25/16 10/25/16 10/25/16 12:01 12:06 12:11 Temperature Pulse Rate 66 72 68 Pulse Rate [ From Monitor] Respiratory Rate Blood Pressure Blood Pressure [Left Arm] Blood Pressure [Right Arm] O2 Sat by Pulse 99 98 99 Oximetry 10/25/16 10/25/16 10/25/16 12:16 12:21 12:26 Temperature Pulse Rate 63 63 70 Pulse Rate [ From Monitor] Respiratory Rate Blood Pressure Blood Pressure [Left Arm] Blood Pressure [Right Arm] O2 Sat by Pulse 99 98 99 Oximetry 10/25/16 10/25/16 10/25/16 12:31 12:36 12:41 Temperature Pulse Rate 72 91 H 89 Pulse Rate [ From Monitor] Respiratory Rate Blood Pressure Blood Pressure [Left Arm] Blood Pressure [Right Arm] O2 Sat by Pulse 99 98 98 Oximetry 10/25/16 10/25/16 10/25/16 12:55 13:20 13:25 Temperature Pulse Rate 85 67 68 Pulse Rate [ From Monitor] Respiratory Rate Blood Pressure Blood Pressure [Left Arm] Blood Pressure [Right Arm] O2 Sat by Pulse 99 97 98 Oximetry 10/25/16 10/25/16 10/25/16 13:30 13:35 13:40 Temperature Pulse Rate 72 68 61 Pulse Rate [ From Monitor] Respiratory Rate Blood Pressure Blood Pressure [Left Arm] Blood Pressure [Right Arm] O2 Sat by Pulse 98 98 98 Oximetry 10/25/16 10/25/16 10/25/16 13:45 13:50 13:55 Temperature Pulse Rate 73 71 75 Pulse Rate [ From Monitor] Respiratory Rate Blood Pressure Blood Pressure [Left Arm] Blood Pressure [Right Arm] O2 Sat by Pulse 98 98 98 Oximetry 10/25/16 10/25/16 10/25/16 14:00 14:05 14:10 Temperature Pulse Rate 74 76 71 Pulse Rate [ From Monitor] Respiratory Rate Blood Pressure 108/51 Blood Pressure [Left Arm] Blood Pressure [Right Arm] O2 Sat by Pulse 98 98 98 Oximetry 10/25/16 10/25/16 10/25/16 14:12 14:15 16:44 Temperature 97.9 F 98.2 F Pulse Rate 75 Pulse Rate [ 67 75 From Monitor] Respiratory 18 18 Rate Blood Pressure Blood Pressure 108/51 108/51 [Left Arm] Blood Pressure 108/51 108/51 [Right Arm] O2 Sat by Pulse 98 Oximetry - Exam Breasts: normal Cardiovascular: Regular rate, Normal S1, Normal S2 Lungs: Clear to auscultation, Normal air movement Abdomen: Present: normal appearance, soft. Absent: distention, tenderness, normal bowel sounds Vulva: both: normal Uterus: Present: normal, firm, fundal height above umbilicus. Absent: bogginess , tenderness FHR: category 1 Uterine Contraction Monitor Mode: External Deep Tendon Reflex Grade: Normal +2 - Labs Labs: Abnormal Labs 10/06/16 10/06/16 10/06/16 16:30 16:30 16:30 WBC RBC 3.51 L Hgb Hct [place] % (Auto) Seg Neutrophils % 74.3 H Seg Neutrophils # Sodium Carbon Dioxide BUN Creatinine 0.3 L POC Glucose Uric Acid 3.1 L Calcium Magnesium 4.20 H ALT Total Protein Albumin Urine pH 10/06/16 10/07/16 10/07/16 23:39 07:28 19:10 WBC RBC 3.16 L Hgb 9.2 L Hct 27.8 L [place] % (Auto) Seg Neutrophils % 76.3 H Seg Neutrophils # Sodium Carbon Dioxide BUN Creatinine POC Glucose Uric Acid Calcium Magnesium 5.90 H 4.50 H ALT Total Protein Albumin Urine pH 10/08/16 10/09/16 10/12/16 00:20 20:05 11:00 WBC RBC 2.79 L Hgb 8.3 L Hct 25.1 L [place] % (Auto) 7.9 H Seg Neutrophils % 71.3 H Seg Neutrophils # Sodium 132 L Carbon Dioxide 18 L BUN 5 L Creatinine 0.4 L POC Glucose 135 H Uric Acid Calcium 6.9 L Magnesium ALT < 5 L Total Protein 5.9 L Albumin 2.8 L Urine pH 10/14/16 10/22/16 10/24/16 14:12 15:30 17:34 WBC 11.2 H RBC 3.43 L 3.43 L Hgb 9.9 L 9.9 L Hct [place] % (Auto) 9.6 H Seg Neutrophils % 74.7 H 71.7 H Seg Neutrophils # 8.3 H Sodium Carbon Dioxide BUN Creatinine POC Glucose Uric Acid Calcium Magnesium ALT Total Protein Albumin Urine pH 8.0 H
[2016-10-25] MEDS: ZOFRAN IV PRN (22:48)
[2016-10-25] MEDS: AMBIEN PO PRN (22:52)
[2016-10-26] MEDS: LACTATED RINGERS 1,000 ML IV SCH ×2 (08:01→09:59)
[2016-10-26] MEDS: ZOLOFT PO SCH (10:53)
[2016-10-26] MEDS: PRENATAL VITAMIN PO SCH (10:53)
[2016-10-26] MEDS: FERGON PO SCH ×2 (10:53→22:54)
--- NOTE | 2016-10-26 13:57 | Progress Note ---
Assessment and Plan 1. 25 3/7 weeks 2. PPROM 3. Breech 4. Anemia 5. Headaches Recommendations 1. Expectant management 2. No tocolysis 3. testing after 27-28 weeks. 4. U/s for growth q 2-3 weeks Subjective - Subjective Principal diagnosis: PPROM Interval history: No complaints. Denies contractions or bleeding Good movement. Patient reports: new complaints (per Interval History), loss of fluid, movement normal, no vaginal bleeding, no contractions Objective - Vital Signs Vital Signs: Vital Signs - 12hr 10/26/16 10/26/16 10/26/16 10:10 10:11 10:12 Temperature 97.7 F Pulse Rate 64 56 L 54 L Pulse Rate [ 68 From Monitor] Respiratory 16 Rate Blood Pressure 105/55 100/53 Blood Pressure 105/55 [Left Arm] Blood Pressure 100/53 [Right Arm] O2 Sat by Pulse 100 Oximetry 10/26/16 10/26/16 10/26/16 10:15 10:20 10:25 Temperature Pulse Rate 60 63 Pulse Rate [ From Monitor] Respiratory Rate Blood Pressure Blood Pressure [Left Arm] Blood Pressure [Right Arm] O2 Sat by Pulse 100 100 100 Oximetry 10/26/16 10/26/16 10/26/16 10:30 10:35 10:40 Temperature Pulse Rate 61 66 66 Pulse Rate [ From Monitor] Respiratory Rate Blood Pressure Blood Pressure [Left Arm] Blood Pressure [Right Arm] O2 Sat by Pulse 100 100 100 Oximetry 10/26/16 10/26/16 10/26/16 10:45 10:50 10:55 Temperature Pulse Rate 62 64 60 Pulse Rate [ From Monitor] Respiratory Rate Blood Pressure Blood Pressure [Left Arm] Blood Pressure [Right Arm] O2 Sat by Pulse 100 100 100 Oximetry 10/26/16 10/26/16 10/26/16 11:00 11:05 11:10 Temperature Pulse Rate 59 L 57 L 60 Pulse Rate [ From Monitor] Respiratory Rate Blood Pressure Blood Pressure [Left Arm] Blood Pressure [Right Arm] O2 Sat by Pulse 100 100 99 Oximetry 10/26/16 10/26/16 10/26/16 11:15 11:20 11:25 Temperature Pulse Rate 61 64 70 Pulse Rate [ From Monitor] Respiratory Rate Blood Pressure Blood Pressure [Left Arm] Blood Pressure [Right Arm] O2 Sat by Pulse 100 99 97 Oximetry 10/26/16 10/26/16 10/26/16 11:30 11:35 11:40 Temperature Pulse Rate 64 62 61 Pulse Rate [ From Monitor] Respiratory Rate Blood Pressure Blood Pressure [Left Arm] Blood Pressure [Right Arm] O2 Sat by Pulse 98 98 99 Oximetry 10/26/16 10/26/16 10/26/16 11:45 11:50 11:55 Temperature Pulse Rate 65 69 79 Pulse Rate [ From Monitor] Respiratory Rate Blood Pressure Blood Pressure [Left Arm] Blood Pressure [Right Arm] O2 Sat by Pulse 99 96 99 Oximetry 10/26/16 10/26/16 10/26/16 12:07 12:12 12:17 Temperature Pulse Rate 65 65 75 Pulse Rate [ From Monitor] Respiratory Rate Blood Pressure Blood Pressure [Left Arm] Blood Pressure [Right Arm] O2 Sat by Pulse 99 99 98 Oximetry 10/26/16 10/26/16 10/26/16 12:22 12:27 12:32 Temperature Pulse Rate 68 73 69 Pulse Rate [ From Monitor] Respiratory Rate Blood Pressure Blood Pressure [Left Arm] Blood Pressure [Right Arm] O2 Sat by Pulse 98 98 98 Oximetry 10/26/16 10/26/16 10/26/16 12:33 13:00 13:05 Temperature 98.3 F Pulse Rate 63 77 65 Pulse Rate [ 70 From Monitor] Respiratory 16 Rate Blood Pressure 110/53 Blood Pressure 110/53 [Left Arm] Blood Pressure 106/53 [Right Arm] O2 Sat by Pulse 98 96 Oximetry 10/26/16 10/26/16 10/26/16 13:10 13:15 13:20 Temperature Pulse Rate 70 66 63 Pulse Rate [ From Monitor] Respiratory Rate Blood Pressure Blood Pressure [Left Arm] Blood Pressure [Right Arm] O2 Sat by Pulse 96 97 97 Oximetry 10/26/16 10/26/16 10/26/16 13:25 13:30 13:35 Temperature Pulse Rate 66 69 61 Pulse Rate [ From Monitor] Respiratory Rate Blood Pressure Blood Pressure [Left Arm] Blood Pressure [Right Arm] O2 Sat by Pulse 97 98 99 Oximetry 10/26/16 10/26/16 10/26/16 13:40 13:45 13:50 Temperature Pulse Rate 60 66 68 Pulse Rate [ From Monitor] Respiratory Rate Blood Pressure Blood Pressure [Left Arm] Blood Pressure [Right Arm] O2 Sat by Pulse 98 99 98 Oximetry - Exam Abdomen: Present: normal appearance, soft Extremities: normal - Labs Labs: Abnormal Labs 10/06/16 10/06/16 10/06/16 16:30 16:30 16:30 WBC RBC 3.51 L Hgb Hct [place] % (Auto) Seg Neutrophils % 74.3 H Seg Neutrophils # Sodium Carbon Dioxide BUN Creatinine 0.3 L POC Glucose Uric Acid 3.1 L Calcium Magnesium 4.20 H ALT Total Protein Albumin Urine pH 10/06/16 10/07/16 10/07/16 23:39 07:28 19:10 WBC RBC 3.16 L Hgb 9.2 L Hct 27.8 L [place] % (Auto) Seg Neutrophils % 76.3 H Seg Neutrophils # Sodium Carbon Dioxide BUN Creatinine POC Glucose Uric Acid Calcium Magnesium 5.90 H 4.50 H ALT Total Protein Albumin Urine pH 10/08/16 10/09/16 10/12/16 00:20 20:05 11:00 WBC RBC 2.79 L Hgb 8.3 L Hct 25.1 L [place] % (Auto) 7.9 H Seg Neutrophils % 71.3 H Seg Neutrophils # Sodium 132 L Carbon Dioxide 18 L BUN 5 L Creatinine 0.4 L POC Glucose 135 H Uric Acid Calcium 6.9 L Magnesium ALT < 5 L Total Protein 5.9 L Albumin 2.8 L Urine pH 10/14/16 10/22/16 10/24/16 14:12 15:30 17:34 WBC 11.2 H RBC 3.43 L 3.43 L Hgb 9.9 L 9.9 L Hct [place] % (Auto) 9.6 H Seg Neutrophils % 74.7 H 71.7 H Seg Neutrophils # 8.3 H Sodium Carbon Dioxide BUN Creatinine POC Glucose Uric Acid Calcium Magnesium ALT Total Protein Albumin Urine pH 8.0 H
--- NOTE | 2016-10-26 14:30 | Progress Note ---
Assessment and Plan :HD#20; IUP at 25w3d s/p 2 doses of betamethasone. s/p NICU consult. PPROM on 10/07/16 s/p 7 days of latency antibiotics Malpresentation Previous x 1 Asthma Anemia Irregular heart beat and intermittent bradycardia s/p Cardiology consult; No intervention needed, reconsult PRN Oligohydramnios Questionable seizure activity s/p neurology consult and normal MRI brain Depression- Zoloft 50 mg daily Headache- Fioricet PRN Insufficient care P: Continue close observation of maternal and status. Deliver for signs of chorioamnionitis or distress. No tocolysis Growth scan q 3 weeks; last weight 10/06/16; Next scan due on 10/27/16 Subjective - Subjective Date of service: 10/26/16 Principal diagnosis: PPROM Interval history: This is a 21 yo EDC 02/05/17 here via ambulance with seizure activity. She was brought in and given 4mg Ativan. She states that she has been fine until several days ago with pain in pelvic area and cousin stated that today at 2p she started shaking after c/o pain in pelvic abdominal area. She does not have any histroy of seiaure and only medical problem consists of asthma Patient reports: new complaints (per Interval History), loss of fluid, movement normal, no vaginal bleeding, no contractions Objective - Vital Signs Vital Signs: Vital Signs - 12hr 10/26/16 10/26/16 10/26/16 10:10 10:11 10:12 Temperature 97.7 F Pulse Rate 64 56 L 54 L Pulse Rate [ 68 From Monitor] Respiratory 16 Rate Blood Pressure 105/55 100/53 Blood Pressure 105/55 [Left Arm] Blood Pressure 100/53 [Right Arm] O2 Sat by Pulse 100 Oximetry 10/26/16 10/26/16 10/26/16 10:15 10:20 10:25 Temperature Pulse Rate 60 63 Pulse Rate [ From Monitor] Respiratory Rate Blood Pressure Blood Pressure [Left Arm] Blood Pressure [Right Arm] O2 Sat by Pulse 100 100 100 Oximetry 10/26/16 10/26/16 10/26/16 10:30 10:35 10:40 Temperature Pulse Rate 61 66 66 Pulse Rate [ From Monitor] Respiratory Rate Blood Pressure Blood Pressure [Left Arm] Blood Pressure [Right Arm] O2 Sat by Pulse 100 100 100 Oximetry 10/26/16 10/26/16 10/26/16 10:45 10:50 10:55 Temperature Pulse Rate 62 64 60 Pulse Rate [ From Monitor] Respiratory Rate Blood Pressure Blood Pressure [Left Arm] Blood Pressure [Right Arm] O2 Sat by Pulse 100 100 100 Oximetry 10/26/16 10/26/16 10/26/16 11:00 11:05 11:10 Temperature Pulse Rate 59 L 57 L 60 Pulse Rate [ From Monitor] Respiratory Rate Blood Pressure Blood Pressure [Left Arm] Blood Pressure [Right Arm] O2 Sat by Pulse 100 100 99 Oximetry 10/26/16 10/26/16 10/26/16 11:15 11:20 11:25 Temperature Pulse Rate 61 64 70 Pulse Rate [ From Monitor] Respiratory Rate Blood Pressure Blood Pressure [Left Arm] Blood Pressure [Right Arm] O2 Sat by Pulse 100 99 97 Oximetry 10/26/16 10/26/16 10/26/16 11:30 11:35 11:40 Temperature Pulse Rate 64 62 61 Pulse Rate [ From Monitor] Respiratory Rate Blood Pressure Blood Pressure [Left Arm] Blood Pressure [Right Arm] O2 Sat by Pulse 98 98 99 Oximetry 10/26/16 10/26/16 10/26/16 11:45 11:50 11:55 Temperature Pulse Rate 65 69 79 Pulse Rate [ From Monitor] Respiratory Rate Blood Pressure Blood Pressure [Left Arm] Blood Pressure [Right Arm] O2 Sat by Pulse 99 96 99 Oximetry 10/26/16 10/26/16 10/26/16 12:07 12:12 12:17 Temperature Pulse Rate 65 65 75 Pulse Rate [ From Monitor] Respiratory Rate Blood Pressure Blood Pressure [Left Arm] Blood Pressure [Right Arm] O2 Sat by Pulse 99 99 98 Oximetry 10/26/16 10/26/16 10/26/16 12:22 12:27 12:32 Temperature Pulse Rate 68 73 69 Pulse Rate [ From Monitor] Respiratory Rate Blood Pressure Blood Pressure [Left Arm] Blood Pressure [Right Arm] O2 Sat by Pulse 98 98 98 Oximetry 10/26/16 10/26/16 10/26/16 12:33 13:00 13:05 Temperature 98.3 F Pulse Rate 63 77 65 Pulse Rate [ 70 From Monitor] Respiratory 16 Rate Blood Pressure 110/53 Blood Pressure 110/53 [Left Arm] Blood Pressure 106/53 [Right Arm] O2 Sat by Pulse 98 96 Oximetry 10/26/16 10/26/16 10/26/16 13:10 13:15 13:20 Temperature Pulse Rate 70 66 63 Pulse Rate [ From Monitor] Respiratory Rate Blood Pressure Blood Pressure [Left Arm] Blood Pressure [Right Arm] O2 Sat by Pulse 96 97 97 Oximetry 10/26/16 10/26/16 10/26/16 13:25 13:30 13:35 Temperature Pulse Rate 66 69 61 Pulse Rate [ From Monitor] Respiratory Rate Blood Pressure Blood Pressure [Left Arm] Blood Pressure [Right Arm] O2 Sat by Pulse 97 98 99 Oximetry 10/26/16 10/26/16 10/26/16 13:40 13:45 13:50 Temperature Pulse Rate 60 66 68 Pulse Rate [ From Monitor] Respiratory Rate Blood Pressure Blood Pressure [Left Arm] Blood Pressure [Right Arm] O2 Sat by Pulse 98 99 98 Oximetry 10/26/16 10/26/16 10/26/16 13:56 13:57 14:02 Temperature Pulse Rate 79 82 61 Pulse Rate [ From Monitor] Respiratory Rate Blood Pressure Blood Pressure [Left Arm] Blood Pressure [Right Arm] O2 Sat by Pulse 91 98 99 Oximetry 10/26/16 10/26/16 10/26/16 14:07 14:12 14:17 Temperature Pulse Rate 63 61 63 Pulse Rate [ From Monitor] Respiratory Rate Blood Pressure Blood Pressure [Left Arm] Blood Pressure [Right Arm] O2 Sat by Pulse 99 98 99 Oximetry 10/26/16 14:22 Temperature Pulse Rate 64 Pulse Rate [ From Monitor] Respiratory Rate Blood Pressure Blood Pressure [Left Arm] Blood Pressure [Right Arm] O2 Sat by Pulse 99 Oximetry - Exam Breasts: deferred Cardiovascular: Regular rate, Normal S1 Lungs: Clear to auscultation, Normal air movement Abdomen: Present: normal appearance, soft, normal bowel sounds. Absent: distention, tenderness Vulva: both: normal Uterus: Present: normal FHR: category 1 - Labs Labs: Abnormal Labs 10/06/16 10/06/16 10/06/16 16:30 16:30 16:30 WBC RBC 3.51 L Hgb Hct [place] % (Auto) Seg Neutrophils % 74.3 H Seg Neutrophils # Sodium Carbon Dioxide BUN Creatinine 0.3 L POC Glucose Uric Acid 3.1 L Calcium Magnesium 4.20 H ALT Total Protein Albumin Urine pH 10/06/16 10/07/1610/07/17 23:39 07:28 19:10 WBC RBC 3.16 L Hgb 9.2 L Hct 27.8 L [place] % (Auto) Seg Neutrophils % 76.3 H Seg Neutrophils # Sodium Carbon Dioxide BUN Creatinine POC Glucose Uric Acid Calcium Magnesium 5.90 H 4.50 H ALT Total Protein Albumin Urine pH 10/08/16 10/09/16 10/12/16 00:20 20:05 11:00 WBC RBC 2.79 L Hgb 8.3 L Hct 25.1 L [place] % (Auto) 7.9 H Seg Neutrophils % 71.3 H Seg Neutrophils # Sodium 132 L Carbon Dioxide 18 L BUN 5 L Creatinine 0.4 L POC Glucose 135 H Uric Acid Calcium 6.9 L Magnesium ALT < 5 L Total Protein 5.9 L Albumin 2.8 L Urine pH 10/14/16 10/22/16 10/24/16 14:12 15:30 17:34 WBC 11.2 H RBC 3.43 L 3.43 L Hgb 9.9 L 9.9 L Hct [place] % (Auto) 9.6 H Seg Neutrophils % 74.7 H 71.7 H Seg Neutrophils # 8.3 H Sodium Carbon Dioxide BUN Creatinine POC Glucose Uric Acid Calcium Magnesium ALT Total Protein Albumin Urine pH 8.0 H
[2016-10-26] MEDS: AMBIEN PO PRN (22:55)
[2016-10-27] MEDS: LACTATED RINGERS 1,000 ML IV SCH ×3 (00:39→23:07)
--- NOTE | 2016-10-27 08:19 | Progress Note ---
Assessment and Plan A:HD#21; IUP at 25w4d s/p 2 doses of betamethasone. s/p NICU consult. PPROM on 10/07/16 s/p 7 days of latency antibiotics Vertex as of 10/27/16 Previous x 1 Asthma Anemia Irregular heart beat and intermittent bradycardia s/p Cardiology consult; No intervention needed, reconsult PRN Oligohydramnios Questionable seizure activity s/p neurology consult and normal MRI brain Depression- Zoloft 50 mg daily Headache- Fioricet PRN Insufficient care P: Growth scan today- EFW 594g (AUA 23w4d). Vertex today. BPP 10/09 (-2 for Oligohydramnios, JEREMIE 2.3 cm) Continue close observation of maternal and status Deliver for signs of chorioamnionitis or distress No tocolysis Subjective - Subjective Date of service: 10/27/16 Principal diagnosis: PPROM, IUP at 25 wks, Malpresentation Interval history: Pt is anxious about who may be watching her daughter while she is hospitalized. Otherwise no overnight events. Patient reports: new complaints (per Interval History), loss of fluid, movement normal, no vaginal bleeding, no contractions Objective - Vital Signs Vital Signs: Vital Signs - 12hr 10/26/16 10/26/16 10/26/16 20:23 20:28 20:33 Temperature Pulse Rate 62 63 61 Pulse Rate [ From Monitor] Respiratory Rate Blood Pressure Blood Pressure [Left Arm] O2 Sat by Pulse 99 98 98 Oximetry 10/26/16 10/26/16 10/26/16 20:38 20:43 20:48 Temperature Pulse Rate 64 64 64 Pulse Rate [ From Monitor] Respiratory Rate Blood Pressure Blood Pressure [Left Arm] O2 Sat by Pulse 100 99 100 Oximetry 10/26/16 10/26/16 10/26/16 20:53 20:58 21:03 Temperature Pulse Rate 61 60 63 Pulse Rate [ From Monitor] Respiratory Rate Blood Pressure Blood Pressure [Left Arm] O2 Sat by Pulse 99 99 99 Oximetry 10/26/16 10/26/16 10/26/16 21:08 21:13 21:18 Temperature Pulse Rate 68 63 60 Pulse Rate [ From Monitor] Respiratory Rate Blood Pressure Blood Pressure [Left Arm] O2 Sat by Pulse 98 98 98 Oximetry 10/26/16 10/26/16 10/26/16 21:23 21:28 21:33 Temperature Pulse Rate 60 60 58 L Pulse Rate [ From Monitor] Respiratory Rate Blood Pressure Blood Pressure [Left Arm] O2 Sat by Pulse 99 98 98 Oximetry 10/26/16 10/26/16 10/26/16 21:38 21:43 21:48 Temperature Pulse Rate 62 60 63 Pulse Rate [ From Monitor] Respiratory Rate Blood Pressure Blood Pressure [Left Arm] O2 Sat by Pulse 99 99 98 Oximetry 10/26/16 10/26/16 10/26/16 22:04 22:09 22:14 Temperature Pulse Rate 76 58 L 56 L Pulse Rate [ From Monitor] Respiratory Rate Blood Pressure Blood Pressure [Left Arm] O2 Sat by Pulse 98 99 98 Oximetry 10/26/16 10/26/16 10/26/16 22:19 22:24 22:29 Temperature Pulse Rate 55 L 57 L 56 L Pulse Rate [ From Monitor] Respiratory Rate Blood Pressure Blood Pressure [Left Arm] O2 Sat by Pulse 99 99 99 Oximetry 10/26/16 10/26/16 10/26/16 22:34 22:39 22:44 Temperature Pulse Rate 54 L 55 L 53 L Pulse Rate [ From Monitor] Respiratory Rate Blood Pressure Blood Pressure [Left Arm] O2 Sat by Pulse 99 98 99 Oximetry 10/26/16 10/26/16 10/26/16 22:49 22:54 22:56 Temperature Pulse Rate 59 L 61 61 Pulse Rate [ From Monitor] Respiratory Rate Blood Pressure Blood Pressure [Left Arm] O2 Sat by Pulse 99 98 87 Oximetry 10/26/16 10/26/16 10/26/16 22:59 23:00 23:04 Temperature 97.8 F Pulse Rate 54 L 57 L Pulse Rate [ 54 L From Monitor] Respiratory 18 Rate Blood Pressure 107/59 Blood Pressure 107/59 [Left Arm] O2 Sat by Pulse 98 100 Oximetry 10/26/16 10/26/16 10/26/16 23:09 23:14 23:19 Temperature Pulse Rate 57 L 54 L 54 L Pulse Rate [ From Monitor] Respiratory Rate Blood Pressure Blood Pressure [Left Arm] O2 Sat by Pulse 100 100 99 Oximetry 10/26/16 10/26/16 10/26/16 23:24 23:36 23:41 Temperature Pulse Rate 57 L 73 72 Pulse Rate [ From Monitor] Respiratory Rate Blood Pressure Blood Pressure [Left Arm] O2 Sat by Pulse 100 100 98 Oximetry 10/26/16 10/26/16 10/26/16 23:46 23:51 23:56 Temperature Pulse Rate 78 73 71 Pulse Rate [ From Monitor] Respiratory Rate Blood Pressure Blood Pressure [Left Arm] O2 Sat by Pulse 98 98 98 Oximetry 10/27/16 10/27/16 10/27/16 00:01 00:06 00:11 Temperature Pulse Rate 72 77 76 Pulse Rate [ From Monitor] Respiratory Rate Blood Pressure Blood Pressure [Left Arm] O2 Sat by Pulse 98 98 98 Oximetry 10/27/16 10/27/16 10/27/16 00:16 00:21 00:26 Temperature Pulse Rate 76 75 74 Pulse Rate [ From Monitor] Respiratory Rate Blood Pressure Blood Pressure [Left Arm] O2 Sat by Pulse 97 97 97 Oximetry 10/27/16 10/27/16 10/27/16 00:31 00:36 00:41 Temperature Pulse Rate 77 84 76 Pulse Rate [ From Monitor] Respiratory Rate Blood Pressure Blood Pressure [Left Arm] O2 Sat by Pulse 98 98 98 Oximetry 10/27/16 10/27/16 10/27/16 00:46 00:51 00:56 Temperature Pulse Rate 74 77 79 Pulse Rate [ From Monitor] Respiratory Rate Blood Pressure Blood Pressure [Left Arm] O2 Sat by Pulse 98 98 98 Oximetry 10/27/16 10/27/16 10/27/16 01:01 01:06 01:11 Temperature Pulse Rate 78 77 74 Pulse Rate [ From Monitor] Respiratory Rate Blood Pressure Blood Pressure [Left Arm] O2 Sat by Pulse 98 98 98 Oximetry 10/27/16 10/27/16 10/27/16 01:16 01:21 01:26 Temperature Pulse Rate 75 72 82 Pulse Rate [ From Monitor] Respiratory Rate Blood Pressure Blood Pressure [Left Arm] O2 Sat by Pulse 99 99 98 Oximetry 10/27/16 10/27/16 10/27/16 01:31 01:36 01:41 Temperature Pulse Rate 80 67 72 Pulse Rate [ From Monitor] Respiratory Rate Blood Pressure Blood Pressure [Left Arm] O2 Sat by Pulse 99 99 99 Oximetry 10/27/16 10/27/16 10/27/16 01:46 01:51 01:56 Temperature Pulse Rate 62 57 L 64 Pulse Rate [ From Monitor] Respiratory Rate Blood Pressure Blood Pressure [Left Arm] O2 Sat by Pulse 99 99 99 Oximetry 10/27/16 10/27/16 10/27/16 02:01 02:06 02:11 Temperature Pulse Rate 62 59 L 62 Pulse Rate [ From Monitor] Respiratory Rate Blood Pressure Blood Pressure [Left Arm] O2 Sat by Pulse 98 98 99 Oximetry 10/27/16 10/27/16 10/27/16 02:16 02:21 02:26 Temperature Pulse Rate 66 63 59 L Pulse Rate [ From Monitor] Respiratory Rate Blood Pressure Blood Pressure [Left Arm] O2 Sat by Pulse 98 99 99 Oximetry 10/27/16 10/27/16 10/27/16 02:31 02:36 02:41 Temperature Pulse Rate 54 L 57 L 62 Pulse Rate [ From Monitor] Respiratory Rate Blood Pressure Blood Pressure [Left Arm] O2 Sat by Pulse 99 99 99 Oximetry 10/27/16 10/27/16 10/27/16 02:46 02:51 02:56 Temperature Pulse Rate 61 60 54 L Pulse Rate [ From Monitor] Respiratory Rate Blood Pressure Blood Pressure [Left Arm] O2 Sat by Pulse 99 99 99 Oximetry 10/27/16 10/27/16 10/27/16 03:01 03:06 03:11 Temperature Pulse Rate 56 L 59 L 57 L Pulse Rate [ From Monitor] Respiratory Rate Blood Pressure Blood Pressure [Left Arm] O2 Sat by Pulse 98 98 98 Oximetry 10/27/16 10/27/16 10/27/16 03:16 03:21 03:26 Temperature Pulse Rate 73 57 L 59 L Pulse Rate [ From Monitor] Respiratory Rate Blood Pressure Blood Pressure [Left Arm] O2 Sat by Pulse 98 98 98 Oximetry 10/27/16 10/27/16 10/27/16 03:31 03:36 03:41 Temperature Pulse Rate 58 L 59 L 58 L Pulse Rate [ From Monitor] Respiratory Rate Blood Pressure Blood Pressure [Left Arm] O2 Sat by Pulse 98 98 98 Oximetry 10/27/16 10/27/16 10/27/16 03:46 03:51 03:57 Temperature 97.4 F L Pulse Rate 64 63 73 Pulse Rate [ 73 From Monitor] Respiratory 18 Rate Blood Pressure 116/58 Blood Pressure 116/58 [Left Arm] O2 Sat by Pulse 99 99 99 Oximetry 10/27/16 10/27/16 10/27/16 04:02 04:07 04:12 Temperature Pulse Rate 78 51 L 53 L Pulse Rate [ From Monitor] Respiratory Rate Blood Pressure Blood Pressure [Left Arm] O2 Sat by Pulse 99 98 98 Oximetry 10/27/16 10/27/16 10/27/16 04:17 04:22 04:27 Temperature Pulse Rate 71 51 L 56 L Pulse Rate [ From Monitor] Respiratory Rate Blood Pressure Blood Pressure [Left Arm] O2 Sat by Pulse 98 98 97 Oximetry 10/27/16 10/27/16 10/27/16 04:32 04:37 04:42 Temperature Pulse Rate 58 L 58 L 57 L Pulse Rate [ From Monitor] Respiratory Rate Blood Pressure Blood Pressure [Left Arm] O2 Sat by Pulse 97 97 97 Oximetry 10/27/16 10/27/16 10/27/16 04:47 04:52 04:57 Temperature Pulse Rate 58 L 59 L 64 Pulse Rate [ From Monitor] Respiratory Rate Blood Pressure Blood Pressure [Left Arm] O2 Sat by Pulse 97 97 98 Oximetry 10/27/16 10/27/16 10/27/16 05:02 05:07 05:12 Temperature Pulse Rate 62 65 62 Pulse Rate [ From Monitor] Respiratory Rate Blood Pressure Blood Pressure [Left Arm] O2 Sat by Pulse 98 98 98 Oximetry 10/27/16 10/27/16 10/27/16 05:17 05:22 05:27 Temperature Pulse Rate 69 65 60 Pulse Rate [ From Monitor] Respiratory Rate Blood Pressure Blood Pressure [Left Arm] O2 Sat by Pulse 99 98 99 Oximetry 10/27/16 10/27/16 10/27/16 05:30 05:32 07:58 Temperature Pulse Rate 58 L 61 56 L Pulse Rate [ From Monitor] Respiratory Rate Blood Pressure 111/55 Blood Pressure [Left Arm] O2 Sat by Pulse 94 96 Oximetry - Exam Breasts: deferred Cardiovascular: Regular rate Abdomen: Present: soft (gravid ) Uterus: Present: normal (gravid ) FHR: category 2 Uterine Contraction Monitor Mode: External Uterine Contraction Pattern: Absent Uterine Tone Measurement Phase: Resting - Labs Labs: Abnormal Labs 10/06/16 10/06/16 10/06/16 16:30 16:30 16:30 WBC RBC 3.51 L Hgb Hct [place] % (Auto) Seg Neutrophils % 74.3 H Seg Neutrophils # Sodium Carbon Dioxide BUN Creatinine 0.3 L POC Glucose Uric Acid 3.1 L Calcium Magnesium 4.20 H ALT Total Protein Albumin Urine pH 10/06/16 10/07/16 10/07/16 23:39 07:28 19:10 WBC RBC 3.16 L Hgb 9.2 L Hct 27.8 L [place] % (Auto) Seg Neutrophils % 76.3 H Seg Neutrophils # Sodium Carbon Dioxide BUN Creatinine POC Glucose Uric Acid Calcium Magnesium 5.90 H 4.50 H ALT Total Protein Albumin Urine pH 10/08/16 10/09/16 10/12/16 00:20 20:05 11:00 WBC RBC 2.79 L Hgb 8.3 L Hct 25.1 L [place] % (Auto) 7.9 H Seg Neutrophils % 71.3 H Seg Neutrophils # Sodium 132 L Carbon Dioxide 18 L BUN 5 L Creatinine 0.4 L POC Glucose 135 H Uric Acid Calcium 6.9 L Magnesium ALT < 5 L Total Protein 5.9 L Albumin 2.8 L Urine pH 10/14/16 10/22/16 10/24/16 14:12 15:30 17:34 WBC 11.2 H RBC 3.43 L 3.43 L Hgb 9.9 L 9.9 L Hct [place] % (Auto) 9.6 H Seg Neutrophils % 74.7 H 71.7 H Seg Neutrophils # 8.3 H Sodium Carbon Dioxide BUN Creatinine POC Glucose Uric Acid Calcium Magnesium ALT Total Protein Albumin Urine pH 8.0 H - Results US- obstetric: report reviewed
--- NOTE | 2016-10-27 09:07 | Ultrasound Report ---
BIOPHYSICAL PROFILE: 2 - breathing movements 2 - movements 2 - posture and tone 0 - Qualitative amniotic fluid volume 6 - TOTAL SCORE OF POSSIBLE 8 Heart Rate (bpm) 142 Estimated age of 25 weeks 4 days.
--- NOTE | 2016-10-27 09:13 | Ultrasound Report ---
COMPLETE OB ULTRASOUND: Gestation: [email or web address] Position: cephalic JEREMIE = 2.3 cm Heart Rate: 145 BPM BPD: 5.9 cm = 24 w 0 d HC: 21.2 cm = 23 w 2 d AC: 18.6 cm = 23 w 3 d FL: 4.1 cm = 23 w 3 d HC/AC Ratio: 1.14 Cephalic Index: 89.8 Estimated Weight: 594 grams Clinical age = 25 w 4 d EDC: 02/05/17 US Gest. Age = 23 w 4 d EDC: 02/19/17 Impression: Oligohydramnios.
[2016-10-27] MEDS: ZOLOFT PO SCH (10:14)
[2016-10-27] MEDS: FERGON PO SCH ×2 (10:14→22:04)
[2016-10-27] MEDS: PRENATAL VITAMIN PO SCH (10:15)
[2016-10-27] MEDS: AMBIEN PO PRN (22:57)
--- NOTE | 2016-10-28 07:40 | Progress Note ---
Assessment and Plan IMP: 1. IUP 25w5d 2. PPROM 3. breech converted to vertex as of 10/27/16 4. headache 5. depression/anxiety REC: 1. Continue expectant management. 2. No tocolysis. 3. PRN analgesia for headaches. 5. On Zoloft. Subjective - Subjective Date of service: 10/28/16 Principal diagnosis: IUP at 25w5d, PROM Patient reports: loss of fluid, movement normal, no new complaints, no contractions Objective - Vital Signs Vital Signs: Vital Signs - 12hr 10/27/16 10/27/16 10/27/16 19:42 19:47 19:48 Temperature 98.2 F Pulse Rate 79 67 67 Pulse Rate [ 79 From Monitor] Respiratory 20 Rate Blood Pressure 116/56 Blood Pressure 116/56 [Left Arm] O2 Sat by Pulse 99 99 Oximetry 10/27/16 10/27/16 10/27/16 19:52 19:57 20:02 Temperature Pulse Rate 71 82 60 Pulse Rate [ From Monitor] Respiratory Rate Blood Pressure Blood Pressure [Left Arm] O2 Sat by Pulse 98 98 100 Oximetry 10/27/16 10/27/16 10/27/16 20:07 20:12 20:17 Temperature Pulse Rate 63 66 65 Pulse Rate [ From Monitor] Respiratory Rate Blood Pressure Blood Pressure [Left Arm] O2 Sat by Pulse 100 99 98 Oximetry 10/27/16 10/27/16 10/27/16 20:22 20:27 20:32 Temperature Pulse Rate 65 69 64 Pulse Rate [ From Monitor] Respiratory Rate Blood Pressure Blood Pressure [Left Arm] O2 Sat by Pulse 99 98 98 Oximetry 10/27/16 10/27/16 10/27/16 20:37 20:42 20:47 Temperature Pulse Rate 65 63 65 Pulse Rate [ From Monitor] Respiratory Rate Blood Pressure Blood Pressure [Left Arm] O2 Sat by Pulse 99 98 99 Oximetry 10/27/16 10/27/16 10/27/16 20:52 20:57 21:02 Temperature Pulse Rate 67 65 65 Pulse Rate [ From Monitor] Respiratory Rate Blood Pressure Blood Pressure [Left Arm] O2 Sat by Pulse 99 99 99 Oximetry 10/28/16 10/28/16 00:11 03:51 Temperature 98.6 F 98.0 F Pulse Rate 62 70 Pulse Rate [ 62 70 From Monitor] Respiratory 18 18 Rate Blood Pressure 107/59 111/56 Blood Pressure 107/59 111/56 [Left Arm] O2 Sat by Pulse Oximetry - Exam Narrative Exam: appears well Abdomen: Present: soft. Absent: tenderness - Labs Labs: Abnormal Labs 10/06/16 10/06/16 10/06/16 16:30 16:30 16:30 WBC RBC 3.51 L Hgb Hct [place] % (Auto) Seg Neutrophils % 74.3 H Seg Neutrophils # Sodium Carbon Dioxide BUN Creatinine 0.3 L POC Glucose Uric Acid 3.1 L Calcium Magnesium 4.20 H ALT Total Protein Albumin Urine pH 10/06/16 10/07/16 10/07/16 23:39 07:28 19:10 WBC RBC 3.16 L Hgb 9.2 L Hct 27.8 L [place] % (Auto) Seg Neutrophils % 76.3 H Seg Neutrophils # Sodium Carbon Dioxide BUN Creatinine POC Glucose Uric Acid Calcium Magnesium 5.90 H 4.50 H ALT Total Protein Albumin Urine pH 10/08/16 10/09/16 10/12/16 00:20 20:05 11:00 WBC RBC 2.79 L Hgb 8.3 L Hct 25.1 L [place] % (Auto) 7.9 H Seg Neutrophils % 71.3 H Seg Neutrophils # Sodium 132 L Carbon Dioxide 18 L BUN 5 L Creatinine 0.4 L POC Glucose 135 H Uric Acid Calcium 6.9 L Magnesium ALT < 5 L Total Protein 5.9 L Albumin 2.8 L Urine pH 10/14/16 10/22/16 10/24/16 14:12 15:30 17:34 WBC 11.2 H RBC 3.43 L 3.43 L Hgb 9.9 L 9.9 L Hct [place] % (Auto) 9.6 H Seg Neutrophils % 74.7 H 71.7 H Seg Neutrophils # 8.3 H Sodium Carbon Dioxide BUN Creatinine POC Glucose Uric Acid Calcium Magnesium ALT Total Protein Albumin Urine pH 8.0 H - Results US- obstetric: report reviewed
[2016-10-28] MEDS: LACTATED RINGERS 1,000 ML IV SCH ×2 (08:15→15:58)
[2016-10-28] MEDS: PRENATAL VITAMIN PO SCH (10:22)
[2016-10-28] MEDS: FERGON PO SCH ×2 (10:22→22:38)
[2016-10-28] MEDS: ZOLOFT PO SCH (10:23)
--- NOTE | 2016-10-28 13:31 | Progress Note ---
Assessment and Plan - Patient Problems (1) premature rupture of membranes Current Visit: Yes Status: Acute Qualifiers: PROM onset of labor timing: P Plan to address problem: continue plan of care Subjective - Subjective Date of service: 10/28/16 Principal diagnosis: IUP at 25w5d, PROM Interval history: 25+5 weeks. No usual complaints today. Reassuring tracing. She denies any abdominal pain or regular contractions. Patient reports: loss of fluid, movement normal, no new complaints, no contractions Objective - Vital Signs Vital Signs: Vital Signs - 12hr 10/28/16 10/28/16 10/28/16 03:51 08:19 08:20 Temperature 98.0 F 98.6 F Pulse Rate 70 63 61 Pulse Rate [ 70 64 From Monitor] Respiratory 18 18 Rate Blood Pressure 111/56 118/56 Blood Pressure 111/56 118/56 [Left Arm] O2 Sat by Pulse 98 Oximetry 10/28/16 10/28/16 10/28/16 12:36 12:38 12:41 Temperature 99.0 F Pulse Rate 78 68 Pulse Rate [ 77 From Monitor] Respiratory 18 Rate Blood Pressure Blood Pressure 118/56 [Left Arm] O2 Sat by Pulse 99 99 Oximetry 10/28/16 10/28/16 12:46 12:51 Temperature Pulse Rate 73 79 Pulse Rate [ From Monitor] Respiratory Rate Blood Pressure Blood Pressure [Left Arm] O2 Sat by Pulse 99 98 Oximetry - Exam Abdomen: Present: normal appearance, soft - Labs Labs: Abnormal Labs 10/06/16 10/06/16 10/06/16 16:30 16:30 16:30 WBC RBC 3.51 L Hgb Hct [place] % (Auto) Seg Neutrophils % 74.3 H Seg Neutrophils # Sodium Carbon Dioxide BUN Creatinine 0.3 L POC Glucose Uric Acid 3.1 L Calcium Magnesium 4.20 H ALT Total Protein Albumin Urine pH 10/06/16 10/07/16 10/07/16 23:39 07:28 19:10 WBC RBC 3.16 L Hgb 9.2 L Hct 27.8 L [place] % (Auto) Seg Neutrophils % 76.3 H Seg Neutrophils # Sodium Carbon Dioxide BUN Creatinine POC Glucose Uric Acid Calcium Magnesium 5.90 H 4.50 H ALT Total Protein Albumin Urine pH 10/08/16 10/09/16 10/12/16 00:20 20:05 11:00 WBC RBC 2.79 L Hgb 8.3 L Hct 25.1 L [place] % (Auto) 7.9 H Seg Neutrophils % 71.3 H Seg Neutrophils # Sodium 132 L Carbon Dioxide 18 L BUN 5 L Creatinine 0.4 L POC Glucose 135 H Uric Acid Calcium 6.9 L Magnesium ALT < 5 L Total Protein 5.9 L Albumin 2.8 L Urine pH 10/14/16 10/22/16 10/24/16 14:12 15:30 17:34 WBC 11.2 H RBC 3.43 L 3.43 L Hgb 9.9 L 9.9 L Hct [place] % (Auto) 9.6 H Seg Neutrophils % 74.7 H 71.7 H Seg Neutrophils # 8.3 H Sodium Carbon Dioxide BUN Creatinine POC Glucose Uric Acid Calcium Magnesium ALT Total Protein Albumin Urine pH 8.0 H
[2016-10-28] MEDS: AMBIEN PO PRN (22:38)
[2016-10-29] MEDS: ZOLOFT PO SCH (09:40)
[2016-10-29] MEDS: FERGON PO SCH ×2 (09:41→22:16)
[2016-10-29] MEDS: PRENATAL VITAMIN PO SCH (09:42)
[2016-10-29] MEDS: LACTATED RINGERS 1,000 ML IV SCH ×2 (10:42→17:52)
--- NOTE | 2016-10-29 13:47 | Progress Note ---
Assessment and Plan :HD#20; IUP at 25w6d s/p 2 doses of betamethasone. s/p NICU consult. PPROM on 10/07/16 s/p 7 days of latency antibiotics conversion of breech to vertex Previous x 1 Asthma Anemia Irregular heart beat and intermittent bradycardia s/p Cardiology consult; No intervention needed, reconsult PRN Oligohydramnios Questionable seizure activity s/p neurology consult and normal MRI brain Depression- Zoloft 50 mg daily Headache- Fioricet PRN Insufficient care P: Continue close observation of maternal and status. Deliver for signs of chorioamnionitis or distress. No tocolysis continue present mgt Subjective - Subjective Date of service: 10/29/16 Principal diagnosis: IUP at 25w6d, PROM,vertex Interval history: This is a 21 yo EDC 02/05/17 here via ambulance with seizure activity. She was brought in and given 4mg Ativan. She states that she has been fine until several days ago with pain in pelvic area and cousin stated that today at 2p she started shaking after c/o pain in pelvic abdominal area. She does not have any histroy of seiaure and only medical problem consists of asthma Patient reports: loss of fluid, movement normal, no new complaints, no contractions Objective - Vital Signs Vital Signs: Vital Signs - 12hr 10/29/16 10/29/16 10/29/16 03:02 03:07 03:12 Temperature Pulse Rate 58 L 63 55 L Pulse Rate [ From Monitor] Respiratory Rate Blood Pressure Blood Pressure [Left Arm] O2 Sat by Pulse 99 99 100 Oximetry 10/29/16 10/29/16 10/29/16 03:17 03:22 03:27 Temperature Pulse Rate 53 L 51 L 60 Pulse Rate [ From Monitor] Respiratory Rate Blood Pressure Blood Pressure [Left Arm] O2 Sat by Pulse 100 100 100 Oximetry 10/29/16 10/29/16 10/29/16 03:32 03:37 03:42 Temperature Pulse Rate 60 56 L 55 L Pulse Rate [ From Monitor] Respiratory Rate Blood Pressure Blood Pressure [Left Arm] O2 Sat by Pulse 100 100 100 Oximetry 10/29/16 10/29/16 10/29/16 03:47 03:52 03:57 Temperature Pulse Rate 55 L 56 L 52 L Pulse Rate [ From Monitor] Respiratory Rate Blood Pressure Blood Pressure [Left Arm] O2 Sat by Pulse 100 100 100 Oximetry 10/29/16 10/29/16 10/29/16 04:02 04:07 04:12 Temperature Pulse Rate 73 54 L 52 L Pulse Rate [ From Monitor] Respiratory Rate Blood Pressure Blood Pressure [Left Arm] O2 Sat by Pulse 100 100 100 Oximetry 10/29/16 10/29/16 10/29/16 04:17 04:22 04:27 Temperature Pulse Rate 56 L 55 L 60 Pulse Rate [ From Monitor] Respiratory Rate Blood Pressure Blood Pressure [Left Arm] O2 Sat by Pulse 100 100 100 Oximetry 10/29/16 10/29/16 10/29/16 04:32 04:37 04:42 Temperature Pulse Rate 53 L 53 L 52 L Pulse Rate [ From Monitor] Respiratory Rate Blood Pressure Blood Pressure [Left Arm] O2 Sat by Pulse 99 99 100 Oximetry 10/29/16 10/29/16 10/29/16 04:44 05:10 05:11 Temperature Pulse Rate 74 63 Pulse Rate [ From Monitor] Respiratory Rate Blood Pressure Blood Pressure [Left Arm] O2 Sat by Pulse 89 63 L 100 Oximetry 10/29/16 10/29/16 10/29/16 05:16 05:21 05:26 Temperature Pulse Rate 53 L 57 L 64 Pulse Rate [ From Monitor] Respiratory Rate Blood Pressure Blood Pressure [Left Arm] O2 Sat by Pulse 98 99 100 Oximetry 10/29/16 10/29/16 10/29/16 05:31 05:36 05:41 Temperature Pulse Rate 82 61 62 Pulse Rate [ From Monitor] Respiratory Rate Blood Pressure Blood Pressure [Left Arm] O2 Sat by Pulse 99 98 98 Oximetry 10/29/16 10/29/16 10/29/16 05:46 05:51 05:56 Temperature Pulse Rate 62 63 63 Pulse Rate [ From Monitor] Respiratory Rate Blood Pressure Blood Pressure [Left Arm] O2 Sat by Pulse 98 98 99 Oximetry 10/29/16 10/29/16 10/29/16 06:01 06:05 06:06 Temperature 98.0 F Pulse Rate 75 57 L Pulse Rate [ 74 From Monitor] Respiratory 20 Rate Blood Pressure Blood Pressure 111/59 [Left Arm] O2 Sat by Pulse 73 L 97 Oximetry 10/29/16 10/29/16 10/29/16 06:11 06:16 06:21 Temperature Pulse Rate 59 L 62 60 Pulse Rate [ From Monitor] Respiratory Rate Blood Pressure Blood Pressure [Left Arm] O2 Sat by Pulse 98 98 98 Oximetry 10/29/16 10/29/16 10/29/16 06:26 06:31 06:36 Temperature Pulse Rate 62 64 60 Pulse Rate [ From Monitor] Respiratory Rate Blood Pressure Blood Pressure [Left Arm] O2 Sat by Pulse 98 98 98 Oximetry 10/29/16 10/29/16 10/29/16 06:38 06:40 06:41 Temperature Pulse Rate 58 L 83 61 Pulse Rate [ From Monitor] Respiratory Rate Blood Pressure 101/59 Blood Pressure [Left Arm] O2 Sat by Pulse 77 L 99 Oximetry 10/29/16 10/29/16 10/29/16 06:46 06:51 06:54 Temperature Pulse Rate 64 59 L 61 Pulse Rate [ From Monitor] Respiratory Rate Blood Pressure Blood Pressure [Left Arm] O2 Sat by Pulse 99 97 93 Oximetry 10/29/16 10/29/16 10/29/16 06:56 07:01 07:06 Temperature Pulse Rate 56 L 67 69 Pulse Rate [ From Monitor] Respiratory Rate Blood Pressure Blood Pressure [Left Arm] O2 Sat by Pulse 95 98 98 Oximetry 10/29/16 10/29/16 10/29/16 07:11 07:16 07:21 Temperature Pulse Rate 54 L 57 L 59 L Pulse Rate [ From Monitor] Respiratory Rate Blood Pressure Blood Pressure [Left Arm] O2 Sat by Pulse 100 100 100 Oximetry 10/29/16 10/29/16 10/29/16 07:25 07:26 07:31 Temperature Pulse Rate 54 L 33 L 63 Pulse Rate [ From Monitor] Respiratory Rate Blood Pressure Blood Pressure [Left Arm] O2 Sat by Pulse 65 L 0 L 100 Oximetry 10/29/16 10/29/16 10/29/16 07:36 07:41 07:46 Temperature Pulse Rate 55 L 58 L 60 Pulse Rate [ From Monitor] Respiratory Rate Blood Pressure Blood Pressure [Left Arm] O2 Sat by Pulse 100 100 100 Oximetry 10/29/16 10/29/16 10/29/16 07:51 07:56 08:01 Temperature Pulse Rate 55 L 58 L 57 L Pulse Rate [ From Monitor] Respiratory Rate Blood Pressure Blood Pressure [Left Arm] O2 Sat by Pulse 100 100 100 Oximetry 10/29/16 10/29/16 10/29/16 08:06 08:11 08:16 Temperature Pulse Rate 56 L 55 L 61 Pulse Rate [ From Monitor] Respiratory Rate Blood Pressure Blood Pressure [Left Arm] O2 Sat by Pulse 99 100 100 Oximetry 10/29/16 10/29/16 10/29/16 08:21 08:26 08:31 Temperature Pulse Rate 58 L 61 62 Pulse Rate [ From Monitor] Respiratory Rate Blood Pressure Blood Pressure [Left Arm] O2 Sat by Pulse 100 100 100 Oximetry 10/29/16 10/29/16 10/29/16 08:36 08:41 08:46 Temperature Pulse Rate 60 57 L 58 L Pulse Rate [ From Monitor] Respiratory Rate Blood Pressure Blood Pressure [Left Arm] O2 Sat by Pulse 100 100 100 Oximetry 10/29/16 10/29/16 10/29/16 08:51 08:56 08:59 Temperature Pulse Rate 59 L 59 L 80 Pulse Rate [ From Monitor] Respiratory Rate Blood Pressure Blood Pressure [Left Arm] O2 Sat by Pulse 100 100 60 L Oximetry 10/29/16 10/29/16 10/29/16 09:01 09:06 09:07 Temperature Pulse Rate 65 64 62 Pulse Rate [ From Monitor] Respiratory Rate Blood Pressure 108/55 Blood Pressure [Left Arm] O2 Sat by Pulse 100 99 Oximetry 10/29/16 10/29/16 10/29/16 09:10 09:11 09:16 Temperature 97 F L Pulse Rate 77 64 Pulse Rate [ 61 From Monitor] Respiratory 18 Rate Blood Pressure Blood Pressure 108/55 [Left Arm] O2 Sat by Pulse 96 98 Oximetry 10/29/16 10/29/16 10/29/16 09:21 09:26 09:31 Temperature Pulse Rate 67 63 63 Pulse Rate [ From Monitor] Respiratory Rate Blood Pressure Blood Pressure [Left Arm] O2 Sat by Pulse 97 97 97 Oximetry 10/29/16 10/29/16 10/29/16 09:36 09:41 09:45 Temperature Pulse Rate 64 81 59 L Pulse Rate [ From Monitor] Respiratory Rate Blood Pressure Blood Pressure [Left Arm] O2 Sat by Pulse 97 99 91 Oximetry 10/29/16 10/29/16 10/29/16 09:54 09:55 10:00 Temperature Pulse Rate 64 Pulse Rate [ From Monitor] Respiratory Rate Blood Pressure Blood Pressure [Left Arm] O2 Sat by Pulse 86 100 100 Oximetry 10/29/16 10/29/16 10/29/16 10:05 10:10 10:15 Temperature Pulse Rate 61 65 61 Pulse Rate [ From Monitor] Respiratory Rate Blood Pressure Blood Pressure [Left Arm] O2 Sat by Pulse 100 98 99 Oximetry 10/29/16 10/29/16 10/29/16 10:17 10:20 10:25 Temperature Pulse Rate 85 86 62 Pulse Rate [ From Monitor] Respiratory Rate Blood Pressure Blood Pressure [Left Arm] O2 Sat by Pulse 89 98 99 Oximetry 10/29/16 10/29/16 10/29/16 10:30 10:35 10:40 Temperature Pulse Rate 63 63 64 Pulse Rate [ From Monitor] Respiratory Rate Blood Pressure Blood Pressure [Left Arm] O2 Sat by Pulse 100 99 99 Oximetry 10/29/16 10/29/16 10/29/16 10:45 10:50 10:55 Temperature Pulse Rate 63 67 66 Pulse Rate [ From Monitor] Respiratory Rate Blood Pressure Blood Pressure [Left Arm] O2 Sat by Pulse 99 98 98 Oximetry 10/29/16 10/29/16 10/29/16 11:00 11:05 11:10 Temperature Pulse Rate 67 71 65 Pulse Rate [ From Monitor] Respiratory Rate Blood Pressure Blood Pressure [Left Arm] O2 Sat by Pulse 98 99 99 Oximetry 10/29/16 10/29/16 10/29/16 11:15 11:20 11:25 Temperature Pulse Rate 67 69 70 Pulse Rate [ From Monitor] Respiratory Rate Blood Pressure Blood Pressure [Left Arm] O2 Sat by Pulse 98 99 100 Oximetry 10/29/16 10/29/16 10/29/16 11:30 11:35 11:40 Temperature Pulse Rate 71 83 73 Pulse Rate [ From Monitor] Respiratory Rate Blood Pressure Blood Pressure [Left Arm] O2 Sat by Pulse 97 99 99 Oximetry 10/29/16 10/29/16 10/29/16 11:48 11:53 11:58 Temperature Pulse Rate 88 74 84 Pulse Rate [ From Monitor] Respiratory Rate Blood Pressure Blood Pressure [Left Arm] O2 Sat by Pulse 46 L 99 99 Oximetry 10/29/16 10/29/16 10/29/16 12:03 12:08 12:13 Temperature Pulse Rate 83 80 88 Pulse Rate [ From Monitor] Respiratory Rate Blood Pressure Blood Pressure [Left Arm] O2 Sat by Pulse 98 98 99 Oximetry 10/29/16 10/29/1617 12:18 12:23 12:28 Temperature Pulse Rate 79 69 74 Pulse Rate [ From Monitor] Respiratory Rate Blood Pressure Blood Pressure [Left Arm] O2 Sat by Pulse 100 100 100 Oximetry 10/29/16 10/29/16 10/29/16 12:33 12:38 12:43 Temperature Pulse Rate 80 79 80 Pulse Rate [ From Monitor] Respiratory Rate Blood Pressure Blood Pressure [Left Arm] O2 Sat by Pulse 99 98 99 Oximetry 10/29/16 10/29/16 10/29/16 12:48 12:53 12:58 Temperature Pulse Rate 75 68 69 Pulse Rate [ From Monitor] Respiratory Rate Blood Pressure Blood Pressure [Left Arm] O2 Sat by Pulse 98 99 98 Oximetry 10/29/16 10/29/16 10/29/16 13:03 13:08 13:13 Temperature Pulse Rate 68 89 80 Pulse Rate [ From Monitor] Respiratory Rate Blood Pressure Blood Pressure [Left Arm] O2 Sat by Pulse 98 98 97 Oximetry 10/29/16 10/29/16 10/29/16 13:18 13:23 13:28 Temperature Pulse Rate 77 72 77 Pulse Rate [ From Monitor] Respiratory Rate Blood Pressure Blood Pressure [Left Arm] O2 Sat by Pulse 98 97 98 Oximetry 10/29/16 10/29/16 13:33 13:38 Temperature Pulse Rate 78 76 Pulse Rate [ From Monitor] Respiratory Rate Blood Pressure Blood Pressure [Left Arm] O2 Sat by Pulse 97 97 Oximetry - Exam Breasts: deferred Cardiovascular: Regular rate, Normal S1 Lungs: Clear to auscultation, Normal air movement Abdomen: Present: normal appearance, soft, normal bowel sounds. Absent: distention, tenderness Vulva: both: normal Uterus: Present: normal, firm - Labs Labs: Abnormal Labs 10/06/16 10/06/16 10/06/16 16:30 16:30 16:30 WBC RBC 3.51 L Hgb Hct [place] % (Auto) Seg Neutrophils % 74.3 H Seg Neutrophils # Sodium Carbon Dioxide BUN Creatinine 0.3 L POC Glucose Uric Acid 3.1 L Calcium Magnesium 4.20 H ALT Total Protein Albumin Urine pH 10/06/16 10/07/16 10/07/16 23:39 07:28 19:10 WBC RBC 3.16 L Hgb 9.2 L Hct 27.8 L [place] % (Auto) Seg Neutrophils % 76.3 H Seg Neutrophils # Sodium Carbon Dioxide BUN Creatinine POC Glucose Uric Acid Calcium Magnesium 5.90 H 4.50 H ALT Total Protein Albumin Urine pH 10/08/16 10/09/16 10/12/16 00:20 20:05 11:00 WBC RBC 2.79 L Hgb 8.3 L Hct 25.1 L [place] % (Auto) 7.9 H Seg Neutrophils % 71.3 H Seg Neutrophils # Sodium 132 L Carbon Dioxide 18 L BUN 5 L Creatinine 0.4 L POC Glucose 135 H Uric Acid Calcium 6.9 L Magnesium ALT < 5 L Total Protein 5.9 L Albumin 2.8 L Urine pH 10/14/16 10/22/16 10/24/16 14:12 15:30 17:34 WBC 11.2 H RBC 3.43 L 3.43 L Hgb 9.9 L 9.9 L Hct [place] % (Auto) 9.6 H Seg Neutrophils % 74.7 H 71.7 H Seg Neutrophils # 8.3 H Sodium Carbon Dioxide BUN Creatinine POC Glucose Uric Acid Calcium Magnesium ALT Total Protein Albumin Urine pH 8.0 H
[2016-10-29] MEDS: AMBIEN PO PRN (22:16)
--- NOTE | 2016-10-30 00:15 | Ultrasound Report ---
FINAL REPORT EXAM: US OB BPP WO NON-STRESS HISTORY: prom COMPARISON: October 06, 2016. TECHNIQUE: Several real-time grayscale and color Doppler images were obtained. FINDINGS: There is normal tone and movements. breathing movements amniotic fluid are not within normal limits. heart rate 152 beats per minute. IMPRESSION: Biophysical profile score 4/8.
--- NOTE | 2016-10-30 00:19 | Ultrasound Report ---
FINAL REPORT EXAM: US OB LIMITED HISTORY: prom JEREMIE COMPARISON: October 06, 2016. FINDINGS: Single live IUP. Estimated gestational age 25 weeks 6 days. Estimated delivery date February 05, 2017. heart rate 152 beats per minute. JEREMIE 2.3 centimeters. On prior exam, JEREMIE was 2.3 centimeters. Limited evaluation of structures due to marked oligohydramnios. This questionable pericardial effusion measuring 3 millimeters in thickness. position is not well demonstrated on this study but appears to be vertex. Placenta location appears to be posterior. Technologist does not note positioning of the placenta. IMPRESSION: Single live IUP. Estimated gestational age 25 weeks 6 days. Estimated delivery date February 05, 2017. Marked oligohydramnios similar prior study. This limits evaluation of structures. Questionable trace pericardial fluid. position not well demonstrated on this study but appears to be vertex.
[2016-10-30] MEDS: LACTATED RINGERS 1,000 ML IV SCH ×3 (01:40→17:46)
[2016-10-30] MEDS: PRENATAL VITAMIN PO SCH (10:50)
[2016-10-30] MEDS: FERGON PO SCH ×2 (10:50→22:28)
[2016-10-30] MEDS: ZOLOFT PO SCH (10:50)
--- NOTE | 2016-10-30 13:42 | Progress Note ---
Assessment and Plan :HD#20; IUP at 26weeks s/p 2 doses of betamethasone. s/p NICU consult. PPROM on 10/07/16 s/p 7 days of latency antibiotics conversion of breech to vertex Previous x 1 Asthma Anemia Irregular heart beat and intermittent bradycardia s/p Cardiology consult; No intervention needed, reconsult PRN Oligohydramnios Questionable seizure activity s/p neurology consult and normal MRI brain Depression- Zoloft 50 mg daily Headache- Fioricet PRN Insufficient care BPP 10/09 , Thursday BPP 08/09 EFM reactive NST cat 1 P: Continue close observation of maternal and status. Deliver for signs of chorioamnionitis or distress. No tocolysis continue present mgt CBC today last ( wbc -nl) BPP today Subjective - Subjective Principal diagnosis: IUP at 26 weeks , PROM ,vertex Interval history: This is a 21 yo EDC 02/05/17 here via ambulance with seizure activity. She was brought in and given 4mg Ativan. She states that she has been fine until several days ago with pain in pelvic area and cousin stated that today at 2p she started shaking after c/o pain in pelvic abdominal area. She does not have any histroy of seiaure and only medical problem consists of asthma Patient reports: loss of fluid, movement normal, no new complaints, no vaginal bleeding, no contractions Objective - Vital Signs Vital Signs: Vital Signs - 12hr 10/30/16 10/30/16 10/30/16 03:54 03:55 10:46 Temperature 97.6 F Pulse Rate 57 L 66 Pulse Rate [ 61 From Monitor] Respiratory 20 Rate Blood Pressure 91/53 107/59 Blood Pressure 91/53 [Left Arm] O2 Sat by Pulse 98 98 98 Oximetry 10/30/16 10/30/16 10/30/16 10:48 10:51 10:56 Temperature 98.4 F Pulse Rate 74 65 Pulse Rate [ 66 From Monitor] Respiratory 18 Rate Blood Pressure Blood Pressure 107/59 [Left Arm] O2 Sat by Pulse 99 97 98 Oximetry 10/30/16 10/30/16 12:27 12:29 Temperature 98.9 F Pulse Rate 76 Pulse Rate [ 75 From Monitor] Respiratory 18 Rate Blood Pressure 112/55 Blood Pressure 112/55 [Left Arm] O2 Sat by Pulse 96 Oximetry - Exam Breasts: deferred Cardiovascular: Regular rate, Normal S1 Lungs: Clear to auscultation, Normal air movement Abdomen: Present: normal appearance, soft, normal bowel sounds. Absent: distention, tenderness Vulva: both: normal Uterus: Present: normal, firm. Absent: bogginess, tenderness FHR: category 1 - Labs Labs: Abnormal Labs 10/06/16 10/06/16 10/06/16 16:30 16:30 16:30 WBC RBC 3.51 L Hgb Hct [place] % (Auto) Seg Neutrophils % 74.3 H Seg Neutrophils # Sodium Carbon Dioxide BUN Creatinine 0.3 L POC Glucose Uric Acid 3.1 L Calcium Magnesium 4.20 H ALT Total Protein Albumin Urine pH 10/06/16 10/07/16 10/07/16 23:39 07:28 19:10 WBC RBC 3.16 L Hgb 9.2 L Hct 27.8 L [place] % (Auto) Seg Neutrophils % 76.3 H Seg Neutrophils # Sodium Carbon Dioxide BUN Creatinine POC Glucose Uric Acid Calcium Magnesium 5.90 H 4.50 H ALT Total Protein Albumin Urine pH 10/08/16 10/09/16 10/12/16 00:20 20:05 11:00 WBC RBC 2.79 L Hgb 8.3 L Hct 25.1 L [place] % (Auto) 7.9 H Seg Neutrophils % 71.3 H Seg Neutrophils # Sodium 132 L Carbon Dioxide 18 L BUN 5 L Creatinine 0.4 L POC Glucose 135 H Uric Acid Calcium 6.9 L Magnesium ALT < 5 L Total Protein 5.9 L Albumin 2.8 L Urine pH 10/14/16 10/22/16 10/24/16 14:12 15:30 17:34 WBC 11.2 H RBC 3.43 L 3.43 L Hgb 9.9 L 9.9 L Hct [place] % (Auto) 9.6 H Seg Neutrophils % 74.7 H 71.7 H Seg Neutrophils # 8.3 H Sodium Carbon Dioxide BUN Creatinine POC Glucose Uric Acid Calcium Magnesium ALT Total Protein Albumin Urine pH 8.0 H
--- NOTE | 2016-10-30 14:27 | Consultation ---
History of Present Illness Consult date: 10/30/16 Requesting physician: BYRON STALLWORTH History of present illness: :HD#21; This is a 21 yo EDC 02/05/17 here via ambulance with seizure activity on 10/06. She was brought in and given 4mg Ativan. Now followed for PPROM Denies fever, abdominal pain Reports some leakage Occ CTX/ Abdomen NT ---- BPP 10/29/16 4/8 (minus 2 for breathing and fluid ) BPP to be repeated today Impression: [place] IUP at 26w0d s/p 2 doses of betamethasone. s/p NICU consult. PPROM on 10/07/16 s/p 7 days of latency antibiotics conversion of breech to vertex Previous x 1 Asthma Anemia Irregular heart beat and intermittent bradycardia s/p Cardiology consult; No intervention needed, reconsult PRN Oligohydramnios Questionable seizure activity s/p neurology consult and normal MRI brain Depression- Zoloft 50 mg daily Headache- Fioricet PRN Insufficient care P: Continue close observation of maternal and status. Deliver for signs of chorioamnionitis or distress. No tocolysis continue present mgt Repeat BPP later today - Discussed with Dr. Ankita Stallworth BPP twice per week and EFW q 2 weeks Past History Past Medical History: asthma Past Surgical History: section (x1 for failure to dilate ) Family/Genetic History: none - Obstetrical History : 2 Medications and Allergies Allergies Allergy/AdvReac Type Severity Reaction Status Date / Time coconut oil Allergy Hives Verified 03/29/14 21:23 kiwi Allergy Hives Verified 03/29/14 21:23 lactose AdvReac Diarrhea Verified 10/27/16 09:18 Home Medications Medication Instructions Recorded Confirmed Last Taken Type Ferrous Sulfate [Feosol 325 MG tab] 325 mg PO BID #60 tablet 01/27/16 10/06/16 Unknown Rx Ibuprofen [Motrin 800 MG tab] 800 mg PO Q8HR PRN #30 tablet 01/27/16 10/06/16 Unknown Rx oxyCODONE /ACETAMINOPHEN [Percocet 1 tab PO Q6HR PRN #30 tablet 01/27/16 Unknown Rx 5/325] Vit W-Ca,Fe,FA(<1 mg) 1 each PO DAILY 10/06/16 10/16/1617 08:00 History [ Vitamins] t Active Meds: Active Medications Acetaminophen (Tylenol) 1,000 mg PO Q6H PRN PRN Reason: Pain, Mild (1-3) Last Admin: 10/21/16 14:35 Dose: 1,000 mg Acetaminophen/Butalbital/Caffeine (Fioricet) 1 tab PO Q4H PRN PRN Reason: Headache Last Admin: 10/21/16 12:32 Dose: 1 tab Al Hydrox/Mg Hydrox/Simethicone (Alum-Mag Hydrox-Simeth [id number]/5ml) 30 ml PO Q6H PRN PRN Reason: Indigestion Albuterol (Proventil) 2.5 mg IH Q4HRT PRN PRN Reason: Shortness Of Breath Diphenhydramine HCl (Benadryl) 25 mg PO Q6H PRN PRN Reason: Itching Docusate Sodium (Colace) 100 mg PO Q12H PRN PRN Reason: Constipation Last Admin: 10/10/16 10:53 Dose: 100 mg Ferrous Gluconate (Fergon) 324 mg PO BID [facility] Last Admin: 10/30/16 10:50 Dose: 324 mg Lactated Ringer's (Lactated Ringers) 1,000 mls @ 125 mls/hr IV DIRECT [facility] Last Admin: 10/30/16 09:43 Dose: 125 mls/hr Loperamide HCl (Imodium) 2 mg PO Q2H PRN PRN Reason: Diarrhea Lorazepam (Ativan) 1 mg IV Q4H PRN PRN Reason: Seizures Last Admin: 10/14/16 01:12 Dose: 1 mg Magnesium Hydroxide (Milk Of Magnesia) 30 ml PO QHS PRN PRN Reason: Laxative Effect Multivitamins/Iron/Calcium ( Vitamin) 1 each PO QDAY [facility] Last Admin: 10/30/16 10:50 Dose: 1 each Ondansetron HCl (Zofran) 4 mg IV Q6H PRN PRN Reason: Nausea And Vomiting Last Admin: 10/25/16 22:48 Dose: 4 mg Pseudoephedrine HCl (Sudafed) 30 mg PO Q4H PRN PRN Reason: Nasal Congestion Senna/Docusate Sodium (Senokot S) 2 tab PO Q12H PRN PRN Reason: Laxative Effect Sertraline HCl (Zoloft) 50 mg PO QDAY [facility] Last Admin: 10/30/16 10:50 Dose: 50 mg Simethicone (Mylicon) 80 mg PO Q6H PRN PRN Reason: Gas pain Last Admin: 10/08/16 08:02 Dose: 80 mg Sodium Chloride (Deep Sea) 2 spray NS Q4H PRN PRN Reason: Congestion Zolpidem Tartrate (Ambien) 10 mg PO ONCE PRN PRN Reason: Sleep Last Admin: 10/29/16 22:16 Dose: 10 mg - Vital Signs Vital signs: Vital Signs Pulse Pulse Ox 110 H 76 L 10/06/16 15:10 10/06/16 15:10 Temp Pulse Resp BP Pulse Ox 98.9 F 75 18 112/55 96 10/30/16 12:29 10/30/16 12:29 10/30/16 12:29 10/30/16 12:29 10/30/16 12:29 Results Result Diagrams: 10/22/16 15:30 10/08/16 00:20 All other labs normal.
--- NOTE | 2016-10-30 19:18 | Progress Note ---
Assessment and Plan I: 1. IUP 26 0/7weeks 2. PPROM 3. Depression/anxiety 4. s/p BMZ and latency antibiotics REC: 1. Discussed variable decelerations , cord compression, oligohydramnios, role of maternal repositioning and O2 supplementation 2. Monitor for distress, NRFHT , labor , chorioamnionitis 3. Continue Zoloft. 4. delivery at 34 weeks gestation , sooner if indicated 5. BPP was reported as 4/8 secondary to absent breathing /oligohydramnios In the absence of a cat III tracing , continue to monitor. Subjective - Subjective Date of service: 10/30/16 Principal diagnosis: IUP at 26 0/7 weeks , PROM Interval history: She had no related complaints but had questions about the variable decelerations Patient reports: loss of fluid, movement normal, no new complaints, no vaginal bleeding, no contractions Objective - Vital Signs Vital Signs: Vital Signs - 12hr 10/30/16 10/30/16 10/30/16 10:46 10:48 10:51 Temperature 98.4 F Pulse Rate 66 74 Pulse Rate [ 66 From Monitor] Respiratory 18 Rate Blood Pressure 107/59 Blood Pressure 107/59 [Left Arm] O2 Sat by Pulse 98 99 97 Oximetry 10/30/16 10/30/16 10/30/16 10:56 12:27 12:29 Temperature 98.9 F Pulse Rate 65 76 Pulse Rate [ 75 From Monitor] Respiratory 18 Rate Blood Pressure 112/55 Blood Pressure 112/55 [Left Arm] O2 Sat by Pulse 98 96 Oximetry 10/30/16 10/30/16 16:39 16:41 Temperature 99.1 F Pulse Rate 71 Pulse Rate [ 68 From Monitor] Respiratory 18 Rate Blood Pressure 105/55 Blood Pressure 105/55 [Left Arm] O2 Sat by Pulse 98 97 Oximetry - Exam Narrative Exam: laying up in bed NAD Appears comfortable Abdomen: Present: normal appearance, soft (no palpable contractions) FHR: category 1 (noted to have occasional variable decelerations, tracing reassuring otherwise , moderate variability toco no contractions) Extremities: normal - Labs Labs: Abnormal Labs 10/06/16 10/06/16 10/06/16 16:30 16:30 16:30 WBC RBC 3.51 L Hgb Hct [place] % (Auto) Seg Neutrophils % 74.3 H Seg Neutrophils # Sodium Carbon Dioxide BUN Creatinine 0.3 L POC Glucose Uric Acid 3.1 L Calcium Magnesium 4.20 H ALT Total Protein Albumin Urine pH 10/06/16 10/07/16 10/07/16 23:39 07:28 19:10 WBC RBC 3.16 L Hgb 9.2 L Hct 27.8 L [place] % (Auto) Seg Neutrophils % 76.3 H Seg Neutrophils # Sodium Carbon Dioxide BUN Creatinine POC Glucose Uric Acid Calcium Magnesium 5.90 H 4.50 H ALT Total Protein Albumin Urine pH 10/08/16 10/09/16 10/12/16 00:20 20:05 11:00 WBC RBC 2.79 L Hgb 8.3 L Hct 25.1 L [place] % (Auto) 7.9 H Seg Neutrophils % 71.3 H Seg Neutrophils # Sodium 132 L Carbon Dioxide 18 L BUN 5 L Creatinine 0.4 L POC Glucose 135 H Uric Acid Calcium 6.9 L Magnesium ALT < 5 L Total Protein 5.9 L Albumin 2.8 L Urine pH 10/14/16 10/22/16 10/24/16 14:12 15:30 17:34 WBC 11.2 H RBC 3.43 L 3.43 L Hgb 9.9 L 9.9 L Hct [place] % (Auto) 9.6 H Seg Neutrophils % 74.7 H 71.7 H Seg Neutrophils # 8.3 H Sodium Carbon Dioxide BUN Creatinine POC Glucose Uric Acid Calcium Magnesium ALT Total Protein Albumin Urine pH 8.0 H
[2016-10-30] MEDS: AMBIEN PO PRN (22:29)
--- NOTE | 2016-10-30 22:41 | Ultrasound Report ---
FINAL REPORT EXAM: US OB BPP WO NON-STRESS HISTORY: pprom lat BPP 08/09 TECHNIQUE: Transabdominal sonography of the pelvis. PRIORS: 29 October 2016. FINDINGS: Biophysical profile: breathing movements: 2/2 movements: 2/2 posture and tone: 2/2 Qualitative amniotic fluid volume: 0/2 Total: /8 heart rate 122 beats per minute. IMPRESSION: 1. Biophysical profile as noted above.
[2016-10-31] MEDS: LACTATED RINGERS 1,000 ML IV SCH ×4 (02:35→20:19)
--- NOTE | 2016-10-31 08:23 | Progress Note ---
Assessment and Plan A:HD#24; IUP at 26w1d s/p 2 doses of betamethasone. s/p NICU consult. PPROM on 10/07/16 s/p 7 days of latency antibiotics Vertex as of 10/27/16; Previously breech Previous x 1 Asthma Anemia Irregular heart beat and intermittent bradycardia s/p Cardiology consult; No intervention needed, reconsult PRN Oligohydramnios Questionable seizure activity s/p neurology consult and normal MRI brain Depression- Zoloft 50 mg daily. Worse today Headache- Fioricet PRN Insufficient care P: Redraw CBC and Type and Screen Continue close observation of maternal and status Deliver for signs of chorioamnionitis or distress No tocolysis Per [facility] recommendations: growth scan q 2 weeks; BPP twice weekly Subjective - Subjective Date of service: 10/31/16 Principal diagnosis: IUP at 26 1/7 weeks , PROM Interval history: Pt becoming more depressed today because she tired of being in the hospital. She does not think that her Zoloft is working. Patient reports: loss of fluid, movement normal, no new complaints, no vaginal bleeding, no contractions Objective - Vital Signs Vital Signs: Vital Signs - 12hr 10/31/16 10/31/16 10/31/16 00:45 04:48 08:11 Temperature 98.1 F 97.6 F Pulse Rate 72 68 57 L Pulse Rate [ 72 68 From Monitor] Respiratory 16 16 Rate Blood Pressure 106/58 100/49 102/60 Blood Pressure 106/58 100/49 [Left Arm] - Exam Breasts: deferred Cardiovascular: Regular rate Lungs: Clear to auscultation Abdomen: Present: soft (gravid ) Uterus: Present: normal (gravid ) FHR: category 2 Uterine Contraction Monitor Mode: External Uterine Contraction Pattern: Irregular Uterine Tone Measurement Phase: Resting Extremities: normal - Labs Labs: Abnormal Labs 10/06/16 10/06/16 10/06/16 16:30 16:30 16:30 WBC RBC 3.51 L Hgb Hct [place] % (Auto) Seg Neutrophils % 74.3 H Seg Neutrophils # Sodium Carbon Dioxide BUN Creatinine 0.3 L POC Glucose Uric Acid 3.1 L Calcium Magnesium 4.20 H ALT Total Protein Albumin Urine pH 10/06/16 10/07/16 10/07/16 23:39 07:28 19:10 WBC RBC 3.16 L Hgb 9.2 L Hct 27.8 L [place] % (Auto) Seg Neutrophils % 76.3 H Seg Neutrophils # Sodium Carbon Dioxide BUN Creatinine POC Glucose Uric Acid Calcium Magnesium 5.90 H 4.50 H ALT Total Protein Albumin Urine pH 10/08/16 10/09/16 10/12/16 00:20 20:05 11:00 WBC RBC 2.79 L Hgb 8.3 L Hct 25.1 L [place] % (Auto) 7.9 H Seg Neutrophils % 71.3 H Seg Neutrophils # Sodium 132 L Carbon Dioxide 18 L BUN 5 L Creatinine 0.4 L POC Glucose 135 H Uric Acid Calcium 6.9 L Magnesium ALT < 5 L Total Protein 5.9 L Albumin 2.8 L Urine pH 10/14/16 10/22/16 10/24/16 14:12 15:30 17:34 WBC 11.2 H RBC 3.43 L 3.43 L Hgb 9.9 L 9.9 L Hct [place] % (Auto) 9.6 H Seg Neutrophils % 74.7 H 71.7 H Seg Neutrophils # 8.3 H Sodium Carbon Dioxide BUN Creatinine POC Glucose Uric Acid Calcium Magnesium ALT Total Protein Albumin Urine pH 8.0 H - Results US- obstetric: report reviewed
[2016-10-31 09:12] LABS: Basophils % (Auto) 0.5 % (0.0-1.8); Eosinophils % (Auto) 1.8 % (0.0-4.3); Hematocrit 30.7 % (30.3-42.9); Hemoglobin 10.1 gm/dl (10.1-14.3); Mean Corpuscular HGB Conc 33 % (30-34); Mean Corpuscular Hemoglobin 29 pg (28-32); Mean Corpuscular Volume 89 fl (79-97); Platelet Count 157 K/mm3 (140-440); Red Blood Count 3.43 M/mm3 (3.65-5.03); Red Cell Distribution Width 14.7 % (13.2-15.2); White Blood Count 9.3 K/mm3 (4.5-11.0)
[2016-10-31] MEDS: ZOLOFT PO SCH (10:29)
[2016-10-31] MEDS: PRENATAL VITAMIN PO SCH (10:29)
[2016-10-31] MEDS: FERGON PO SCH ×2 (10:29→22:37)
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
[2016-11-01] MEDS: LACTATED RINGERS 1,000 ML IV SCH ×3 (04:46→22:32)
[2016-11-01] MEDS: PRENATAL VITAMIN PO SCH (10:20)
[2016-11-01] MEDS: ZOLOFT PO SCH (10:20)
[2016-11-01] MEDS: FERGON PO SCH ×2 (10:20→22:40)
--- NOTE | 2016-11-01 12:23 | Progress Note ---
Assessment and Plan A:HD#25; IUP at 26w2d s/p 2 doses of betamethasone. s/p NICU consult. PPROM on 10/07/16 s/p 7 days of latency antibiotics Vertex as of 10/27/16; Previously breech Previous x 1 Asthma Anemia Irregular heart beat and intermittent bradycardia s/p Cardiology consult; No intervention needed, reconsult PRN Oligohydramnios Questionable seizure activity s/p neurology consult and normal MRI brain Depression- Zoloft 50 mg daily. Now being followed by Psychiatry Headache- Fioricet PRN Insufficient care P: Continue close observation of maternal and status Deliver for signs of chorioamnionitis or distress No tocolysis Per [facility] recommendations: growth scan q 2 weeks; BPP twice weekly (Last BPP on 10/30/16) Subjective - Subjective Date of service: 11/01/16 Principal diagnosis: IUP at 26 2/7 weeks , PROM Interval history: Pt's depression is worsened. She is smiling somewhat because her mother and daughter are present in the room. She also reports that she is getting more worried about the variable decelerations her son is having on the monitor, even though she knows they are expected with the severe oligohydramnios that she has. Pt was evaluated by Psychiatry yesterday with new recommendations to help improve her depression. Patient reports: new complaints (per HPI ), loss of fluid, movement normal , no vaginal bleeding, no contractions Objective - Vital Signs Vital Signs: Vital Signs - 12hr 11/01/16 11/01/16 11/01/16 02:24 03:48 10:00 Temperature 97.4 F L 97.6 F Pulse Rate 92 H 52 L Pulse Rate [ 52 L 52 L From Monitor] Respiratory 18 20 Rate Blood Pressure 104/51 Blood Pressure 104/51 104/51 [Right Arm] O2 Sat by Pulse 99 Oximetry 11/01/16 10:09 Temperature Pulse Rate 61 Pulse Rate [ From Monitor] Respiratory Rate Blood Pressure 102/54 Blood Pressure [Right Arm] O2 Sat by Pulse Oximetry - Exam Breasts: deferred Cardiovascular: Regular rate Lungs: Clear to auscultation Abdomen: Present: soft (gravid) Uterus: Present: normal (gravid) FHR: category 2 Uterine Contraction Monitor Mode: External Uterine Contraction Pattern: Irregular Uterine Tone Measurement Phase: Resting Uterine Contraction Intensity: Mild Extremities: normal - Labs Labs: Abnormal Labs 10/06/16 10/06/16 10/06/16 16:30 16:30 16:30 WBC RBC 3.51 L Hgb Hct [place] % (Auto) Seg Neutrophils % 74.3 H Seg Neutrophils # Sodium Carbon Dioxide BUN Creatinine 0.3 L POC Glucose Uric Acid 3.1 L Calcium Magnesium 4.20 H ALT Total Protein Albumin Urine pH 10/06/16 10/07/16 10/07/16 23:39 07:28 19:10 WBC RBC 3.16 L Hgb 9.2 L Hct 27.8 L [place] % (Auto) Seg Neutrophils % 76.3 H Seg Neutrophils # Sodium Carbon Dioxide BUN Creatinine POC Glucose Uric Acid Calcium Magnesium 5.90 H 4.50 H ALT Total Protein Albumin Urine pH 10/08/16 10/09/16 10/12/16 00:20 20:05 11:00 WBC RBC 2.79 L Hgb 8.3 L Hct 25.1 L [place] % (Auto) 7.9 H Seg Neutrophils % 71.3 H Seg Neutrophils # Sodium 132 L Carbon Dioxide 18 L BUN 5 L Creatinine 0.4 L POC Glucose 135 H Uric Acid Calcium 6.9 L Magnesium ALT < 5 L Total Protein 5.9 L Albumin 2.8 L Urine pH 10/14/16 10/22/16 10/24/16 14:12 15:30 17:34 WBC 11.2 H RBC 3.43 L 3.43 L Hgb 9.9 L 9.9 L Hct [place] % (Auto) 9.6 H Seg Neutrophils % 74.7 H 71.7 H Seg Neutrophils # 8.3 H Sodium Carbon Dioxide BUN Creatinine POC Glucose Uric Acid Calcium Magnesium ALT Total Protein Albumin Urine pH 8.0 H 10/31/16 08:50 WBC RBC 3.43 L Hgb Hct [place] % (Auto) 8.5 H Seg Neutrophils % Seg Neutrophils # Sodium Carbon Dioxide BUN Creatinine POC Glucose Uric Acid Calcium Magnesium ALT Total Protein Albumin Urine pH
--- NOTE | 2016-11-01 13:17 | Progress Note ---
Assessment and Plan A 1. IUP 26 2/7weeks 2. PPROM 3. Depression/anxiety 4. s/p BMZ and latency antibiotics REC: 1. Continue to monitor for distress, NRFHT , labor , chorioamnionitis 2. Continue Zoloft. 3. delivery at 34 weeks gestation , sooner if indicated Subjective - Subjective Date of service: 11/01/16 Principal diagnosis: IUP at 26 weeks , PROM Interval history: Denied contractions or bleeding Reports that she did not sleep well last night and is tired today Denied SI/HI Mother at bedside combing her hair Patient reports: loss of fluid, movement normal, no new complaints, no vaginal bleeding, no contractions Objective - Vital Signs Vital Signs: Vital Signs - 12hr 11/01/16 11/01/16 11/01/16 02:24 03:48 10:00 Temperature 97.4 F L 97.6 F Pulse Rate 92 H 52 L Pulse Rate [ 52 L 52 L From Monitor] Respiratory 18 20 Rate Blood Pressure 104/51 Blood Pressure 104/51 104/51 [Right Arm] O2 Sat by Pulse 99 Oximetry 11/01/16 10:09 Temperature Pulse Rate 61 Pulse Rate [ From Monitor] Respiratory Rate Blood Pressure 102/54 Blood Pressure [Right Arm] O2 Sat by Pulse Oximetry - Exam Narrative Exam: Sitting up in bed Abdomen: Present: normal appearance, soft (Occasional variable decelerations) Extremities: normal - Labs Labs: Abnormal Labs 10/06/16 10/06/16 10/06/16 16:30 16:30 16:30 WBC RBC 3.51 L Hgb Hct [place] % (Auto) Seg Neutrophils % 74.3 H Seg Neutrophils # Sodium Carbon Dioxide BUN Creatinine 0.3 L POC Glucose Uric Acid 3.1 L Calcium Magnesium 4.20 H ALT Total Protein Albumin Urine pH 10/06/16 10/07/16 10/07/16 23:39 07:28 19:10 WBC RBC 3.16 L Hgb 9.2 L Hct 27.8 L [place] % (Auto) Seg Neutrophils % 76.3 H Seg Neutrophils # Sodium Carbon Dioxide BUN Creatinine POC Glucose Uric Acid Calcium Magnesium 5.90 H 4.50 H ALT Total Protein Albumin Urine pH 10/08/16 10/09/16 10/12/16 00:20 20:05 11:00 WBC RBC 2.79 L Hgb 8.3 L Hct 25.1 L [place] % (Auto) 7.9 H Seg Neutrophils % 71.3 H Seg Neutrophils # Sodium 132 L Carbon Dioxide 18 L BUN 5 L Creatinine 0.4 L POC Glucose 135 H Uric Acid Calcium 6.9 L Magnesium ALT < 5 L Total Protein 5.9 L Albumin 2.8 L Urine pH 10/14/16 10/22/16 10/24/16 14:12 15:30 17:34 WBC 11.2 H RBC 3.43 L 3.43 L Hgb 9.9 L 9.9 L Hct [place] % (Auto) 9.6 H Seg Neutrophils % 74.7 H 71.7 H Seg Neutrophils # 8.3 H Sodium Carbon Dioxide BUN Creatinine POC Glucose Uric Acid Calcium Magnesium ALT Total Protein Albumin Urine pH 8.0 H 10/31/16 08:50 WBC RBC 3.43 L Hgb Hct Green % (Auto) 8.5 H Seg Neutrophils % Seg Neutrophils # Sodium Carbon Dioxide BUN Creatinine POC Glucose Uric Acid Calcium Magnesium ALT Total Protein Albumin Urine pH - Results US- obstetric: other (10/30 - BPP 10/09)
[2016-11-01] MEDS ORDERED: TYLENOL PO PRN (14:46)
[2016-11-01] MEDS: TYLENOL PO PRN (14:52)
[2016-11-02] MEDS: LACTATED RINGERS 1,000 ML IV SCH (05:22)
[2016-11-02] MEDS: PRENATAL VITAMIN PO SCH (09:44)
[2016-11-02] MEDS: ZOLOFT PO SCH (09:45)
[2016-11-02] MEDS: FERGON PO SCH (09:45)
[2016-11-02] MEDS ORDERED: SUBLIMAZE ONE (11:06)
[2016-11-02] MEDS ORDERED: BICITRA PO ONE (11:16)
[2016-11-02] MEDS ORDERED: SUBLIMAZE IV ONE (11:16)
[2016-11-02] MEDS ORDERED: REGLAN IV ONE (11:16)
[2016-11-02] MEDS ORDERED: PEPCID IV ONE (11:16)
--- NOTE | 2016-11-02 11:21 | Progress Note ---
Assessment and Plan A:HD#26; IUP at 26w3d s/p 2 doses of betamethasone. s/p NICU consult. PPROM on 10/07/16 s/p 7 days of latency antibiotics Vertex as of 10/27/16; Previously breech Previous x 1 Asthma Anemia Irregular heart beat and intermittent bradycardia s/p Cardiology consult; No intervention needed, reconsult PRN Oligohydramnios Questionable seizure activity s/p neurology consult and normal MRI brain Depression- Zoloft 50 mg daily. Now being followed by Psychiatry Headache- Fioricet PRN Insufficient care Pt now with prominent uterine tenderness suggestive of chorioamnionitis P: Prepare for repeat section and other indicated procedures. Subjective - Subjective Date of service: 11/02/16 Principal diagnosis: IUP at 26 3/7 weeks , Prolonged PROM Interval history: Pt reports that her vaginal leakage turned yellow yesterday afternoon. She does report good movement and denies vaginal bleeding. Patient reports: new complaints (per HPI ), loss of fluid, movement normal , no vaginal bleeding, no contractions Objective - Vital Signs Vital Signs: Vital Signs - 12hr 11/01/16 11/01/16 11/01/16 23:23 23:25 23:54 Temperature 97.9 F Pulse Rate 55 L 59 L Pulse Rate [ 55 L From Monitor] Respiratory 18 Rate Blood Pressure 104/51 Blood Pressure 104/51 [Right Arm] O2 Sat by Pulse 100 Oximetry 11/01/16 11/02/16 11/02/16 23:59 00:04 00:09 Temperature Pulse Rate 61 60 67 Pulse Rate [ From Monitor] Respiratory Rate Blood Pressure Blood Pressure [Right Arm] O2 Sat by Pulse 100 100 100 Oximetry 11/02/16 11/02/16 11/02/16 00:14 00:19 00:24 Temperature Pulse Rate 64 64 65 Pulse Rate [ From Monitor] Respiratory Rate Blood Pressure Blood Pressure [Right Arm] O2 Sat by Pulse 100 100 100 Oximetry 11/02/16 11/02/16 11/02/16 00:29 00:34 00:39 Temperature Pulse Rate 65 66 63 Pulse Rate [ From Monitor] Respiratory Rate Blood Pressure Blood Pressure [Right Arm] O2 Sat by Pulse 100 100 100 Oximetry 11/02/16 11/02/16 11/02/16 00:44 00:49 00:54 Temperature Pulse Rate 63 60 62 Pulse Rate [ From Monitor] Respiratory Rate Blood Pressure Blood Pressure [Right Arm] O2 Sat by Pulse 100 100 100 Oximetry 11/02/16 11/02/16 11/02/16 00:59 01:04 01:09 Temperature Pulse Rate 66 59 L 63 Pulse Rate [ From Monitor] Respiratory Rate Blood Pressure Blood Pressure [Right Arm] O2 Sat by Pulse 100 100 100 Oximetry 11/02/16 11/02/16 11/02/16 01:14 01:19 01:24 Temperature Pulse Rate 60 70 62 Pulse Rate [ From Monitor] Respiratory Rate Blood Pressure Blood Pressure [Right Arm] O2 Sat by Pulse 100 100 100 Oximetry 11/02/16 11/02/16 11/02/16 01:29 01:34 01:39 Temperature Pulse Rate 57 L 58 L 56 L Pulse Rate [ From Monitor] Respiratory Rate Blood Pressure Blood Pressure [Right Arm] O2 Sat by Pulse 100 100 100 Oximetry 11/02/16 11/02/16 11/02/16 01:44 01:49 01:54 Temperature Pulse Rate 55 L 54 L 58 L Pulse Rate [ From Monitor] Respiratory Rate Blood Pressure Blood Pressure [Right Arm] O2 Sat by Pulse 100 100 100 Oximetry 11/02/16 11/02/16 11/02/16 01:59 02:04 02:09 Temperature Pulse Rate 54 L 56 L 61 Pulse Rate [ From Monitor] Respiratory Rate Blood Pressure Blood Pressure [Right Arm] O2 Sat by Pulse 100 100 100 Oximetry 11/02/16 11/02/16 11/02/16 02:14 02:19 02:24 Temperature Pulse Rate 52 L 54 L 55 L Pulse Rate [ From Monitor] Respiratory Rate Blood Pressure Blood Pressure [Right Arm] O2 Sat by Pulse 100 100 100 Oximetry 11/02/16 11/02/16 11/02/16 02:29 02:34 02:39 Temperature Pulse Rate 53 L 57 L 54 L Pulse Rate [ From Monitor] Respiratory Rate Blood Pressure Blood Pressure [Right Arm] O2 Sat by Pulse 100 100 100 Oximetry 11/02/16 11/02/16 11/02/16 02:44 02:49 02:54 Temperature Pulse Rate 56 L 54 L 50 L Pulse Rate [ From Monitor] Respiratory Rate Blood Pressure Blood Pressure [Right Arm] O2 Sat by Pulse 100 100 100 Oximetry 11/02/16 11/02/16 11/02/16 02:59 03:04 03:09 Temperature Pulse Rate 54 L 50 L 52 L Pulse Rate [ From Monitor] Respiratory Rate Blood Pressure Blood Pressure [Right Arm] O2 Sat by Pulse 100 100 100 Oximetry 11/02/16 11/02/16 11/02/16 03:14 03:19 03:20 Temperature 97.2 F L Pulse Rate 56 L 52 L Pulse Rate [ 63 From Monitor] Respiratory 18 Rate Blood Pressure Blood Pressure 104/52 [Right Arm] O2 Sat by Pulse 100 100 100 Oximetry 11/02/16 11/02/16 11/02/16 03:26 03:27 03:28 Temperature Pulse Rate 57 L 49 L Pulse Rate [ From Monitor] Respiratory Rate Blood Pressure 104/52 Blood Pressure [Right Arm] O2 Sat by Pulse 6 L 100 Oximetry 11/02/16 11/02/16 11/02/16 03:32 03:37 03:42 Temperature Pulse Rate 59 L 49 L 49 L Pulse Rate [ From Monitor] Respiratory Rate Blood Pressure Blood Pressure [Right Arm] O2 Sat by Pulse 100 100 100 Oximetry 11/02/16 11/02/16 11/02/16 03:47 03:52 03:57 Temperature Pulse Rate 52 L 48 L 49 L Pulse Rate [ From Monitor] Respiratory Rate Blood Pressure Blood Pressure [Right Arm] O2 Sat by Pulse 100 100 100 Oximetry 11/02/16 11/02/16 11/02/16 04:02 04:07 04:12 Temperature Pulse Rate 51 L 50 L 49 L Pulse Rate [ From Monitor] Respiratory Rate Blood Pressure Blood Pressure [Right Arm] O2 Sat by Pulse 100 100 100 Oximetry 11/02/16 11/02/16 11/02/16 04:17 04:22 04:27 Temperature Pulse Rate 51 L 50 L 56 L Pulse Rate [ From Monitor] Respiratory Rate Blood Pressure Blood Pressure [Right Arm] O2 Sat by Pulse 100 100 100 Oximetry 11/02/16 11/02/16 11/02/16 04:32 04:37 04:42 Temperature Pulse Rate 52 L 51 L 53 L Pulse Rate [ From Monitor] Respiratory Rate Blood Pressure Blood Pressure [Right Arm] O2 Sat by Pulse 100 100 100 Oximetry 11/02/16 11/02/16 11/02/16 04:47 04:52 04:57 Temperature Pulse Rate 61 51 L 52 L Pulse Rate [ From Monitor] Respiratory Rate Blood Pressure Blood Pressure [Right Arm] O2 Sat by Pulse 100 100 100 Oximetry 11/02/16 11/02/16 11/02/16 05:02 05:07 05:12 Temperature Pulse Rate 52 L 56 L 56 L Pulse Rate [ From Monitor] Respiratory Rate Blood Pressure Blood Pressure [Right Arm] O2 Sat by Pulse 100 100 100 Oximetry 11/02/16 11/02/16 11/02/16 05:17 05:22 05:27 Temperature Pulse Rate 54 L 54 L 58 L Pulse Rate [ From Monitor] Respiratory Rate Blood Pressure Blood Pressure [Right Arm] O2 Sat by Pulse 100 100 100 Oximetry 11/02/16 11/02/16 11/02/16 05:32 05:37 05:42 Temperature Pulse Rate 57 L 51 L 54 L Pulse Rate [ From Monitor] Respiratory Rate Blood Pressure Blood Pressure [Right Arm] O2 Sat by Pulse 100 100 100 Oximetry 11/02/16 11/02/16 11/02/16 05:47 05:52 05:57 Temperature Pulse Rate 57 L 63 65 Pulse Rate [ From Monitor] Respiratory Rate Blood Pressure Blood Pressure [Right Arm] O2 Sat by Pulse 100 100 100 Oximetry 11/02/16 11/02/16 11/02/16 06:02 06:07 06:12 Temperature Pulse Rate 60 55 L 60 Pulse Rate [ From Monitor] Respiratory Rate Blood Pressure Blood Pressure [Right Arm] O2 Sat by Pulse 100 100 100 Oximetry 11/02/16 11/02/16 11/02/16 06:17 06:22 06:27 Temperature Pulse Rate 65 56 L 57 L Pulse Rate [ From Monitor] Respiratory Rate Blood Pressure Blood Pressure [Right Arm] O2 Sat by Pulse 100 100 100 Oximetry 11/02/16 11/02/16 11/02/16 06:32 06:37 06:42 Temperature Pulse Rate 60 55 L 59 L Pulse Rate [ From Monitor] Respiratory Rate Blood Pressure Blood Pressure [Right Arm] O2 Sat by Pulse 100 100 100 Oximetry 11/02/16 11/02/16 11/02/16 06:47 06:52 06:57 Temperature Pulse Rate 59 L 59 L 59 L Pulse Rate [ From Monitor] Respiratory Rate Blood Pressure Blood Pressure [Right Arm] O2 Sat by Pulse 100 100 100 Oximetry 11/02/16 11/02/16 11/02/16 07:02 07:07 07:15 Temperature 98.2 F Pulse Rate 60 Pulse Rate [ 64 From Monitor] Respiratory 16 Rate Blood Pressure Blood Pressure 103/59 [Right Arm] O2 Sat by Pulse 100 92 98 Oximetry 11/02/16 11/02/16 11/02/16 08:53 08:54 08:58 Temperature Pulse Rate 64 63 61 Pulse Rate [ From Monitor] Respiratory Rate Blood Pressure 103/59 Blood Pressure [Right Arm] O2 Sat by Pulse 99 98 Oximetry 11/02/16 11/02/16 11/02/16 09:03 09:08 09:26 Temperature Pulse Rate 63 63 65 Pulse Rate [ From Monitor] Respiratory Rate Blood Pressure Blood Pressure [Right Arm] O2 Sat by Pulse 98 99 100 Oximetry 11/02/16 11/02/16 11/02/16 10:51 10:56 11:01 Temperature Pulse Rate 100 H 82 95 H Pulse Rate [ From Monitor] Respiratory Rate Blood Pressure Blood Pressure [Right Arm] O2 Sat by Pulse 98 98 98 Oximetry 11/02/16 11/02/16 11/02/16 11:06 11:11 11:14 Temperature Pulse Rate 91 H 96 H Pulse Rate [ From Monitor] Respiratory 16 Rate Blood Pressure Blood Pressure [Right Arm] O2 Sat by Pulse 99 97 Oximetry - Exam Breasts: deferred Cardiovascular: Regular rate Lungs: Clear to auscultation Abdomen: Present: soft (gravid ) Uterus: Present: tenderness (uterine tenderness noted ) FHR: category 2 Uterine Contraction Monitor Mode: External Uterine Contraction Pattern: Irregular Uterine Tone Measurement Phase: Resting Extremities: normal - Labs Labs: Abnormal Labs 10/06/16 10/06/16 10/06/16 16:30 16:30 16:30 WBC RBC 3.51 L Hgb Hct [place] % (Auto) Seg Neutrophils % 74.3 H Seg Neutrophils # Sodium Carbon Dioxide BUN Creatinine 0.3 L POC Glucose Uric Acid 3.1 L Calcium Magnesium 4.20 H ALT Total Protein Albumin Urine pH 10/06/16 10/07/16 10/07/16 23:39 07:28 19:10 WBC RBC 3.16 L Hgb 9.2 L Hct 27.8 L [place] % (Auto) Seg Neutrophils % 76.3 H Seg Neutrophils # Sodium Carbon Dioxide BUN Creatinine POC Glucose Uric Acid Calcium Magnesium 5.90 H 4.50 H ALT Total Protein Albumin Urine pH 10/08/16 10/09/16 10/12/16 00:20 20:05 11:00 WBC RBC 2.79 L Hgb 8.3 L Hct 25.1 L [place] % (Auto) 7.9 H Seg Neutrophils % 71.3 H Seg Neutrophils # Sodium 132 L Carbon Dioxide 18 L BUN 5 L Creatinine 0.4 L POC Glucose 135 H Uric Acid Calcium 6.9 L Magnesium ALT < 5 L Total Protein 5.9 L Albumin 2.8 L Urine pH 10/14/16 10/22/16 10/24/16 14:12 15:30 17:34 WBC 11.2 H RBC 3.43 L 3.43 L Hgb 9.9 L 9.9 L Hct [place] % (Auto) 9.6 H Seg Neutrophils % 74.7 H 71.7 H Seg Neutrophils # 8.3 H Sodium Carbon Dioxide BUN Creatinine POC Glucose Uric Acid Calcium Magnesium ALT Total Protein Albumin Urine pH 8.0 H 10/31/16 08:50 WBC RBC 3.43 L Hgb Hct [place] % (Auto) 8.5 H Seg Neutrophils % Seg Neutrophils # Sodium Carbon Dioxide BUN Creatinine POC Glucose Uric Acid Calcium Magnesium ALT Total Protein Albumin Urine pH
[2016-11-02] MEDS ORDERED: LACTATED RINGERS 1,000 ML IV SCH (12:00)
[2016-11-02] MEDS ORDERED: ANCEF/STERILE WATER 2 GM/20 ML 2 GM/20 ML SYRINGE IV NR ×2 (12:00→15:00)
[2016-11-02] MEDS: LACTATED RINGERS 1,000 ML IV NR ×2 (14:00→14:35)
[2016-11-02] MEDS ORDERED: BICITRA PO NR (15:00)
[2016-11-02] MEDS ORDERED: PEPCID IV NR (15:00)
[2016-11-02] MEDS ORDERED: REGLAN IV NR (15:00)
[2016-11-02] MEDS ORDERED: NACL 0.9% IR ONE (15:30)
[2016-11-02] MEDS ORDERED: WATER FOR IRRIG STERILE IR ONE (15:30)
[2016-11-02] MEDS ORDERED: ANCEF/STERILE WATER 2 GM/20 ML IV ONE (15:32)
[2016-11-02] MEDS ORDERED: TORADOL ONE (15:57)
[2016-11-02] MEDS ORDERED: VERSED ONE (16:51)
[2016-11-02] MEDS ORDERED: PHENERGAN PO PRN (17:27)
[2016-11-02] MEDS ORDERED: PHENERGAN PR PRN (17:27)
[2016-11-02] MEDS ORDERED: NARCAN 0.4 MG/1 ML IV PRN ×2 (17:27→19:20)
[2016-11-02] MEDS ORDERED: ZOFRAN IV PRN (17:27)
[2016-11-02] MEDS ORDERED: DILAUDID IV PRN ×2 (17:27)
--- NOTE | 2016-11-02 17:27 | Anesthesia Consultation ---
Anesthesia Consult and Med Hx Date of service: 11/02/16 - Airway Anesthetic Teeth Evaluation: Good ROM Head & Neck: Adequate Mental/Hyoid Distance: Adequate Mallampati Class: Class II Intubation Access Assessment: Good - Pulmonary Exam CTA: Yes - Cardiac Exam Cardiac Exam: No Murmur - Pre-Operative Health Status ASA Pre-Surgery Classification: ASA2 Proposed Anesthetic Plan: Spinal - Pulmonary Hx Asthma: Yes (last episode in 5th grade) COPD: No Hx Pneumonia: No - Cardiovascular System Hx Hypertension: No - Central Nervous System Hx Seizures: Yes (today for first time) Hx Psychiatric Problems: Yes (depression since first child was born; no tx d/t current ) - Endocrine Hx Renal Disease: No Hx End Stage Renal Disease: No Hx Hypothyroidism: No Hx Hyperthyroidism: No - Hematic Hx Anemia: Yes Hx Sickle Cell Disease: No - Other Systems Hx Alcohol Use: No
--- NOTE | 2016-11-02 17:27 | Post Anesthesia Evaluation ---
- Post Anesthesia Evaluation Patient Participated: Yes Airway Patent: Yes Stable Respiratory Function: Yes Nausea/Vomiting: No Temp > 96.8F: Yes Pain Manageable: Yes Adequeate Hydration: Yes Anesthesia Complications: No
--- NOTE | 2016-11-02 17:48 | Procedure Note ---
OB Delivery Note - Delivery Date of Delivery: 11/02/16 Surgeon: GER TORRES Estimated blood loss: other (750 mL) - Section Preop diagnosis: repeat , other (chorioamnionitis ) Postop diagnosis: same section procedure: section, repeat low transverse Disposition: PACU Complications: none Narrative: Please see operative note. - A at 1 minute: 9 at 5 minutes: 9 Gender: Male (830g (1lb 13oz))
--- NOTE | 2016-11-02 17:49 | Operative Report ---
Operative Report Operative Report: Date of procedure: November 02, 2016 Preoperative diagnosis: 1) IUP at 26w3d 2) Chorioamnionitis 3) Prolonged Rupture of Membranes 4) PPROM 5) Previous x 1 Procedure: Repeat low transverse section Surgeon: Alice Parisi M.D. Anesthesia: Spinal Findings: 1) Viable male , Apgars 9 and 9, weight 830 g, (1 lb 13 oz) 2) Normal-appearing uterus ovaries and tubes Estimated blood loss: 750 mL IV fluids: 1500 mL Urine output: 800 mL, clear at the end of the procedure Drains: Nicolas to gravity Specimens: Placenta to pathology Complications: None. Counts correct x 3 Disposition: Stable to PACU Indication for procedure: Pt is a 21 year old -[place] at 26w3d was admitted initially on 10/06/16 for suspected seizure activity. The next day (10/07/16) she experienced PPROM at 22wks. She remained in hospital for steroid course, latency antibiotics and observation. She was in her usual state of health until today when she exhibited marked uterine tenderness on exam. She was diagnosed with chorioamnionitis and the decision was made to proceed with delivery. Operation in detail: After the risks, benefits, alternatives and complications were explained to the patient she gave informed consent for the procedure. She was subsequently taken to the operating room where spinal anesthesia was noted to be adequate. She was subsequently placed in the dorsal supine position with leftward tilt and prepped and draped in a normal sterile fashion. heart tones were noted to be in the 150s prior to incision. A timeout was performed. A Pfannenstiel skin incision was made with the knife and carried down to the layer of the fascia with the Bovie. The fascia was incised in the midline and the fascial incision was extended bilaterally with the Bovie. Attention was then turned to the superior aspect of the incision which was grasped with two Kochers, tented up, and dissected off the rectus muscles. Attention was then turned to the inferior aspect of the incision which was grasped with two Kochers , tented up and dissected off the rectus muscles. The rectus muscles were then in the midline and partially transected for adequate visualization. The peritoneum was then entered sharply between two Lucero clamps. The peritoneal incision was extended with good visualization of the bladder. The peritoneal incision was then stretched. An Lauri self-retaining retractor was placed for visualization. The bladder blade was placed. A transverse incision was made in the lower uterine segment with a knife and extended bilaterally with the bandage scissors. The head was delivered without difficulty followed by shoulders and body. Delayed cord clamp for 30 seconds per Neonatology. was bulb suctioned at delivery. The cord was clamped and cut and the was handed to Workforce Advisor in attendance. The placenta was then delivered manually. The uterus was exteriorized then cleared of all clots and debris. The hysterotomy was then reapproximated with 0 Vicryl in a running locked fashion. A second layer of the same suture was used in imbricating fashion. Additional figure of eights of 2-0 Vicryl were used to obtain hemostasis. The hysterotomy was inspected and hemostasis was noted. The Lauri self-retaining retractor was removed. The gutters were irrigated and cleared of all clots and debris. The hysterotomy was again inspected and noted to be hemostatic. Surgicel was placed over the hysterotomy. The peritoneum and rectus muscles were then reapproximated with 2-0 Vicryl in a running fashion. The cut edge of the rectus muscle was reapproximated with 2-0 Vicryl in an interrupted fashion. The rectus muscles were then cut with Surgicel. The fascia was reapproximated with 0 Vicryl in a running fashion. The skin was reapproximated with 4-0 Vicryl in a subcuticular fashion. The incision was then covered with steri strips and a pressure dressing. The procedure was then ended. The patient tolerated the procedure well and was taken to the PACU in stable condition. All instrument, lap, and needle counts were correct 3.
[2016-11-02] MEDS ORDERED: fentaNYL-BUPIV 2 MCG/ML-0.125% 200 MCG/100 ML BAG EPIDURAL SCH (18:00)
[2016-11-02] MEDS ORDERED: SODIUM CHLORIDE FLUSH SYRINGE 10 ML IV NR ×2 (18:00→19:20)
[2016-11-02] MEDS: PITOCin/NS 20 UNIT/1000ML DRIP 20 UNITS/1,000 ML BAG IV SCH (18:21)
[2016-11-02] MEDS ORDERED: MORPHINE IV PRN ×2 (19:20)
[2016-11-02] MEDS ORDERED: PITOCin/NS 20 UNIT/1000ML DRIP 20 UNITS/1,000 ML BAG IV SCH (19:20)
[2016-11-02] MEDS ORDERED: TUCKS PAD TP PRN (19:20)
[2016-11-02] MEDS: ZOFRAN IV PRN (20:15)
[2016-11-02] MEDS: FEOSOL PO SCH ×2 (21:39→21:44)
[2016-11-02] MEDS: MILK OF MAGNESIA PO SCH (21:39)
[2016-11-03] MEDS: ANCEF/NS 1 GM/50 ML 1 GM/50 ML BAG IV SCH ×2 (00:43→08:30)
[2016-11-03] MEDS: TORADOL IV PRN ×3 (00:48→12:57)
[2016-11-03] MEDS: PITOCin/NS 20 UNIT/1000ML DRIP 20 UNITS/1,000 ML BAG IV SCH (01:23)
[2016-11-03] MEDS: MILK OF MAGNESIA PO SCH ×2 (05:09→12:54)
[2016-11-03] MEDS: LANSINOH TP PRN (05:33)
[2016-11-03] MEDS ORDERED: BOOSTRIX IM ONE (06:00)
[2016-11-03 07:36] LABS: Hematocrit 23.3 % (30.3-42.9); Hemoglobin 7.5 gm/dl (10.1-14.3)
[2016-11-03] MEDS ORDERED: MORPHINE ONE (08:30)
--- NOTE | 2016-11-03 11:04 | Progress Note ---
Subjective Date of service: 11/03/16 Principal diagnosis: IUP at 26 3/7 weeks , Prolonged PROM Interval history: 1st POD after Patient is in the bed, comfortable. Pain is well controlled with pain meds. Ambulated well. No residual neurological deficit. No pruritus. No anesthesia complications Objective - Constitutional Vitals: Vital Signs - 12hr 11/03/16 11/03/16 11/03/16 00:00 04:00 07:52 Temperature 98.6 F 98.6 F 98.4 F Pulse Rate [ 77 54 L From Monitor] Pulse Rate [ 64 Right Radial] Respiratory 16 16 18 Rate Blood Pressure 110/63 106/58 96/50 [Right Arm] - Labs CBC & Chem 7: 11/03/16 07:15 10/08/16 00:20 Labs: Abnormal lab results 11/03/16 Range/Units 07:15 Hgb 7.5 L (10.1-14.3) gm/dl Hct 23.3 L D (30.3-42.9) %
--- NOTE | 2016-11-03 11:13 | Progress Note ---
Assessment and Plan A: POD#1 s/p repeat section at 26 wks secondary to chorioamnionitis, Prolonged ROM, PPROM, previous x 1; Asymptomatic anemia P: Routine postoperative care. Abdominal binder. Iron supplementation. Subjective - Subjective Date of service: 11/03/16 Principal diagnosis: POD#1 s/p repeat section at 26 wks, PPROM, Prolonged ROM Interval history: Pt feels much happier now that her baby is delivered. No overnight events. Patient reports: appetite normal, voiding normally, pain well controlled, ambulating normally, no flatus, no bowel movement, no nauseated : in NICU Objective - Vital Signs Latest vital signs: Vital Signs Temp Pulse Pulse Pulse Resp BP BP 11/03/16 07:52 98.4 F 64 18 96/50 11/03/16 04:00 98.6 F 54 L 16 106/58 11/03/16 00:00 98.6 F 77 16 110/63 11/02/16 19:10 98.6 F 74 16 120/61 11/02/16 18:50 98.4 F 65 16 116/59 11/02/16 18:26 18 11/02/16 18:20 59 L 11 L 120/60 11/02/16 18:18 98.5 F 11/02/16 18:15 59 L 11 L 114/60 11/02/16 18:10 59 L 13 120/61 11/02/16 18:05 56 L 11 L 112/50 11/02/16 18:00 64 11 L 108/60 11/02/16 17:55 68 15 111/66 11/02/16 17:50 57 L 10 L 116/58 11/02/16 17:45 63 13 107/62 11/02/16 17:41 61 9 L 106/58 11/02/16 17:35 58 L 10 L 106/58 11/02/16 17:30 58 L 14 114/62 11/02/16 17:25 58 L 14 116/57 11/02/16 17:20 97.8 F 61 14 113/58 11/02/16 17:16 11/02/16 15:11 73 11/02/16 15:06 69 11/02/16 15:01 61 11/02/16 14:56 64 11/02/16 14:51 89 11/02/16 14:46 77 11/02/16 14:42 98.7 F 69 18 111/53 11/02/16 14:41 65 11/02/16 14:40 60 111/53 11/02/16 14:36 81 11/02/16 12:26 93 H 11/02/16 12:21 75 11/02/16 12:16 74 11/02/16 12:11 78 11/02/16 12:06 80 11/02/16 12:01 88 11/02/16 11:56 86 11/02/16 11:51 80 11/02/16 11:46 94 H 11/02/16 11:41 94 H 11/02/16 11:36 85 11/02/16 11:31 87 11/02/16 11:26 107 H 11/02/16 11:22 98.5 F 103 H 18 129/67 11/02/16 11:21 95 H 129/67 11/02/16 11:16 78 11/02/16 11:14 16 11/02/16 11:11 96 H Pulse Ox 11/03/16 07:52 11/03/16 04:00 11/03/16 00:00 11/02/16 19:10 11/02/16 18:50 11/02/16 18:26 11/02/16 18:20 100 11/02/16 18:18 11/02/16 18:15 100 11/02/16 18:10 99 11/02/16 18:05 99 11/02/16 18:00 100 11/02/16 17:55 100 11/02/16 17:50 100 11/02/16 17:45 100 11/02/16 17:41 100 11/02/16 17:35 100 11/02/16 17:30 100 11/02/16 17:25 100 11/02/16 17:20 100 11/02/16 17:16 100 11/02/16 15:11 98 11/02/16 15:06 99 11/02/16 15:01 98 11/02/16 14:56 99 11/02/16 14:51 98 11/02/16 14:46 98 11/02/16 14:42 11/02/16 14:41 98 11/02/16 14:40 11/02/16 14:36 98 11/02/16 12:26 98 11/02/16 12:21 98 11/02/16 12:16 98 11/02/16 12:11 98 11/02/16 12:06 98 11/02/16 12:01 98 11/02/16 11:56 98 11/02/16 11:51 98 11/02/16 11:46 97 11/02/16 11:41 98 11/02/16 11:36 97 11/02/16 11:31 98 11/02/16 11:26 97 11/02/16 11:22 11/02/16 11:21 98 11/02/16 11:16 98 11/02/16 11:14 11/02/16 11:11 97 Intake and Output 11/02/16 11/03/16 11/03/16 22:59 06:59 14:59 Intake Total 2700 1625 120 Output Total 1300 600 350 Balance 1400 1025 -230 Intake: IV 2400 1025 ANCEF/NS 1 GM/50 ML 1 gm 100 In 50 ml @ 100 mls/hr IV Q8H ALEX Rx#:[id number] PITOCin/NS 20 UNIT/1000ML 500 925 DRIP 20 units In 1,000 ml @ As Directed IV TITR ALEX Rx#:[id number] Oral 120 Intake, Free Water 300 600 Output: Urine 1300 600 350 Indwelling Catheter 400 600 Void 350 Other: Total, Intake Amount 120 Total, Output Amount 400 600 350 Estimated Blood Loss 750 - Exam Breasts: Present: deferred Cardiovascular: Present: Regular rate Lungs: Present: Clear to auscultation Abdomen: Present: soft, abnormal bowel sounds (hypoactive ). Absent: distention Uterus: Present: fundal height below umbilicus Extremities: Present: normal Incision: Present: dressed - Labs Labs: Abnormal lab results 11/03/16 Range/Units 07:15 Hgb 7.5 L (10.1-14.3) gm/dl Hct 23.3 L D (30.3-42.9) %
[2016-11-03] MEDS: ZOLOFT PO SCH ×2 (12:31→12:56)
[2016-11-03] MEDS: FEOSOL PO SCH ×2 (12:55→21:48)
[2016-11-03] MEDS: PRENATAL VITAMIN PO SCH (12:55)
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
[2016-11-03] MEDS ORDERED: BENADRYL PO PRN (16:06)
[2016-11-03] MEDS: PERCOCET 5/325 PO PRN ×2 (17:58→21:51)
[2016-11-03] MEDS ORDERED: M-M-R II VACCINE SUB-Q ONE (18:08)
[2016-11-04] MEDS: PERCOCET 5/325 PO PRN ×3 (02:49→17:53)
[2016-11-04] MEDS: MILK OF MAGNESIA PO SCH (07:56)
[2016-11-04] MEDS: ZOLOFT PO SCH (09:40)
[2016-11-04] MEDS: FEOSOL PO SCH ×2 (09:40→22:10)
[2016-11-04] MEDS: PRENATAL VITAMIN PO SCH (09:40)
--- NOTE | 2016-11-04 10:44 | Progress Note ---
Assessment and Plan A: POD#2 s/p repeat section at 26 wks secondary to chorioamnionitis, Prolonged ROM, PPROM, previous x 1; Asymptomatic anemia P: Pt doing well today. Discharge tomorrow with follow up in two weeks for incision check. Subjective - Subjective Date of service: 11/04/16 Principal diagnosis: POD#2 s/p repeat section at 26 wks, PPROM, Prolonged ROM Interval history: Pt has passed flatus and had a bowel movement. She is not sleeping much and stayed in the NICU until 3 am this morning. Patient reports: appetite normal, voiding normally, pain well controlled, flatus , bowel movement, ambulating normally, no nauseated Lolo: in NICU Objective - Vital Signs Latest vital signs: Vital Signs Temp Pulse Resp BP 11/04/16 00:00 98.1 F 67 20 112/57 11/03/16 17:58 20 11/03/16 16:40 99.1 F 88 20 108/50 11/03/16 13:27 20 11/03/16 12:57 20 11/03/16 11:52 98.7 F 72 18 100/50 Intake and Output 11/03/16 11/04/16 11/04/16 22:59 06:59 14:59 Intake Total 360 240 Output Total 1000 Balance -640 240 Intake: Oral 360 240 Output: Urine 1000 Void 1000 Other: Total, Intake Amount 360 240 Total, Output Amount 400 # Voids Void 1 # Bowel Movements 1 - Exam Breasts: Present: deferred Cardiovascular: Present: Regular rate Lungs: Present: Clear to auscultation Abdomen: Present: soft Uterus: Present: fundal height below umbilicus Extremities: Present: normal Incision: Present: dressed
--- NOTE | 2016-11-04 10:47 | Discharge Summary ---
Providers - Providers Date of Admission: 10/07/16 09:48 Date of discharge: 11/05/16 Attending physician: BYRON SOL MD 10/07/16 01:53 Consult to Physician [CONS] Routine Consulting Provider: CURT MCDOWELL Reason For Exam: seizures Place consult to:: Notified:: Was contact made?: Yes Comment:: SPOKE WITH 10/10/16 14:37 Consult to Mental Health [CONS] Urgent Reason For Exam: [address] consult to:: psychiatry Notified:: nurse Phone number called:: [phone] Was contact made?: Yes If yes, spoke with:: nurse Time called:: 14:40 10/10/16 14:41 Consult to Case Management [CONS] Urgent Services Needed at Discharge: Fin[employer] Tender Notified:: social service agency director Phone number called:: [phone] Was contact made?: Yes If yes, spoke with:: socail service Time called:: 02:42 10/26/16 14:43 Consult to Dietitian/Nutrition [CONS] Routine Physician Instructions: Reason For Exam: Reason for Consult: Diet education 11/02/16 19:20 Consult to Microchip Specialist [CONS] Routine Reason For Exam: Primary care physician: BYRON SOL MD Hospitalization Reason for admission: rupture of membranes, other (Questionable seizure activity ) Delivery: Procedure: section, repeat low transverse Procedure details: Please see operative note. Incision: intact Other procedures: none complications: none Discharge diagnosis: delivery baby: male Hospital course: This pt was initially admitted secondary to questionable seizure activity at 22w4d. She had a neurology consult which ultimately concluded that the patient' s behavior was not seizure activity. On HD#1 however, the patient experienced premature rupture of membranes at 22w5d. She remained in hospital for observation, and once she reached 23 weeks she had a NICU consult, two doses of betamethasone and 7 days of latency antibiotics. She also had symptoms of depression and anxiety with Psychiatry consult(and started on Zoloft 50 mg daily ) and intermittent bradycardia with Cardiology consult during her stay. She remained in hospital for observation until she developed chorioamnionitis at 26w3d and underwent repeat delivery which she tolerated well. Her postoperative course was uncomplicated and she met discharge criteria on POD#3. She will follow up with Dr Parisi in two weeks for an incision check and has been given outpatient psychiatry resources. Condition at discharge: Stable Disposition: DC-01 TO HOME OR SELFCARE - Discharge Diagnoses (1) S/P section Status: Acute (2) delivery without spontaneous labor Status: Acute Qualifiers: Fetus number: single or unspecified fetus Qualified Code(s): O60.10X0 - labor with delivery, unspecified trimester, not applicable or unspecified (3) Depression affecting Status: Acute (4) premature rupture of membranes Status: Acute Qualifiers: PROM onset of labor timing: onset of labor more than 24 hours following rupture Qualified Code(s): O42.119 - premature rupture of membranes, onset of labor more than 24 hours following rupture, unspecified trimester (5) Previous section Status: Acute (6) Anemia affecting Status: Acute Qualifiers: Trimester: second trimester Qualified Code(s): O99.012 - Anemia complicating , second trimester Plan - Discharge Medications Prescriptions: Amoxicillin/K Clav Tab [Augmentin 875 mg] 1 tab PO Q12HR #14 tab Docusate Sodium [Colace] 100 mg PO BID PRN #60 capsule PRN Reason: Constipation Ferrous Sulfate [Feosol 325 MG tab] 325 mg PO TID #90 tablet Ibuprofen [Motrin] 800 mg PO Q8HR PRN #30 tablet PRN Reason: Pain oxyCODONE /ACETAMINOPHEN [Percocet 5/325] 1 tab PO Q6HR PRN #30 tablet PRN Reason: Pain Vit-Fe Fumar-FA [ Vitamin] 1 tab PO QDAY #30 tablet Sertraline [Zoloft] 50 mg PO QDAY #30 tablet - Provider Discharge Summary Activity: routine, no sex for 6 weeks, no heavy lifting 4 weeks, no strenuous exercise Diet: routine Instructions: routine Additional instructions: [] Smoking cessation referral if applicable(refer to patient education folder for contact #) [] Refer to [facility] Booklet Call your doctor immediately for: * Fever > 100.5 * Heavy vaginal bleeding ( >1 pad per hour) * Severe persistent headache * Shortness of breath * Reddened, hot, painful area to leg or breast * Drainage or odor from incision. * Keep incision clean and dry at all times and follow doctor's instructions regarding bathing/showering - Follow up plan Follow up: GER PARISI MD [Staff Physician] - 11/18/16 (incision check. Please call to schedule appt. )
--- NOTE | 2016-11-04 11:24 | Progress Note ---
Subjective - Reason for Consult Consult date: 11/04/16 Reason for consult: Psychiatry Follow-up - Chief Complaint Chief complaint: "How are you" This is a 21 yo presenting originally to [facility] for seizure activity. Today patient is calm and cooperative during assessment. She stated that she did not take the benadryl (prn) last night because she wasn't aware she had to ask for it. She stated that she spent time in the NICU with her baby yesterday afternoon. She denies SI/HI's, AVH's, and depression symptoms. Mental Status Exam - Vital signs Last Vital Signs Temp 98.1 F 11/04/16 00:00 Pulse 67 11/04/16 00:00 Resp 20 11/04/16 00:00 BP 112/57 11/04/16 00:00 Pulse Ox 100 11/02/16 18:20 - Exam Narrative exam: MSE: Appearance: calm, cooperative Behavior: good eye contact Speech: regular rate and tone Mood: "better" Affect: euthymic Thought Process: linear Thought Content: denies SI/HI's and AVH's Motor Activity: ambulatory Cognition: A/Ox 3 Insight: fair Judgment: fair Assessment and Plan Impression: Unspecified Mood DO, Possible PTSD. Today patient is calm and cooperative during assessment. She denies SI/HI's. Recommendation/Plan: Continue Zoloft 50 mg PO daily for depression and modified Benadryl 25 mg PO HS for sleep (scheduled). Discussed possible suicidality and medication induced renata reference antidepressants. Patient given outpatient referral for a therapist in her local area. Will follow up with patient until discharge.
[2016-11-04] MEDS: MOTRIN PO PRN ×2 (12:38→22:10)
[2016-11-04] MEDS ORDERED: BENADRYL PO SCH (22:00)
[2016-11-05] MEDS: PERCOCET 5/325 PO PRN ×2 (05:38→10:52)
[2016-11-05 08:34] VITALS: BP 106/54
[2016-11-05] MEDS ORDERED: M-M-R II VACCINE SUB-Q ONE (10:34)
[2016-11-05] MEDS: FEOSOL PO SCH (10:53)
[2016-11-05] MEDS: PRENATAL VITAMIN PO SCH (10:53)
[2016-11-05] MEDS: ZOLOFT PO SCH (10:53)
[2016-11-05] MEDS: LANSINOH TP PRN (11:55)
== END 2016-11-05 13:00 | disposition home or self-care (01) | DRG 765 ==
LOC: TRG 15:09 → LD 15:10 → EEVIPCON 10-07 09:48 → TRG 10-07 09:48 → OB 11-02 18:32
PROVIDERS: ADMIT Obstetrics & Gynecology; ATTEND Obstetrics & Gynecology
PROC: 10D00Z1 Extraction of Products of Conception, Low, Open Approach (ICD-10-PCS; principal; 2016-11-02)
DX: O60.13X0 Preterm labor second trimester with preterm delivery third trimester, not applicable or unspecified (principal); O41.1220 Chorioamnionitis, second trimester, not applicable or unspecified; O99.324 Drug use complicating childbirth; O99.354 Diseases of the nervous system complicating childbirth; O41.02X0 Oligohydramnios, second trimester, not applicable or unspecified; O34.219 Maternal care for unspecified type scar from previous cesarean delivery; N85.8 Other specified noninflammatory disorders of uterus; O32.1XX0 Maternal care for breech presentation, not applicable or unspecified; O14.94 Unspecified pre-eclampsia, complicating childbirth; F12.90 Cannabis use, unspecified, uncomplicated; O99.02 Anemia complicating childbirth; D64.9 Anemia, unspecified; O99.344 Other mental disorders complicating childbirth; F32.9 Major depressive disorder, single episode, unspecified; O32.9XX0 Maternal care for malpresentation of fetus, unspecified, not applicable or unspecified; F41.9 Anxiety disorder, unspecified; O42.112 Preterm premature rupture of membranes, onset of labor more than 24 hours following rupture, second trimester; O09.30 Supervision of pregnancy with insufficient antenatal care, unspecified trimester; Z37.0 Single live birth; Z3A.26 26 weeks gestation of pregnancy; O76 Abnormality in fetal heart rate and rhythm complicating labor and delivery
CPT/HCPCS: 36415; 70544; 70551; 76805; 76815; 76816; 76819; 80053; 80307; 81001; 82140; 82565; 82607; 82962; 83615; 83735; 84443; 84450; 84460; 84550; 85014; 85018; 85025; 86850; 86900; 86901; 87086; 88305; 90471; 90707; 90715; 93005; 93010; 94640; 99211; A6250; G0463; J0290; J0690; J0702; J1170; J1364; J1885; J2060; J2250; J2270; J2405; J2590; J2765; J3010; J3475; J7120

== ENCOUNTER 2017-10-08 15:32 | Emergency (ER) | payer BC ==
[2017-10-08 15:44] VITALS: BP 113/60
[2017-10-08] MEDS ORDERED: ATIVAN ONE (16:10)
[2017-10-08] MEDS ORDERED: ZOFRAN ODT ONE (16:10)
[2017-10-08] MEDS ORDERED: ATIVAN PO ONE (16:15)
[2017-10-08] MEDS ORDERED: ZOFRAN ODT PO ONE (16:17)
--- NOTE | 2017-10-08 16:31 | Emergency Department Report ---
Chief Complaint: Dyspnea/Respdistress Stated Complaint: DIFFICULTY BREATHING Time Seen by Provider: 10/08/17 16:02 - HPI History of Present Illness: Patient is a 22-year-old female who unfortunately just witnessed the of her [id number] child. The child was a systolic in the field and was attempted to be resuscitated here in our emergency department but unfortunately was pronounced . Patient was noted to be very upset and states that she feels as though she may have had a seizure. Patient signed in for evaluation. Patient told triage staff that she couldn't breathe and she feels like after she heard the child was was dated that she collapsed and was worried that she may have had a seizure. - ROS Review of Systems: Patient no longer in the emergency department for review of systems. Please see medical decision making - Exam Vital Signs: Vital Signs 10/08/17 15:39 Temperature 98.7 F Pulse Rate 92 H Respiratory 18 Rate Blood Pressure 113/60 O2 Sat by Pulse 100 Oximetry Physical Exam: Refused MSE screening note: Focused history and physical exam performed. Due to findings the following was ordered: ED Medical Decision Making - Medical Decision Making I was alerted that the mother was very upset and distraught. I was seeing a patient at the time that I was told that the mother was signing in. I struck to the nursing staff to give the patient 1 mg of Ativan as well as 4 mg ODT Zofran for nausea. As I was going in to see the patient the patient was in the hallway walking past me. Patient did not want to be seen and his left emergency department. ED Disposition for MSE Clinical Impression: Grief Disposition: - LEFT AGAINST MED ADVICE Is pt being admited?: No Does the pt Need Aspirin: No Condition: Stable
== END 2017-10-08 16:24 | disposition left against medical advice (07) ==
LOC: ED 15:32
DX: F43.21 Adjustment disorder with depressed mood (principal)
CPT/HCPCS: 93005; 93010; Q0162

== ENCOUNTER → 2017-11-02 20:12 | Emergency (ER) | payer BC | END | disposition left against medical advice (07) | LOC: ED 20:12 | DX: R10.9 Unspecified abdominal pain (principal); Z53.21 Procedure and treatment not carried out due to patient leaving prior to being seen by health care provider ==

== ENCOUNTER 2018-07-07 15:10 | Emergency (ER) | payer BC, MEDICAID, OTHER ==
[2018-07-07 15:29] VITALS: BP 116/56
--- NOTE | 2018-07-07 15:29 | Emergency Department Report ---
Blank Doc - Documentation Documentation: This is a 23-year-old female that headache with bilateral cervical paraspinal pain. Denies any head injuries. Stated had a jerking sensation. Denies any trauma. This initial assessment/diagnostic orders/clinical plan/treatment(s) is/are subject to change based on patient's health status, clinical progression and re- assessment by fellow clinical providers in the ED. Further treatment and workup at subsequent clinical providers discretion. Patient/guardians urged not to elope from the ED as their condition may be serious if not clinically assessed and managed. Initial orders include: 1- Patient sent to [facility] for further evaluation and treatment
[2018-07-07] MEDS ORDERED: IBUPROFEN PO ONE (15:53)
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
== END 2018-07-07 16:15 | disposition home or self-care (01) ==
LOC: ED 15:10
DX: S16.1XXA Strain of muscle, fascia and tendon at neck level, initial encounter (principal); R51 Headache; J45.909 Unspecified asthma, uncomplicated; Z91.011 Allergy to milk products; Z91.018 Allergy to other foods
CPT/HCPCS: 99282

== ENCOUNTER 2018-09-07 08:59 | Emergency (ER) | payer OTHER ==
[2018-09-07 09:06] VITALS: BP 144/57
[2018-09-07 11:42] LABS: Basophils % (Auto) 0.4 % (0.0-1.8); Eosinophils % (Auto) 0.4 % (0.0-4.3); Hematocrit 33.9 % (30.3-42.9); Hemoglobin 10.9 gm/dl (10.1-14.3); Lymphocytes # (Auto) 1.7 K/mm3 (1.2-5.4); Lymphocytes % (Auto) 27.7 % (13.4-35.0); Mean Corpuscular HGB Conc 32 % (30-34); Mean Corpuscular Volume 85 fl (79-97); Monocytes # (Auto) 0.4 K/mm3 (0.0-0.8); Monocytes % (Auto) 7.1 % (0.0-7.3); Platelet Count 220 K/mm3 (140-440); Red Blood Count 4.01 M/mm3 (3.65-5.03)
[2018-09-07 11:52] LABS: Bilirubin,Urine NEG (Negative); Blood,Urine NEG (Negative); Color,Urine Yellow (Yellow); Mucus,Urine 3+ /HPF
[2018-09-07 11:55] LABS: WBC,Urine < 1.0 /HPF (0.0-6.0)
[2018-09-07 11:57] LABS: HCG Qualitative,Urine Negative (Negative)
[2018-09-07 12:02] LABS: BUN/Creatinine Ratio 17; Blood Urea Nitrogen 10 mg/dL (7-17); Calcium 8.7 mg/dL (8.4-10.2); Hemolysis Index 3
--- NOTE | 2018-09-07 12:26 | Emergency Department Report ---
Vomiting/Diarrhea - HPI Chief Complaint: Nausea/Vomiting/Diarrhea Stated Complaint: SICK Time Seen by Provider: 09/07/18 11:12 Duration: 5 Days Severity: mild Nausea/Vomiting Severity: Mild Diarrhea Severity: None Pain Location: Generalized Pain Severity: Mild Symptoms: Yes Able to Tolerate Fluids, Yes Recent Unusual Foods, No Watery Diarrhea, No Bloody diarrhea, No Fever, No Recent Untreated Water, No Recent use of Antibiotics, No Family w/ Similar Symptoms, No Contacts w/ Similar Symptoms, No Rash, No Hematuria, No Recent URI Symptoms Other History: Patient is a 23-year-old female who presents to ED with her boyfriend complaining of abdominal pain for the past 5 days. She admits vomiting, loss of appetite, lower flank pain. Patient states that her last meal she was was yesterday morning while she was at work. ED Review of Systems ROS: Stated complaint: SICK Other details as noted in HPI Comment: All other systems reviewed and negative ED Past Medical Hx - Past Medical History Hx Hypertension: No Hx Congestive Heart Failure: No Hx Diabetes: No Hx Deep Vein Thrombosis: No Hx Renal Disease: No Hx Sickle Cell Disease: No Hx Seizures: Yes Hx Psychiatric Treatment: Yes (depression, anxiety) Hx Asthma: Yes (last episode in 5th grade) Hx COPD: No Hx HIV: No Additional medical history: AKA - Surgical History Additional Surgical History: C/S x2 - Social History Smoking Status: Never Smoker Substance Use Type: None - Medications Home Medications: Home Medications Medication Instructions Recorded Confirmed Last Taken Type Butalb/Acetamin/Caff 50-325-40 1 tab PO Q4H PRN #30 tablet 03/22/17 Unknown Rx [Fioricet] Cyclobenzaprine [Flexeril] 10 mg PO TID PRN #20 tablet 07/07/18 Unknown Rx Ibuprofen 800 mg PO TID 5 Days #15 tablet 07/07/18 Unknown Rx Ondansetron (Nf) [Zofran TAB] 8 mg PO Q8HR #20 tablet 09/07/18 Unknown Rx Vomiting Diarrhea Exam - Exam General: Vital signs noted. No distress. Alert and acting appropriately. HEENT: Yes Moist Mucous Membranes, No Pharyngeal Erythema, No Pharyngeal Exudates, No Rhinorrhea, No Conjuctival Injection, No Frontal Tenderness, No Maxillary Tenderness Neck: No Adenopathy, No Rigidity Lungs: Yes Clear Lung Sounds, Yes Good Air Exchange, No Wheezes, No Stridor, No Cough, No Nasal Flaring, No Retractions, No Use of Accessory Muscles Heart exam: Regular: Yes, Murmur: No, Tachycardia: No Abdomen: Tenderness: No, Peritoneal Signs: No, Distention: No, Hyperactive Bowel sounds: No Skin exam: Rash: No, Edema: No, Normal turgor: Yes Neurologic: Alert and oriented, no deficits. Musculoskeletal: Unremarkable. ED Course Vital Signs 09/07/18 09:03 Temperature 98.4 F Pulse Rate 72 Respiratory 18 Rate Blood Pressure 144/57 O2 Sat by Pulse 100 Oximetry ED Medical Decision Making - Lab Data Result diagrams: 09/07/18 11:34 09/07/18 11:34 - Medical Decision Making 23-year-old female presents with mild gastroenteritis. There was no episode of vomiting with diarrhea in the ED Patient received Zofran in the ED for nausea All labs within normal limits. Discussed with patient's lab results. Discussed to follow up with her primary care physician. Patient is in no acute distress she is resting comfortably in bed. Critical care attestation.: If time is entered above; I have spent that time in minutes in the direct care of this critically ill patient, excluding procedure time. ED Disposition Clinical Impression: Gastroenteritis Disposition: DC-01 TO HOME OR SELFCARE Is pt being admited?: No Does the pt Need Aspirin: No Condition: Stable Instructions: Gastroenteritis (ED), Acute Nausea and Vomiting (ED) Additional Instructions: Make sure to follow up with the primary care physician as discussed. Take all your medications as you've been prescribed. If you have any worsening symptoms or develop new symptoms please return to ED immediately. Prescriptions: Ondansetron (Nf) [Zofran TAB] 8 mg PO Q8HR #20 tablet Referrals: HOLA MELGAR MD [Primary Care Provider] - 3-5 Days Forms: Accompanied Note, Work/School Release Form(ED) Time of Disposition: 13:23
== END 2018-09-07 13:35 | disposition home or self-care (01) ==
LOC: ED 08:59
DX: K52.9 Noninfective gastroenteritis and colitis, unspecified (principal); F32.9 Major depressive disorder, single episode, unspecified; F41.9 Anxiety disorder, unspecified; J45.909 Unspecified asthma, uncomplicated; Z91.018 Allergy to other foods; Z91.011 Allergy to milk products
CPT/HCPCS: 36415; 80048; 81001; 81025; 85025

== ENCOUNTER 2019-02-15 12:25 | Emergency (ER) | payer SELFPAY ==
[2019-02-15 12:53] VITALS: BP 106/60
== END 2019-02-15 14:40 | disposition left against medical advice (07) ==
LOC: ED 12:25
DX: M25.512 Pain in left shoulder (principal); Z53.21 Procedure and treatment not carried out due to patient leaving prior to being seen by health care provider